=== PATIENT | female | born 1945 | race Caucasian/White ===

== ENCOUNTER 2016-08-13 13:04 | Emergency (ER) | payer MEDICARE ==
[2016-08-13] MEDS ORDERED: OXYMETAZOLINE HCL 0.05% NASAL SPRAY 15 ML BOTTLE ONE (14:28)
--- NOTE | 2016-08-13 15:32 | ER Document Report ---
ED General - General Chief Complaint: Nose Bleed Stated Complaint: NOSE BLEED Notes: She is a 70-year-old female who presents with a nosebleed. She does take Plavix. States that the bleeding started spontaneously and was initially controlled by direct pressure and oxymetazoline as assisted by EMS. She denies any lightheadedness, weakness or numbness after the bleeding and notes that the bleeding has been stopped approximately 20 minutes prior to my assessment. No history of similar symptoms in the past. She is not seeing her primary care physician regarding today's concerns. Nothing was noted to worsen the bleeding. She denies any trauma to the nose. TRAVEL OUTSIDE OF THE [place] IN LAST 30 DAYS: No - Related Data Allergies/Adverse Reactions: codeine [Codeine] Allergy (Verified 07/24/14 10:46) Generalized Itching Shellfish * [Shellfish] Allergy (Verified 07/24/14 10:46) Past Medical History - General Information source: Patient - Social History Smoking Status: Never Smoker Frequency of alcohol use: None Drug Abuse: None Lives with: Family Family History: Reviewed & Not Pertinent - Past Medical History Cardiac Medical History: Reports: Hx Hypertension Denies: Hx Heart Attack Pulmonary Medical History: Denies: Hx Asthma Neurological Medical History: Reports: Hx Cerebrovascular Accident - Left hemiparesis/wheelchair. Denies: Hx Seizures Endocrine Medical History: Reports: Hx Diabetes Mellitus Type 2 GI Medical History: Denies: Hx Hepatitis, Hx Hiatal Hernia, Hx Ulcer Psychiatric Medical History: Reports: Hx Depression Infectious Medical History: Denies: Hx Hepatitis Past Surgical History: Reports: Hx Cardiac Surgery - Stent placed. Denies: Hx Mastectomy, Hx Open Heart Surgery, Hx Pacemaker - Immunizations Hx Pneumococcal Vaccination: 08/03/12 Review of Systems - Review of Systems Notes: Constitutional: Negative for fever. HENT: Negative for sore throat. Positive for left-sided nosebleed Eyes: Negative for visual changes. Cardiovascular: Negative for chest pain. Respiratory: Negative for shortness of breath. Gastrointestinal: Negative for abdominal pain, vomiting or diarrhea. Genitourinary: Negative for dysuria. Musculoskeletal: Negative for back pain. Skin: Negative for rash. Neurological: Negative for headaches, weakness or numbness. 10 point ROS negative except as marked above and in HPI. Physical Exam - Vital signs Vitals: Temp Pulse Resp BP Pulse Ox 98.1 F 72 18 101/49 L 100 01/11/17 13:09 08/13/16 13:09 08/13/16 13:09 08/13/16 13:09 08/13/16 13:09 Interpretation: Normal Notes: PHYSICAL EXAMINATION: GENERAL: Well-appearing, well-nourished and in no acute distress. HEAD: Atraumatic, normocephalic. EYES: Pupils equal round and reactive to light, extraocular movements intact, sclera anicteric, conjunctiva are normal. ENT: No active bleeding from either nostril. There is a small clot in the left nare. NECK: Normal range of motion, supple without lymphadenopathy LUNGS: Breath sounds clear to auscultation bilaterally and equal. No wheezes rales or rhonchi. HEART: Regular rate and rhythm without murmurs ABDOMEN: Soft, nontender, normoactive bowel sounds. No guarding, no rebound. No masses appreciated. EXTREMITIES: Normal range of motion, no pitting or edema. No cyanosis. NEUROLOGICAL: No focal neurological deficits. Moves all extremities spontaneously and on command. PSYCH: Normal mood, normal affect. SKIN: Warm, Dry, normal turgor, no rashes or lesions noted. Course - Re-evaluation Re-evalutation: 08/13/16 23:14 Patient presents with a nosebleed, no active bleeding at time of initial assessment. No tachycardia or hypotension. Patient was observed in the emergency department after further administration of oxymetazoline and direct pressure for 1.5 hours without any further bleeding. She was able to ambulate without difficulty and has tolerated oral intake. No indication for labs at this time given patient's well appearance and reassuring vitals.At this time will discharge with return precautions and follow-up recommendations. Verbal discharge instructions given a the bedside and opportunity for questions given. Medication warnings reviewed. Patient is in agreement with this plan and has verbalized understanding of return precautions and the need for primary care follow-up in the next 24-72 hours. - Vital Signs Vital signs: Temp Pulse Resp BP Pulse Ox 97.3 F 67 18 113/67 98 08/13/16 15:45 08/13/16 15:45 08/13/16 15:45 08/13/16 15:45 08/13/16 15:45 Discharge - Discharge Clinical Impression: Bleeding from the nose Condition: Good Disposition: HOME, SELF-CARE Additional Instructions: You were seen today for a nosebleed. If this restarts please apply direct pressure to the area for 15 minutes without releasing pressure. You can use 4- 5 sprays the Afrin (oxymetazoline) spray that was given to you here in the emergency room into the affected side prior to applying the pressure. You need to apply vasaline or a similar product along the inside of the side of the nose that is bleeding twice daily to help heal the inside of your nose. Please return to emergency department if these measures do not control the bleeding. Please also return if you pass out, have significant pain of the nose or face, or any other symptoms that are concerning to you. Your primary care doctor regarding today's visit.it. Referrals: ETHEL BURDEN MD [Primary Care Provider] - Follow up as needed
[2016-08-13 16:13] VITALS: BP 113/67
[2016-08-13] MEDS ORDERED: OXYMETAZOLINE HCL 0.05% NASAL SPRAY 15 ML BOTTLE NASL ONE (16:25)
== END 2016-08-13 16:00 | disposition home or self-care (01) ==
LOC: ER 13:04
DX: R04.0 Epistaxis (principal); I10 Essential (primary) hypertension; E11.9 Type 2 diabetes mellitus without complications; Z79.02 Long term (current) use of antithrombotics/antiplatelets; Z88.5 Allergy status to narcotic agent; Z91.013 Allergy to seafood; Z86.73 Personal history of transient ischemic attack (TIA), and cerebral infarction without residual deficits; Z98.61 Coronary angioplasty status
CPT/HCPCS: 99283

== ENCOUNTER 2017-04-15 16:06 | Inpatient (IN) | payer MEDICARE ==
[2017-04-15] MEDS ORDERED: DEXTROSE 50%-WATER 25 GM/50 ML DISP.SYRIN IV ONE ×2 (16:23→16:42)
[2017-04-15 16:52] LABS: VENOUS BLOOD BASE EXCESS -4.7 mmol/L; VENOUS BLOOD HCO3 20.4 mmol/L (20-32); VENOUS BLOOD PCO2 37.6 mmHg (35-63); VENOUS BLOOD PH 7.35 (7.30-7.42)
[2017-04-15 16:55] LABS: PROTHROMBIN TIME 19.9 SEC (11.4-15.4)
[2017-04-15 16:59] LABS: HEMATOCRIT 31.6 % (36.0-47.0); HEMOGLOBIN 10.1 g/dL (12.0-15.5); HGB HCT DIFFERENCE -1.3; MEAN CORPUSCULAR HEMOGLOBIN 25.3 pg (27.0-33.4); MEAN CORPUSCULAR VOLUME 79 fl (80-97); RED BLOOD COUNT 3.99 10^6/uL (3.72-5.28); RED CELL DISTRIBUTION WIDTH 21.3 % (11.5-14.0)
--- NOTE | 2017-04-15 17:00 | RADIOLOGY REPORT (SQ) ---
EXAM DESCRIPTION: CHEST SINGLE VIEW COMPLETED DATE/TIME: 04/15/2017 4:24 pm REASON FOR STUDY: suspected sepsis COMPARISON: 04/04/2016 EXAM PARAMETERS: NUMBER OF VIEWS: One view. TECHNIQUE: Single frontal radiographic view of the chest acquired. RADIATION DOSE: NA LIMITATIONS: None. FINDINGS: LUNGS AND PLEURA: No opacities, masses or pneumothorax. No pleural effusion. MEDIASTINUM AND HILAR STRUCTURES: No masses. Contour normal. HEART AND VASCULAR STRUCTURES: Heart normal in size. Normal vasculature. BONES: No acute findings. HARDWARE: None in the chest. OTHER: No other significant finding. IMPRESSION: NO ACUTE RADIOGRAPHIC FINDING IN THE CHEST. TECHNICAL DOCUMENTATION: JOB ID: [id number]
[2017-04-15] MEDS ORDERED: NORMAL SALINE 500 ML IV ONE (17:03)
--- NOTE | 2017-04-15 17:09 | ER Document Report ---
ED General - General Chief Complaint: Low Blood Sugar Stated Complaint: WEAKNESS Time Seen by Provider: 04/15/17 16:34 Notes: 71-year-old female with history of diabetes presents with multiple complaints. She lives alone basically is not getting up at all due to weakness of her lower extremities as well as pain in her legs. She has been dealing with dry skin and red legs for quite a while now. She has had decreased p.o. intake. No fever. She has generalized weakness otherwise. She has not really been getting up now for approximately 5 days. She did receive food and a 700 mL bolus of normal saline by EMS. Her blood pressure was 98/57 on arrival. Blood sugar was 54 initially upon EMS arrival as well and she was noted to be slightly confused. TRAVEL OUTSIDE OF THE [place] IN LAST 30 DAYS: No - Related Data Allergies/Adverse Reactions: codeine [Codeine] Allergy (Verified 07/24/14 10:46) Generalized Itching Shellfish * [Shellfish] Allergy (Verified 07/24/14 10:46) Past Medical History - Social History Smoking Status: Never Smoker Family History: Reviewed & Not Pertinent Patient has suicidal ideation: No Patient has homicidal ideation: No - Past Medical History Cardiac Medical History: Reports: Hx Hypertension Denies: Hx Heart Attack Pulmonary Medical History: Denies: Hx Asthma Neurological Medical History: Reports: Hx Cerebrovascular Accident - Left hemiparesis/wheelchair. Denies: Hx Seizures Endocrine Medical History: Reports: Hx Diabetes Mellitus Type 2 Renal/ Medical History: Denies: Hx Peritoneal Dialysis GI Medical History: Denies: Hx Hepatitis, Hx Hiatal Hernia, Hx Ulcer Psychiatric Medical History: Reports: Hx Depression Infectious Medical History: Denies: Hx Hepatitis Past Surgical History: Reports: Hx Cardiac Surgery - Stent placed. Denies: Hx Mastectomy, Hx Open Heart Surgery, Hx Pacemaker - Immunizations Hx Pneumococcal Vaccination: 08/03/12 Review of Systems - Review of Systems -: Yes All other systems reviewed and negative Physical Exam - Vital signs Vitals: Pulse Ox 96 04/15/17 16:13 - Notes Notes: GENERAL: VS as per nursing doc. Well-appearing, well-nourished and in no acute distress. HEAD: Atraumatic, normocephalic. EYES: Pupils equal round and reactive to light, extraocular movements intact, sclera anicteric, no conjunctival injection or discharge. ENT: Nares patent, oropharynx clear without exudates, somewhat dry mucous membranes. NECK: Normal range of motion, supple without lymphadenopathy. LUNGS: Breath sounds clear to auscultation bilaterally and equal. No wheezes rales or rhonchi. HEART: Regular rate and rhythm without murmurs. ABDOMEN: Soft, non-tender. EXTREMITIES: Normal range of motion, no calf tenderness, no edema. NEUROLOGICAL: Diffusely weak but nonfocal otherwise, PSYCH: Angry affect SKIN: There is dry flaking skin of the lower extremities with erythema and cellulitic changes more on the right. There is a necrotic ulcer on the heel of the right foot. Course - Re-evaluation Re-evalutation: 04/15/17 18:05 Dr. Rj spain. 04/15/17 19:[address] Raza who has signed out for the day and would like the hospitalist to admit and he will cigar packer and picker tomorrow. 04/15/17 20:[address] Austin. He requests further imaging of the patient's abdomen due to the isolated bilirubin level then call him back. We will obtain a CT without contrast due to her elevated creatinine. Her current blood pressure is 102/58 after 2.5 L of NS in the emergency department. 04/15/17 22:21 04/15/17 23:11 Patient still has low but maintaining blood pressure without pressors with current heart rate 82 and blood pressure 97/51 (61) - Vital Signs Vital signs: Temp Pulse Resp BP Pulse Ox 98.3 F 82 32 H 88/51 L 100 04/15/17 20:45 04/15/17 16:29 04/15/17 22:07 04/15/17 22:07 04/15/17 22:07 - Laboratory Result Diagrams: 04/15/17 16:24 04/15/17 16:24 Laboratory results interpreted by me: 04/15/17 04/15/17 04/15/17 16:15 16:24 16:24 WBC 18.0 H Hgb 10.1 L Hct 31.6 L MCV 79 L MCH 25.3 L RDW 21.3 H Seg Neuts % (Manual) 95 H Band Neutrophils % 1 L Lymphocytes % (Manual) 2 L Monocytes % (Manual) 2 L Abs Neuts (Manual) 17.3 H Abs Lymphs (Manual) 0.4 L PT 19.9 H Sodium Carbon Dioxide BUN Creatinine Est GFR ( Amer) Est GFR (Non-Af Amer) Glucose POC Glucose 51 L Calcium Total Bilirubin Direct Bilirubin AST Albumin Urine Blood Ur Leukocyte Esterase 04/15/17 04/15/17 04/15/17 16:24 16:59 17:54 WBC Hgb Hct MCV MCH RDW Seg Neuts % (Manual) Band Neutrophils % Lymphocytes % (Manual) Monocytes % (Manual) Abs Neuts (Manual) Abs Lymphs (Manual) PT Sodium 133.9 L Carbon Dioxide 17 L BUN 52 H Creatinine 1.72 H Est GFR ( Amer) 35 L Est GFR (Non-Af Amer) 29 L Glucose 140 H POC Glucose 125 H Calcium 8.3 L Total Bilirubin 2.6 H Direct Bilirubin 2.0 H AST 48 H Albumin 2.9 L Urine Blood SMALL H Ur Leukocyte Esterase SMALL H 04/15/17 19:14 WBC Hgb Hct MCV MCH RDW Seg Neuts % (Manual) Band Neutrophils % Lymphocytes % (Manual) Monocytes % (Manual) Abs Neuts (Manual) Abs Lymphs (Manual) PT Sodium Carbon Dioxide BUN Creatinine Est GFR ( Amer) Est GFR (Non-Af Amer) Glucose POC Glucose 125 H Calcium Total Bilirubin Direct Bilirubin AST Albumin Urine Blood Ur Leukocyte Esterase - Diagnostic Test Radiology reviewed: Image reviewed, Reports reviewed - Nonacute, no clear ostium myelitis. Radiology results interpreted by me: 04/15/17 23:10 CT results show old ascites, small effusions, subcutaneous edema. Critical Care Note - Critical Care Note Total time excluding time spent on procedures (mins): 38 Discharge - Discharge Clinical Impression: Diabetic infection of right foot, Hypotension, Hypoglycemia Condition: Critical Disposition: ADMITTED INPATIENT Admitting Provider: [facility] Admitted: ICU Referrals: ETHEL BURDEN MD [Primary Care Provider] - Follow up as needed
[2017-04-15 17:10] LABS: ALANINE AMINOTRANSFERASE 26 U/L (9-52); ALBUMIN 2.9 g/dL (3.5-5.0); ALKALINE PHOSPHATASE 110 U/L (38-126); ANION GAP 17 (5-19); ASPARTATE AMINO TRANSFERASE 48 U/L (14-36); BILIRUBIN,TOTAL 2.6 mg/dL (0.2-1.3); BLOOD UREA NITROGEN 52 mg/dL (7-20); CALCIUM 8.3 mg/dL (8.4-10.2); CARBON DIOXIDE 17 mmol/L (22-30); CHLORIDE 100 mmol/L (98-107); CREATININE RESULT 1.72 mg/dL (0.52-1.25); GLUCOSE 140 mg/dL (75-110); POTASSIUM 3.8 mmol/L (3.6-5.0); SODIUM 133.9 mmol/L (137-145); TOTAL PROTEIN 6.4 g/dL (6.3-8.2)
[2017-04-15 17:26] LABS: BAND NEUTROPHILS % (MANUAL) 1 % (3-5); BASOPHILS % (MANUAL) 0 % (0-2); EOSINOPHILS % (MANUAL) 0 % (0-6); LYMPHOCYTES % (MANUAL) 2 % (13-45); TOTAL CELLS COUNTED 100; TOXIC GRANULATION 1+; TOXIC VACUOLATION PRESENT
--- NOTE | 2017-04-15 17:26 | RADIOLOGY REPORT (SQ) ---
EXAM DESCRIPTION: FOOT RIGHT COMPLETE COMPLETED DATE/TIME: 04/15/2017 5:18 pm REASON FOR STUDY: Eval for osteo COMPARISON: None. NUMBER OF VIEWS: Three views. TECHNIQUE: AP, lateral and oblique radiographic images acquired of the right foot. LIMITATIONS: None. FINDINGS: MINERALIZATION: Osteopenia. BONES: No fracture dislocation. There are large plantar calcaneal spurs. JOINTS: Degenerative joint changes are present at the 1st metatarsal-phalangeal joint. SOFT TISSUES: No soft tissue swelling. No foreign body. OTHER: No other significant finding. IMPRESSION: Calcaneal spurs with no acute osseous abnormality. Degenerative joint changes as descri bed. TECHNICAL DOCUMENTATION: JOB ID: [id number] [employer]- All Rights Reserved
[2017-04-15 17:27] LABS: BURR CELLS 1+; HYPOCHROMASIA SLIGHT; OVALOCYTES 1+; POIKILOCYTOSIS 2+
[2017-04-15] MEDS ORDERED: PIPERACILLIN/TAZOBACTAM 3.375 GM VIAL IV ONE (17:57)
[2017-04-15] MEDS ORDERED: VANCOMYCIN HCL INJ 1000 MG VIAL IV ONE (17:59)
[2017-04-15 20:26] LABS: APPEARANCE,URINE SLIGHTLY-CLOUDY; BILIRUBIN,URINE NEGATIVE (NEGATIVE); GLUCOSE, URINE NEGATIVE (NEGATIVE); KETONES,URINE NEGATIVE (NEGATIVE); LEUKOCYTE ESTERASE,URINE SMALL (NEGATIVE); NITRITE,URINE NEGATIVE (NEGATIVE); PROTEIN,URINE NEGATIVE (NEGATIVE); URINE SPECIFIC GRAVITY 1.014; UROBILINOGEN,URINE NEGATIVE mg/dL (<2.0)
--- NOTE | 2017-04-15 20:47 | RADIOLOGY REPORT (SQ) ---
EXAM DESCRIPTION: CT ABD/PELVIS NO ORAL OR IV COMPLETED DATE/TIME: 04/15/2017 8:36 pm REASON FOR STUDY: Sepsis, elevated Bili COMPARISON: None. TECHNIQUE: CT scan of the abdomen and pelvis performed without intravenous or oral contrast. Images reviewed with lung, soft tissue, and bone windows. Reconstructed coronal and sagittal MPR images revi ewed. All images stored on PACS. All CT scanners at this facility use dose modulation, iterative reconstruction, and/or weight based d osing when appropriate to reduce radiation dose to as low as reasonably achievable (ALARA). [facility]: Dose Right [facility]: CareDose [facility]: Dose Right [facility]: Teradose 4D [facility]: Smart [employer]School RADIATION DOSE: Up-to-date CT equipment and radiation dose reduction techniques were employed. CTDIv ol: 18.1 mGy. DLP: 993 mGy-cm.mGy. LIMITATIONS: None. FINDINGS: LOWER CHEST: There are small pleural effusions right greater than left. NON-CONTRASTED LIVER, SPLEEN, ADRENALS: There is a small amount of perisplenic fluid. There is a hyp oattenuating lesion in the spleen medially Hounsfield units measure 1 consistent with cyst. PANCREAS: The pancreas is atrophic. GALLBLADDER: There are multiple gallstones. No surrounding edema. RIGHT KIDNEY AND URETER: There is nonspecific right perinephric stranding. No suspicious masses on t his non contrasted study. No significant calcifications. No hydronephrosis or hydroureter. LEFT KIDNEY AND URETER: There is nonspecific left perinephric stranding. No suspicious masses on thi s noncontrast study. No significant calcifications. No hydronephrosis or hydroureter. AORTA AND RETROPERITONEUM: No aneurysm. The aorta demonstrates atherosclerotic change. BOWEL AND PERITONEAL CAVITY: There is a small amount of ascites. GI tract unremarkable. No bowel wa ll thickening or obstruction. APPENDIX: Not visualized. PELVIS, BLADDER, AND ABDOMINAL WALL:There is free fluid in the pelvis. There is diffuse subcutaneous edema. BONES: There are postsurgical changes in the left hip. OTHER: No other significant finding. IMPRESSION: 1. Bilateral pleural effusions right greater than left. 2. Small volume ascites. 3. Subcutaneous edema. COMMENT: Quality ID # [id number]: Final reports with documentation of one or more dose reduction techniques (e.g., Automated exposure control, adjustment of the mA and/or kV according to patient size, use of iterative reconstruction technique) TECHNICAL DOCUMENTATION: JOB ID: [id number] [employer]- All Rights Reserved
[2017-04-15] MEDS ORDERED: NORMAL SALINE 1000 ML 1,000 ML IV ONE (22:20)
[2017-04-15] MEDS ORDERED: ACETAMINOPHEN 325 MG TABLET PO PRN (22:48)
[2017-04-15] MEDS ORDERED: ONDANSETRON HCL INJ/PF 4 MG/2 ML SDV IV PRN (22:48)
[2017-04-15] MEDS ORDERED: MAG HYDROX/AL HYDROX/SIMETH SUSP 30 ML UDCUP PO PRN (22:48)
--- NOTE | 2017-04-15 22:48 | EKG REPORT ---
SEVERITY:- ABNORMAL ECG - SINUS RHYTHM PROBABLE INFERIOR INFARCT, OLD LATERAL LEADS ARE ALSO INVOLVED : Confirmed by: Vanesa Irene 15-Apr-2017 22:47:58
[2017-04-15] MEDS ORDERED: ASPIRIN 325 MG TABLET, ENT COATED PO PRN (22:54)
[2017-04-15] MEDS ORDERED: GLUCAGON,HUMAN RECOMB 1 MG INJ IM PRN (22:56)
[2017-04-15] MEDS ORDERED: DEXTROSE 40% GEL 15 GM TUBE PO PRN ×2 (22:56)
[2017-04-15] MEDS ORDERED: DEXTROSE 50%-WATER 25 GM/50 ML DISP.SYRIN IV PRN ×2 (22:56)
[2017-04-15] MEDS ORDERED: PHYTONADIONE INJ 10 MG/1 ML AMPULE SUBCUT ONE (22:57)
[2017-04-15] MEDS ORDERED: VANCOMYCIN HCL 0 MG in DEXTROSE 5%-WATER 250 ML IV NR (23:00)
[2017-04-15] MEDS ORDERED: NORMAL SALINE 1000 ML 1,000 ML IV SCH (23:00)
[2017-04-16 00:39] LABS: MAGNESIUM 2.2 mg/dL (1.6-2.3); PHOSPHORUS 3.4 mg/dL (2.5-4.5)
[2017-04-16 00:40] LABS: PROTHROMBIN TIME 19.3 SEC (11.4-15.4)
[2017-04-16] MEDS ORDERED: NOREPINEPHRINE BITARTRATE INJ/PF 4 MG/4 ML SDV IV ONE (02:11)
--- NOTE | 2017-04-16 02:43 | PDOC H&P ---
History of Present Illness Admission Date/PCP: 04/15/17 22:48 ETHEL BURDEN, Patient complains of: Severe sepsis, stage IV heel ulcer, diabetes, peripheral artery disease, coronary artery disease. History of Present Illness: SHERITA CAPUTO is a 71 year old female with a past medical history of coronary artery disease with stents on Plavix, CVA with residual right-sided weakness, stage III chronic kidney disease, peripheral artery disease, diabetes , hypertension, dyslipidemia, recurrent bilateral lower extremity cellulitis and decubitus ulcer of left heel. The patient has felt unwell for approximately 5 days poor p.o. intake unable to mobilize from bed. Today she was found by her daughter altered mental status, EMS finds her with hypotension tachycardia receiving an IV fluid bolus brought to the emergency room where she is found to be in severe sepsis. She started on empiric antibiotics continued IV fluid challenge and referred to the hospitalist for admission. Patient denies foot or leg pain despite bilateral lower extremity cellulitis, large right stage IV heel ulcer and dry necrotic appearing digits of the feet bilaterally. The patient accompanied by her daughter admits history of chronic lower extremity ischemia and discussions of possible amputation with jig builder Dr. Conn. Past Medical History Cardiac Medical History: Reports: Coronary Artery Disease, Hypertension, Peripheral Vascular Disease Denies: Myocardial Infarction Pulmonary Medical History: Denies: Asthma Neurological Medical History: Denies: Seizures Endocrine Medical History: Reports: Diabetes Mellitus Type 2 Renal/ Medical History: Reports: Chronic Kidney Disease GI Medical History: Denies: Hepatitis, Hiatal Hernia Psychiatric Medical History: Reports: Depression Hematology: Denies: Anemia, Sickle Cell Disease Past Surgical History Past Surgical History: Denies: Amputation, Mastectomy, Pacemaker Social History Information Source: Patient, [facility] Smoking Status: Never Smoker Frequency of Alcohol Use: None Hx Recreational Drug Use: No Drugs: None Hx Prescription Drug Abuse: No - Advance Directive Resuscitation Status: Full Code Family History Family History: Hypertension Parental Family History Reviewed: Yes Children Family History Reviewed: Yes Sibling(s) Family History Reviewed.: Yes Medication/Allergy Home Medications: Furosemide [Lasix 40 mg Tablet] 40 mg PO DAILY 07/24/14 Glipizide [Glipizide Xl] 10 mg PO DAILY 07/24/14 Lisinopril 10 mg PO DAILY 07/24/14 Atorvastatin Calcium 40 mg PO DAILY 04/06/16 Metoprolol Succinate 100 mg PO DAILY 04/06/16 Acetaminophen [Tylenol 325 mg Tablet] 650 mg PO Q4HP PRN #0 tablet 04/08/16 Amox Tr/Potassium Clavulanate [Augmentin "500" Tablet] 1 tab PO Q8 #30 tablet 04/08/16 Aspirin [Ecotrin 325 mg EC Tablet] 325 mg PO DAILY PRN #0 tabec 04/08/16 Clopidogrel Bisulfate [Plavix 75 mg Tablet] 75 mg PO DAILY #0 tablet 04/08/16 Docusate Sodium [Colace 100 mg Capsule] 100 mg PO DAILY #0 capsule 04/08/16 Ferrous Sulfate [Feosol 325 mg Tablet] 325 mg PO BIDPCBS #120 tablet 04/08/16 Metoprolol Tartrate [Lopressor 100 mg Tablet] 100 mg PO Q12 #0 tablet 04/08/16 Simvastatin [Zocor 40 mg Tablet] 40 mg PO DAILY #0 tablet 04/08/16 Nitroglycerin [Nitrostat 0.4 mg (1/150 Gr) Tabs 25/Bottle] 1 tab SL Q5MP PRN Allergies/Adverse Reactions: codeine [Codeine] Allergy (Verified 07/24/14 10:46) Generalized Itching Shellfish * [Shellfish] Allergy (Verified 07/24/14 10:46) Review of Systems ROS unobtainable: Due to mental status Constitutional: ABSENT: chills, fever(s), headache(s), weight gain, weight loss Eyes: ABSENT: visual disturbances Ears: ABSENT: hearing changes Cardiovascular: ABSENT: chest pain, dyspnea on exertion, edema, orthropnea, palpitations Respiratory: ABSENT: cough, hemoptysis Gastrointestinal: ABSENT: abdominal pain, constipation, diarrhea, hematemesis, hematochezia, nausea, vomiting Genitourinary: ABSENT: dysuria, hematuria Musculoskeletal: ABSENT: joint swelling Integumentary: ABSENT: rash, wounds Neurological: ABSENT: abnormal gait, abnormal speech, confusion, dizziness, focal weakness, syncope Psychiatric: ABSENT: anxiety, depression, homidical ideation, suicidal ideation Endocrine: ABSENT: cold intolerance, heat intolerance, polydipsia, polyuria Hematologic/Lymphatic: ABSENT: easy bleeding, easy bruising Physical Exam Vital Signs: Temp Pulse Resp BP Pulse Ox 98.1 F 76 30 H 91/52 L 95 04/16/17 01:34 04/16/17 02:00 04/16/17 02:01 04/16/17 02:00 04/16/17 02:01 Intake & Output 04/14/17 04/15/17 04/16/17 11:59 11:59 11:59 Output Total 100 Balance -100 Weight 84.5 kg General appearance: PRESENT: cooperative, disheveled, severe distress, thin, other - Acutely toxic appearing with temporal wasting with cachexia. Head exam: PRESENT: atraumatic, normocephalic Eye exam: PRESENT: conjunctiva pink, EOMI, PERRLA. ABSENT: scleral icterus Ear exam: PRESENT: normal external ear exam Mouth exam: PRESENT: dry mucosa Neck exam: ABSENT: carotid bruit, JVD, lymphadenopathy, thyromegaly Respiratory exam: PRESENT: clear to auscultation lenore. ABSENT: rales, rhonchi, wheezes Cardiovascular exam: PRESENT: RRR. ABSENT: diastolic murmur, rubs, systolic murmur Pulses: PRESENT: other - Nonpalpable lower extremity pulses Doppler ordered Vascular exam: PRESENT: pallor GI/Abdominal exam: PRESENT: normal bowel sounds, soft. ABSENT: distended, guarding, mass, organolmegaly, rebound, tenderness Rectal exam: PRESENT: deferred Extremities exam: PRESENT: calf tenderness, +1 edema - Chronic changes of arterial and vascular ischemia. Hyperkeratosis and erythema to the knees bilaterally, right sided stage IV heel ulcer with eschar Neurological exam: PRESENT: altered, CN II-XII grossly intact Psychiatric exam: PRESENT: normal mood, unusual affect. ABSENT: homicidal ideation, suicidal ideation Skin exam: PRESENT: other - Chronic changes of arterial and vascular ischemia. Hyperkeratosis and erythema to the knees bilaterally, right sided stage IV heel ulcer with eschar Adult Front & Back Image: 1 - Chronic changes of arterial and vascular ischemia. Hyperkeratosis and erythema to the knees bilaterally, right sided stage IV heel ulcer with eschar 2 - Chronic changes of arterial and vascular ischemia. Hyperkeratosis and erythema to the knees bilaterally, right sided stage IV heel ulcer with eschar Results Impressions: Chest X-Ray 04/15/17 16:10 IMPRESSION: NO ACUTE RADIOGRAPHIC FINDING IN THE CHEST. Foot X-Ray 04/15/17 16:57 IMPRESSION: Calcaneal spurs with no acute osseous abnormality. Degenerative joint changes as described. Abdomen/Pelvis CT 04/15/17 20:09 IMPRESSION: 1. Bilateral pleural effusions right greater than left. 2. Small volume ascites. 3. Subcutaneous edema. Assessment & Plan - Diagnosis (1) Severe sepsis Is this a current diagnosis for this admission?: Yes Plan: Most likely secondary to necrotic right heel ulcer and lower extremity cellulitis. Empiric antibiotics of vancomycin and Zosyn initiated IV fluid challenge and levo fed ordered. Orthopedic surgery consulted. CT abdomen and pelvis and physical exam suggests subcutaneous emphysema of the abdominal wall. No clear source empiric antibiotics initiated. (2) Chronic renal failure Is this a current diagnosis for this admission?: Yes Plan: Aggressive resuscitation of blood pressure and septic state avoiding nephrotoxic meds and doses reevaluation of chemistry. (3) Severe peripheral arterial disease Is this a current diagnosis for this admission?: Yes Plan: Lower extremity Dopplers ordered, orthopedic surgery consulted (4) Diabetic infection of right foot Is this a current diagnosis for this admission?: Yes Plan: Doubtful improvement with limited debridement given surrounding changes and chronicity, empiric antibiotics initiated, orthopedic surgery consulted (5) Hypotension Is this a current diagnosis for this admission?: Yes Plan: Secondary to #1 - Time Time Spent: 50 to 70 Minutes - Inpatient Certification Medical Necessity: Need Close Monitoring Due to Risk of Patient Decompensation
[2017-04-16] MEDS ORDERED: PHYTONADIONE INJ 10 MG/1 ML AMPULE ONE (02:44)
[2017-04-16] MEDS: PIPERACILLIN/TAZOBACTAM 3.375 GM VIAL IV PRN ×2 (02:53→06:35)
[2017-04-16] MEDS: PIPERACILLIN SODIUM/TAZOBACTAM 3.375 GM in NORMAL SALINE 100 ML IV SCH ×2 (02:54→06:35)
[2017-04-16 04:04] LABS: HEMOGLOBIN 10.6 g/dL (12.0-15.5); HGB HCT DIFFERENCE -1.2; MEAN CORPUSCULAR HEMOGLOBIN 25.5 pg (27.0-33.4); MEAN CORPUSCULAR HGB CONC 32.2 g/dL (32.0-36.0); MEAN CORPUSCULAR VOLUME 79 fl (80-97); RED BLOOD COUNT 4.17 10^6/uL (3.72-5.28); RED CELL DISTRIBUTION WIDTH 21.3 % (11.5-14.0); WHITE BLOOD COUNT 25.4 10^3/uL (4.0-10.5)
[2017-04-16 04:24] LABS: ANION GAP 15 (5-19); BLOOD UREA NITROGEN 54 mg/dL (7-20); CALCIUM 8.2 mg/dL (8.4-10.2); CARBON DIOXIDE 14 mmol/L (22-30); CHLORIDE 106 mmol/L (98-107); CREATININE RESULT 1.76 mg/dL (0.52-1.25); GLUCOSE 118 mg/dL (75-110); POTASSIUM 3.9 mmol/L (3.6-5.0); SODIUM 135.3 mmol/L (137-145)
[2017-04-16 04:38] LABS: BAND NEUTROPHILS % (MANUAL) 3 % (3-5); BASOPHILS % (MANUAL) 0 % (0-2); EOSINOPHILS % (MANUAL) 0 % (0-6); LYMPHOCYTES % (MANUAL) 0 % (13-45); TOTAL CELLS COUNTED 100
[2017-04-16 04:40] LABS: HYPOCHROMASIA 1+; MICROCYTOSIS SLIGHT; TOXIC GRANULATION 2+
[2017-04-16 04:41] LABS: ACANTHOCYTES SLIGHT; ANISOCYTOSIS 3+; BURR CELLS 1+; OVALOCYTES 1+; POIKILOCYTOSIS 2+
[2017-04-16] MEDS: HEPARIN SOD (PORCINE) 5,000 UNIT/ML 1 ML SYRINGE SUBCUT SCH ×3 (05:24→21:38)
[2017-04-16] MEDS ORDERED: CIPROFLOXACIN 400 MG/D5W RTU 400 MG/200 ML RTUPB IV SCH (06:00)
--- NOTE | 2017-04-16 06:42 | PDOC CONSULTATION ---
Consultation Consult Date: 04/16/17 Consult reason:: Right lower extremity cellulitis/calcaneal ulcer History of Present Illness Admission Date/PCP: 04/15/17 22:48 ETHEL BURDEN, History of Present Illness: Patient is a 71-year-old white female who has been nonambulatory for the last 12 years since a cerebrovascular accident. She mobilizes by chair. She has developed a right calcaneal ulcer this been treated by Dr. Conn. Dr. Conn has recommended below-knee amputation the patient has resisted. She now presents because of progressive decline and was found to have a white count of 25,000. Patient is admitted to the intensive care unit and orthopedics was consulted for calcaneal ulcer management Past Medical History Cardiac Medical History: Reports: Coronary Artery Disease, Hypertension, Peripheral Vascular Disease Denies: Myocardial Infarction Pulmonary Medical History: Denies: Asthma Neurological Medical History: Denies: Seizures Endocrine Medical History: Reports: Diabetes Mellitus Type 2 Renal/ Medical History: Reports: Chronic Kidney Disease GI Medical History: Denies: Hepatitis, Hiatal Hernia Psychiatric Medical History: Reports: Depression Hematology: Denies: Anemia, Sickle Cell Disease Past Surgical History Past Surgical History: Denies: Amputation, Mastectomy, Pacemaker Social History Information Source: Patient, [facility] Records Smoking Status: Never Smoker Frequency of Alcohol Use: None Hx Recreational Drug Use: No Drugs: None Hx Prescription Drug Abuse: No - Advance Directive Resuscitation Status: Full Code Family History Family History: Hypertension Parental Family History Reviewed: No Children Family History Reviewed: No Sibling(s) Family History Reviewed.: No Medication/Allergy Home Medications: Furosemide [Lasix 40 mg Tablet] 40 mg PO DAILY 07/24/14 Glipizide [Glipizide Xl] 10 mg PO DAILY 07/24/14 Lisinopril 10 mg PO DAILY 07/24/14 Atorvastatin Calcium 40 mg PO DAILY 04/06/16 Metoprolol Succinate 100 mg PO DAILY 04/06/16 Acetaminophen [Tylenol 325 mg Tablet] 650 mg PO Q4HP PRN #0 tablet 04/08/16 Amox Tr/Potassium Clavulanate [Augmentin "500" Tablet] 1 tab PO Q8 #30 tablet 04/08/16 Aspirin [Ecotrin 325 mg EC Tablet] 325 mg PO DAILY PRN #0 tabec 04/08/16 Clopidogrel Bisulfate [Plavix 75 mg Tablet] 75 mg PO DAILY #0 tablet 04/08/16 Docusate Sodium [Colace 100 mg Capsule] 100 mg PO DAILY #0 capsule 04/08/16 Ferrous Sulfate [Feosol 325 mg Tablet] 325 mg PO BIDPCBS #120 tablet 04/08/16 Metoprolol Tartrate [Lopressor 100 mg Tablet] 100 mg PO Q12 #0 tablet 04/08/16 Simvastatin [Zocor 40 mg Tablet] 40 mg PO DAILY #0 tablet 04/08/16 Nitroglycerin [Nitrostat 0.4 mg (1/150 Gr) Tabs 25/Bottle] 1 tab SL Q5MP PRN Allergies/Adverse Reactions: codeine [Codeine] Allergy (Verified 07/24/14 10:46) Generalized Itching Shellfish * [Shellfish] Allergy (Verified 07/24/14 10:46) Review of Systems All systems: as per PMH Physical Exam Vital Signs: Temp Pulse Resp BP Pulse Ox 36.9 C 78 29 H 90/53 L 93 04/16/17 04:00 04/16/17 05:39 04/16/17 06:01 04/16/17 06:01 04/16/17 06:01 Intake & Output 04/14/17 04/15/17 04/16/17 06:59 06:59 06:59 Intake Total 1044 Output Total 142 Balance 902 Weight 84.5 kg General appearance: PRESENT: no acute distress Head exam: PRESENT: normocephalic Respiratory exam: PRESENT: unlabored Cardiovascular exam: PRESENT: RRR Pulses: PRESENT: +1 pedal pulses bilateral Vascular exam: PRESENT: normal capillary refill GI/Abdominal exam: PRESENT: soft Rectal exam: PRESENT: deferred Extremities exam: PRESENT: other - Right lower extremity elevated on pillow. There is erythema that extends to just distal to the knee joint. There is induration and tenderness. There is chronic skin changes. There is a calcaneal ulcer on the posterior aspect. There is diffuse edema throughout the foot and toes. There is a palpable pulse. There is capillary refill. Motor function to the great toe is intact. Sensory function is subjectively decreased. Neurological exam: PRESENT: alert, awake, oriented to person, oriented to place , oriented to time, oriented to situation. ABSENT: motor sensory deficit Psychiatric exam: PRESENT: anxious, appropriate affect. ABSENT: homicidal ideation, suicidal ideation Results Laboratory Results: 04/16/17 03:57 04/16/17 03:57 04/16/17 04/16/17 03:57 03:57 WBC 25.4 H RBC 4.17 Hgb 10.6 L Hct 33.0 L MCV 79 L MCH 25.5 L MCHC 32.2 RDW 21.3 H Plt Count 222 Seg Neutrophils % Not Reportable Lymphocytes % Not Reportable Monocytes % Not Reportable Eosinophils % Not Reportable Basophils % Not Reportable Absolute Neutrophils Not Reportable Absolute Lymphocytes Not Reportable Absolute Monocytes Not Reportable Absolute Eosinophils Not Reportable Absolute Basophils Not Reportable Sodium 135.3 L Potassium 3.9 Chloride 106 Carbon Dioxide 14 L Anion Gap 15 BUN 54 H Creatinine 1.76 H Est GFR ( Amer) 35 L Est GFR (Non-Af Amer) 29 L Glucose 118 H Calcium 8.2 L Impressions: Chest X-Ray 04/15/17 16:10 IMPRESSION: NO ACUTE RADIOGRAPHIC FINDING IN THE CHEST. Foot X-Ray 04/15/17 16:57 IMPRESSION: Calcaneal spurs with no acute osseous abnormality. Degenerative joint changes as described. Abdomen/Pelvis CT 04/15/17 20:09 IMPRESSION: 1. Bilateral pleural effusions right greater than left. 2. Small volume ascites. 3. Subcutaneous edema. Status: Imported from PACS Assessment & Plan - Diagnosis (1) Diabetic infection of right foot Is this a current diagnosis for this admission?: Yes Plan: 71-year-old white female who is nonambulatory and relies on a wheelchair. She is now admitted with a septic picture although her hemodynamics at the current time are not compromised. She has an elevated white count of 25,000 presumably emanates from her right lower extremity cellulitis and ulcer. I recommended the patient consider below-knee amputation. I think this will do little if anything to interfere with her function and allow her to rapidly resolve the current septic episode and future episodes. The patient states "this is not something you just jump into". Of explained to her that I think her function will be much better without the leg and that it would alleviate ongoing issues with treatment of the ulcer. In the meantime she is to be placed into a bunny boot to help decrease the pressure on the back of the heel. In light of the patient's resistance to consider surgical options , I recommend that we continue with IV antibiotics and observation. - Time Time Spent: 50 to 70 Minutes Anticipated discharge: SNF Within: Other
[2017-04-16] MEDS ORDERED: ONDANSETRON HCL INJ/PF 4 MG/2 ML SDV IV PRN (07:30)
[2017-04-16] MEDS ORDERED: ACETAMINOPHEN 325 MG TABLET PO PRN (07:30)
[2017-04-16] MEDS ORDERED: MAG HYDROX/AL HYDROX/SIMETH SUSP 30 ML UDCUP PO PRN (08:00)
[2017-04-16] MEDS ORDERED: ASPIRIN 325 MG TABLET, ENT COATED PO PRN (08:18)
[2017-04-16] MEDS: DOCUSATE SODIUM 100 MG CAPSULE PO SCH ×2 (09:55→17:22)
[2017-04-16] MEDS ORDERED: ATORVASTATIN CALCIUM 40 MG TABLET PO SCH (10:00)
--- NOTE | 2017-04-16 11:59 | PDOC PROGRESS REPORT ---
Subjective Progress Note for:: 04/16/17 Subjective:: The patient appears to be doing slightly better. She is awake and oriented. She is not happy about possibly having to be in the hospital and she is not happy with a consideration of below-knee amputation. Long discussion with the patient again about her peripheral arterial disease and the difficulty with healing the ulcer Physical Exam Vital Signs: Temp Pulse Resp BP Pulse Ox 98.4 F 74 30 H 100/57 L 97 04/16/17 04:00 04/16/17 08:00 04/16/17 10:21 04/16/17 10:21 04/16/17 10:21 Intake & Output 04/15/17 04/16/17 04/17/17 06:59 06:59 06:59 Intake Total 1044 Output Total 142 75 Balance 902 -75 Weight 84.5 kg General appearance: PRESENT: severe distress Head exam: PRESENT: atraumatic Eye exam: PRESENT: conjunctival injection Mouth exam: PRESENT: dry mucosa Neck exam: PRESENT: carotid bruit Respiratory exam: PRESENT: clear to auscultation lenore Cardiovascular exam: PRESENT: RRR, +S1, +S2 Pulses: PRESENT: other Vascular exam: PRESENT: pallor GI/Abdominal exam: PRESENT: normal bowel sounds, soft Extremities exam: PRESENT: tenderness, other Musculoskeletal exam: PRESENT: other Neurological exam: PRESENT: alert, awake Psychiatric exam: PRESENT: anxious Skin exam: PRESENT: abrasion, erythema, pallor, skin tears Results Laboratory Results: 04/16/17 03:57 04/16/17 03:57 04/16/17 04/16/17 03:57 03:57 WBC 25.4 H RBC 4.17 Hgb 10.6 L Hct 33.0 L MCV 79 L MCH 25.5 L MCHC 32.2 RDW 21.3 H Plt Count 222 Seg Neutrophils % Not Reportable Lymphocytes % Not Reportable Monocytes % Not Reportable Eosinophils % Not Reportable Basophils % Not Reportable Absolute Neutrophils Not Reportable Absolute Lymphocytes Not Reportable Absolute Monocytes Not Reportable Absolute Eosinophils Not Reportable Absolute Basophils Not Reportable Sodium 135.3 L Potassium 3.9 Chloride 106 Carbon Dioxide 14 L Anion Gap 15 BUN 54 H Creatinine 1.76 H Est GFR ( Amer) 35 L Est GFR (Non-Af Amer) 29 L Glucose 118 H Calcium 8.2 L Impressions: Chest X-Ray 04/15/17 16:10 IMPRESSION: NO ACUTE RADIOGRAPHIC FINDING IN THE CHEST. Foot X-Ray 04/15/17 16:57 IMPRESSION: Calcaneal spurs with no acute osseous abnormality. Degenerative joint changes as described. Abdomen/Pelvis CT 04/15/17 20:09 IMPRESSION: 1. Bilateral pleural effusions right greater than left. 2. Small volume ascites. 3. Subcutaneous edema. Assessment & Plan - Diagnosis (1) Severe sepsis Is this a current diagnosis for this admission?: Yes Plan: Continue with IV fluids. Try to wean off Levophed. Continue with IV antibiotics (2) Bacteremia Is this a current diagnosis for this admission?: Yes Plan: Gram-negative rods. We will continue with IV antibiotics (4) Chronic renal failure Is this a current diagnosis for this admission?: Yes Plan: Continue IV fluids (5) Diabetic infection of right foot Is this a current diagnosis for this admission?: Yes Plan: Surgical and orthopedic evaluation with a consideration for possible amputation
[2017-04-16] MEDS: PIPERACILLIN SODIUM/TAZOBACTAM 3.375 GM in DEXTROSE 5%-WATER 100 ML IV SCH ×3 (13:33→23:57)
[2017-04-16] MEDS: VANCOMYCIN HCL 1,000 MG in DEXTROSE 5%-WATER 250 ML IV SCH (17:17)
[2017-04-16] MEDS: CIPROFLOXACIN 400 MG/D5W RTU 400 MG/200 ML RTUPB IV SCH (17:17)
[2017-04-16] MEDS: NORMAL SALINE 1000 ML 1,000 ML IV PRN (17:22)
[2017-04-16] MEDS: ATORVASTATIN CALCIUM 40 MG TABLET PO SCH (21:44)
[2017-04-17] MEDS: INSULIN LISPRO 100 UNIT/ML 3 ML VIAL SUBCUT PRN (00:04)
[2017-04-17] MEDS: NORMAL SALINE 1000 ML 1,000 ML IV PRN ×4 (00:08→16:34)
[2017-04-17 04:27] LABS: HEMATOCRIT 32.6 % (36.0-47.0); HEMOGLOBIN 10.3 g/dL (12.0-15.5); HGB HCT DIFFERENCE -1.7; MEAN CORPUSCULAR HEMOGLOBIN 25.1 pg (27.0-33.4); MEAN CORPUSCULAR HGB CONC 31.7 g/dL (32.0-36.0); MEAN CORPUSCULAR VOLUME 79 fl (80-97); RED BLOOD COUNT 4.12 10^6/uL (3.72-5.28); WHITE BLOOD COUNT 25.7 10^3/uL (4.0-10.5)
[2017-04-17 04:35] LABS: ANION GAP 13 (5-19); BLOOD UREA NITROGEN 53 mg/dL (7-20); CARBON DIOXIDE 13 mmol/L (22-30); CHLORIDE 109 mmol/L (98-107); GLUCOSE 136 mg/dL (75-110); POTASSIUM 3.1 mmol/L (3.6-5.0); SODIUM 134.8 mmol/L (137-145)
[2017-04-17 04:54] LABS: BAND NEUTROPHILS % (MANUAL) 6 % (3-5); BASOPHILS % (MANUAL) 0 % (0-2); EOSINOPHILS % (MANUAL) 0 % (0-6); LYMPHOCYTES % (MANUAL) 1 % (13-45); TOTAL CELLS COUNTED 100
[2017-04-17 04:55] LABS: TOXIC GRANULATION 1+
[2017-04-17 04:56] LABS: ANISOCYTOSIS 3+; BURR CELLS 1+; MICROCYTOSIS SLIGHT; OVALOCYTES SLIGHT; POIKILOCYTOSIS SLIGHT; TEAR DROP CELLS SLIGHT
[2017-04-17] MEDS: PIPERACILLIN SODIUM/TAZOBACTAM 3.375 GM in DEXTROSE 5%-WATER 100 ML IV SCH ×3 (05:46→17:29)
[2017-04-17] MEDS: CIPROFLOXACIN 400 MG/D5W RTU 400 MG/200 ML RTUPB IV SCH ×2 (05:47→17:30)
[2017-04-17] MEDS: HEPARIN SOD (PORCINE) 5,000 UNIT/ML 1 ML SYRINGE SUBCUT SCH (05:47)
[2017-04-17] MEDS: POTASSIUM CHLORIDE 20 MEQ/50 ML RTU IV SCH ×2 (06:25→08:58)
[2017-04-17] MEDS ORDERED: POTASSIUM CHLORIDE 10 MEQ TABLET.SA PO ONE (07:00)
--- NOTE | 2017-04-17 08:08 | PDOC PROGRESS REPORT ---
Subjective Progress Note for:: 04/17/17 Subjective:: 71-year-old white female with right lower extremity sepsis up to the inferior margin of the right knee. Patient is lying recumbent in the hospital bed and was awakened upon my entry into the room. Patient states that she is having pain in her back as well as the left leg and is most comfortable when it is abducted and externally rotated. Patient's right lower extremity is fully extended and still in bunny boot. She reports that she has not made any progress on her decision about amputating her leg below the knee. Patient's daughter is also in the room. Physical Exam Vital Signs: Temp Pulse Resp BP Pulse Ox 36.5 C 75 31 H 95/51 L 100 04/17/17 02:00 04/16/17 20:15 04/17/17 07:05 04/17/17 07:05 04/17/17 07:05 Intake & Output 04/16/17 04/17/17 04/18/17 06:59 06:59 06:59 Intake Total 1044 5521 Output Total 142 750 Balance 902 4771 Weight 84.5 kg 93.1 kg General appearance: PRESENT: no acute distress, well-developed, well-nourished Head exam: PRESENT: atraumatic, normocephalic Pulses: PRESENT: +2 pedal pulses bilateral Additional comments: Pedal pulses were obtained Via Doppler ultrasound. Extremities exam: PRESENT: tenderness Additional comments: Patient is exquisitely tender to palpation on right lower extremity in all areas. Both lower extremities exhibit significant peripheral vascular disease, skin changes, and edema. There was a line marked on patient's right lower extremity to which the cellulitis extended as of yesterday, however, the erythematous margins have decreased below this line as of this morning. The right lower extremity is still in the bony compression boot and she has limited range of motion. Additional comments: Patient is nonambulatory and reports significant pain whenever she is moved by nursing staff. Neurological exam: PRESENT: altered, oriented to person, oriented to place, motor sensory deficit Additional comments: Patient has suffered a stroke in the past and has both sensory and motor deficits as a result. Psychiatric exam: PRESENT: anxious Skin exam: PRESENT: erythema, mottled, rash, warm Additional comments: Significant cellulitis and peripheral vascular disease noted on bilateral lower extremity's. Results Laboratory Results: 04/17/17 04:07 04/17/17 04:07 04/17/17 04/17/17 04:07 04:07 WBC 25.7 H RBC 4.12 Hgb 10.3 L Hct 32.6 L MCV 79 L MCH 25.1 L MCHC 31.7 L RDW 21.0 H Plt Count 231 Seg Neutrophils % Not Reportable Lymphocytes % Not Reportable Monocytes % Not Reportable Eosinophils % Not Reportable Basophils % Not Reportable Absolute Neutrophils Not Reportable Absolute Lymphocytes Not Reportable Absolute Monocytes Not Reportable Absolute Eosinophils Not Reportable Absolute Basophils Not Reportable Sodium 134.8 L Potassium 3.1 L Chloride 109 H Carbon Dioxide 13 L Anion Gap 13 BUN 53 H Creatinine 1.50 H Est GFR ( Amer) 42 L Est GFR (Non-Af Amer) 34 L Glucose 136 H Calcium 8.0 L Impressions: Chest X-Ray 04/15/17 16:10 IMPRESSION: NO ACUTE RADIOGRAPHIC FINDING IN THE CHEST. Foot X-Ray 04/15/17 16:57 IMPRESSION: Calcaneal spurs with no acute osseous abnormality. Degenerative joint changes as described. Abdomen/Pelvis CT 04/15/17 20:09 IMPRESSION: 1. Bilateral pleural effusions right greater than left. 2. Small volume ascites. 3. Subcutaneous edema. Assessment & Plan - Diagnosis (1) Severe sepsis Is this a current diagnosis for this admission?: Yes Plan: 71-year-old white female with severe sepsis of the right lower extremity below the knee. Although patient's cellulitis is decreasing from the margins that had expanded to previously it is still our recommendation that the patient undergo a below the knee amputation of the right leg. Patient still seems conflicted over this suggestion and has not come to a decision at this point. Patient states that she feels "at this point I do not have a choice". It was reiterated to the patient that she does have a choice yet allowing the leg to remain intact would most likely result in reinfection and rehospitalization. She indicated that she would like to speak with her daughter and may come to a decision later today.
[2017-04-17] MEDS: ASPIRIN 81 MG TABLET, ENT COATED PO SCH (08:56)
[2017-04-17] MEDS: DEXTROSE 5%-WATER 250 ML with NOREPINEPHRINE BITARTRATE 4 MG IV PRN ×2 (08:57)
--- NOTE | 2017-04-17 09:00 | PDOC PROGRESS REPORT ---
Subjective Progress Note for:: 04/17/17 Subjective:: The patient is awake and alert. Her daughter is present at the bedside. Long discussion about amputation. Long discussion and multiple explanation of sepsis coming from that right heel ulcer. Discussed with the patient about the poor circulation. Her and her daughter have a conversation and she finally agrees to have the leg amputated below the knee to trying to preserve and improve the sepsis Physical Exam Vital Signs: Temp Pulse Resp BP Pulse Ox 97.7 F 75 31 H 95/51 L 100 04/17/17 02:00 04/16/17 20:15 04/17/17 07:05 04/17/17 07:05 04/17/17 07:05 Intake & Output 04/16/17 04/17/17 04/18/17 06:59 06:59 06:59 Intake Total 1044 5521 Output Total 142 750 Balance 902 4771 Weight 84.5 kg 93.1 kg General appearance: PRESENT: mild distress Head exam: PRESENT: normocephalic Eye exam: PRESENT: conjunctival injection Neck exam: PRESENT: carotid bruit Respiratory exam: PRESENT: clear to auscultation lenore Cardiovascular exam: PRESENT: RRR, +S1, +S2 Pulses: PRESENT: other Vascular exam: PRESENT: pallor GI/Abdominal exam: PRESENT: normal bowel sounds, soft Extremities exam: PRESENT: tenderness Musculoskeletal exam: PRESENT: tenderness Neurological exam: PRESENT: alert, awake Skin exam: PRESENT: skin tears Results Laboratory Results: 04/17/17 04:07 04/17/17 04:07 04/17/17 04/17/17 04:07 04:07 WBC 25.7 H RBC 4.12 Hgb 10.3 L Hct 32.6 L MCV 79 L MCH 25.1 L MCHC 31.7 L RDW 21.0 H Plt Count 231 Seg Neutrophils % Not Reportable Lymphocytes % Not Reportable Monocytes % Not Reportable Eosinophils % Not Reportable Basophils % Not Reportable Absolute Neutrophils Not Reportable Absolute Lymphocytes Not Reportable Absolute Monocytes Not Reportable Absolute Eosinophils Not Reportable Absolute Basophils Not Reportable Sodium 134.8 L Potassium 3.1 L Chloride 109 H Carbon Dioxide 13 L Anion Gap 13 BUN 53 H Creatinine 1.50 H Est GFR ( Amer) 42 L Est GFR (Non-Af Amer) 34 L Glucose 136 H Calcium 8.0 L Impressions: Chest X-Ray 04/15/17 16:10 IMPRESSION: NO ACUTE RADIOGRAPHIC FINDING IN THE CHEST. Foot X-Ray 04/15/17 16:57 IMPRESSION: Calcaneal spurs with no acute osseous abnormality. Degenerative joint changes as described. Abdomen/Pelvis CT 04/15/17 20:09 IMPRESSION: 1. Bilateral pleural effusions right greater than left. 2. Small volume ascites. 3. Subcutaneous edema. Assessment & Plan - Diagnosis (1) Severe sepsis Is this a current diagnosis for this admission?: Yes Plan: The patient's blood pressure continues to be low. Levophed needed to be increased. The fluids have been increased. Her urine output is still pretty low. (2) Bacteremia Is this a current diagnosis for this admission?: Yes Plan: Gram-negative rods. We will continue with IV antibiotics (3) Acute renal failure superimposed on chronic kidney disease Is this a current diagnosis for this admission?: Yes Plan: We will continue with IV fluids. Because of hypertension we are probably dealing with acute tubular necrosis superimposed on chronic kidney disease (4) Chronic renal failure Is this a current diagnosis for this admission?: Yes Plan: Continue IV fluids (5) Diabetic infection of right foot Is this a current diagnosis for this admission?: Yes Plan: Surgical and orthopedic evaluation with a consideration for possible amputation (7) Peripheral arterial disease Is this a current diagnosis for this admission?: Yes Plan: 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
[2017-04-17] MEDS: GLIPIZIDE XL 5 MG TAB.ER.24 PO SCH (09:04)
[2017-04-17] MEDS: METOPROLOL SUCCINATE 50 MG TAB.SR.24H PO SCH (09:05)
[2017-04-17] MEDS: DOCUSATE SODIUM 100 MG CAPSULE PO SCH ×2 (09:05→17:30)
[2017-04-17] MEDS ORDERED: CLOPIDOGREL BISULFATE 75 MG TABLET PO SCH (10:00)
--- NOTE | 2017-04-17 10:07 | RADIOLOGY REPORT (SQ) ---
EXAM DESCRIPTION: CHEST SINGLE VIEW COMPLETED DATE/TIME: 04/17/2017 9:30 am REASON FOR STUDY: Sepsis COMPARISON: 04/15/2017 EXAM PARAMETERS: NUMBER OF VIEWS: One view. TECHNIQUE: Single frontal radiographic view of the chest acquired. RADIATION DOSE: NA LIMITATIONS: None. FINDINGS: LUNGS AND PLEURA: Small left pleural effusion and associated airspace disease. MEDIASTINUM AND HILAR STRUCTURES: No masses. Contour normal. HEART AND VASCULAR STRUCTURES: Stable cardiomegaly. BONES: No acute findings. HARDWARE: None in the chest. OTHER: No other significant finding. IMPRESSION: Left lower lobe pneumonia or aspiration. TECHNICAL DOCUMENTATION: JOB ID: [id number]
[2017-04-17] MEDS: VANCOMYCIN HCL 1,000 MG in DEXTROSE 5%-WATER 250 ML IV SCH (17:00)
[2017-04-17] MEDS: ATORVASTATIN CALCIUM 40 MG TABLET PO SCH (22:24)
[2017-04-18] MEDS: DEXTROSE 5%-WATER 250 ML with NOREPINEPHRINE BITARTRATE 4 MG IV PRN ×4 (00:50→17:11)
[2017-04-18] MEDS: NORMAL SALINE 1000 ML 1,000 ML IV PRN (00:50)
[2017-04-18] MEDS: PIPERACILLIN SODIUM/TAZOBACTAM 3.375 GM in DEXTROSE 5%-WATER 100 ML IV SCH ×4 (00:51→17:10)
[2017-04-18 04:23] LABS: HEMATOCRIT 33.1 % (36.0-47.0); HEMOGLOBIN 10.6 g/dL (12.0-15.5); HGB HCT DIFFERENCE -1.3; MEAN CORPUSCULAR HEMOGLOBIN 25.5 pg (27.0-33.4); MEAN CORPUSCULAR VOLUME 80 fl (80-97); RED BLOOD COUNT 4.15 10^6/uL (3.72-5.28); RED CELL DISTRIBUTION WIDTH 21.4 % (11.5-14.0)
[2017-04-18 04:29] LABS: BAND NEUTROPHILS % (MANUAL) 3 % (3-5); BASOPHILS % (MANUAL) 0 % (0-2); EOSINOPHILS % (MANUAL) 0 % (0-6); LYMPHOCYTES % (MANUAL) 3 % (13-45); TOTAL CELLS COUNTED 100
[2017-04-18 04:31] LABS: ANISOCYTOSIS 3+; BURR CELLS 1+; HYPOCHROMASIA 1+; MICROCYTOSIS SLIGHT; OVALOCYTES 1+; POIKILOCYTOSIS 2+; TARGET CELLS SLIGHT; TOXIC GRANULATION SLIGHT; TOXIC VACUOLATION PRESENT
[2017-04-18 04:32] LABS: ALANINE AMINOTRANSFERASE 30 U/L (9-52); ALBUMIN 2.2 g/dL (3.5-5.0); ALKALINE PHOSPHATASE 102 U/L (38-126); ANION GAP 11 (5-19); ASPARTATE AMINO TRANSFERASE 55 U/L (14-36); BILIRUBIN,DIRECT 2.8 mg/dL (0.0-0.4); BILIRUBIN,TOTAL 3.4 mg/dL (0.2-1.3); BLOOD UREA NITROGEN 45 mg/dL (7-20); CALCIUM 7.8 mg/dL (8.4-10.2); CARBON DIOXIDE 14 mmol/L (22-30); CHLORIDE 111 mmol/L (98-107); CREATININE RESULT 1.36 mg/dL (0.52-1.25); GLUCOSE 153 mg/dL (75-110); POTASSIUM 3.5 mmol/L (3.6-5.0); SODIUM 135.5 mmol/L (137-145); TOTAL PROTEIN 5.5 g/dL (6.3-8.2)
[2017-04-18 04:35] LABS: WHITE BLOOD COUNT 31.2 10^3/uL (4.0-10.5)
[2017-04-18] MEDS: CIPROFLOXACIN 400 MG/D5W RTU 400 MG/200 ML RTUPB IV SCH ×2 (06:04→17:10)
[2017-04-18] MEDS ORDERED: NORMAL SALINE 250 ML IV ONE (10:00)
--- NOTE | 2017-04-18 10:01 | PDOC PROGRESS REPORT ---
Subjective Progress Note for:: 04/18/17 Subjective:: Complains of pain in the right leg. Physical Exam Vital Signs: Temp Pulse Resp BP Pulse Ox 98.8 F 80 16 96/53 L 100 04/18/17 06:00 04/18/17 08:55 04/18/17 08:55 04/18/17 07:22 04/18/17 08:55 Intake & Output 04/17/17 04/18/17 04/19/17 06:59 06:59 06:59 Intake Total 5521 5923 Output Total 750 420 50 Balance 4771 5503 -50 Weight 93.1 kg 100.2 kg General appearance: PRESENT: mild distress Eye exam: PRESENT: conjunctiva pink. ABSENT: scleral icterus Mouth exam: PRESENT: moist, tongue midline Neck exam: ABSENT: JVD Respiratory exam: PRESENT: clear to auscultation lenore. ABSENT: rales, rhonchi, wheezes Cardiovascular exam: PRESENT: tachycardia. ABSENT: diastolic murmur, rubs, systolic murmur GI/Abdominal exam: PRESENT: normal bowel sounds, soft. ABSENT: distended, guarding, mass, organolmegaly, rebound, tenderness Extremities exam: PRESENT: other - Right leg is tender to palpate. Patient has a right heel with erythema and black eschar present.. ABSENT: calf tenderness, clubbing, pedal edema Neurological exam: PRESENT: alert, awake, oriented to person, oriented to place , oriented to time, oriented to situation, CN II-XII grossly intact. ABSENT: motor sensory deficit Psychiatric exam: PRESENT: anxious Skin exam: PRESENT: other - Patient has erythema in the bilateral lower legs. Both of her legs are cool to touch. The right leg shows a black eschar on the heel with some surrounding purulent drainage and erythema. Patient has erythema to the level of mid calf. Results Laboratory Results: 04/18/17 04:06 04/18/17 04:06 04/18/17 04/18/17 04:06 04:06 WBC 31.2 H* RBC 4.15 Hgb 10.6 L Hct 33.1 L MCV 80 MCH 25.5 L MCHC 32.0 RDW 21.4 H Plt Count 162 Seg Neutrophils % Not Reportable Lymphocytes % Not Reportable Monocytes % Not Reportable Eosinophils % Not Reportable Basophils % Not Reportable Absolute Neutrophils Not Reportable Absolute Lymphocytes Not Reportable Absolute Monocytes Not Reportable Absolute Eosinophils Not Reportable Absolute Basophils Not Reportable Sodium 135.5 L Potassium 3.5 L Chloride 111 H Carbon Dioxide 14 L Anion Gap 11 BUN 45 H Creatinine 1.36 H Est GFR ( Amer) 47 L Est GFR (Non-Af Amer) 38 L Glucose 153 H Calcium 7.8 L Total Bilirubin 3.4 H AST 55 H ALT 30 Alkaline Phosphatase 102 Total Protein 5.5 L Albumin 2.2 L 04/18/17 09:27 Creatine Kinase < 20 L Impressions: Foot X-Ray 04/15/17 16:57 IMPRESSION: Calcaneal spurs with no acute osseous abnormality. Degenerative joint changes as described. Abdomen/Pelvis CT 04/15/17 20:09 IMPRESSION: 1. Bilateral pleural effusions right greater than left. 2. Small volume ascites. 3. Subcutaneous edema. Chest X-Ray 04/17/17 00:00 IMPRESSION: Left lower lobe pneumonia or aspiration. Assessment & Plan - Diagnosis (1) Severe sepsis Is this a current diagnosis for this admission?: Yes Plan: Patient has sepsis from infection in the right leg. The plan is for this to be amputated. She is still requiring IV Levophed for blood pressure support. The patient is on vancomycin, Zosyn, Cipro. Patient's blood cultures are growing out Pasteurella. Urine cultures growing E. coli. (2) Diabetic infection of right foot Is this a current diagnosis for this admission?: Yes (3) Acute renal failure superimposed on chronic kidney disease Is this a current diagnosis for this admission?: Yes Plan: Patient has stage III chronic renal failure. Her creatinine has improved with IV fluids. (4) Hypotension Is this a current diagnosis for this admission?: Yes Plan: Secondary to sepsis. The patient has been getting IV fluids. She does have third spacing. Will ask surgery to place a triple-lumen catheter for access as well as ability to check CVP. We will base our decision whether to give more fluids based on this CVP pressure. (5) Severe peripheral arterial disease Is this a current diagnosis for this admission?: Yes Plan: Patient is to get an amputation of the right leg. - Time Time Spent with patient: 25-34 minutes - Inpatient Certification Medical Necessity: Need for Pain Control, Need for IV Antibiotics
[2017-04-18 10:04] LABS: CREATINE KINASE MB 0.84 ng/mL (<4.55)
[2017-04-18 10:06] LABS: TROPONIN I 0.264 ng/mL
[2017-04-18] MEDS: METOPROLOL SUCCINATE 50 MG TAB.SR.24H PO SCH (10:21)
[2017-04-18] MEDS: DOCUSATE SODIUM 100 MG CAPSULE PO SCH ×2 (10:21→17:11)
[2017-04-18] MEDS: ASPIRIN 81 MG TABLET, ENT COATED PO SCH (10:22)
[2017-04-18] MEDS: GLIPIZIDE XL 5 MG TAB.ER.24 PO SCH (10:23)
--- NOTE | 2017-04-18 11:27 | PDOC PROGRESS REPORT ---
Subjective Progress Note for:: 04/18/17 Physical Exam Vital Signs: Temp Pulse Resp BP Pulse Ox 37.1 C 80 28 H 115/52 L 100 04/18/17 06:00 04/18/17 08:55 04/18/17 10:23 04/18/17 10:23 04/18/17 10:23 Intake & Output 04/17/17 04/18/17 04/19/17 06:59 06:59 06:59 Intake Total 5521 5923 Output Total 750 420 200 Balance 4771 5503 -200 Weight 93.1 kg 100.2 kg General appearance: PRESENT: mild distress Results Laboratory Results: 04/18/17 04:06 04/18/17 04:06 04/18/17 04/18/17 04/18/17 04:06 04:06 09:27 WBC 31.2 H* RBC 4.15 Hgb 10.6 L Hct 33.1 L MCV 80 MCH 25.5 L MCHC 32.0 RDW 21.4 H Plt Count 162 Seg Neutrophils % Not Reportable Lymphocytes % Not Reportable Monocytes % Not Reportable Eosinophils % Not Reportable Basophils % Not Reportable Absolute Neutrophils Not Reportable Absolute Lymphocytes Not Reportable Absolute Monocytes Not Reportable Absolute Eosinophils Not Reportable Absolute Basophils Not Reportable Sodium 135.5 L Potassium 3.5 L Chloride 111 H Carbon Dioxide 14 L Anion Gap 11 BUN 45 H Creatinine 1.36 H Est GFR ( Amer) 47 L Est GFR (Non-Af Amer) 38 L Glucose 153 H Calcium 7.8 L Magnesium 1.9 Total Bilirubin 3.4 H AST 55 H ALT 30 Alkaline Phosphatase 102 Total Protein 5.5 L Albumin 2.2 L 04/18/17 04/18/17 04/18/17 09:27 09:27 09:27 Creatine Kinase < 20 L CK-MB (CK-2) 0.84 Troponin I 0.264 NT-Pro-B Natriuret Pep 83342 H Impressions: Foot X-Ray 04/15/17 16:57 IMPRESSION: Calcaneal spurs with no acute osseous abnormality. Degenerative joint changes as described. Abdomen/Pelvis CT 04/15/17 20:09 IMPRESSION: 1. Bilateral pleural effusions right greater than left. 2. Small volume ascites. 3. Subcutaneous edema. Chest X-Ray 04/17/17 00:00 IMPRESSION: Left lower lobe pneumonia or aspiration. Status: Imported from PACS Assessment & Plan - Diagnosis (1) Diabetic infection of right foot Is this a current diagnosis for this admission?: Yes Plan: Patient with continued elevation of her white count to 31,000. She is now on Levophed for pressure support. Pasteurella growing from blood cultures. Troponin is elevated. Subsequent troponins anticipated later this afternoon. If she continues to have troponin elevation the patient will be transferred to a tertiary center. If this is of a renal etiology as opposed to a cardiac etiology the patient will undergo an urgent below-knee amputation tomorrow. Discussed with Dr. Blount - Time Time Spent with patient: 15-24 minutes Anticipated discharge: Other Within: Other
[2017-04-18] MEDS ORDERED: NORMAL SALINE INJ/PF 0.9% 10 ML SDV IV PRN (11:39)
--- NOTE | 2017-04-18 11:46 | EKG REPORT ---
SEVERITY:- ABNORMAL ECG - SINUS RHYTHM PROBABLE INFERIOR INFARCT, OLD LATERAL LEADS ARE ALSO INVOLVED : Confirmed by: Vanesa Irene 18-Apr-2017 11:45:23
--- NOTE | 2017-04-18 12:06 | RADIOLOGY REPORT (SQ) ---
EXAM DESCRIPTION: CHEST SINGLE VIEW COMPLETED DATE/TIME: 04/18/2017 11:57 am REASON FOR STUDY: Central line placement COMPARISON: 04/17/2017. EXAM PARAMETERS: NUMBER OF VIEWS: One view. TECHNIQUE: Single frontal radiographic view of the chest acquired. RADIATION DOSE: NA LIMITATIONS: None. FINDINGS: LUNGS AND PLEURA: Faint left basilar density unchanged. No pneumothorax. MEDIASTINUM AND HILAR STRUCTURES: No masses. Contour normal. HEART AND VASCULAR STRUCTURES: Heart normal in size. Normal vasculature. BONES: No acute findings. HARDWARE: Catheter on the right side with the tip at the level of the superior vena cava. OTHER: No other significant finding. IMPRESSION: CENTRAL LINE DESCRIBED. NO PNEUMOTHORAX. NO CHANGE IN THE LEFT BASILAR DENSITY. TECHNICAL DOCUMENTATION: JOB ID: [id number]
--- NOTE | 2017-04-18 12:53 | OPERATIVE REPORT E ---
Operative Report NAME: SHERITA CAPUTO : 1945 AGE: 71Y DATE OF SURGERY: 04/18/2017 ROOM: 611 PREOPERATIVE DIAGNOSIS: Poor veins for IV access. POSTOPERATIVE DIAGNOSIS: Poor veins for IV access. PROCEDURE: Placement of central line, subclavian catheter. SURGEON: HUSSEIN HANDY M.D. ANESTHESIA: Local. INDICATIONS: This is a 71-year-old female who needs a central line since she has poor peripheral veins. She is still in the intensive care unit for multiple problems including nonhealing wound of the right heel with ulcer and cellulitis. DESCRIPTION OF PROCEDURE: The patient was placed in Trendelenburg position and the right clavicular and necks areas were then prepped and draped in the usual sterile fashion. Local anesthesia infiltrated along the right infraclavicular area and the right subclavian vein subsequently punctured. A guidewire was then placed through the needle and the needle removed. Insertion site was then dilated and a triple-lumen catheter was then inserted through the guidewire towards the presumed superior vena cava to a distance of 15 cm. Next, the guidewire was removed and the catheter anchored to the skin with 3-0 silk. All 3 ports were then flushed with saline. Blood was able to be aspirated easily and can be also injected with saline easily. Next, the insertion site was placed with Biopatch and a transparent dressing placed over the operative site. Chest x-ray was performed immediately after and showed catheter right in the junction of the superior vena cava and right atrium. No evidence of pneumothorax. Patient tolerated procedure well. DICTATING PHYSICIAN: HUSSEIN HANDY M.D. [id number] PHY#: [id number] ID: [id number] JOB#: [id number] ACCT: [id number] cc:HUSSEIN HANDY M.D. >
[2017-04-18 15:34] LABS: CREATININE RESULT 1.29 mg/dL (0.52-1.25)
[2017-04-18 15:38] LABS: CREATINE KINASE < 20 U/L (30-135)
[2017-04-18 15:47] LABS: CREATINE KINASE MB 0.93 ng/mL (<4.55); TROPONIN I 0.248 ng/mL
--- NOTE | 2017-04-18 16:10 | Progress Note ---
Provider Note Provider Note: The patient had troponins drawn this morning because of her tachycardia. The first troponin came back at 0.264. The patient has not had any chest pain. A repeat troponin was drawn and it has actually decreased slightly. It is felt that the troponin elevation is secondary to her acute sepsis along with her chronic renal failure. The patient has no evidence for acute cardiac event. The patient is to have amputation of her right leg because of the sepsis. Patient is at an increased risk because of her overall poor clinical function however the troponins should not exclude her from having the surgery as she does have a life-threatening infection.
[2017-04-18] MEDS: VANCOMYCIN HCL 1,000 MG in DEXTROSE 5%-WATER 250 ML IV SCH (17:09)
[2017-04-19] MEDS: ATORVASTATIN CALCIUM 40 MG TABLET PO SCH (00:29)
[2017-04-19] MEDS: PIPERACILLIN SODIUM/TAZOBACTAM 3.375 GM in DEXTROSE 5%-WATER 100 ML IV SCH ×5 (00:30→23:26)
[2017-04-19] MEDS: DEXTROSE 5%-WATER 250 ML with NOREPINEPHRINE BITARTRATE 4 MG IV PRN ×6 (05:28→19:22)
[2017-04-19 05:44] LABS: HEMATOCRIT 32.4 % (36.0-47.0); HEMOGLOBIN 10.3 g/dL (12.0-15.5); HGB HCT DIFFERENCE -1.5; MEAN CORPUSCULAR HGB CONC 31.7 g/dL (32.0-36.0); MEAN CORPUSCULAR VOLUME 79 fl (80-97); RED CELL DISTRIBUTION WIDTH 21.4 % (11.5-14.0); WHITE BLOOD COUNT 29.2 10^3/uL (4.0-10.5)
[2017-04-19 05:56] LABS: ANION GAP 8 (5-19); BLOOD UREA NITROGEN 40 mg/dL (7-20); CALCIUM 7.7 mg/dL (8.4-10.2); CARBON DIOXIDE 15 mmol/L (22-30); CHLORIDE 111 mmol/L (98-107); CREATININE RESULT 1.28 mg/dL (0.52-1.25); GLUCOSE 140 mg/dL (75-110); MAGNESIUM 1.8 mg/dL (1.6-2.3); POTASSIUM 3.4 mmol/L (3.6-5.0); SODIUM 134.3 mmol/L (137-145)
[2017-04-19] MEDS: CIPROFLOXACIN 400 MG/D5W RTU 400 MG/200 ML RTUPB IV SCH ×2 (06:17→17:51)
[2017-04-19 06:22] LABS: BAND NEUTROPHILS % (MANUAL) 2 % (3-5); BASOPHILS % (MANUAL) 0 % (0-2); EOSINOPHILS % (MANUAL) 0 % (0-6); LYMPHOCYTES % (MANUAL) 2 % (13-45); TOTAL CELLS COUNTED 100
[2017-04-19 06:24] LABS: ANISOCYTOSIS 3+; BURR CELLS 1+; HYPOCHROMASIA SLIGHT; MICROCYTOSIS SLIGHT; OVALOCYTES SLIGHT; PLATELET CLUMPS PRESENT; POIKILOCYTOSIS SLIGHT; TARGET CELLS SLIGHT; TOXIC GRANULATION SLIGHT
[2017-04-19] MEDS ORDERED: KETAMINE HCL INJ 500 MG/10 ML VIAL ONE (07:58)
[2017-04-19] MEDS ORDERED: MIDAZOLAM 2 MG/2 ML INJ ONE ×2 (07:59→08:02)
[2017-04-19] MEDS ORDERED: FENTANYL CITRATE INJ/PF 100 MCG/2 ML AMPUL ONE ×2 (08:01→08:02)
[2017-04-19] MEDS ORDERED: PROPOFOL INJ 200 MG/20 ML VIAL IV ONE (08:02)
[2017-04-19] MEDS ORDERED: HYDROMORPHONE HCL INJ/PF 2 MG/ML AMPULE ONE (08:03)
--- NOTE | 2017-04-19 08:42 | PDOC PROGRESS REPORT ---
Subjective Progress Note for:: 04/19/17 Subjective:: Complains of pain in the right leg. Physical Exam Vital Signs: Temp Pulse Resp BP Pulse Ox 98.8 F 84 28 H 104/48 L 99 04/18/17 06:00 04/19/17 07:49 04/19/17 06:00 04/19/17 05:54 04/19/17 06:00 Intake & Output 04/18/17 04/19/17 04/20/17 06:59 06:59 06:59 Intake Total 5923 2742 Output Total 420 935 60 Balance 5503 1807 -60 Weight 100.2 kg 101.2 kg General appearance: PRESENT: no acute distress Eye exam: PRESENT: conjunctiva pink. ABSENT: scleral icterus Mouth exam: PRESENT: moist, tongue midline Neck exam: ABSENT: JVD Respiratory exam: PRESENT: clear to auscultation lenore. ABSENT: rales, rhonchi, wheezes Cardiovascular exam: PRESENT: RRR. ABSENT: diastolic murmur, rubs, systolic murmur GI/Abdominal exam: PRESENT: normal bowel sounds, soft. ABSENT: distended, guarding, mass, organolmegaly, rebound, tenderness Extremities exam: PRESENT: tenderness - Right calf and foot. ABSENT: calf tenderness, clubbing Neurological exam: PRESENT: alert, awake, oriented to person, oriented to place , oriented to time, oriented to situation, CN II-XII grossly intact. ABSENT: motor sensory deficit Psychiatric exam: PRESENT: anxious Skin exam: PRESENT: other - Erythematous right leg. Results Laboratory Results: 04/19/17 05:30 04/19/17 05:30 04/18/17 04/18/17 04/18/17 09:27 11:55 15:00 WBC RBC Hgb Hct MCV MCH MCHC RDW Plt Count Seg Neutrophils % Lymphocytes % Monocytes % Eosinophils % Basophils % Absolute Neutrophils Absolute Lymphocytes Absolute Monocytes Absolute Eosinophils Absolute Basophils Sodium Potassium Chloride Carbon Dioxide Anion Gap BUN Creatinine 1.29 H Est GFR ( Amer) 49 L Est GFR (Non-Af Amer) 41 L Glucose Lactic Acid 1.2 Calcium Magnesium 1.9 Blood Type Antibody Screen 04/18/17 04/19/17 04/19/17 16:35 05:30 05:30 WBC 29.2 H RBC 4.10 Hgb 10.3 L Hct 32.4 L MCV 79 L MCH 25.0 L MCHC 31.7 L RDW 21.4 H Plt Count 144 L Seg Neutrophils % Not Reportable Lymphocytes % Not Reportable Monocytes % Not Reportable Eosinophils % Not Reportable Basophils % Not Reportable Absolute Neutrophils Not Reportable Absolute Lymphocytes Not Reportable Absolute Monocytes Not Reportable Absolute Eosinophils Not Reportable Absolute Basophils Not Reportable Sodium 134.3 L Potassium 3.4 L Chloride 111 H Carbon Dioxide 15 L Anion Gap 8 BUN 40 H Creatinine 1.28 H Est GFR ( Amer) 50 L Est GFR (Non-Af Amer) 41 L Glucose 140 H Lactic Acid Calcium 7.7 L Magnesium 1.8 Blood Type O POSITIVE Antibody Screen NEGATIVE 04/18/17 04/18/17 04/18/17 09:27 09:27 09:27 Creatine Kinase < 20 L CK-MB (CK-2) 0.84 Troponin I 0.264 NT-Pro-B Natriuret Pep [id number] H 04/18/17 04/18/17 15:00 15:00 Creatine Kinase < 20 L CK-MB (CK-2) 0.93 Troponin I 0.248 NT-Pro-B Natriuret Pep Impressions: Foot X-Ray 04/15/17 16:57 IMPRESSION: Calcaneal spurs with no acute osseous abnormality. Degenerative joint changes as described. Abdomen/Pelvis CT 04/15/17 20:09 IMPRESSION: 1. Bilateral pleural effusions right greater than left. 2. Small volume ascites. 3. Subcutaneous edema. Chest X-Ray 04/18/17 00:00 IMPRESSION: CENTRAL LINE DESCRIBED. NO PNEUMOTHORAX. NO CHANGE IN THE LEFT BASILAR DENSITY. Assessment & Plan - Diagnosis (1) Severe sepsis Is this a current diagnosis for this admission?: Yes Plan: Patient has sepsis from infection in the right leg. The plan is for this to be amputated. She is still requiring IV Levophed for blood pressure support. The patient is on vancomycin, Zosyn, Cipro. Patient's blood cultures are growing out Pasteurella. Urine cultures growing E. coli. (2) Diabetic infection of right foot Is this a current diagnosis for this admission?: Yes Plan: Patient is to have amputation of the right foot. The patient is at high risk given her sepsis however she most likely will not improve without amputation. She had positive troponins yesterday however they were elevated but flat. This most likely secondary to her underlying sepsis as well as her renal failure. No evidence for acute coronary event. (3) Acute renal failure superimposed on chronic kidney disease Is this a current diagnosis for this admission?: Yes Plan: Patient has stage III chronic renal failure. Her creatinine is stable (4) Hypotension Is this a current diagnosis for this admission?: Yes Plan: Secondary to sepsis. The patient's CVP has been running around 16. (5) Severe peripheral arterial disease Is this a current diagnosis for this admission?: Yes Plan: Patient is to get an amputation of the right leg. (6) Tachycardia Is this a current diagnosis for this admission?: Yes - Time Time Spent with patient: 25-34 minutes - Inpatient Certification Medical Necessity: Need Close Monitoring Due to Risk of Patient Decompensation, Need for IV Antibiotics
--- NOTE | 2017-04-19 09:22 | Operative Report ---
Operative Report DATE OF SURGERY: 04/19/17 PREOPERATIVE DIAGNOSIS: Right lower extremity cellulitis and sepsis OPERATION: Right below-knee amputation SURGEON: LEONCIO FREEMAN ANESTHESIA: GA TISSUE REMOVED OR ALTERED: Right lower extremity to pathology ESTIMATED BLOOD LOSS: 150 PROCEDURE: Patient supine on the operative table the right lower extremities prepped and draped in a sterile fashion. Limb was elevated for exsanguination tourniquet inflated to 300 torr. Subsequent a fishmouth type incision is made over the right lower extremity with the anterior inferior margin 4 cm below the tibial tubercle to allow for eventual potential prosthetic fitting. Upon transecting the subcutaneous tissue is clear that we have a venous tourniquet and the tourniquet was subsequently deflated. Sharp dissection was carried incision through the anterior muscle fascia and through the anterior compartment musculature. Anterior tibial neurovascular bundle was clamped. The tibia is transected using an oscillating saw as is the fibula. Subsequent soft tissue transection continues using a Bovie clamping both the posterior tibial structures as well as the peroneal structures. At this point the lower extremities delivered from the field as a specimen. The wound is irrigated. The major neurovascular structures are suture ligated. The wound was copious irrigated. Subsequent the posterior flap was brought up and held loosely with 2 sutures. The intent is not to close the wound because of the sepsis and the cellulitis. Plan will be for closure at a future date. Subsequently Betadine soaked Kerlix is placed through the wound. The wound is sealed using Ioban. A sterile absorbent dressing was put over this and the patient's return to the PACU in the ICU in satisfactory condition.
[2017-04-19] MEDS ORDERED: PROPOFOL 100 ML IV ONE (09:41)
[2017-04-19] MEDS ORDERED: ACETAMINOPHEN 325 MG TABLET NG PRN (09:59)
[2017-04-19] MEDS ORDERED: PHARMACY COMMUNICATION ORDER MC NR (10:00)
[2017-04-19] MEDS ORDERED: MAG HYDROX/AL HYDROX/SIMETH SUSP 30 ML UDCUP NG PRN (10:03)
[2017-04-19] MEDS: METOPROLOL SUCCINATE 50 MG TAB.SR.24H PO SCH (10:24)
[2017-04-19] MEDS: ASPIRIN 81 MG TABLET, CHEWABLE NG SCH (10:39)
[2017-04-19] MEDS: DOCUSATE SODIUM 100 MG CAPSULE PO SCH ×2 (10:42→17:52)
--- NOTE | 2017-04-19 10:49 | RADIOLOGY REPORT (SQ) ---
EXAM DESCRIPTION: CHEST SINGLE VIEW COMPLETED DATE/TIME: 04/19/2017 10:38 am REASON FOR STUDY: ETT, OG placement COMPARISON: 04/18/2017. EXAM PARAMETERS: NUMBER OF VIEWS: One view. TECHNIQUE: Single frontal radiographic view of the chest acquired. RADIATION DOSE: NA LIMITATIONS: Rotated. FINDINGS: LUNGS AND PLEURA: Left basilar density with indistinct appearance of the diaphragm. Proba ble pleural effusions. MEDIASTINUM AND HILAR STRUCTURES: No masses. Contour normal. HEART AND VASCULAR STRUCTURES: Heart normal in size. Normal vasculature. BONES: No acute findings. HARDWARE: Endotracheal tube with the tip located 1 cm proximal to the sadia. Gastric tube with the tip in the stomach. Stable central line. OTHER: No other significant finding. IMPRESSION: LIFE LINES DESCRIBED. OTHERWISE NO CHANGE IN APPEARANCE OF THE CHEST. TECHNICAL DOCUMENTATION: JOB ID: [id number]
--- NOTE | 2017-04-19 10:50 | RADIOLOGY REPORT (SQ) ---
EXAM DESCRIPTION: KUB/ABDOMEN (SINGLE VIEW) COMPLETED DATE/TIME: 04/19/2017 10:38 am REASON FOR STUDY: Check Placement of NG Tube COMPARISON: None. NUMBER OF VIEWS: One view. TECHNIQUE: Supine radiographic image of the abdomen acquired. LIMITATIONS: None. FINDINGS: BOWEL GAS PATTERN: Normal bowel gas pattern. No dilated loops. CALCIFICATIONS: No suspicious calcifications. SOFT TISSUES: No gross mass or suggestion of organomegaly. HARDWARE: Nasogastric tube with the tip in the stomach. BONES: No acute fracture. No worrisome bone lesions. OTHER: No other significant finding. IMPRESSION: NASOGASTRIC TUBE WITH THE TIP IN THE STOMACH. NO RADIOGRAPHIC EVIDENCE FOR ACUTE ABDOMI NAL DISEASE. TECHNICAL DOCUMENTATION: JOB ID: [id number] [employer]- All Rights Reserved
[2017-04-19] MEDS ORDERED: OXYCODONE HCL IR 5 MG TABLET PO PRN (10:56)
[2017-04-19] MEDS ORDERED: ONDANSETRON 4 MG TAB.RAPDIS SL PRN (10:56)
[2017-04-19] MEDS: GLIPIZIDE XL 5 MG TAB.ER.24 PO SCH (10:58)
[2017-04-19] MEDS: RINGERS SOLUTION,LACTATED 1,000 ML IV PRN ×2 (13:04→23:26)
[2017-04-19] MEDS: PROPOFOL 100 ML IV PRN ×2 (14:30→20:11)
[2017-04-19] MEDS: VANCOMYCIN HCL 1,000 MG in DEXTROSE 5%-WATER 250 ML IV SCH (16:17)
[2017-04-19] MEDS: MORPHINE SULFATE 10 MG/ML INJ IV PRN (19:23)
[2017-04-19] MEDS: ENOXAPARIN SODIUM INJ 30 MG/0.3 ML DISP.SYRIN SUBCUT SCH (22:57)
[2017-04-19] MEDS: ATORVASTATIN CALCIUM 40 MG TABLET NG SCH (22:58)
[2017-04-20] MEDS: DEXTROSE 5%-WATER 250 ML with NOREPINEPHRINE BITARTRATE 4 MG IV PRN ×10 (00:29→23:58)
[2017-04-20] MEDS: MORPHINE SULFATE 10 MG/ML INJ IV PRN ×2 (03:09→09:24)
[2017-04-20] MEDS: PROPOFOL 100 ML IV PRN ×3 (03:10→16:58)
[2017-04-20] MEDS: CIPROFLOXACIN 400 MG/D5W RTU 400 MG/200 ML RTUPB IV SCH ×2 (05:30→16:54)
[2017-04-20 05:58] LABS: HEMATOCRIT 29.8 % (36.0-47.0); HEMOGLOBIN 9.9 g/dL (12.0-15.5); HGB HCT DIFFERENCE -0.1; MEAN CORPUSCULAR HEMOGLOBIN 26.1 pg (27.0-33.4); MEAN CORPUSCULAR HGB CONC 33.3 g/dL (32.0-36.0); MEAN CORPUSCULAR VOLUME 79 fl (80-97); RED BLOOD COUNT 3.79 10^6/uL (3.72-5.28); RED CELL DISTRIBUTION WIDTH 21.2 % (11.5-14.0); WHITE BLOOD COUNT 23.7 10^3/uL (4.0-10.5)
[2017-04-20 06:05] LABS: ANION GAP 9 (5-19); BLOOD UREA NITROGEN 36 mg/dL (7-20); CALCIUM 7.5 mg/dL (8.4-10.2); CARBON DIOXIDE 15 mmol/L (22-30); CHLORIDE 108 mmol/L (98-107); GLUCOSE 183 mg/dL (75-110); POTASSIUM 3.7 mmol/L (3.6-5.0); SODIUM 131.5 mmol/L (137-145)
[2017-04-20 06:27] LABS: BAND NEUTROPHILS % (MANUAL) 1 % (3-5); BASOPHILS % (MANUAL) 0 % (0-2); EOSINOPHILS % (MANUAL) 5 % (0-6); LYMPHOCYTES % (MANUAL) 6 % (13-45); NUCLEATED RED BLOOD CELLS 1 /100 WBC (0); TOTAL CELLS COUNTED 100
[2017-04-20 06:30] LABS: ANISOCYTOSIS 2+; BURR CELLS 2+; HYPOCHROMASIA SLIGHT; MICROCYTOSIS SLIGHT; OVALOCYTES 1+; PLATELET CLUMPS PRESENT; POIKILOCYTOSIS 2+; POLYCHROMASIA SLIGHT; TARGET CELLS SLIGHT
[2017-04-20 06:31] LABS: TOXIC GRANULATION 1+
[2017-04-20] MEDS: PIPERACILLIN SODIUM/TAZOBACTAM 3.375 GM in DEXTROSE 5%-WATER 100 ML IV SCH ×4 (06:36→23:57)
--- NOTE | 2017-04-20 06:37 | PDOC PROGRESS REPORT ---
Subjective Progress Note for:: 04/20/17 Subjective:: Patient intubated and sedated Physical Exam Vital Signs: Temp Pulse Resp BP Pulse Ox 37.3 C 69 15 98/47 L 100 04/19/17 09:37 04/19/17 20:00 04/20/17 06:00 04/20/17 05:53 04/20/17 04:10 Intake & Output 04/18/17 04/19/17 04/20/17 06:59 06:59 06:59 Intake Total 5958 2742 5952 Output Total 991 344 1541 Balance 5503 1807 3387 Weight 100.2 kg 101.2 kg 98.2 kg General appearance: PRESENT: no acute distress Head exam: PRESENT: normocephalic Cardiovascular exam: PRESENT: RRR Extremities exam: PRESENT: other - Right lower extremity with scant drainage Results Laboratory Results: 04/20/17 05:40 04/20/17 05:40 04/20/17 04/20/17 05:40 05:40 WBC 23.7 H RBC 3.79 Hgb 9.9 L Hct 29.8 L MCV 79 L MCH 26.1 L MCHC 33.3 RDW 21.2 H Plt Count 156 Seg Neutrophils % Not Reportable Lymphocytes % Not Reportable Monocytes % Not Reportable Eosinophils % Not Reportable Basophils % Not Reportable Absolute Neutrophils Not Reportable Absolute Lymphocytes Not Reportable Absolute Monocytes Not Reportable Absolute Eosinophils Not Reportable Absolute Basophils Not Reportable Sodium 131.5 L Potassium 3.7 Chloride 108 H Carbon Dioxide 15 L Anion Gap 9 BUN 36 H Creatinine 1.30 H Est GFR ( Amer) 49 L Est GFR (Non-Af Amer) 40 L Glucose 183 H Calcium 7.5 L 04/18/17 04/18/17 04/18/17 09:27 09:27 09:27 Creatine Kinase < 20 L CK-MB (CK-2) 0.84 Troponin I 0.264 NT-Pro-B Natriuret Pep [id number] H 04/18/17 04/18/17 15:00 15:00 Creatine Kinase < 20 L CK-MB (CK-2) 0.93 Troponin I 0.248 NT-Pro-B Natriuret Pep Impressions: Foot X-Ray 04/15/17 16:57 IMPRESSION: Calcaneal spurs with no acute osseous abnormality. Degenerative joint changes as described. Abdomen/Pelvis CT 04/15/17 20:09 IMPRESSION: 1. Bilateral pleural effusions right greater than left. 2. Small volume ascites. 3. Subcutaneous edema. Chest X-Ray 04/19/17 00:00 IMPRESSION: LIFE LINES DESCRIBED. OTHERWISE NO CHANGE IN APPEARANCE OF THE CHEST. KUB X-Ray 04/19/17 09:54 IMPRESSION: NASOGASTRIC TUBE WITH THE TIP IN THE STOMACH. NO RADIOGRAPHIC EVIDENCE FOR ACUTE ABDOMINAL DISEASE. Status: Imported from PACS Assessment & Plan - Diagnosis (1) Diabetic infection of right foot Is this a current diagnosis for this admission?: Yes Plan: 71-year-old white female postop day 1 from a open guillotine right below-knee amputation for cellulitis and sepsis. Patient currently intubated and sedated on levo fed for pressure support. - Plan Summary Plan Summary: Plan will be to return to the operating room later this week once the patient's medical condition is stabilized for below-knee amputation closure.
--- NOTE | 2017-04-20 08:04 | PDOC PROGRESS REPORT ---
Subjective Progress Note for:: 04/20/17 Subjective:: The patient is intubated and sedated. She is day 2 postop for right BKA. She is presently on Levophed and propofol drip for sedation Physical Exam Vital Signs: Temp Pulse Resp BP Pulse Ox 99.1 F 61 15 98/47 L 100 04/19/17 09:37 04/20/17 07:57 04/20/17 06:00 04/20/17 05:53 04/20/17 07:53 Intake & Output 04/19/17 04/20/17 04/21/17 06:59 06:59 06:59 Intake Total 2742 5952 Output Total 935 2565 Balance 1807 3387 Weight 101.2 kg 98.2 kg General appearance: PRESENT: severe distress Neck exam: PRESENT: carotid bruit Respiratory exam: PRESENT: rhonchi Cardiovascular exam: PRESENT: RRR, +S1, +S2 Pulses: PRESENT: other Additional comments: Practically absent peripheral pulses in the lower extremity Vascular exam: PRESENT: other Additional comments: Practically absent peripheral pulses in the lower extremities GI/Abdominal exam: PRESENT: soft Extremities exam: PRESENT: right BKA Additional comments: Postop day 2 Neurological exam: PRESENT: other - Intubated and sedated Skin exam: PRESENT: other Results Laboratory Results: 04/20/17 05:40 04/20/17 05:40 04/20/17 04/20/17 05:40 05:40 WBC 23.7 H RBC 3.79 Hgb 9.9 L Hct 29.8 L MCV 79 L MCH 26.1 L MCHC 33.3 RDW 21.2 H Plt Count 156 Seg Neutrophils % Not Reportable Lymphocytes % Not Reportable Monocytes % Not Reportable Eosinophils % Not Reportable Basophils % Not Reportable Absolute Neutrophils Not Reportable Absolute Lymphocytes Not Reportable Absolute Monocytes Not Reportable Absolute Eosinophils Not Reportable Absolute Basophils Not Reportable Sodium 131.5 L Potassium 3.7 Chloride 108 H Carbon Dioxide 15 L Anion Gap 9 BUN 36 H Creatinine 1.30 H Est GFR ( Amer) 49 L Est GFR (Non-Af Amer) 40 L Glucose 183 H Calcium 7.5 L 04/18/17 04/18/17 04/18/17 09:27 09:27 09:27 Creatine Kinase < 20 L CK-MB (CK-2) 0.84 Troponin I 0.264 NT-Pro-B Natriuret Pep [id number] H 04/18/17 04/18/17 15:00 15:00 Creatine Kinase < 20 L CK-MB (CK-2) 0.93 Troponin I 0.248 NT-Pro-B Natriuret Pep Impressions: Foot X-Ray 04/15/17 16:57 IMPRESSION: Calcaneal spurs with no acute osseous abnormality. Degenerative joint changes as described. Abdomen/Pelvis CT 04/15/17 20:09 IMPRESSION: 1. Bilateral pleural effusions right greater than left. 2. Small volume ascites. 3. Subcutaneous edema. Chest X-Ray 04/19/17 00:00 IMPRESSION: LIFE LINES DESCRIBED. OTHERWISE NO CHANGE IN APPEARANCE OF THE CHEST. KUB X-Ray 04/19/17 09:54 IMPRESSION: NASOGASTRIC TUBE WITH THE TIP IN THE STOMACH. NO RADIOGRAPHIC EVIDENCE FOR ACUTE ABDOMINAL DISEASE. Assessment & Plan - Diagnosis (1) Severe sepsis Is this a current diagnosis for this admission?: Yes Plan: Still septic hypotensive status post right BKA. Slight improvement in the white count (2) Bacteremia Is this a current diagnosis for this admission?: Yes Plan: Gram-negative rods. We will continue with IV antibiotics (3) Acute renal failure superimposed on chronic kidney disease Is this a current diagnosis for this admission?: Yes Plan: Very poor renal urinary output most probably secondary to acute tubular necrosis due to hypotension. A lot of sediment in the urine (4) Chronic renal failure Is this a current diagnosis for this admission?: Yes Plan: Continue IV fluids (5) Diabetic infection of right foot Is this a current diagnosis for this admission?: Yes Plan: Status post BKA with some minimal drainage (6) Peripheral arterial occlusive disease Plan: Very poor peripheral circulation (7) Peripheral arterial disease Is this a current diagnosis for this admission?: Yes
[2017-04-20] MEDS: DOCUSATE SODIUM 100 MG CAPSULE PO SCH ×2 (09:07→19:45)
[2017-04-20] MEDS: METOPROLOL SUCCINATE 50 MG TAB.SR.24H PO SCH (09:07)
[2017-04-20] MEDS: FAMOTIDINE INJ/PF 20 MG/2 ML SDV IV SCH ×2 (09:24→21:35)
[2017-04-20] MEDS: GLIPIZIDE XL 5 MG TAB.ER.24 PO SCH (09:25)
[2017-04-20] MEDS: ASPIRIN 81 MG TABLET, CHEWABLE NG SCH (09:26)
[2017-04-20] MEDS: ENOXAPARIN SODIUM INJ 30 MG/0.3 ML DISP.SYRIN SUBCUT SCH ×2 (09:26→21:36)
[2017-04-20 10:45] LABS: ARTERIAL BLOOD BASE EXCESS -7.7 mmol/L; ARTERIAL BLOOD O2 SATURATION 98.2 % (94-98)
[2017-04-20] MEDS ORDERED: PHENYLEPHRINE HCL INJ/PF 10 MG/1 ML SDV ONE (11:12)
--- NOTE | 2017-04-20 11:52 | PDOC CONSULTATION ---
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 Her white count is declining but she continues to be septic shock requiring vasopressors her past medical history is extensive including coronary artery disease cerebrovascular disease peripheral artery disease hypertension diabetes chronic renal failure and hyperlipidemia. Patient is currently intubated and sedated Past Medical History Cardiac Medical History: Reports: Coronary Artery Disease, Hypertension, Peripheral Vascular Disease Denies: Myocardial Infarction Pulmonary Medical History: Denies: Asthma Neurological Medical History: Denies: Seizures Endocrine Medical History: Reports: Diabetes Mellitus Type 2 Renal/ Medical History: Reports: Chronic Kidney Disease GI Medical History: Denies: Hepatitis, Hiatal Hernia Psychiatric Medical History: Reports: Depression Hematology: Denies: Anemia, Sickle Cell Disease Past Surgical History Past Surgical History: Denies: Amputation, Mastectomy, Pacemaker Social History Smoking Status: Unknown if Ever Smoked Frequency of Alcohol Use: None Hx Recreational Drug Use: No Drugs: None Hx Prescription Drug Abuse: No - Advance Directive Resuscitation Status: Full Code Family History Family History: Hypertension Parental Family History Reviewed: No Children Family History Reviewed: No Sibling(s) Family History Reviewed.: No Medication/Allergy Home Medications: Furosemide [Lasix 40 mg Tablet] 40 mg PO DAILY 07/24/14 Glipizide [Glipizide Xl] 10 mg PO DAILY 07/24/14 Lisinopril 10 mg PO DAILY 07/24/14 Atorvastatin Calcium 40 mg PO QHS 04/06/16 Metoprolol Succinate 100 mg PO DAILY 04/06/16 Clopidogrel Bisulfate [Plavix 75 mg Tablet] 75 mg PO DAILY #0 tablet 04/08/16 Nitroglycerin [Nitrostat 0.4 mg (1/150 Gr) Tabs 25/Bottle] 1 tab SL Q5MP PRN Aspirin [Aspirin EC] 81 mg PO DAILY 04/16/17 Allergies/Adverse Reactions: codeine [Codeine] Allergy (Verified 07/24/14 10:46) Generalized Itching Shellfish * [Shellfish] Allergy (Verified 07/24/14 10:46) Review of Systems ROS unobtainable: Due to endotracheal tube Physical Exam Vital Signs: Temp Pulse Resp BP Pulse Ox 99.1 F 61 15 98/47 L 100 04/19/17 09:37 04/20/17 07:57 04/20/17 06:00 04/20/17 05:53 04/20/17 07:53 Intake & Output 04/19/17 04/20/17 04/21/17 06:59 06:59 06:59 Intake Total 2742 5952 Output Total 935 6545 Balance 1807 3387 Weight 101.2 kg 98.2 kg General appearance: PRESENT: no acute distress, disheveled, well-developed Head exam: PRESENT: atraumatic, normocephalic Eye exam: PRESENT: conjunctiva pale Mouth exam: PRESENT: dry mucosa, neck supple, tongue midline, other - ET tube in place Neck exam: ABSENT: carotid bruit, JVD, lymphadenopathy, thyromegaly Respiratory exam: PRESENT: decreased breath sounds, prolonged expiratory phas, rales, rhonchi, symmetrical, unlabored. ABSENT: retraction, stridor, tachypnea Cardiovascular exam: PRESENT: RRR, +S1, +S2 Pulses: PRESENT: normal radial pulses GI/Abdominal exam: PRESENT: normal bowel sounds, soft. ABSENT: distended, guarding, mass, organolmegaly, rebound, tenderness Rectal exam: PRESENT: deferred Gentrourinary exam: PRESENT: indwelling catheter Extremities exam: PRESENT: +2 edema - Left lower extremity cold edematous Musculoskeletal exam: PRESENT: other - Right BKA wound dressed with iodinated gauze Results Laboratory Results: 04/20/17 05:40 04/20/17 05:40 04/20/17 04/20/17 05:40 05:40 WBC 23.7 H RBC 3.79 Hgb 9.9 L Hct 29.8 L MCV 79 L MCH 26.1 L MCHC 33.3 RDW 21.2 H Plt Count 156 Seg Neutrophils % Not Reportable Lymphocytes % Not Reportable Monocytes % Not Reportable Eosinophils % Not Reportable Basophils % Not Reportable Absolute Neutrophils Not Reportable Absolute Lymphocytes Not Reportable Absolute Monocytes Not Reportable Absolute Eosinophils Not Reportable Absolute Basophils Not Reportable Sodium 131.5 L Potassium 3.7 Chloride 108 H Carbon Dioxide 15 L Anion Gap 9 BUN 36 H Creatinine 1.30 H Est GFR ( Amer) 49 L Est GFR (Non-Af Amer) 40 L Glucose 183 H Calcium 7.5 L 04/18/17 04/18/17 04/18/17 09:27 09:27 09:27 Creatine Kinase < 20 L CK-MB (CK-2) 0.84 Troponin I 0.264 NT-Pro-B Natriuret Pep 88328 H 04/18/17 04/18/17 15:00 15:00 Creatine Kinase < 20 L CK-MB (CK-2) 0.93 Troponin I 0.248 NT-Pro-B Natriuret Pep Impressions: Foot X-Ray 04/15/17 16:57 IMPRESSION: Calcaneal spurs with no acute osseous abnormality. Degenerative joint changes as described. Abdomen/Pelvis CT 04/15/17 20:09 IMPRESSION: 1. Bilateral pleural effusions right greater than left. 2. Small volume ascites. 3. Subcutaneous edema. Chest X-Ray 04/19/17 00:00 IMPRESSION: LIFE LINES DESCRIBED. OTHERWISE NO CHANGE IN APPEARANCE OF THE CHEST. KUB X-Ray 04/19/17 09:54 IMPRESSION: NASOGASTRIC TUBE WITH THE TIP IN THE STOMACH. NO RADIOGRAPHIC EVIDENCE FOR ACUTE ABDOMINAL DISEASE. Assessment & Plan - Diagnosis (1) Septic shock Is this a current diagnosis for this admission?: Yes Plan: Requiring 2 vasopressors elevated white count (2) Right BKA infection Is this a current diagnosis for this admission?: Yes Plan: Infection present long before BKA was initiated 04/15/17 17:54 Urine Culture - Final Catheterized Urine Escherichia Coli 04/15/17 16:24 Blood Culture - Final Blood Pasteurella Multocida Staphylococcus Simulans 04/15/17 16:24 Blood Culture - Final Blood Pasteurella Multocida (3) Chronic renal failure Qualifiers: Chronic kidney disease stage: stage 3 (moderate) Qualified Code(s): N18.3 - Chronic kidney disease, stage 3 (moderate) Is this a current diagnosis for this admission?: Yes Plan: Follow creatinine and BUN and fluids balance closely (4) Severe peripheral arterial disease Is this a current diagnosis for this admission?: Yes Plan: Left lower extremity also appears to be in danger secondary to vascular compromise - Time Critical Time spent with patient: 35 or more minutes - 55 minutes
[2017-04-20] MEDS: ALBUMIN HUMAN 25% RTU INJ 12.5 GM/50 ML RTUINJ IV SCH ×2 (12:50→21:35)
[2017-04-20 14:50] LABS: PATH REVIEW PATHOLOGIST REVIEWED
[2017-04-20] MEDS: VANCOMYCIN HCL 1,000 MG in DEXTROSE 5%-WATER 250 ML IV SCH (16:52)
[2017-04-20] MEDS: RINGERS SOLUTION,LACTATED 1,000 ML IV PRN (16:59)
[2017-04-20] MEDS: ATORVASTATIN CALCIUM 40 MG TABLET NG SCH (21:35)
[2017-04-20] MEDS: DEXTROSE 5%-WATER 250 ML with PHENYLEPHRINE HCL 40 MG IV PRN ×2 (23:57)
[2017-04-21] MEDS: PROPOFOL 100 ML IV PRN ×3 (02:38→20:20)
[2017-04-21] MEDS: RINGERS SOLUTION,LACTATED 1,000 ML IV PRN (02:38)
[2017-04-21] MEDS: ALBUMIN HUMAN 25% RTU INJ 12.5 GM/50 ML RTUINJ IV SCH (06:23)
[2017-04-21] MEDS: PIPERACILLIN SODIUM/TAZOBACTAM 3.375 GM in DEXTROSE 5%-WATER 100 ML IV SCH ×4 (06:24→23:04)
[2017-04-21] MEDS: CIPROFLOXACIN 400 MG/D5W RTU 400 MG/200 ML RTUPB IV SCH (06:24)
[2017-04-21 06:34] LABS: MEAN CORPUSCULAR HEMOGLOBIN 25.2 pg (27.0-33.4); MEAN CORPUSCULAR VOLUME 79 fl (80-97); RED BLOOD COUNT 3.56 10^6/uL (3.72-5.28); RED CELL DISTRIBUTION WIDTH 21.1 % (11.5-14.0); WHITE BLOOD COUNT 16.8 10^3/uL (4.0-10.5)
--- NOTE | 2017-04-21 06:38 | PDOC PROGRESS REPORT ---
Subjective Progress Note for:: 04/21/17 Subjective:: Patient intubated and sedated Physical Exam Vital Signs: Temp Pulse Resp BP Pulse Ox 36.9 C 71 13 102/44 L 100 04/20/17 16:00 04/20/17 21:05 04/21/17 03:53 04/21/17 03:53 04/21/17 04:00 Intake & Output 04/19/17 04/20/17 04/21/17 06:59 06:59 06:59 Intake Total 2742 5952 2426 Output Total 935 2565 1555 Balance 1807 3387 871 Weight 101.2 kg 98.2 kg General appearance: PRESENT: no acute distress Results Laboratory Results: 04/20/17 04/20/17 08:53 10:18 Carbonic Acid 0.97 L HCO3/H2CO3 Ratio 17:1 ABG pH 7.34 L ABG pCO2 32.2 L ABG pO2 118.2 H ABG HCO3 17.1 L ABG O2 Saturation 98.2 H ABG Base Excess -7.7 FiO2 30% Lactic Acid 1.3 04/18/17 04/18/17 04/18/17 09:27 09:27 09:27 Creatine Kinase < 20 L CK-MB (CK-2) 0.84 Troponin I 0.264 NT-Pro-B Natriuret Pep 32087 H 04/18/17 04/18/17 15:00 15:00 Creatine Kinase < 20 L CK-MB (CK-2) 0.93 Troponin I 0.248 NT-Pro-B Natriuret Pep Impressions: Foot X-Ray 04/15/17 16:57 IMPRESSION: Calcaneal spurs with no acute osseous abnormality. Degenerative joint changes as described. Abdomen/Pelvis CT 04/15/17 20:09 IMPRESSION: 1. Bilateral pleural effusions right greater than left. 2. Small volume ascites. 3. Subcutaneous edema. KUB X-Ray 04/19/17 09:54 IMPRESSION: NASOGASTRIC TUBE WITH THE TIP IN THE STOMACH. NO RADIOGRAPHIC EVIDENCE FOR ACUTE ABDOMINAL DISEASE. Status: Imported from PACS Assessment & Plan - Diagnosis (1) Diabetic infection of right foot Is this a current diagnosis for this admission?: Yes Plan: Patient intubated and sedated. White blood cell decreased to 23,000. Levo fed decreased to 9. Would suggest that we return to the operating room for right below-knee amputation closure prior to extubation - Time Time Spent with patient: 15-24 minutes Anticipated discharge: Other Within: Other
[2017-04-21 06:47] LABS: ALANINE AMINOTRANSFERASE 19 U/L (9-52); ALBUMIN 2.2 g/dL (3.5-5.0); ALKALINE PHOSPHATASE 68 U/L (38-126); ANION GAP 12 (5-19); ASPARTATE AMINO TRANSFERASE 14 U/L (14-36); BILIRUBIN,TOTAL 3.4 mg/dL (0.2-1.3); BLOOD UREA NITROGEN 33 mg/dL (7-20); CALCIUM 7.7 mg/dL (8.4-10.2); CARBON DIOXIDE 14 mmol/L (22-30); CHLORIDE 104 mmol/L (98-107); CREATININE RESULT 1.28 mg/dL (0.52-1.25); GLUCOSE 159 mg/dL (75-110); MAGNESIUM 1.8 mg/dL (1.6-2.3); POTASSIUM 3.9 mmol/L (3.6-5.0); SODIUM 130.1 mmol/L (137-145); TOTAL PROTEIN 5.1 g/dL (6.3-8.2); TRIGLYCERIDES 161 mg/dL (<150)
[2017-04-21 07:28] LABS: ANISOCYTOSIS 2+; BAND NEUTROPHILS % (MANUAL) 1 % (3-5); BASOPHILS % (MANUAL) 0 % (0-2); EOSINOPHILS % (MANUAL) 3 % (0-6); HYPOCHROMASIA SLIGHT; LYMPHOCYTES % (MANUAL) 9 % (13-45); MICROCYTOSIS SLIGHT; OVALOCYTES 1+; POIKILOCYTOSIS 1+; TOTAL CELLS COUNTED 100; TOXIC GRANULATION 1+
--- NOTE | 2017-04-21 07:44 | RADIOLOGY REPORT (SQ) ---
EXAM DESCRIPTION: CHEST SINGLE VIEW COMPLETED DATE/TIME: 04/21/2017 6:21 am REASON FOR STUDY: septic shock COMPARISON: 04/19/2017. EXAM PARAMETERS: NUMBER OF VIEWS: One view. TECHNIQUE: Single frontal radiographic view of the chest acquired. RADIATION DOSE: NA LIMITATIONS: None. FINDINGS: LUNGS AND PLEURA: Moderate opacity of the left lower lobe. Moderate lung volumes. MEDIASTINUM AND HILAR STRUCTURES: No masses. Contour normal. HEART AND VASCULAR STRUCTURES: Mild enlargement of the cardiac silhouette. Atherosclerosis. BONES: No acute findings. HARDWARE: Adequate appearing endotracheal tube, right subclavian PICC tip at the cavoatrial junction, and NG tube with tip obscured. OTHER: No other significant finding. IMPRESSION: No significant interval change. TECHNICAL DOCUMENTATION: JOB ID: [id number]
[2017-04-21 08:20] LABS: ARTERIAL BLOOD BASE EXCESS -10.3 mmol/L; ARTERIAL BLOOD O2 SATURATION 98.7 % (94-98)
--- NOTE | 2017-04-21 08:39 | PDOC PROGRESS REPORT ---
Subjective Progress Note for:: 04/21/17 Subjective:: The patient is still intubated and sedated. Her blood pressure seems to be maintaining on Levophed and Jarred-Synephrine. She is scheduled to go back to the operating room to have the wound closed. She is still very swollen and puffy. She could not tolerate tube feeding with 300 residual. Physical Exam Vital Signs: Temp Pulse Resp BP Pulse Ox 97.3 F 62 14 110/47 L 100 04/21/17 07:53 04/21/17 08:00 04/21/17 07:53 04/21/17 07:53 04/21/17 08:00 Intake & Output 04/20/17 04/21/17 04/22/17 06:59 06:59 06:59 Intake Total 5952 5499 Output Total 2565 1755 100 Balance 3387 3744 -100 Weight 98.2 kg 101.2 kg General appearance: PRESENT: mild distress Eye exam: PRESENT: conjunctival injection Mouth exam: PRESENT: dry mucosa Neck exam: PRESENT: carotid bruit Respiratory exam: PRESENT: crackles Cardiovascular exam: PRESENT: RRR, +S1, +S2 Pulses: PRESENT: other Vascular exam: PRESENT: pallor GI/Abdominal exam: PRESENT: soft Extremities exam: PRESENT: right BKA, tenderness, other Musculoskeletal exam: PRESENT: other Neurological exam: PRESENT: other Results Laboratory Results: 04/21/17 06:15 04/21/17 06:15 04/20/17 04/20/17 04/21/17 08:53 10:18 06:00 WBC RBC Hgb Hct MCV MCH MCHC RDW Plt Count Seg Neutrophils % Lymphocytes % Monocytes % Eosinophils % Basophils % Absolute Neutrophils Absolute Lymphocytes Absolute Monocytes Absolute Eosinophils Absolute Basophils Carbonic Acid 0.97 L HCO3/H2CO3 Ratio 17:1 ABG pH 7.34 L ABG pCO2 32.2 L ABG pO2 118.2 H ABG HCO3 17.1 L ABG O2 Saturation 98.2 H ABG Base Excess -7.7 FiO2 30% Sodium Potassium Chloride Carbon Dioxide Anion Gap BUN Creatinine Est GFR ( Amer) Est GFR (Non-Af Amer) Glucose Lactic Acid 1.3 1.2 Calcium Magnesium Total Bilirubin AST ALT Alkaline Phosphatase Total Protein Albumin Triglycerides 04/21/17 04/21/17 04/21/17 06:15 06:15 08:10 WBC 16.8 H RBC 3.56 L Hgb 9.0 L Hct 28.0 L MCV 79 L MCH 25.2 L MCHC 32.0 RDW 21.1 H Plt Count 154 Seg Neutrophils % Not Reportable Lymphocytes % Not Reportable Monocytes % Not Reportable Eosinophils % Not Reportable Basophils % Not Reportable Absolute Neutrophils Not Reportable Absolute Lymphocytes Not Reportable Absolute Monocytes Not Reportable Absolute Eosinophils Not Reportable Absolute Basophils Not Reportable Carbonic Acid 0.80 L HCO3/H2CO3 Ratio 17:1 ABG pH 7.35 ABG pCO2 26.6 L ABG pO2 141.4 H ABG HCO3 14.2 L ABG O2 Saturation 98.7 H ABG Base Excess -10.3 FiO2 30% Sodium 130.1 L Potassium 3.9 Chloride 104 Carbon Dioxide 14 L Anion Gap 12 BUN 33 H Creatinine 1.28 H Est GFR ( Amer) 50 L Est GFR (Non-Af Amer) 41 L Glucose 159 H Lactic Acid Calcium 7.7 L Magnesium 1.8 Total Bilirubin 3.4 H AST 14 ALT 19 Alkaline Phosphatase 68 Total Protein 5.1 L Albumin 2.2 L Triglycerides 161 H 04/18/17 04/18/17 04/18/17 09:27 09:27 09:27 Creatine Kinase < 20 L CK-MB (CK-2) 0.84 Troponin I 0.264 NT-Pro-B Natriuret Pep 64093 H 04/18/17 04/18/17 15:00 15:00 Creatine Kinase < 20 L CK-MB (CK-2) 0.93 Troponin I 0.248 NT-Pro-B Natriuret Pep Impressions: Foot X-Ray 04/15/17 16:57 IMPRESSION: Calcaneal spurs with no acute osseous abnormality. Degenerative joint changes as described. Abdomen/Pelvis CT 04/15/17 20:09 IMPRESSION: 1. Bilateral pleural effusions right greater than left. 2. Small volume ascites. 3. Subcutaneous edema. KUB X-Ray 04/19/17 09:54 IMPRESSION: NASOGASTRIC TUBE WITH THE TIP IN THE STOMACH. NO RADIOGRAPHIC EVIDENCE FOR ACUTE ABDOMINAL DISEASE. Chest X-Ray 04/21/17 06:00 IMPRESSION: No significant interval change. Assessment & Plan - Diagnosis (1) Severe sepsis Is this a current diagnosis for this admission?: Yes Plan: Slight improvement with a white count down to 13,000 (2) Bacteremia Is this a current diagnosis for this admission?: Yes (3) Acute renal failure superimposed on chronic kidney disease Is this a current diagnosis for this admission?: Yes (4) Chronic renal failure Qualifiers: Chronic kidney disease stage: stage 3 (moderate) Qualified Code(s): N18.3 - Chronic kidney disease, stage 3 (moderate) Is this a current diagnosis for this admission?: Yes (5) Diabetic infection of right foot Is this a current diagnosis for this admission?: Yes Plan: Status post right BKA. The wound is draining some. Scheduled for secondary closure (6) Peripheral arterial occlusive disease Plan: Very poor peripheral circulation (7) Peripheral arterial disease Is this a current diagnosis for this admission?: Yes (8) Diabetes mellitus Qualifiers: Diabetes mellitus type: type 2 Diabetes mellitus complication status: with kidney complications Diabetes mellitus complication detail: with nephropathy
[2017-04-21] MEDS ORDERED: DOPAMINE HCL/DEXTROSE 5%-WATER 800 MG/250 ML RTUINJ IV ONE (08:49)
[2017-04-21] MEDS: ALBUMIN HUMAN 50 ML IV SCH ×2 (09:00→18:00)
[2017-04-21] MEDS: FAMOTIDINE INJ/PF 20 MG/2 ML SDV IV SCH ×2 (09:11→21:11)
[2017-04-21] MEDS: ASPIRIN 81 MG TABLET, CHEWABLE NG SCH (09:11)
[2017-04-21] MEDS ORDERED: DOPAMINE HCL 800 MG/D5W 250 ML IV PRN (09:12)
[2017-04-21] MEDS: ENOXAPARIN SODIUM INJ 30 MG/0.3 ML DISP.SYRIN SUBCUT SCH ×2 (09:12→21:11)
[2017-04-21] MEDS: DOCUSATE SODIUM 100 MG CAPSULE PO SCH ×2 (09:15→17:19)
[2017-04-21] MEDS: METOPROLOL SUCCINATE 50 MG TAB.SR.24H PO SCH (09:15)
[2017-04-21] MEDS: DEXTROSE 5%-WATER 250 ML with NOREPINEPHRINE BITARTRATE 4 MG IV PRN ×2 (09:24)
[2017-04-21] MEDS ORDERED: VASOPRESSIN INJ 20 UNIT/1 ML VIAL ONE (09:39)
[2017-04-21] MEDS: DEXTROSE 5%-WATER 250 ML with VASOPRESSIN 100 UNIT IV PRN ×2 (10:27)
--- NOTE | 2017-04-21 11:28 | PDOC PROGRESS REPORT ---
Subjective Progress Note for:: 04/21/17 Subjective:: Intubated and sedated Physical Exam Vital Signs: Temp Pulse Resp BP Pulse Ox 97.3 F 67 14 110/47 L 100 04/21/17 07:53 04/21/17 07:53 04/21/17 07:53 04/21/17 07:53 04/21/17 08:00 Intake & Output 04/20/17 04/21/17 04/22/17 06:59 06:59 06:59 Intake Total 5952 5499 Output Total 2565 1755 100 Balance 3387 3744 -100 Weight 98.2 kg 101.2 kg General appearance: PRESENT: no acute distress, disheveled, thin, well-developed Head exam: PRESENT: atraumatic, normocephalic Eye exam: PRESENT: conjunctiva pale Mouth exam: PRESENT: dry mucosa, neck supple, tongue midline, other - ET tube in place Neck exam: ABSENT: carotid bruit, JVD, lymphadenopathy, thyromegaly Respiratory exam: PRESENT: decreased breath sounds, prolonged expiratory phas, rhonchi, symmetrical, unlabored. ABSENT: rales, retraction, stridor, tachypnea Cardiovascular exam: PRESENT: RRR, +S1, systolic murmur Pulses: PRESENT: normal radial pulses GI/Abdominal exam: PRESENT: normal bowel sounds, soft. ABSENT: distended, guarding, mass, organolmegaly, rebound, tenderness Rectal exam: PRESENT: deferred Extremities exam: PRESENT: other - Status post right BKA Neurological exam: ABSENT: alert, awake Skin exam: PRESENT: dry Results Laboratory Results: 04/21/17 06:15 04/21/17 06:15 04/20/17 04/20/17 04/21/17 08:53 10:18 06:00 WBC RBC Hgb Hct MCV MCH MCHC RDW Plt Count Seg Neutrophils % Lymphocytes % Monocytes % Eosinophils % Basophils % Absolute Neutrophils Absolute Lymphocytes Absolute Monocytes Absolute Eosinophils Absolute Basophils Carbonic Acid 0.97 L HCO3/H2CO3 Ratio 17:1 ABG pH 7.34 L ABG pCO2 32.2 L ABG pO2 118.2 H ABG HCO3 17.1 L ABG O2 Saturation 98.2 H ABG Base Excess -7.7 FiO2 30% Sodium Potassium Chloride Carbon Dioxide Anion Gap BUN Creatinine Est GFR ( Amer) Est GFR (Non-Af Amer) Glucose Lactic Acid 1.3 1.2 Calcium Magnesium Total Bilirubin AST ALT Alkaline Phosphatase Total Protein Albumin Triglycerides 04/21/17 04/21/17 06:15 06:15 WBC 16.8 H RBC 3.56 L Hgb 9.0 L Hct 28.0 L MCV 79 L MCH 25.2 L MCHC 32.0 RDW 21.1 H Plt Count 154 Seg Neutrophils % Not Reportable Lymphocytes % Not Reportable Monocytes % Not Reportable Eosinophils % Not Reportable Basophils % Not Reportable Absolute Neutrophils Not Reportable Absolute Lymphocytes Not Reportable Absolute Monocytes Not Reportable Absolute Eosinophils Not Reportable Absolute Basophils Not Reportable Carbonic Acid HCO3/H2CO3 Ratio ABG pH ABG pCO2 ABG pO2 ABG HCO3 ABG O2 Saturation ABG Base Excess FiO2 Sodium 130.1 L Potassium 3.9 Chloride 104 Carbon Dioxide 14 L Anion Gap 12 BUN 33 H Creatinine 1.28 H Est GFR ( Amer) 50 L Est GFR (Non-Af Amer) 41 L Glucose 159 H Lactic Acid Calcium 7.7 L Magnesium 1.8 Total Bilirubin 3.4 H AST 14 ALT 19 Alkaline Phosphatase 68 Total Protein 5.1 L Albumin 2.2 L Triglycerides 161 H 04/18/17 04/18/17 04/18/17 09:27 09:27 09:27 Creatine Kinase < 20 L CK-MB (CK-2) 0.84 Troponin I 0.264 NT-Pro-B Natriuret Pep 16020 H 04/18/17 04/18/17 15:00 15:00 Creatine Kinase < 20 L CK-MB (CK-2) 0.93 Troponin I 0.248 NT-Pro-B Natriuret Pep Impressions: Foot X-Ray 04/15/17 16:57 IMPRESSION: Calcaneal spurs with no acute osseous abnormality. Degenerative joint changes as described. Abdomen/Pelvis CT 04/15/17 20:09 IMPRESSION: 1. Bilateral pleural effusions right greater than left. 2. Small volume ascites. 3. Subcutaneous edema. KUB X-Ray 04/19/17 09:54 IMPRESSION: NASOGASTRIC TUBE WITH THE TIP IN THE STOMACH. NO RADIOGRAPHIC EVIDENCE FOR ACUTE ABDOMINAL DISEASE. Chest X-Ray 04/21/17 06:00 IMPRESSION: No significant interval change. Assessment & Plan - Diagnosis (1) Septic shock Is this a current diagnosis for this admission?: Yes Plan: Continues to require vasopressor agents (2) Right BKA infection Is this a current diagnosis for this admission?: Yes Plan: As per orthopedic surgery (3) Chronic renal failure Qualifiers: Chronic kidney disease stage: stage 3 (moderate) Qualified Code(s): N18.3 - Chronic kidney disease, stage 3 (moderate) Is this a current diagnosis for this admission?: Yes (4) Severe peripheral arterial disease Is this a current diagnosis for this admission?: Yes - Time Critical Time spent with patient: 25-34 minutes
[2017-04-21] MEDS: VANCOMYCIN HCL 1,000 MG in DEXTROSE 5%-WATER 250 ML IV SCH (17:10)
[2017-04-21] MEDS: NORMAL SALINE 1000 ML 1,000 ML IV PRN (20:20)
[2017-04-21] MEDS: ATORVASTATIN CALCIUM 40 MG TABLET NG SCH (21:11)
[2017-04-21] MEDS: INSULIN LISPRO 100 UNIT/ML 3 ML VIAL SUBCUT PRN (23:05)
[2017-04-22] MEDS: DEXTROSE 5%-WATER 250 ML with PHENYLEPHRINE HCL 40 MG IV PRN ×4 (00:06→19:05)
[2017-04-22] MEDS: ALBUMIN HUMAN 50 ML IV SCH ×3 (00:06→16:38)
[2017-04-22] MEDS: PROPOFOL 100 ML IV PRN ×2 (02:44→19:06)
[2017-04-22 05:42] LABS: ABSOLUTE BASOPHILS # (AUTO) 0.1 10^3/uL (0.0-0.2); ABSOLUTE EOSINOPHILS # (AUTO) 0.2 10^3/uL (0.0-0.6); ABSOLUTE LYMPHOCYTES (AUTO) 0.7 10^3/uL (0.5-4.7); ABSOLUTE MONOCYTES (AUTO) 0.6 10^3/uL (0.1-1.4); ABSOLUTE NEUT (AUTO) 9.2 10^3/uL (1.7-8.2); BASOPHILS % (AUTO) 0.8 % (0-2); EOSINOPHILS % (AUTO) 1.9 % (0-6); HEMOGLOBIN 8.2 g/dL (12.0-15.5); HGB HCT DIFFERENCE -0.4; LYMPHOCYTES % (AUTO) 6.2 % (13-45); MEAN CORPUSCULAR HEMOGLOBIN 25.9 pg (27.0-33.4); MEAN CORPUSCULAR HGB CONC 32.9 g/dL (32.0-36.0); MEAN CORPUSCULAR VOLUME 79 fl (80-97); RED BLOOD COUNT 3.17 10^6/uL (3.72-5.28); RED CELL DISTRIBUTION WIDTH 21.1 % (11.5-14.0); SEGMENTED NEUTROPHILS % (AUTO) 85.1 % (42-78); WHITE BLOOD COUNT 10.8 10^3/uL (4.0-10.5)
[2017-04-22 05:52] LABS: ALANINE AMINOTRANSFERASE 18 U/L (9-52); ALBUMIN 2.5 g/dL (3.5-5.0); ALKALINE PHOSPHATASE 63 U/L (38-126); ANION GAP 11 (5-19); ASPARTATE AMINO TRANSFERASE 18 U/L (14-36); BILIRUBIN,DIRECT 2.9 mg/dL (0.0-0.4); BILIRUBIN,TOTAL 3.4 mg/dL (0.2-1.3); BLOOD UREA NITROGEN 30 mg/dL (7-20); CALCIUM 7.7 mg/dL (8.4-10.2); CARBON DIOXIDE 14 mmol/L (22-30); CHLORIDE 103 mmol/L (98-107); CREATININE RESULT 1.37 mg/dL (0.52-1.25); GLUCOSE 167 mg/dL (75-110); MAGNESIUM 1.8 mg/dL (1.6-2.3); POTASSIUM 4.2 mmol/L (3.6-5.0); SODIUM 128.4 mmol/L (137-145); TOTAL PROTEIN 5.3 g/dL (6.3-8.2)
[2017-04-22] MEDS: PIPERACILLIN SODIUM/TAZOBACTAM 3.375 GM in DEXTROSE 5%-WATER 100 ML IV SCH ×4 (06:15→23:57)
[2017-04-22 06:45] LABS: ARTERIAL BLOOD BASE EXCESS -11.1 mmol/L; ARTERIAL BLOOD O2 SATURATION 98.9 % (94-98)
--- NOTE | 2017-04-22 07:11 | PDOC PROGRESS REPORT ---
Subjective Progress Note for:: 04/22/17 Subjective:: Patient continues to be sedated and intubated Physical Exam Vital Signs: Temp Pulse Resp BP Pulse Ox 37.5 C 79 14 105/59 L 100 04/21/17 18:00 04/21/17 20:00 04/22/17 06:25 04/22/17 06:25 04/22/17 06:25 Intake & Output 04/21/17 04/22/17 04/23/17 06:59 06:59 06:59 Intake Total 5499 4118 Output Total 1755 1180 Balance 3744 2938 Weight 101.2 kg 102.6 kg General appearance: PRESENT: no acute distress Extremities exam: PRESENT: other - Right lower extremity dressing with minor drainage serosanguineous in nature Results Laboratory Results: 04/22/17 05:15 04/22/17 05:15 04/21/17 04/21/17 04/22/17 06:15 08:10 05:15 WBC 16.8 H RBC 3.56 L Hgb 9.0 L Hct 28.0 L MCV 79 L MCH 25.2 L MCHC 32.0 RDW 21.1 H Plt Count 154 Seg Neutrophils % Not Reportable Lymphocytes % Not Reportable Monocytes % Not Reportable Eosinophils % Not Reportable Basophils % Not Reportable Absolute Neutrophils Not Reportable Absolute Lymphocytes Not Reportable Absolute Monocytes Not Reportable Absolute Eosinophils Not Reportable Absolute Basophils Not Reportable Carbonic Acid 0.80 L Cancelled HCO3/H2CO3 Ratio 17:1 Cancelled ABG pH 7.35 Cancelled ABG pCO2 26.6 L Cancelled ABG pO2 141.4 H Cancelled ABG HCO3 14.2 L Cancelled ABG O2 Saturation 98.7 H Cancelled ABG Base Excess -10.3 Cancelled FiO2 30% Cancelled Sodium Potassium Chloride Carbon Dioxide Anion Gap BUN Creatinine Est GFR ( Amer) Est GFR (Non-Af Amer) Glucose Lactic Acid Calcium Magnesium Total Bilirubin AST ALT Alkaline Phosphatase Total Protein Albumin 04/22/17 04/22/17 04/22/17 05:15 05:15 05:15 WBC 10.8 H RBC 3.17 L Hgb 8.2 L Hct 25.0 L MCV 79 L MCH 25.9 L MCHC 32.9 RDW 21.1 H Plt Count 118 L Seg Neutrophils % 85.1 H Lymphocytes % 6.2 L Monocytes % 6.0 Eosinophils % 1.9 Basophils % 0.8 Absolute Neutrophils 9.2 H Absolute Lymphocytes 0.7 Absolute Monocytes 0.6 Absolute Eosinophils 0.2 Absolute Basophils 0.1 Carbonic Acid HCO3/H2CO3 Ratio ABG pH ABG pCO2 ABG pO2 ABG HCO3 ABG O2 Saturation ABG Base Excess FiO2 Sodium 128.4 L Potassium 4.2 Chloride 103 Carbon Dioxide 14 L Anion Gap 11 BUN 30 H Creatinine 1.37 H Est GFR ( Amer) 46 L Est GFR (Non-Af Amer) 38 L Glucose 167 H Lactic Acid 1.3 Calcium 7.7 L Magnesium 1.8 Total Bilirubin 3.4 H AST 18 ALT 18 Alkaline Phosphatase 63 Total Protein 5.3 L Albumin 2.5 L 04/22/17 06:20 WBC RBC Hgb Hct MCV MCH MCHC RDW Plt Count Seg Neutrophils % Lymphocytes % Monocytes % Eosinophils % Basophils % Absolute Neutrophils Absolute Lymphocytes Absolute Monocytes Absolute Eosinophils Absolute Basophils Carbonic Acid 0.83 L HCO3/H2CO3 Ratio 16:1 ABG pH 7.32 L ABG pCO2 27.5 L ABG pO2 152.7 H ABG HCO3 13.8 L ABG O2 Saturation 98.9 H ABG Base Excess -11.1 FiO2 30% Sodium Potassium Chloride Carbon Dioxide Anion Gap BUN Creatinine Est GFR ( Amer) Est GFR (Non-Af Amer) Glucose Lactic Acid Calcium Magnesium Total Bilirubin AST ALT Alkaline Phosphatase Total Protein Albumin 04/18/17 04/18/17 04/18/17 09:27 09:27 09:27 Creatine Kinase < 20 L CK-MB (CK-2) 0.84 Troponin I 0.264 NT-Pro-B Natriuret Pep 02074 H 04/18/17 04/18/17 15:00 15:00 Creatine Kinase < 20 L CK-MB (CK-2) 0.93 Troponin I 0.248 NT-Pro-B Natriuret Pep Impressions: Foot X-Ray 04/15/17 16:57 IMPRESSION: Calcaneal spurs with no acute osseous abnormality. Degenerative joint changes as described. Abdomen/Pelvis CT 04/15/17 20:09 IMPRESSION: 1. Bilateral pleural effusions right greater than left. 2. Small volume ascites. 3. Subcutaneous edema. KUB X-Ray 04/19/17 09:54 IMPRESSION: NASOGASTRIC TUBE WITH THE TIP IN THE STOMACH. NO RADIOGRAPHIC EVIDENCE FOR ACUTE ABDOMINAL DISEASE. Status: Imported from PACS Assessment & Plan - Diagnosis (1) Diabetic infection of right foot Is this a current diagnosis for this admission?: Yes Plan: Patient continues to be sedated and intubated. White count continues to decrease now down to 10.8. Patient continues on Jarred-Synephrine. Plan will be to return to the operating room later this week for right lower extremity and closure pending continued medical improvement but prior to extubation. - Time Time Spent with patient: 15-24 minutes Anticipated discharge: SNF Within: Other
--- NOTE | 2017-04-22 07:12 | RADIOLOGY REPORT (SQ) ---
EXAM DESCRIPTION: CHEST SINGLE VIEW COMPLETED DATE/TIME: 04/22/2017 5:54 am REASON FOR STUDY: resp failure COMPARISON: 04/21/2017. EXAM PARAMETERS: NUMBER OF VIEWS: One view. TECHNIQUE: Single frontal radiographic view of the chest acquired. RADIATION DOSE: NA LIMITATIONS: None. FINDINGS: LUNGS AND PLEURA: Moderate airspace opacity -effusion of the left lower hemithorax. Moder ate haziness -layered effusion of the right lower hemithorax. Moderate lung volumes. Moderate inter stitial markings. Mild central pulmonary edema pattern. MEDIASTINUM AND HILAR STRUCTURES: No masses. Contour normal. HEART AND VASCULAR STRUCTURES: Mild enlargement of the cardiac silhouette. Atherosclerosis. BONES: Right subclavian central line tip at the right atrium ; consider 3.5 cm retraction. Adequate appearing endotracheal tube and likely adequate NG tube obscured distally. HARDWARE: None in the chest. OTHER: None. IMPRESSION: No significant interval change. TECHNICAL DOCUMENTATION: JOB ID: [id number]
--- NOTE | 2017-04-22 08:40 | PDOC PROGRESS REPORT ---
Subjective Progress Note for:: 04/22/17 Subjective:: The patient is still intubated and sedated. She has not had this secondary closure. She is not tolerating her tube feedings with high residuals. Her white count is slightly down unfortunately her H&H is down and her sodium is down. Physical Exam Vital Signs: Temp Pulse Resp BP Pulse Ox 99.5 F 79 14 105/59 L 100 04/21/17 18:00 04/21/17 20:00 04/22/17 06:25 04/22/17 06:25 04/22/17 06:25 Intake & Output 04/21/17 04/22/17 04/23/17 06:59 06:59 06:59 Intake Total 5499 4118 Output Total 1755 1180 Balance 3744 2938 Weight 101.2 kg 102.6 kg General appearance: PRESENT: severe distress Eye exam: PRESENT: conjunctival injection Neck exam: PRESENT: carotid bruit Respiratory exam: PRESENT: crackles, rales Cardiovascular exam: PRESENT: +S1, +S2 Pulses: PRESENT: other Vascular exam: PRESENT: other GI/Abdominal exam: PRESENT: soft Extremities exam: PRESENT: right BKA Additional comments: Awaiting secondary closure status post right BKA Neurological exam: PRESENT: other Additional comments: Intubated and sedated Results Laboratory Results: 04/22/17 05:15 04/22/17 05:15 04/22/17 04/22/17 04/22/17 05:15 05:15 05:15 WBC 10.8 H RBC 3.17 L Hgb 8.2 L Hct 25.0 L MCV 79 L MCH 25.9 L MCHC 32.9 RDW 21.1 H Plt Count 118 L Seg Neutrophils % 85.1 H Lymphocytes % 6.2 L Monocytes % 6.0 Eosinophils % 1.9 Basophils % 0.8 Absolute Neutrophils 9.2 H Absolute Lymphocytes 0.7 Absolute Monocytes 0.6 Absolute Eosinophils 0.2 Absolute Basophils 0.1 Carbonic Acid Cancelled HCO3/H2CO3 Ratio Cancelled ABG pH Cancelled ABG pCO2 Cancelled ABG pO2 Cancelled ABG HCO3 Cancelled ABG O2 Saturation Cancelled ABG Base Excess Cancelled FiO2 Cancelled Sodium 128.4 L Potassium 4.2 Chloride 103 Carbon Dioxide 14 L Anion Gap 11 BUN 30 H Creatinine 1.37 H Est GFR ( Amer) 46 L Est GFR (Non-Af Amer) 38 L Glucose 167 H Lactic Acid Calcium 7.7 L Magnesium 1.8 Total Bilirubin 3.4 H AST 18 ALT 18 Alkaline Phosphatase 63 Total Protein 5.3 L Albumin 2.5 L 04/22/17 04/22/17 05:15 06:20 WBC RBC Hgb Hct MCV MCH MCHC RDW Plt Count Seg Neutrophils % Lymphocytes % Monocytes % Eosinophils % Basophils % Absolute Neutrophils Absolute Lymphocytes Absolute Monocytes Absolute Eosinophils Absolute Basophils Carbonic Acid 0.83 L HCO3/H2CO3 Ratio 16:1 ABG pH 7.32 L ABG pCO2 27.5 L ABG pO2 152.7 H ABG HCO3 13.8 L ABG O2 Saturation 98.9 H ABG Base Excess -11.1 FiO2 30% Sodium Potassium Chloride Carbon Dioxide Anion Gap BUN Creatinine Est GFR ( Amer) Est GFR (Non-Af Amer) Glucose Lactic Acid 1.3 Calcium Magnesium Total Bilirubin AST ALT Alkaline Phosphatase Total Protein Albumin 04/18/17 04/18/17 04/18/17 09:27 09:27 09:27 Creatine Kinase < 20 L CK-MB (CK-2) 0.84 Troponin I 0.264 NT-Pro-B Natriuret Pep 39168 H 04/18/17 04/18/17 15:00 15:00 Creatine Kinase < 20 L CK-MB (CK-2) 0.93 Troponin I 0.248 NT-Pro-B Natriuret Pep Impressions: Foot X-Ray 04/15/17 16:57 IMPRESSION: Calcaneal spurs with no acute osseous abnormality. Degenerative joint changes as described. Abdomen/Pelvis CT 04/15/17 20:09 IMPRESSION: 1. Bilateral pleural effusions right greater than left. 2. Small volume ascites. 3. Subcutaneous edema. KUB X-Ray 04/19/17 09:54 IMPRESSION: NASOGASTRIC TUBE WITH THE TIP IN THE STOMACH. NO RADIOGRAPHIC EVIDENCE FOR ACUTE ABDOMINAL DISEASE. Chest X-Ray 04/22/17 06:00 IMPRESSION: No significant interval change. 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 Continue with antibiotics (2) Bacteremia Is this a current diagnosis for this admission?: Yes Plan: Gram-negative rods. We will continue with IV antibiotics (3) Acute renal failure superimposed on chronic kidney disease Is this a current diagnosis for this admission?: Yes (4) Chronic renal failure Qualifiers: Qualified Code(s): N18.3 - Chronic kidney disease, stage 3 (moderate) Is this a current diagnosis for this admission?: Yes Plan: Continue IV fluids and adjust dosages of medications (5) Diabetic infection of right foot Is this a current diagnosis for this admission?: Yes Plan: Status post right BKA. The wound is draining some. Scheduled for secondary closure (6) Peripheral arterial occlusive disease Plan: Very poor peripheral circulation (7) Peripheral arterial disease Is this a current diagnosis for this admission?: Yes (8) Diabetes mellitus Is this a current diagnosis for this admission?: Yes Plan: Continue with insulin treatments
[2017-04-22] MEDS: FAMOTIDINE INJ/PF 20 MG/2 ML SDV IV SCH ×2 (10:02→21:08)
[2017-04-22] MEDS: ENOXAPARIN SODIUM INJ 30 MG/0.3 ML DISP.SYRIN SUBCUT SCH (10:02)
[2017-04-22] MEDS: ASPIRIN 81 MG TABLET, CHEWABLE NG SCH (10:02)
[2017-04-22] MEDS: METOPROLOL SUCCINATE 50 MG TAB.SR.24H PO SCH (10:06)
[2017-04-22] MEDS: DOCUSATE SODIUM 100 MG CAPSULE PO SCH ×2 (10:06→17:46)
[2017-04-22] MEDS ORDERED: METOCLOPRAMIDE HCL INJ/PF 10 MG/2 ML SDV IV ONE (10:30)
--- NOTE | 2017-04-22 11:42 | PDOC PROGRESS REPORT ---
Subjective Progress Note for:: 04/22/17 Subjective:: Intubated and sedated Physical Exam Vital Signs: Temp Pulse Resp BP Pulse Ox 99.5 F 79 14 105/59 L 100 04/21/17 18:00 04/21/17 20:00 04/22/17 06:25 04/22/17 06:25 04/22/17 06:25 Intake & Output 04/21/17 04/22/17 04/23/17 06:59 06:59 06:59 Intake Total 5499 4118 Output Total 1755 1180 Balance 3744 2938 Weight 101.2 kg 102.6 kg General appearance: PRESENT: no acute distress, disheveled, thin, well-developed Head exam: PRESENT: atraumatic, normocephalic Eye exam: PRESENT: conjunctiva pale Mouth exam: PRESENT: dry mucosa, neck supple, tongue midline, other - ET tube in place Neck exam: ABSENT: carotid bruit, JVD, lymphadenopathy, thyromegaly Respiratory exam: PRESENT: decreased breath sounds, prolonged expiratory phas, rales, rhonchi, symmetrical, unlabored, wheezes. ABSENT: retraction, stridor, tachypnea Cardiovascular exam: PRESENT: RRR, +S1, +S2 Pulses: PRESENT: normal radial pulses GI/Abdominal exam: PRESENT: normal bowel sounds, soft. ABSENT: distended, guarding, mass, organolmegaly, rebound, tenderness Rectal exam: PRESENT: deferred Gentrourinary exam: PRESENT: indwelling catheter Extremities exam: PRESENT: +2 edema - Left lower extremity pale cool Neurological exam: ABSENT: alert, awake Skin exam: PRESENT: dry Results Laboratory Results: 04/22/17 05:15 04/22/17 05:15 04/22/17 04/22/17 04/22/17 05:15 05:15 05:15 WBC 10.8 H RBC 3.17 L Hgb 8.2 L Hct 25.0 L MCV 79 L MCH 25.9 L MCHC 32.9 RDW 21.1 H Plt Count 118 L Seg Neutrophils % 85.1 H Lymphocytes % 6.2 L Monocytes % 6.0 Eosinophils % 1.9 Basophils % 0.8 Absolute Neutrophils 9.2 H Absolute Lymphocytes 0.7 Absolute Monocytes 0.6 Absolute Eosinophils 0.2 Absolute Basophils 0.1 Carbonic Acid Cancelled HCO3/H2CO3 Ratio Cancelled ABG pH Cancelled ABG pCO2 Cancelled ABG pO2 Cancelled ABG HCO3 Cancelled ABG O2 Saturation Cancelled ABG Base Excess Cancelled FiO2 Cancelled Sodium 128.4 L Potassium 4.2 Chloride 103 Carbon Dioxide 14 L Anion Gap 11 BUN 30 H Creatinine 1.37 H Est GFR ( Amer) 46 L Est GFR (Non-Af Amer) 38 L Glucose 167 H Lactic Acid Calcium 7.7 L Magnesium 1.8 Total Bilirubin 3.4 H AST 18 ALT 18 Alkaline Phosphatase 63 Total Protein 5.3 L Albumin 2.5 L 04/22/17 04/22/17 05:15 06:20 WBC RBC Hgb Hct MCV MCH MCHC RDW Plt Count Seg Neutrophils % Lymphocytes % Monocytes % Eosinophils % Basophils % Absolute Neutrophils Absolute Lymphocytes Absolute Monocytes Absolute Eosinophils Absolute Basophils Carbonic Acid 0.83 L HCO3/H2CO3 Ratio 16:1 ABG pH 7.32 L ABG pCO2 27.5 L ABG pO2 152.7 H ABG HCO3 13.8 L ABG O2 Saturation 98.9 H ABG Base Excess -11.1 FiO2 30% Sodium Potassium Chloride Carbon Dioxide Anion Gap BUN Creatinine Est GFR ( Amer) Est GFR (Non-Af Amer) Glucose Lactic Acid 1.3 Calcium Magnesium Total Bilirubin AST ALT Alkaline Phosphatase Total Protein Albumin 04/18/17 04/18/17 04/18/17 09:27 09:27 09:27 Creatine Kinase < 20 L CK-MB (CK-2) 0.84 Troponin I 0.264 NT-Pro-B Natriuret Pep 29412 H 04/18/17 04/18/17 15:00 15:00 Creatine Kinase < 20 L CK-MB (CK-2) 0.93 Troponin I 0.248 NT-Pro-B Natriuret Pep Impressions: Foot X-Ray 04/15/17 16:57 IMPRESSION: Calcaneal spurs with no acute osseous abnormality. Degenerative joint changes as described. Abdomen/Pelvis CT 04/15/17 20:09 IMPRESSION: 1. Bilateral pleural effusions right greater than left. 2. Small volume ascites. 3. Subcutaneous edema. KUB X-Ray 04/19/17 09:54 IMPRESSION: NASOGASTRIC TUBE WITH THE TIP IN THE STOMACH. NO RADIOGRAPHIC EVIDENCE FOR ACUTE ABDOMINAL DISEASE. Chest X-Ray 04/22/17 06:00 IMPRESSION: No significant interval change. Assessment & Plan - Diagnosis (1) Septic shock Is this a current diagnosis for this admission?: Yes Plan: Continues to require vasopressor agents (2) Right BKA infection Is this a current diagnosis for this admission?: Yes (3) Chronic renal failure Qualifiers: Chronic kidney disease stage: stage 3 (moderate) Qualified Code(s): N18.3 - Chronic kidney disease, stage 3 (moderate) Is this a current diagnosis for this admission?: Yes (4) Severe peripheral arterial disease Is this a current diagnosis for this admission?: Yes (5) Malnutrition Qualifiers: Malnutrition type: protein-calorie malnutrition Protein-calorie malnutrition severity: severe Qualified Code(s): E43 - Unspecified severe protein-calorie malnutrition Is this a current diagnosis for this admission?: Yes Plan: Reglan to improve residuals from enteral feeds - Time Critical Time spent with patient: 25-34 minutes
[2017-04-22] MEDS: METOCLOPRAMIDE HCL INJ/PF 10 MG/2 ML SDV IV SCH ×2 (16:37→21:08)
[2017-04-22] MEDS: VANCOMYCIN HCL 1,000 MG in DEXTROSE 5%-WATER 250 ML IV SCH (16:38)
[2017-04-22] MEDS: ATORVASTATIN CALCIUM 40 MG TABLET NG SCH (21:08)
[2017-04-22] MEDS: NORMAL SALINE 1000 ML 1,000 ML IV PRN (21:08)
--- NOTE | 2017-04-22 22:55 | RADIOLOGY REPORT (SQ) ---
EXAM DESCRIPTION: U/S ABDOMEN COMPLETE W/O DOP COMPLETED DATE/TIME: 04/22/2017 10:36 pm REASON FOR STUDY: INCREASING BILIRUBIN COMPARISON: None. TECHNIQUE: Dynamic and static grayscale images acquired of the abdomen and recorded on PACS. Additio nal selected color Doppler and spectral images recorded. LIMITATIONS: Ventilated patient unable to roll decubitus. FINDINGS: PANCREAS: No masses. Visualized pancreatic duct normal caliber. LIVER: No masses. Echotexture normal. LIVER VASCULATURE: Normal directional flow of the main portal vein and hepatic veins. GALLBLADDER: There are gallstones. Normal wall thickness. No pericholecystic fluid. ULTRASOUND-DETECTED SHETH'S SIGN: Negative. INTRAHEPATIC DUCTS AND COMMON DUCT: CBD and intrahepatic ducts normal caliber. No filling defects. INFERIOR VENA CAVA: Normal flow. AORTA: No aneurysm. RIGHT KIDNEY: Normal size. Normal echogenicity. No solid or suspicious masses. No hydronephros is. No calcifications. LEFT KIDNEY: Not visualized. SPLEEN: Not visualized. PERITONEAL AND PLEURAL SPACES: Mild ascites. No pleural effusions identified. OTHER: No other significant finding. IMPRESSION: Mild ascites. Gallstones without gallbladder wall thickening. No biliary dilatation. TECHNICAL DOCUMENTATION: JOB ID: [id number] [employer]- All Rights Reserved
[2017-04-22] MEDS: INSULIN LISPRO 100 UNIT/ML 3 ML VIAL SUBCUT PRN (23:57)
[2017-04-23] MEDS: ALBUMIN HUMAN 50 ML IV SCH (00:49)
[2017-04-23] MEDS: METOCLOPRAMIDE HCL INJ/PF 10 MG/2 ML SDV IV SCH ×4 (03:16→21:27)
[2017-04-23] MEDS: PROPOFOL 100 ML IV PRN ×2 (03:16→19:26)
[2017-04-23 05:12] LABS: ARTERIAL BLOOD BASE EXCESS -10.8 mmol/L; ARTERIAL BLOOD O2 SATURATION 98.6 % (94-98)
[2017-04-23 05:13] LABS: ABSOLUTE BASOPHILS # (AUTO) 0.1 10^3/uL (0.0-0.2); ABSOLUTE EOSINOPHILS # (AUTO) 0.2 10^3/uL (0.0-0.6); ABSOLUTE LYMPHOCYTES (AUTO) 0.8 10^3/uL (0.5-4.7); ABSOLUTE MONOCYTES (AUTO) 0.7 10^3/uL (0.1-1.4); ABSOLUTE NEUT (AUTO) 8.7 10^3/uL (1.7-8.2); BASOPHILS % (AUTO) 1.1 % (0-2); EOSINOPHILS % (AUTO) 1.7 % (0-6); HEMATOCRIT 24.7 % (36.0-47.0); HEMOGLOBIN 8.1 g/dL (12.0-15.5); HGB HCT DIFFERENCE -0.4; LYMPHOCYTES % (AUTO) 7.4 % (13-45); MEAN CORPUSCULAR HEMOGLOBIN 25.9 pg (27.0-33.4); MEAN CORPUSCULAR HGB CONC 32.7 g/dL (32.0-36.0); MEAN CORPUSCULAR VOLUME 79 fl (80-97); MONOCYTES % (AUTO) 6.6 % (3-13); RED BLOOD COUNT 3.11 10^6/uL (3.72-5.28); RED CELL DISTRIBUTION WIDTH 21.2 % (11.5-14.0); SEGMENTED NEUTROPHILS % (AUTO) 83.2 % (42-78); WHITE BLOOD COUNT 10.5 10^3/uL (4.0-10.5)
[2017-04-23] MEDS: PIPERACILLIN SODIUM/TAZOBACTAM 3.375 GM in DEXTROSE 5%-WATER 100 ML IV SCH ×2 (05:21→18:38)
[2017-04-23 05:26] LABS: ALANINE AMINOTRANSFERASE 16 U/L (9-52); ALBUMIN 2.7 g/dL (3.5-5.0); ALKALINE PHOSPHATASE 73 U/L (38-126); ANION GAP 12 (5-19); ASPARTATE AMINO TRANSFERASE 18 U/L (14-36); BILIRUBIN,DIRECT 2.9 mg/dL (0.0-0.4); BILIRUBIN,TOTAL 3.4 mg/dL (0.2-1.3); BLOOD UREA NITROGEN 29 mg/dL (7-20); CALCIUM 7.6 mg/dL (8.4-10.2); CARBON DIOXIDE 14 mmol/L (22-30); CHLORIDE 103 mmol/L (98-107); GLUCOSE 187 mg/dL (75-110); MAGNESIUM 1.7 mg/dL (1.6-2.3); POTASSIUM 3.9 mmol/L (3.6-5.0); SODIUM 128.5 mmol/L (137-145); TOTAL PROTEIN 5.4 g/dL (6.3-8.2)
--- NOTE | 2017-04-23 06:47 | PDOC PROGRESS REPORT ---
Subjective Progress Note for:: 04/23/17 Subjective:: Patient intubated and sedated Physical Exam Vital Signs: Temp Pulse Resp BP Pulse Ox 36.8 C 64 13 95/59 L 100 04/22/17 17:55 04/22/17 20:00 04/23/17 06:12 04/23/17 06:12 04/23/17 06:12 Intake & Output 04/21/17 04/22/17 04/23/17 06:59 06:59 06:59 Intake Total 5499 4118 3585 Output Total 1755 1180 840 Balance 3744 2938 2745 Weight 101.2 kg 102.6 kg 104.8 kg Physical Exam: Unchanged Results Laboratory Results: 04/23/17 04:55 04/23/17 04:55 04/22/17 04/23/17 04/23/17 06:20 04:55 04:55 WBC 10.5 RBC 3.11 L Hgb 8.1 L Hct 24.7 L MCV 79 L MCH 25.9 L MCHC 32.7 RDW 21.2 H Plt Count 164 Seg Neutrophils % 83.2 H Lymphocytes % 7.4 L Monocytes % 6.6 Eosinophils % 1.7 Basophils % 1.1 Absolute Neutrophils 8.7 H Absolute Lymphocytes 0.8 Absolute Monocytes 0.7 Absolute Eosinophils 0.2 Absolute Basophils 0.1 Carbonic Acid 0.83 L 0.78 L HCO3/H2CO3 Ratio 16:1 17:1 ABG pH 7.32 L 7.34 L ABG pCO2 27.5 L 25.9 L ABG pO2 152.7 H 136.5 H ABG HCO3 13.8 L 13.7 L ABG O2 Saturation 98.9 H 98.6 H ABG Base Excess -11.1 -10.8 FiO2 30% 30% Sodium Potassium Chloride Carbon Dioxide Anion Gap BUN Creatinine Est GFR ( Amer) Est GFR (Non-Af Amer) Glucose Calcium Magnesium Total Bilirubin AST ALT Alkaline Phosphatase Total Protein Albumin 04/23/17 04:55 WBC RBC Hgb Hct MCV MCH MCHC RDW Plt Count Seg Neutrophils % Lymphocytes % Monocytes % Eosinophils % Basophils % Absolute Neutrophils Absolute Lymphocytes Absolute Monocytes Absolute Eosinophils Absolute Basophils Carbonic Acid HCO3/H2CO3 Ratio ABG pH ABG pCO2 ABG pO2 ABG HCO3 ABG O2 Saturation ABG Base Excess FiO2 Sodium 128.5 L Potassium 3.9 Chloride 103 Carbon Dioxide 14 L Anion Gap 12 BUN 29 H Creatinine 1.40 H Est GFR ( Amer) 45 L Est GFR (Non-Af Amer) 37 L Glucose 187 H Calcium 7.6 L Magnesium 1.7 Total Bilirubin 3.4 H AST 18 ALT 16 Alkaline Phosphatase 73 Total Protein 5.4 L Albumin 2.7 L 04/18/17 04/18/17 04/18/17 09:27 09:27 09:27 Creatine Kinase < 20 L CK-MB (CK-2) 0.84 Troponin I 0.264 NT-Pro-B Natriuret Pep 17349 H 04/18/17 04/18/17 15:00 15:00 Creatine Kinase < 20 L CK-MB (CK-2) 0.93 Troponin I 0.248 NT-Pro-B Natriuret Pep Impressions: Foot X-Ray 04/15/17 16:57 IMPRESSION: Calcaneal spurs with no acute osseous abnormality. Degenerative joint changes as described. Abdomen/Pelvis CT 04/15/17 20:09 IMPRESSION: 1. Bilateral pleural effusions right greater than left. 2. Small volume ascites. 3. Subcutaneous edema. KUB X-Ray 04/19/17 09:54 IMPRESSION: NASOGASTRIC TUBE WITH THE TIP IN THE STOMACH. NO RADIOGRAPHIC EVIDENCE FOR ACUTE ABDOMINAL DISEASE. Abdomen Ultrasound 04/22/17 08:31 IMPRESSION: Mild ascites. Gallstones without gallbladder wall thickening. No biliary dilatation. Assessment & Plan - Diagnosis (1) Diabetic infection of right foot Is this a current diagnosis for this admission?: Yes Plan: Plan to the return to the operating room today for closure of right below-knee amputation - Time Time Spent with patient: 15-24 minutes Anticipated discharge: Other Within: Other
--- NOTE | 2017-04-23 07:08 | RADIOLOGY REPORT (SQ) ---
EXAM DESCRIPTION: CHEST SINGLE VIEW COMPLETED DATE/TIME: 04/23/2017 6:21 am REASON FOR STUDY: SEPSIS COMPARISON: 04/22/2017. EXAM PARAMETERS: NUMBER OF VIEWS: One view. TECHNIQUE: Single frontal radiographic view of the chest acquired. RADIATION DOSE: NA LIMITATIONS: None. FINDINGS: LUNGS AND PLEURA: Moderate to large hazy opacity -layered effusion of bilateral mid and lo wer lung morales, left more than right. Moderate lung volumes. Moderate central pulmonary edema pati latasha. MEDIASTINUM AND HILAR STRUCTURES: No masses. Contour normal. HEART AND VASCULAR STRUCTURES: Moderate enlargement of the cardiac silhouette. Atherosclerosis. BONES: No acute findings. HARDWARE: Adequate appearing endotracheal tip, 2 cm from the sadia ; consider 2 cm retraction -adjus tment. Likely adequate NG tube obscured distally. Adequate appearing right subclavian central line tip at the cavoatrial junction. OTHER: No other significant finding. IMPRESSION: No significant interval change. TECHNICAL DOCUMENTATION: JOB ID: [id number]
[2017-04-23] MEDS ORDERED: KETAMINE HCL INJ 500 MG/10 ML VIAL ONE (07:16)
[2017-04-23] MEDS ORDERED: MIDAZOLAM 2 MG/2 ML INJ ONE (07:17)
[2017-04-23] MEDS ORDERED: FENTANYL CITRATE INJ/PF 100 MCG/2 ML AMPUL ONE (07:17)
[2017-04-23] MEDS ORDERED: PROPOFOL INJ 200 MG/20 ML VIAL IV ONE (07:17)
[2017-04-23] MEDS ORDERED: HYDROMORPHONE HCL INJ/PF 2 MG/ML AMPULE ONE (07:18)
[2017-04-23] MEDS: DOCUSATE SODIUM 100 MG CAPSULE PO SCH ×2 (07:35→17:08)
[2017-04-23] MEDS: METOPROLOL SUCCINATE 50 MG TAB.SR.24H PO SCH (07:35)
[2017-04-23] MEDS ORDERED: FUROSEMIDE INJ/PF 40 MG/4 ML SDV ONE (07:52)
[2017-04-23] MEDS: DEXTROSE 5%-WATER 250 ML with VASOPRESSIN 100 UNIT IV PRN ×2 (08:17)
--- NOTE | 2017-04-23 08:17 | PDOC PROGRESS REPORT ---
Subjective Progress Note for:: 04/23/17 Subjective:: The patient is intubated and sedated. She is presently scheduled to be back to the operating room for the wound closure of the right BKA. Daughter at the bedside. Discussed the poor prognosis and DNR status. She states that she wants to think about it and possibly talk with her mother if she ever comes off the ventilator and sedation. Physical Exam Vital Signs: Temp Pulse Resp BP Pulse Ox 98.2 F 64 13 95/59 L 100 04/22/17 17:55 04/22/17 20:00 04/23/17 06:12 04/23/17 06:12 04/23/17 06:12 Intake & Output 04/22/17 04/23/17 04/24/17 06:59 06:59 06:59 Intake Total 4118 3585 Output Total 1180 840 Balance 2938 2745 Weight 102.6 kg 104.8 kg General appearance: PRESENT: severe distress Eye exam: PRESENT: conjunctival injection Neck exam: PRESENT: carotid bruit Respiratory exam: PRESENT: crackles Cardiovascular exam: PRESENT: +S1, +S2 Pulses: PRESENT: other Additional comments: Unable to detect pulses in the left lower extremity GI/Abdominal exam: PRESENT: normal bowel sounds, soft Extremities exam: PRESENT: tenderness, other Musculoskeletal exam: PRESENT: tenderness, other Neurological exam: PRESENT: other Results Laboratory Results: 04/23/17 04:55 04/23/17 04:55 04/23/17 04/23/17 04/23/17 04:55 04:55 04:55 WBC 10.5 RBC 3.11 L Hgb 8.1 L Hct 24.7 L MCV 79 L MCH 25.9 L MCHC 32.7 RDW 21.2 H Plt Count 164 Seg Neutrophils % 83.2 H Lymphocytes % 7.4 L Monocytes % 6.6 Eosinophils % 1.7 Basophils % 1.1 Absolute Neutrophils 8.7 H Absolute Lymphocytes 0.8 Absolute Monocytes 0.7 Absolute Eosinophils 0.2 Absolute Basophils 0.1 Carbonic Acid 0.78 L HCO3/H2CO3 Ratio 17:1 ABG pH 7.34 L ABG pCO2 25.9 L ABG pO2 136.5 H ABG HCO3 13.7 L ABG O2 Saturation 98.6 H ABG Base Excess -10.8 FiO2 30% Sodium 128.5 L Potassium 3.9 Chloride 103 Carbon Dioxide 14 L Anion Gap 12 BUN 29 H Creatinine 1.40 H Est GFR ( Amer) 45 L Est GFR (Non-Af Amer) 37 L Glucose 187 H Calcium 7.6 L Magnesium 1.7 Total Bilirubin 3.4 H AST 18 ALT 16 Alkaline Phosphatase 73 Total Protein 5.4 L Albumin 2.7 L 04/18/17 04/18/17 04/18/17 09:27 09:27 09:27 Creatine Kinase < 20 L CK-MB (CK-2) 0.84 Troponin I 0.264 NT-Pro-B Natriuret Pep 87826 H 04/18/17 04/18/17 15:00 15:00 Creatine Kinase < 20 L CK-MB (CK-2) 0.93 Troponin I 0.248 NT-Pro-B Natriuret Pep Impressions: Foot X-Ray 04/15/17 16:57 IMPRESSION: Calcaneal spurs with no acute osseous abnormality. Degenerative joint changes as described. Abdomen/Pelvis CT 04/15/17 20:09 IMPRESSION: 1. Bilateral pleural effusions right greater than left. 2. Small volume ascites. 3. Subcutaneous edema. KUB X-Ray 04/19/17 09:54 IMPRESSION: NASOGASTRIC TUBE WITH THE TIP IN THE STOMACH. NO RADIOGRAPHIC EVIDENCE FOR ACUTE ABDOMINAL DISEASE. Abdomen Ultrasound 04/22/17 08:31 IMPRESSION: Mild ascites. Gallstones without gallbladder wall thickening. No biliary dilatation. Chest X-Ray 04/23/17 06:00 IMPRESSION: No significant interval change. Assessment & Plan - Diagnosis (1) Severe sepsis Is this a current diagnosis for this admission?: Yes Plan: We will continue with IV antibiotics. Will infuse albumin due to hypoalbuminemia (2) Bacteremia Is this a current diagnosis for this admission?: Yes (3) Acute renal failure superimposed on chronic kidney disease Is this a current diagnosis for this admission?: Yes (4) Chronic renal failure Qualifiers: Chronic kidney disease stage: stage 3 (moderate) Qualified Code(s): N18.3 - Chronic kidney disease, stage 3 (moderate) Is this a current diagnosis for this admission?: Yes Plan: Continue IV fluids and adjust dosages of medications (5) Diabetic infection of right foot Is this a current diagnosis for this admission?: Yes Plan: Patient is being taken to the OR for secondary closure of the right BKA (6) Peripheral arterial occlusive disease Plan: Very poor peripheral circulation (7) Peripheral arterial disease Is this a current diagnosis for this admission?: Yes (8) Diabetes mellitus Qualifiers: Diabetes mellitus type: type 2 Diabetes mellitus complication status: with kidney complications Diabetes mellitus complication detail: with nephropathy Is this a current diagnosis for this admission?: Yes Plan: Continue with insulin treatments (9) Hyponatremia Is this a current diagnosis for this admission?: Yes Plan: We will continue with normal saline. Will add diuretics (10) Malnutrition Qualifiers: Malnutrition type: protein-calorie malnutrition Protein-calorie malnutrition severity: severe Qualified Code(s): E43 - Unspecified severe protein-calorie malnutrition Is this a current diagnosis for this admission?: Yes Plan: The patient finally started tolerating NG tube feeding. There was very likely residual and then in the past 24 hours. We will continue advancing feeding
[2017-04-23] MEDS ORDERED: FUROSEMIDE INJ/PF 40 MG/4 ML SDV IV ONE (09:10)
--- NOTE | 2017-04-23 09:12 | Operative Report ---
Operative Report DATE OF SURGERY: 04/23/17 PREOPERATIVE DIAGNOSIS: Right lower extremity cellulitis and sepsis. Status post below-knee amputation OPERATION: Revision right below-knee amputation SURGEON: LEONCIO FREEMAN ANESTHESIA: GA TISSUE REMOVED OR ALTERED: Cultures to microbiology ESTIMATED BLOOD LOSS: Minimal PROCEDURE: With the patient supine on the operative table the right lower extremities prepped and draped in sterile fashion. The preliminary closure of the right below-knee amputation is taken down. Cultures are obtained. The soft tissues and bone are meticulous debrided of any nonviable tissue. Subsequently 0 PDS is used to fashion a mild pexy of the posterior muscular fascia to the intermuscular fascia. The skin is then closed using interrupted #1 Prolene. A sterile compressive dressing is applied and the patient is to return to the ICU in satisfactory condition.
--- NOTE | 2017-04-23 10:48 | RADIOLOGY REPORT (SQ) ---
EXAM DESCRIPTION: CHEST SINGLE VIEW COMPLETED DATE/TIME: 04/23/2017 10:35 am REASON FOR STUDY: intubation COMPARISON: Chest films 04/23/2017, 04/22/2017, 04/21/2017, 04/19/2017 EXAM PARAMETERS: NUMBER OF VIEWS: One view. TECHNIQUE: Single frontal radiographic view of the chest acquired. RADIATION DOSE: NA LIMITATIONS: Large patient, portable technique FINDINGS: Endotracheal tube tip midtrachea. Right-sided triple-lumen central line tip in the superi or vena cava. Nasogastric tube tip and side port in the stomach. LUNGS AND PLEURA: Right lung grossly clear. There is blurring of the left hemidiaphragm from left retrocardiac consolidation atelectasis versus p neumonia. Small left pleural effusion may be present. No right or left pneumothorax MEDIASTINUM AND HILAR STRUCTURES: No masses. Contour normal. HEART AND VASCULAR STRUCTURES: Stable cardiomegaly BONES: No acute findings. HARDWARE: As above OTHER: No other significant finding. IMPRESSION: Loss of the discrete left hemidiaphragm likely due to a combination of left lower lobe c onsolidation in small left pleural effusion. This is similar compared to previous study. Support tubes and lines in good positioning TECHNICAL DOCUMENTATION: JOB ID: [id number]
[2017-04-23] MEDS: FAMOTIDINE INJ/PF 20 MG/2 ML SDV IV SCH ×2 (11:29→21:27)
[2017-04-23] MEDS: ASPIRIN 81 MG TABLET, CHEWABLE NG SCH (11:29)
[2017-04-23] MEDS: ENOXAPARIN SODIUM INJ 30 MG/0.3 ML DISP.SYRIN SUBCUT SCH (11:29)
--- NOTE | 2017-04-23 13:12 | PDOC PROGRESS REPORT ---
Subjective Progress Note for:: 04/23/17 Subjective:: Intubated and sedated Physical Exam Vital Signs: Temp Pulse Resp BP Pulse Ox 97.3 F 62 14 111/66 100 04/23/17 08:03 04/23/17 08:03 04/23/17 10:40 04/23/17 10:40 04/23/17 12:35 Intake & Output 04/22/17 04/23/17 04/24/17 06:59 06:59 06:59 Intake Total 4118 3585 1000 Output Total 8187 945 9589 Balance 2938 2745 0 Weight 102.6 kg 104.8 kg General appearance: PRESENT: no acute distress, disheveled, well-developed, well -nourished Head exam: PRESENT: atraumatic, normocephalic Eye exam: PRESENT: conjunctiva pale Mouth exam: PRESENT: dry mucosa, neck supple, tongue midline, other - ET tube in place Neck exam: ABSENT: carotid bruit, JVD, lymphadenopathy, thyromegaly Respiratory exam: PRESENT: decreased breath sounds, prolonged expiratory phas, rales, rhonchi - Coarse bilateral, symmetrical, unlabored. ABSENT: retraction, stridor, tachypnea, wheezes Cardiovascular exam: PRESENT: RRR, +S1, +S2 Pulses: PRESENT: normal radial pulses GI/Abdominal exam: PRESENT: soft. ABSENT: ascites, distended, firm, guarding, tenderness Rectal exam: PRESENT: deferred Gentrourinary exam: PRESENT: indwelling catheter Extremities exam: PRESENT: other - Status post right BKA return to OR for surgical interventions Musculoskeletal exam: PRESENT: other - Left lower extremities: Pale,cold Neurological exam: ABSENT: alert, awake Skin exam: PRESENT: dry Results Laboratory Results: 04/23/17 04:55 04/23/17 04:55 04/23/17 04/23/17 04/23/17 04:55 04:55 04:55 WBC 10.5 RBC 3.11 L Hgb 8.1 L Hct 24.7 L MCV 79 L MCH 25.9 L MCHC 32.7 RDW 21.2 H Plt Count 164 Seg Neutrophils % 83.2 H Lymphocytes % 7.4 L Monocytes % 6.6 Eosinophils % 1.7 Basophils % 1.1 Absolute Neutrophils 8.7 H Absolute Lymphocytes 0.8 Absolute Monocytes 0.7 Absolute Eosinophils 0.2 Absolute Basophils 0.1 Carbonic Acid 0.78 L HCO3/H2CO3 Ratio 17:1 ABG pH 7.34 L ABG pCO2 25.9 L ABG pO2 136.5 H ABG HCO3 13.7 L ABG O2 Saturation 98.6 H ABG Base Excess -10.8 FiO2 30% Sodium 128.5 L Potassium 3.9 Chloride 103 Carbon Dioxide 14 L Anion Gap 12 BUN 29 H Creatinine 1.40 H Est GFR ( Amer) 45 L Est GFR (Non-Af Amer) 37 L Glucose 187 H Calcium 7.6 L Magnesium 1.7 Total Bilirubin 3.4 H AST 18 ALT 16 Alkaline Phosphatase 73 Total Protein 5.4 L Albumin 2.7 L 04/18/17 04/18/17 04/18/17 09:27 09:27 09:27 Creatine Kinase < 20 L CK-MB (CK-2) 0.84 Troponin I 0.264 NT-Pro-B Natriuret Pep 54377 H 04/18/17 04/18/17 15:00 15:00 Creatine Kinase < 20 L CK-MB (CK-2) 0.93 Troponin I 0.248 NT-Pro-B Natriuret Pep Impressions: Foot X-Ray 04/15/17 16:57 IMPRESSION: Calcaneal spurs with no acute osseous abnormality. Degenerative joint changes as described. Abdomen/Pelvis CT 04/15/17 20:09 IMPRESSION: 1. Bilateral pleural effusions right greater than left. 2. Small volume ascites. 3. Subcutaneous edema. KUB X-Ray 04/19/17 09:54 IMPRESSION: NASOGASTRIC TUBE WITH THE TIP IN THE STOMACH. NO RADIOGRAPHIC EVIDENCE FOR ACUTE ABDOMINAL DISEASE. Abdomen Ultrasound 04/22/17 08:31 IMPRESSION: Mild ascites. Gallstones without gallbladder wall thickening. No biliary dilatation. Chest X-Ray 04/23/17 10:09 IMPRESSION: Loss of the discrete left hemidiaphragm likely due to a combination of left lower lobe consolidation in small left pleural effusion. This is similar compared to previous study. Support tubes and lines in good positioning Assessment & Plan - Diagnosis (1) Septic shock Is this a current diagnosis for this admission?: Yes (2) Right BKA infection Is this a current diagnosis for this admission?: Yes (3) Chronic renal failure Qualifiers: Chronic kidney disease stage: stage 3 (moderate) Qualified Code(s): N18.3 - Chronic kidney disease, stage 3 (moderate) Is this a current diagnosis for this admission?: Yes (4) Severe peripheral arterial disease Is this a current diagnosis for this admission?: Yes (5) Malnutrition Qualifiers: Malnutrition type: protein-calorie malnutrition Protein-calorie malnutrition severity: severe Qualified Code(s): E43 - Unspecified severe protein-calorie malnutrition Is this a current diagnosis for this admission?: Yes - Time Critical Time spent with patient: 35 or more minutes
--- NOTE | 2017-04-23 13:30 | PDOC PROGRESS REPORT ---
Subjective Progress Note for:: 04/23/17 Subjective:: Long discussion with the patient's daughter who is her next of kin. According to the daughter the patient never wanted life support. Discussed her present condition and poor prognosis. Discussed the DNR. Because of patient's multiple medical problem and most probably poor outcome we will place patient on DNR status Physical Exam Vital Signs: Temp Pulse Resp BP Pulse Ox 97.3 F 62 14 111/66 100 04/23/17 08:03 04/23/17 08:03 04/23/17 10:40 04/23/17 10:40 04/23/17 12:35 Intake & Output 04/22/17 04/23/17 04/24/17 06:59 06:59 06:59 Intake Total 4118 3585 1000 Output Total 8545 764 1960 Balance 2938 2745 0 Weight 102.6 kg 104.8 kg Results Laboratory Results: 04/23/17 04:55 04/23/17 04:55 04/23/17 04/23/17 04/23/17 04:55 04:55 04:55 WBC 10.5 RBC 3.11 L Hgb 8.1 L Hct 24.7 L MCV 79 L MCH 25.9 L MCHC 32.7 RDW 21.2 H Plt Count 164 Seg Neutrophils % 83.2 H Lymphocytes % 7.4 L Monocytes % 6.6 Eosinophils % 1.7 Basophils % 1.1 Absolute Neutrophils 8.7 H Absolute Lymphocytes 0.8 Absolute Monocytes 0.7 Absolute Eosinophils 0.2 Absolute Basophils 0.1 Carbonic Acid 0.78 L HCO3/H2CO3 Ratio 17:1 ABG pH 7.34 L ABG pCO2 25.9 L ABG pO2 136.5 H ABG HCO3 13.7 L ABG O2 Saturation 98.6 H ABG Base Excess -10.8 FiO2 30% Sodium 128.5 L Potassium 3.9 Chloride 103 Carbon Dioxide 14 L Anion Gap 12 BUN 29 H Creatinine 1.40 H Est GFR ( Amer) 45 L Est GFR (Non-Af Amer) 37 L Glucose 187 H Calcium 7.6 L Magnesium 1.7 Total Bilirubin 3.4 H AST 18 ALT 16 Alkaline Phosphatase 73 Total Protein 5.4 L Albumin 2.7 L 04/18/17 04/18/17 04/18/17 09:27 09:27 09:27 Creatine Kinase < 20 L CK-MB (CK-2) 0.84 Troponin I 0.264 NT-Pro-B Natriuret Pep 06909 H 04/18/17 04/18/17 15:00 15:00 Creatine Kinase < 20 L CK-MB (CK-2) 0.93 Troponin I 0.248 NT-Pro-B Natriuret Pep Impressions: Foot X-Ray 04/15/17 16:57 IMPRESSION: Calcaneal spurs with no acute osseous abnormality. Degenerative joint changes as described. Abdomen/Pelvis CT 04/15/17 20:09 IMPRESSION: 1. Bilateral pleural effusions right greater than left. 2. Small volume ascites. 3. Subcutaneous edema. KUB X-Ray 04/19/17 09:54 IMPRESSION: NASOGASTRIC TUBE WITH THE TIP IN THE STOMACH. NO RADIOGRAPHIC EVIDENCE FOR ACUTE ABDOMINAL DISEASE. Abdomen Ultrasound 04/22/17 08:31 IMPRESSION: Mild ascites. Gallstones without gallbladder wall thickening. No biliary dilatation. Chest X-Ray 04/23/17 10:09 IMPRESSION: Loss of the discrete left hemidiaphragm likely due to a combination of left lower lobe consolidation in small left pleural effusion. This is similar compared to previous study. Support tubes and lines in good positioning Assessment & Plan - Diagnosis (1) Severe sepsis Is this a current diagnosis for this admission?: Yes (2) Bacteremia Is this a current diagnosis for this admission?: Yes (3) Acute renal failure superimposed on chronic kidney disease Is this a current diagnosis for this admission?: Yes (4) Chronic renal failure Qualifiers: Chronic kidney disease stage: stage 3 (moderate) Qualified Code(s): N18.3 - Chronic kidney disease, stage 3 (moderate) Is this a current diagnosis for this admission?: Yes (5) Diabetic infection of right foot Is this a current diagnosis for this admission?: Yes (7) Peripheral arterial disease Is this a current diagnosis for this admission?: Yes (8) Diabetes mellitus Qualifiers: Diabetes mellitus type: type 2 Diabetes mellitus complication status: with kidney complications Diabetes mellitus complication detail: with nephropathy Is this a current diagnosis for this admission?: Yes (9) Hyponatremia Is this a current diagnosis for this admission?: Yes (10) Malnutrition Qualifiers: Malnutrition type: protein-calorie malnutrition Protein-calorie malnutrition severity: severe Qualified Code(s): E43 - Unspecified severe protein-calorie malnutrition Is this a current diagnosis for this admission?: Yes
[2017-04-23] MEDS: DEXTROSE 5%-WATER 250 ML with PHENYLEPHRINE HCL 40 MG IV PRN ×2 (15:49)
--- NOTE | 2017-04-23 18:32 | EKG REPORT ---
SEVERITY:- DEFECTIVE ECG - SINUS RHYTHM PROBABLE INFERIOR INFARCT, AGE INDETERMINATE LATERAL LEADS ARE ALSO INVOLVED : Confirmed by: Francisco Moralez MD 23-Apr-2017 18:30:58
[2017-04-23] MEDS: INSULIN LISPRO 100 UNIT/ML 3 ML VIAL SUBCUT PRN (18:39)
[2017-04-23] MEDS: ATORVASTATIN CALCIUM 40 MG TABLET NG SCH (21:28)
[2017-04-24] MEDS: PIPERACILLIN SODIUM/TAZOBACTAM 3.375 GM in DEXTROSE 5%-WATER 100 ML IV SCH ×4 (00:19→17:47)
[2017-04-24] MEDS: PROPOFOL 100 ML IV PRN (03:28)
[2017-04-24] MEDS: METOCLOPRAMIDE HCL INJ/PF 10 MG/2 ML SDV IV SCH ×4 (03:30→21:16)
[2017-04-24 05:12] LABS: ARTERIAL BLOOD BASE EXCESS -11.8 mmol/L; ARTERIAL BLOOD O2 SATURATION 98.7 % (94-98)
[2017-04-24 05:13] LABS: ABSOLUTE BASOPHILS # (AUTO) 0.2 10^3/uL (0.0-0.2); ABSOLUTE EOSINOPHILS # (AUTO) 0.2 10^3/uL (0.0-0.6); ABSOLUTE LYMPHOCYTES (AUTO) 0.8 10^3/uL (0.5-4.7); ABSOLUTE MONOCYTES (AUTO) 0.7 10^3/uL (0.1-1.4); ABSOLUTE NEUT (AUTO) 10.8 10^3/uL (1.7-8.2); BASOPHILS % (AUTO) 1.4 % (0-2); EOSINOPHILS % (AUTO) 1.3 % (0-6); HEMATOCRIT 26.7 % (36.0-47.0); HEMOGLOBIN 8.6 g/dL (12.0-15.5); HGB HCT DIFFERENCE -0.9; MEAN CORPUSCULAR HEMOGLOBIN 25.6 pg (27.0-33.4); MEAN CORPUSCULAR HGB CONC 32.4 g/dL (32.0-36.0); MEAN CORPUSCULAR VOLUME 79 fl (80-97); MONOCYTES % (AUTO) 5.5 % (3-13); RED BLOOD COUNT 3.37 10^6/uL (3.72-5.28); RED CELL DISTRIBUTION WIDTH 21.3 % (11.5-14.0); SEGMENTED NEUTROPHILS % (AUTO) 85.8 % (42-78); WHITE BLOOD COUNT 12.6 10^3/uL (4.0-10.5)
[2017-04-24 05:22] LABS: ALANINE AMINOTRANSFERASE 20 U/L (9-52); ALBUMIN 2.5 g/dL (3.5-5.0); ALKALINE PHOSPHATASE 86 U/L (38-126); ANION GAP 13 (5-19); ASPARTATE AMINO TRANSFERASE 39 U/L (14-36); BILIRUBIN,DIRECT 2.6 mg/dL (0.0-0.4); BLOOD UREA NITROGEN 29 mg/dL (7-20); CALCIUM 7.6 mg/dL (8.4-10.2); CARBON DIOXIDE 12 mmol/L (22-30); CHLORIDE 103 mmol/L (98-107); GLUCOSE 158 mg/dL (75-110); MAGNESIUM 1.7 mg/dL (1.6-2.3); PHOSPHORUS 4.4 mg/dL (2.5-4.5); POTASSIUM 3.7 mmol/L (3.6-5.0); SODIUM 127.8 mmol/L (137-145); TOTAL PROTEIN 5.3 g/dL (6.3-8.2); TRIGLYCERIDES 122 mg/dL (<150)
[2017-04-24] MEDS: VANCOMYCIN HCL 1,000 MG in DEXTROSE 5%-WATER 250 ML IV SCH (05:27)
--- NOTE | 2017-04-24 07:25 | PDOC PROGRESS REPORT ---
Subjective Progress Note for:: 04/24/17 Subjective:: 71-year-old white female one day status post closure of right below-knee amputation. Patient is sedated and intubated. Physical Exam Vital Signs: Temp Pulse Resp BP Pulse Ox 36.3 C 62 12 101/57 L 100 04/23/17 18:00 04/23/17 20:00 04/24/17 06:00 04/24/17 05:55 04/24/17 06:00 Intake & Output 04/23/17 04/24/17 04/25/17 06:59 06:59 06:59 Intake Total 3585 2804 Output Total 840 2120 Balance 2745 684 Weight 104.8 kg 106 kg General appearance: PRESENT: no acute distress, well-developed, well-nourished Head exam: PRESENT: atraumatic, normocephalic Additional comments: Patient is intubated and holding a steady respiration rate of 18 respirations per minute. Pulses: PRESENT: normal radial pulses Vascular exam: PRESENT: normal capillary refill Additional comments: Right lower extremity is in postop compression dressing which is clean dry and intact. She has brisk capillary refill on bilateral upper and left lower extremity. She is slightly edematous with 2+ pitting edema of bilateral upper extremities. Additional comments: Patient sedated. Psychiatric exam: PRESENT: other - Patient intubated and sedated. Skin exam: PRESENT: dry, intact, warm. ABSENT: cyanosis, rash Results Laboratory Results: 04/24/17 04:50 04/24/17 04:50 04/24/17 04/24/17 04/24/17 04:50 04:50 04:50 WBC 12.6 H RBC 3.37 L Hgb 8.6 L Hct 26.7 L MCV 79 L MCH 25.6 L MCHC 32.4 RDW 21.3 H Plt Count 218 Seg Neutrophils % 85.8 H Lymphocytes % 6.0 L Monocytes % 5.5 Eosinophils % 1.3 Basophils % 1.4 Absolute Neutrophils 10.8 H Absolute Lymphocytes 0.8 Absolute Monocytes 0.7 Absolute Eosinophils 0.2 Absolute Basophils 0.2 Carbonic Acid 0.82 L HCO3/H2CO3 Ratio 16:1 ABG pH 7.31 L ABG pCO2 27.2 L ABG pO2 144.0 H ABG HCO3 13.2 L ABG O2 Saturation 98.7 H ABG Base Excess -11.8 FiO2 30% Sodium 127.8 L Potassium 3.7 Chloride 103 Carbon Dioxide 12 L Anion Gap 13 BUN 29 H Creatinine 1.50 H Est GFR ( Amer) 42 L Est GFR (Non-Af Amer) 34 L Glucose 158 H Calcium 7.6 L Phosphorus 4.4 Magnesium 1.7 Total Bilirubin 3.0 H AST 39 H ALT 20 Alkaline Phosphatase 86 Total Protein 5.3 L Albumin 2.5 L Triglycerides 122 04/18/17 04/18/17 04/18/17 09:27 09:27 09:27 Creatine Kinase < 20 L CK-MB (CK-2) 0.84 Troponin I 0.264 NT-Pro-B Natriuret Pep 01852 H 04/18/17 04/18/17 15:00 15:00 Creatine Kinase < 20 L CK-MB (CK-2) 0.93 Troponin I 0.248 NT-Pro-B Natriuret Pep Impressions: Foot X-Ray 04/15/17 16:57 IMPRESSION: Calcaneal spurs with no acute osseous abnormality. Degenerative joint changes as described. Abdomen/Pelvis CT 04/15/17 20:09 IMPRESSION: 1. Bilateral pleural effusions right greater than left. 2. Small volume ascites. 3. Subcutaneous edema. KUB X-Ray 04/19/17 09:54 IMPRESSION: NASOGASTRIC TUBE WITH THE TIP IN THE STOMACH. NO RADIOGRAPHIC EVIDENCE FOR ACUTE ABDOMINAL DISEASE. Abdomen Ultrasound 04/22/17 08:31 IMPRESSION: Mild ascites. Gallstones without gallbladder wall thickening. No biliary dilatation. Chest X-Ray 04/23/17 10:09 IMPRESSION: Loss of the discrete left hemidiaphragm likely due to a combination of left lower lobe consolidation in small left pleural effusion. This is similar compared to previous study. Support tubes and lines in good positioning Assessment & Plan - Diagnosis (1) Severe sepsis Is this a current diagnosis for this admission?: Yes - Plan Summary Plan Summary: 71-year-old white female one day status post closure of right below-knee amputation. Patient remains intubated and sedated and appears comfortable. Patient will continue to be monitored and we will plan for subsequent extubation. We will then plan for discharge to a [facility] facility for patient to work with physical therapy and occupational therapy for adjustment to right knee amputation. She will then follow-up with [facility] for surgery [address] Fairbanks for staple removal.
[2017-04-24] MEDS ORDERED: NORMAL SALINE 1000 ML 1,000 ML IV PRN (08:11)
--- NOTE | 2017-04-24 08:15 | PDOC PROGRESS REPORT ---
Subjective Progress Note for:: 04/24/17 Subjective:: The patient is still intubated and sedated. He underwent the closure of the right BKA yesterday and the wound looks good. Her blood pressure is being maintained. She is presently on Levophed and Jarred-Synephrine. She does have good urine output. She is still fluid overloaded. Physical Exam Vital Signs: Temp Pulse Resp BP Pulse Ox 97.3 F 62 12 101/57 L 100 04/23/17 18:00 04/23/17 20:00 04/24/17 06:00 04/24/17 05:55 04/24/17 06:00 Intake & Output 04/23/17 04/24/17 04/25/17 06:59 06:59 06:59 Intake Total 3585 2804 Output Total 840 2120 Balance 2745 684 Weight 104.8 kg 106 kg General appearance: PRESENT: severe distress Eye exam: PRESENT: conjunctival injection Neck exam: ABSENT: carotid bruit Respiratory exam: PRESENT: crackles Cardiovascular exam: PRESENT: +S1, +S2 Pulses: PRESENT: other Vascular exam: PRESENT: other Extremities exam: PRESENT: right BKA Musculoskeletal exam: ABSENT: ambulatory Neurological exam: PRESENT: other Results Laboratory Results: 04/24/17 04:50 04/24/17 04:50 04/24/17 04/24/17 04/24/17 04:50 04:50 04:50 WBC 12.6 H RBC 3.37 L Hgb 8.6 L Hct 26.7 L MCV 79 L MCH 25.6 L MCHC 32.4 RDW 21.3 H Plt Count 218 Seg Neutrophils % 85.8 H Lymphocytes % 6.0 L Monocytes % 5.5 Eosinophils % 1.3 Basophils % 1.4 Absolute Neutrophils 10.8 H Absolute Lymphocytes 0.8 Absolute Monocytes 0.7 Absolute Eosinophils 0.2 Absolute Basophils 0.2 Carbonic Acid 0.82 L HCO3/H2CO3 Ratio 16:1 ABG pH 7.31 L ABG pCO2 27.2 L ABG pO2 144.0 H ABG HCO3 13.2 L ABG O2 Saturation 98.7 H ABG Base Excess -11.8 FiO2 30% Sodium 127.8 L Potassium 3.7 Chloride 103 Carbon Dioxide 12 L Anion Gap 13 BUN 29 H Creatinine 1.50 H Est GFR ( Amer) 42 L Est GFR (Non-Af Amer) 34 L Glucose 158 H Calcium 7.6 L Phosphorus 4.4 Magnesium 1.7 Total Bilirubin 3.0 H AST 39 H ALT 20 Alkaline Phosphatase 86 Total Protein 5.3 L Albumin 2.5 L Triglycerides 122 04/18/17 04/18/17 04/18/17 09:27 09:27 09:27 Creatine Kinase < 20 L CK-MB (CK-2) 0.84 Troponin I 0.264 NT-Pro-B Natriuret Pep 76458 H 04/18/17 04/18/17 15:00 15:00 Creatine Kinase < 20 L CK-MB (CK-2) 0.93 Troponin I 0.248 NT-Pro-B Natriuret Pep Impressions: Foot X-Ray 04/15/17 16:57 IMPRESSION: Calcaneal spurs with no acute osseous abnormality. Degenerative joint changes as described. Abdomen/Pelvis CT 04/15/17 20:09 IMPRESSION: 1. Bilateral pleural effusions right greater than left. 2. Small volume ascites. 3. Subcutaneous edema. KUB X-Ray 04/19/17 09:54 IMPRESSION: NASOGASTRIC TUBE WITH THE TIP IN THE STOMACH. NO RADIOGRAPHIC EVIDENCE FOR ACUTE ABDOMINAL DISEASE. Abdomen Ultrasound 04/22/17 08:31 IMPRESSION: Mild ascites. Gallstones without gallbladder wall thickening. No biliary dilatation. Assessment & Plan - Diagnosis (1) Severe sepsis Is this a current diagnosis for this admission?: Yes Plan: Continue with antibiotics until patient is stable and weaned off the ventilator and pressors (2) Bacteremia Is this a current diagnosis for this admission?: Yes Plan: Gram-negative rods. We will continue with IV antibiotics (3) Acute renal failure superimposed on chronic kidney disease Is this a current diagnosis for this admission?: Yes (4) Chronic renal failure Qualifiers: Chronic kidney disease stage: stage 3 (moderate) Qualified Code(s): N18.3 - Chronic kidney disease, stage 3 (moderate) Is this a current diagnosis for this admission?: Yes Plan: Continue IV fluids and adjust dosages of medications (5) Diabetic infection of right foot Is this a current diagnosis for this admission?: Yes Plan: Patient is being taken to the OR for secondary closure of the right BKA (7) Peripheral arterial disease Is this a current diagnosis for this admission?: Yes Plan: 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 (8) Diabetes mellitus Qualifiers: Diabetes mellitus type: type 2 Diabetes mellitus complication status: with kidney complications Diabetes mellitus complication detail: with nephropathy Is this a current diagnosis for this admission?: Yes Plan: Continue with insulin treatments (9) Hyponatremia Is this a current diagnosis for this admission?: Yes Plan: We will continue with normal saline and diuretics. We will add albumin. The patient is third spacing (10) Malnutrition Qualifiers: Malnutrition type: protein-calorie malnutrition Protein-calorie malnutrition severity: severe Qualified Code(s): E43 - Unspecified severe protein-calorie malnutrition Is this a current diagnosis for this admission?: Yes Plan: Advance tube feedings
--- NOTE | 2017-04-24 08:48 | RADIOLOGY REPORT (SQ) ---
EXAM DESCRIPTION: CHEST SINGLE VIEW COMPLETED DATE/TIME: 04/24/2017 7:23 am REASON FOR STUDY: septic shock COMPARISON: Chest films 05/02/2007, 04/17/2017, 04/22/2017, 04/23/2017 EXAM PARAMETERS: NUMBER OF VIEWS: One view. TECHNIQUE: Single frontal radiographic view of the chest acquired. RADIATION DOSE: NA LIMITATIONS: Rotated towards the BRANDT position FINDINGS: Endotracheal tube tip 1.5 cm above the sadia. Right subclavian central line tip in the s uperior vena cava/right atrium. Nasogastric tube tip and side port in stomach. LUNGS AND PLEURA: There is loss of the discrete right hemidiaphragm, suspect right basilar airspace d isease with trace pleural fluid. Stable consolidation in the left retrocardiac region, atelectasis versus pneumonia. No pneumothorax MEDIASTINUM AND HILAR STRUCTURES: No masses. Contour normal. HEART AND VASCULAR STRUCTURES: Heart normal in size. Normal vasculature. BONES: No acute findings. HARDWARE: As above OTHER: No other significant finding. IMPRESSION: Limited study, rotated towards the BRANDT orientation. Suspect trace right pleural fluid. Unchanged left lower lobe collapse and consolidation TECHNICAL DOCUMENTATION: JOB ID: [id number]
[2017-04-24] MEDS: METOPROLOL SUCCINATE 50 MG TAB.SR.24H PO SCH (09:49)
[2017-04-24] MEDS: DOCUSATE SODIUM 100 MG CAPSULE PO SCH ×2 (09:55→17:48)
[2017-04-24] MEDS: ALBUMIN HUMAN 50 ML IV SCH ×2 (10:04→17:46)
[2017-04-24] MEDS: ENOXAPARIN SODIUM INJ 30 MG/0.3 ML DISP.SYRIN SUBCUT SCH (10:04)
[2017-04-24] MEDS: FAMOTIDINE INJ/PF 20 MG/2 ML SDV IV SCH ×2 (10:05→21:16)
[2017-04-24] MEDS: FUROSEMIDE INJ/PF 40 MG/4 ML SDV IV SCH ×2 (10:05→21:16)
[2017-04-24] MEDS: DEXTROSE 5%-WATER 250 ML with PHENYLEPHRINE HCL 40 MG IV PRN ×2 (10:06)
--- NOTE | 2017-04-24 12:50 | PDOC PROGRESS REPORT ---
Subjective Progress Note for:: 04/24/17 Subjective:: Intubated she is able to maintain MV on PS and CPAP w/o difficulty Physical Exam Vital Signs: Temp Pulse Resp BP Pulse Ox 97.3 F 62 12 101/57 L 100 04/23/17 18:00 04/23/17 20:00 04/24/17 06:00 04/24/17 05:55 04/24/17 06:00 Intake & Output 04/23/17 04/24/17 04/25/17 06:59 06:59 06:59 Intake Total 3585 2804 Output Total 840 2120 Balance 2745 684 Weight 104.8 kg 106 kg General appearance: PRESENT: no acute distress, disheveled, thin, well-developed Head exam: PRESENT: atraumatic, normocephalic Eye exam: PRESENT: conjunctiva pale, EOMI Mouth exam: PRESENT: dry mucosa, neck supple, tongue midline, other - ET tube Neck exam: ABSENT: carotid bruit, JVD, lymphadenopathy, thyromegaly Respiratory exam: PRESENT: decreased breath sounds, prolonged expiratory phas, rhonchi, symmetrical, unlabored. ABSENT: crackles, rales, retraction, stridor, tachypnea, wheezes Cardiovascular exam: PRESENT: RRR, +S1, +S2 Pulses: PRESENT: normal radial pulses GI/Abdominal exam: PRESENT: normal bowel sounds, soft. ABSENT: distended, guarding, mass, organolmegaly, rebound, tenderness Rectal exam: PRESENT: deferred Gentrourinary exam: PRESENT: indwelling catheter Musculoskeletal exam: PRESENT: normal inspection Neurological exam: PRESENT: awake Skin exam: PRESENT: dry, warm Results Laboratory Results: 04/24/17 04:50 04/24/17 04:50 04/24/17 04/24/17 04/24/17 04:50 04:50 04:50 WBC 12.6 H RBC 3.37 L Hgb 8.6 L Hct 26.7 L MCV 79 L MCH 25.6 L MCHC 32.4 RDW 21.3 H Plt Count 218 Seg Neutrophils % 85.8 H Lymphocytes % 6.0 L Monocytes % 5.5 Eosinophils % 1.3 Basophils % 1.4 Absolute Neutrophils 10.8 H Absolute Lymphocytes 0.8 Absolute Monocytes 0.7 Absolute Eosinophils 0.2 Absolute Basophils 0.2 Carbonic Acid 0.82 L HCO3/H2CO3 Ratio 16:1 ABG pH 7.31 L ABG pCO2 27.2 L ABG pO2 144.0 H ABG HCO3 13.2 L ABG O2 Saturation 98.7 H ABG Base Excess -11.8 FiO2 30% Sodium 127.8 L Potassium 3.7 Chloride 103 Carbon Dioxide 12 L Anion Gap 13 BUN 29 H Creatinine 1.50 H Est GFR ( Amer) 42 L Est GFR (Non-Af Amer) 34 L Glucose 158 H Calcium 7.6 L Phosphorus 4.4 Magnesium 1.7 Total Bilirubin 3.0 H AST 39 H ALT 20 Alkaline Phosphatase 86 Total Protein 5.3 L Albumin 2.5 L Triglycerides 122 04/18/17 04/18/17 04/18/17 09:27 09:27 09:27 Creatine Kinase < 20 L CK-MB (CK-2) 0.84 Troponin I 0.264 NT-Pro-B Natriuret Pep 01542 H 04/18/17 04/18/17 15:00 15:00 Creatine Kinase < 20 L CK-MB (CK-2) 0.93 Troponin I 0.248 NT-Pro-B Natriuret Pep Impressions: Foot X-Ray 04/15/17 16:57 IMPRESSION: Calcaneal spurs with no acute osseous abnormality. Degenerative joint changes as described. Abdomen/Pelvis CT 04/15/17 20:09 IMPRESSION: 1. Bilateral pleural effusions right greater than left. 2. Small volume ascites. 3. Subcutaneous edema. KUB X-Ray 04/19/17 09:54 IMPRESSION: NASOGASTRIC TUBE WITH THE TIP IN THE STOMACH. NO RADIOGRAPHIC EVIDENCE FOR ACUTE ABDOMINAL DISEASE. Abdomen Ultrasound 04/22/17 08:31 IMPRESSION: Mild ascites. Gallstones without gallbladder wall thickening. No biliary dilatation. Assessment & Plan - Diagnosis (1) Septic shock Is this a current diagnosis for this admission?: Yes Plan: still on 2 vasopressors (2) Right BKA infection Is this a current diagnosis for this admission?: Yes Plan: s/p ortho closing wound (3) Chronic renal failure Qualifiers: Chronic kidney disease stage: stage 3 (moderate) Qualified Code(s): N18.3 - Chronic kidney disease, stage 3 (moderate) Is this a current diagnosis for this admission?: Yes (4) Severe peripheral arterial disease Is this a current diagnosis for this admission?: Yes (5) Malnutrition Qualifiers: Malnutrition type: protein-calorie malnutrition Protein-calorie malnutrition severity: severe Qualified Code(s): E43 - Unspecified severe protein-calorie malnutrition Is this a current diagnosis for this admission?: Yes - Time Critical Time spent with patient: 35 or more minutes - 55 min extubation
[2017-04-24 13:30] LABS: ARTERIAL BLOOD BASE EXCESS -12.1 mmol/L; ARTERIAL BLOOD O2 SATURATION 99.2 % (94-98)
[2017-04-24] MEDS: ASPIRIN 81 MG TABLET, CHEWABLE NG SCH (13:30)
[2017-04-24] MEDS: DEXTROSE 5%-WATER 250 ML with VASOPRESSIN 100 UNIT IV PRN ×2 (20:32)
[2017-04-24] MEDS: ATORVASTATIN CALCIUM 40 MG TABLET NG SCH (21:16)
[2017-04-25] MEDS: PIPERACILLIN SODIUM/TAZOBACTAM 3.375 GM in DEXTROSE 5%-WATER 100 ML IV SCH ×5 (00:19→23:51)
[2017-04-25] MEDS: ALBUMIN HUMAN 50 ML IV SCH ×3 (00:22→16:59)
[2017-04-25] MEDS: METOCLOPRAMIDE HCL INJ/PF 10 MG/2 ML SDV IV SCH ×4 (04:43→21:49)
[2017-04-25 05:39] LABS: ABSOLUTE BASOPHILS # (AUTO) 0.1 10^3/uL (0.0-0.2); ABSOLUTE EOSINOPHILS # (AUTO) 0.1 10^3/uL (0.0-0.6); ABSOLUTE LYMPHOCYTES (AUTO) 0.6 10^3/uL (0.5-4.7); ABSOLUTE MONOCYTES (AUTO) 0.6 10^3/uL (0.1-1.4); ABSOLUTE NEUT (AUTO) 9.5 10^3/uL (1.7-8.2); BASOPHILS % (AUTO) 1.3 % (0-2); EOSINOPHILS % (AUTO) 1.1 % (0-6); HEMATOCRIT 25.4 % (36.0-47.0); HEMOGLOBIN 8.4 g/dL (12.0-15.5); HGB HCT DIFFERENCE -0.2; LYMPHOCYTES % (AUTO) 5.8 % (13-45); MEAN CORPUSCULAR HEMOGLOBIN 25.9 pg (27.0-33.4); MEAN CORPUSCULAR HGB CONC 32.9 g/dL (32.0-36.0); MEAN CORPUSCULAR VOLUME 79 fl (80-97); MONOCYTES % (AUTO) 5.1 % (3-13); RED BLOOD COUNT 3.23 10^6/uL (3.72-5.28); RED CELL DISTRIBUTION WIDTH 20.6 % (11.5-14.0); SEGMENTED NEUTROPHILS % (AUTO) 86.7 % (42-78)
[2017-04-25 05:43] LABS: ARTERIAL BLOOD BASE EXCESS -11.7 mmol/L; ARTERIAL BLOOD O2 SATURATION 98.7 % (94-98)
[2017-04-25 05:53] LABS: ALANINE AMINOTRANSFERASE 28 U/L (9-52); ALKALINE PHOSPHATASE 89 U/L (38-126); ANION GAP 15 (5-19); ASPARTATE AMINO TRANSFERASE 68 U/L (14-36); BILIRUBIN,DIRECT 2.6 mg/dL (0.0-0.4); BLOOD UREA NITROGEN 29 mg/dL (7-20); CALCIUM 8.3 mg/dL (8.4-10.2); CARBON DIOXIDE 11 mmol/L (22-30); CHLORIDE 102 mmol/L (98-107); CREATININE RESULT 1.58 mg/dL (0.52-1.25); GLUCOSE 141 mg/dL (75-110); MAGNESIUM 1.6 mg/dL (1.6-2.3); POTASSIUM 3.6 mmol/L (3.6-5.0); TOTAL PROTEIN 5.8 g/dL (6.3-8.2)
--- NOTE | 2017-04-25 06:44 | PDOC PROGRESS REPORT ---
Subjective Progress Note for:: 04/25/17 Subjective:: Patient extubated. She is verbal but I have a difficult time understanding her. Physical Exam Vital Signs: Temp Pulse Resp BP Pulse Ox 36.3 C 76 22 H 101/58 L 100 04/23/17 18:00 04/24/17 20:00 04/25/17 05:00 04/25/17 04:55 04/25/17 05:00 Intake & Output 04/23/17 04/24/17 04/25/17 06:59 06:59 06:59 Intake Total 3585 2804 1047 Output Total 840 2120 2475 Balance 2744 454 -7400 Weight 104.8 kg 106 kg General appearance: PRESENT: no acute distress Head exam: PRESENT: normocephalic Respiratory exam: PRESENT: unlabored Cardiovascular exam: PRESENT: RRR Extremities exam: PRESENT: other - Right lower extremity dressing is clean dry and intact. Results Laboratory Results: 04/25/17 05:20 04/25/17 05:20 04/24/17 04/25/17 04/25/17 13:17 05:20 05:20 WBC 11.0 H RBC 3.23 L Hgb 8.4 L Hct 25.4 L MCV 79 L MCH 25.9 L MCHC 32.9 RDW 20.6 H Plt Count 175 Seg Neutrophils % 86.7 H Lymphocytes % 5.8 L Monocytes % 5.1 Eosinophils % 1.1 Basophils % 1.3 Absolute Neutrophils 9.5 H Absolute Lymphocytes 0.6 Absolute Monocytes 0.6 Absolute Eosinophils 0.1 Absolute Basophils 0.1 Carbonic Acid 0.75 L HCO3/H2CO3 Ratio 16:1 ABG pH 7.32 L ABG pCO2 25.0 L ABG pO2 188.2 H ABG HCO3 12.6 L ABG O2 Saturation 99.2 H ABG Base Excess -12.1 FiO2 40% Sodium 128.0 L Potassium 3.6 Chloride 102 Carbon Dioxide 11 L Anion Gap 15 BUN 29 H Creatinine 1.58 H Est GFR ( Amer) 39 L Est GFR (Non-Af Amer) 32 L Glucose 141 H Lactic Acid Calcium 8.3 L Magnesium 1.6 Total Bilirubin 3.0 H AST 68 H ALT 28 Alkaline Phosphatase 89 Total Protein 5.8 L Albumin 3.0 L 04/25/17 04/25/17 05:20 05:20 WBC RBC Hgb Hct MCV MCH MCHC RDW Plt Count Seg Neutrophils % Lymphocytes % Monocytes % Eosinophils % Basophils % Absolute Neutrophils Absolute Lymphocytes Absolute Monocytes Absolute Eosinophils Absolute Basophils Carbonic Acid 0.73 L HCO3/H2CO3 Ratio 17:1 ABG pH 7.34 L ABG pCO2 24.1 L ABG pO2 138.8 H ABG HCO3 12.7 L ABG O2 Saturation 98.7 H ABG Base Excess -11.7 FiO2 3 LITERS Sodium Potassium Chloride Carbon Dioxide Anion Gap BUN Creatinine Est GFR ( Amer) Est GFR (Non-Af Amer) Glucose Lactic Acid 1.3 Calcium Magnesium Total Bilirubin AST ALT Alkaline Phosphatase Total Protein Albumin 04/18/17 04/18/17 04/18/17 09:27 09:27 09:27 Creatine Kinase < 20 L CK-MB (CK-2) 0.84 Troponin I 0.264 NT-Pro-B Natriuret Pep 73258 H 04/18/17 04/18/17 15:00 15:00 Creatine Kinase < 20 L CK-MB (CK-2) 0.93 Troponin I 0.248 NT-Pro-B Natriuret Pep Impressions: Foot X-Ray 04/15/17 16:57 IMPRESSION: Calcaneal spurs with no acute osseous abnormality. Degenerative joint changes as described. Abdomen/Pelvis CT 04/15/17 20:09 IMPRESSION: 1. Bilateral pleural effusions right greater than left. 2. Small volume ascites. 3. Subcutaneous edema. KUB X-Ray 04/19/17 09:54 IMPRESSION: NASOGASTRIC TUBE WITH THE TIP IN THE STOMACH. NO RADIOGRAPHIC EVIDENCE FOR ACUTE ABDOMINAL DISEASE. Abdomen Ultrasound 04/22/17 08:31 IMPRESSION: Mild ascites. Gallstones without gallbladder wall thickening. No biliary dilatation. Chest X-Ray 04/24/17 06:00 IMPRESSION: Limited study, rotated towards the BRANDT orientation. Suspect trace right pleural fluid. Unchanged left lower lobe collapse and consolidation Status: Imported from PACS Assessment & Plan - Diagnosis (1) Diabetic infection of right foot Is this a current diagnosis for this admission?: Yes Plan: 71-year-old white female with a right lower extremity cellulitis/ulcer and subsequent sepsis. Status post below-knee amputation her white blood cell count has decreased from 30,000-10,000. She has been extubated. She continues to be on vasopressor support with Vasotec and levo fed. When medical condition permits physical therapy can begin to mobilize the patient at least out of bed to a chair. - Time Time Spent with patient: 15-24 minutes Anticipated discharge: Other Within: Other
[2017-04-25] MEDS: DEXTROSE 5%-WATER 250 ML with PHENYLEPHRINE HCL 40 MG IV PRN ×2 (08:08)
--- NOTE | 2017-04-25 08:22 | RADIOLOGY REPORT (SQ) ---
EXAM DESCRIPTION: CHEST SINGLE VIEW COMPLETED DATE/TIME: 04/25/2017 7:11 am REASON FOR STUDY: septic shock COMPARISON: AP chest 12/30/2015, 04/15/2017, 04/18/2017, 04/23/2017, 04/24/2017 EXAM PARAMETERS: NUMBER OF VIEWS: One view. TECHNIQUE: Single frontal radiographic view of the chest acquired. RADIATION DOSE: NA LIMITATIONS: None. FINDINGS: Endotracheal and nasogastric tubes have been removed. Right subclavian triple lumen catheter tip in the right atrium. LUNGS AND PLEURA: Trace bilateral pleural effusions are present. There is left retrocardiac consolidation, atelectasis versus pneumonia unchanged from 04/24/2017 and . No pneumothorax MEDIASTINUM AND HILAR STRUCTURES: No masses. Contour normal. HEART AND VASCULAR STRUCTURES: Moderate cardiomegaly BONES: No acute findings. HARDWARE: As above OTHER: No other significant finding. IMPRESSION: Persistent left retrocardiac consolidation, trace pleural effusions, stable. TECHNICAL DOCUMENTATION: JOB ID: [id number]
--- NOTE | 2017-04-25 08:37 | PDOC PROGRESS REPORT ---
Subjective Progress Note for:: 04/25/17 Subjective:: Patient reportedly coughs but unable to bring phlegm. No reported temperature spikes, respiratory distress, nausea vomiting nor diarrhea. Oral intake is slow. Still on vasopressors. Physical Exam Vital Signs: Temp Pulse Resp BP Pulse Ox 98.8 F 89 22 H 109/60 100 04/25/17 08:00 04/25/17 08:00 04/25/17 08:00 04/25/17 08:00 04/25/17 08:00 Intake & Output 04/24/17 04/25/17 04/26/17 06:59 06:59 06:59 Intake Total 2804 1842 Output Total 2120 3655 125 Balance 684 -1033 -125 Weight 106 kg 107.6 kg General appearance: PRESENT: mild distress, obese Head exam: PRESENT: normocephalic Eye exam: PRESENT: EOMI Mouth exam: PRESENT: moist, neck supple Neck exam: ABSENT: JVD Respiratory exam: PRESENT: clear to auscultation lenore - Lower lung morales left more than the right. ABSENT: wheezes Cardiovascular exam: PRESENT: RRR. ABSENT: gallop GI/Abdominal exam: PRESENT: soft, tenderness - Mild on the lower abdominal area mainly on the hypogastric.. ABSENT: distended - Obese Extremities exam: PRESENT: +1 edema - Left, other - Below knee amputation on the right Neurological exam: PRESENT: alert, awake Skin exam: PRESENT: dry, warm - 50047. ABSENT: cyanosis Results Laboratory Results: 04/25/17 05:20 04/25/17 05:20 04/24/17 04/25/17 04/25/17 13:17 05:20 05:20 WBC 11.0 H RBC 3.23 L Hgb 8.4 L Hct 25.4 L MCV 79 L MCH 25.9 L MCHC 32.9 RDW 20.6 H Plt Count 175 Seg Neutrophils % 86.7 H Lymphocytes % 5.8 L Monocytes % 5.1 Eosinophils % 1.1 Basophils % 1.3 Absolute Neutrophils 9.5 H Absolute Lymphocytes 0.6 Absolute Monocytes 0.6 Absolute Eosinophils 0.1 Absolute Basophils 0.1 Carbonic Acid 0.75 L HCO3/H2CO3 Ratio 16:1 ABG pH 7.32 L ABG pCO2 25.0 L ABG pO2 188.2 H ABG HCO3 12.6 L ABG O2 Saturation 99.2 H ABG Base Excess -12.1 FiO2 40% Sodium 128.0 L Potassium 3.6 Chloride 102 Carbon Dioxide 11 L Anion Gap 15 BUN 29 H Creatinine 1.58 H Est GFR ( Amer) 39 L Est GFR (Non-Af Amer) 32 L Glucose 141 H Lactic Acid Calcium 8.3 L Magnesium 1.6 Total Bilirubin 3.0 H AST 68 H ALT 28 Alkaline Phosphatase 89 Total Protein 5.8 L Albumin 3.0 L 04/25/17 04/25/17 05:20 05:20 WBC RBC Hgb Hct MCV MCH MCHC RDW Plt Count Seg Neutrophils % Lymphocytes % Monocytes % Eosinophils % Basophils % Absolute Neutrophils Absolute Lymphocytes Absolute Monocytes Absolute Eosinophils Absolute Basophils Carbonic Acid 0.73 L HCO3/H2CO3 Ratio 17:1 ABG pH 7.34 L ABG pCO2 24.1 L ABG pO2 138.8 H ABG HCO3 12.7 L ABG O2 Saturation 98.7 H ABG Base Excess -11.7 FiO2 3 LITERS Sodium Potassium Chloride Carbon Dioxide Anion Gap BUN Creatinine Est GFR ( Amer) Est GFR (Non-Af Amer) Glucose Lactic Acid 1.3 Calcium Magnesium Total Bilirubin AST ALT Alkaline Phosphatase Total Protein Albumin 04/18/17 04/18/17 04/18/17 09:27 09:27 09:27 Creatine Kinase < 20 L CK-MB (CK-2) 0.84 Troponin I 0.264 NT-Pro-B Natriuret Pep 90162 H 04/18/17 04/18/17 15:00 15:00 Creatine Kinase < 20 L CK-MB (CK-2) 0.93 Troponin I 0.248 NT-Pro-B Natriuret Pep Impressions: Foot X-Ray 04/15/17 16:57 IMPRESSION: Calcaneal spurs with no acute osseous abnormality. Degenerative joint changes as described. Abdomen/Pelvis CT 04/15/17 20:09 IMPRESSION: 1. Bilateral pleural effusions right greater than left. 2. Small volume ascites. 3. Subcutaneous edema. KUB X-Ray 04/19/17 09:54 IMPRESSION: NASOGASTRIC TUBE WITH THE TIP IN THE STOMACH. NO RADIOGRAPHIC EVIDENCE FOR ACUTE ABDOMINAL DISEASE. Abdomen Ultrasound 04/22/17 08:31 IMPRESSION: Mild ascites. Gallstones without gallbladder wall thickening. No biliary dilatation. Chest X-Ray 04/25/17 06:00 IMPRESSION: Persistent left retrocardiac consolidation, trace pleural effusions , stable. Assessment & Plan - Diagnosis (1) Severe sepsis Is this a current diagnosis for this admission?: Yes (2) Acute renal failure superimposed on chronic kidney disease Qualifiers: Chronic kidney disease stage: stage 3 (moderate) Is this a current diagnosis for this admission?: Yes (3) Diabetic infection of right foot Is this a current diagnosis for this admission?: Yes (4) Hyponatremia Is this a current diagnosis for this admission?: Yes (5) Anemia of chronic disease Is this a current diagnosis for this admission?: Yes (6) Essential hypertension Is this a current diagnosis for this admission?: Yes (7) Diabetes mellitus Qualifiers: Diabetes mellitus type: type 2 Diabetes mellitus complication status: with kidney complications Diabetes mellitus complication detail: with nephropathy Is this a current diagnosis for this admission?: Yes (8) Peripheral arterial disease Is this a current diagnosis for this admission?: Yes - Time Time Spent with patient: 25-34 minutes - Plan Summary Plan Summary: Continue antibiotics. Try chest physiotherapy. We will check a KUB. In the meantime we will try to decrease the beta-basilia CVP can wean her off vasopressors. Continue supportive care. Monitor electrolytes.
[2017-04-25] MEDS: FUROSEMIDE INJ/PF 40 MG/4 ML SDV IV SCH ×2 (09:15→21:49)
[2017-04-25] MEDS: FAMOTIDINE INJ/PF 20 MG/2 ML SDV IV SCH ×2 (09:16→21:49)
[2017-04-25] MEDS: ENOXAPARIN SODIUM INJ 30 MG/0.3 ML DISP.SYRIN SUBCUT SCH (09:25)
--- NOTE | 2017-04-25 11:04 | PDOC PROGRESS REPORT ---
Subjective Progress Note for:: 04/25/17 Subjective:: 24 hrs s/p extubation stable Physical Exam Vital Signs: Temp Pulse Resp BP Pulse Ox 98.8 F 79 22 H 109/60 100 04/25/17 08:00 04/25/17 08:00 04/25/17 08:00 04/25/17 08:00 04/25/17 08:00 Intake & Output 04/24/17 04/25/17 04/26/17 06:59 06:59 06:59 Intake Total 2804 1842 Output Total 2120 6405 125 Balance 684 -1033 -125 Weight 106 kg 107.6 kg General appearance: PRESENT: no acute distress, cooperative, disheveled, well- developed Head exam: PRESENT: atraumatic, normocephalic Eye exam: PRESENT: conjunctiva pale Mouth exam: PRESENT: dry mucosa, neck supple, tongue midline Neck exam: ABSENT: carotid bruit, JVD, lymphadenopathy, thyromegaly Respiratory exam: PRESENT: crackles, decreased breath sounds, prolonged expiratory phas, rhonchi, symmetrical, unlabored. ABSENT: clear to auscultation lenore, rales, retraction, stridor, tachypnea, wheezes Cardiovascular exam: PRESENT: bradycardia, RRR, +S1, +S2, tachycardia Pulses: PRESENT: normal radial pulses GI/Abdominal exam: PRESENT: normal bowel sounds, soft. ABSENT: distended, guarding, mass, organolmegaly, rebound, tenderness Rectal exam: PRESENT: deferred Gentrourinary exam: PRESENT: indwelling catheter Extremities exam: PRESENT: +2 edema Musculoskeletal exam: PRESENT: other - s/p R bka Neurological exam: PRESENT: awake Skin exam: PRESENT: dry, pallor - L lower ext Results Laboratory Results: 04/25/17 05:20 04/25/17 05:20 04/24/17 04/25/17 04/25/17 13:17 05:20 05:20 WBC 11.0 H RBC 3.23 L Hgb 8.4 L Hct 25.4 L MCV 79 L MCH 25.9 L MCHC 32.9 RDW 20.6 H Plt Count 175 Seg Neutrophils % 86.7 H Lymphocytes % 5.8 L Monocytes % 5.1 Eosinophils % 1.1 Basophils % 1.3 Absolute Neutrophils 9.5 H Absolute Lymphocytes 0.6 Absolute Monocytes 0.6 Absolute Eosinophils 0.1 Absolute Basophils 0.1 Carbonic Acid 0.75 L HCO3/H2CO3 Ratio 16:1 ABG pH 7.32 L ABG pCO2 25.0 L ABG pO2 188.2 H ABG HCO3 12.6 L ABG O2 Saturation 99.2 H ABG Base Excess -12.1 FiO2 40% Sodium 128.0 L Potassium 3.6 Chloride 102 Carbon Dioxide 11 L Anion Gap 15 BUN 29 H Creatinine 1.58 H Est GFR ( Amer) 39 L Est GFR (Non-Af Amer) 32 L Glucose 141 H Lactic Acid Calcium 8.3 L Magnesium 1.6 Total Bilirubin 3.0 H AST 68 H ALT 28 Alkaline Phosphatase 89 Total Protein 5.8 L Albumin 3.0 L 04/25/17 04/25/17 05:20 05:20 WBC RBC Hgb Hct MCV MCH MCHC RDW Plt Count Seg Neutrophils % Lymphocytes % Monocytes % Eosinophils % Basophils % Absolute Neutrophils Absolute Lymphocytes Absolute Monocytes Absolute Eosinophils Absolute Basophils Carbonic Acid 0.73 L HCO3/H2CO3 Ratio 17:1 ABG pH 7.34 L ABG pCO2 24.1 L ABG pO2 138.8 H ABG HCO3 12.7 L ABG O2 Saturation 98.7 H ABG Base Excess -11.7 FiO2 3 LITERS Sodium Potassium Chloride Carbon Dioxide Anion Gap BUN Creatinine Est GFR ( Amer) Est GFR (Non-Af Amer) Glucose Lactic Acid 1.3 Calcium Magnesium Total Bilirubin AST ALT Alkaline Phosphatase Total Protein Albumin 04/18/17 04/18/17 04/18/17 09:27 09:27 09:27 Creatine Kinase < 20 L CK-MB (CK-2) 0.84 Troponin I 0.264 NT-Pro-B Natriuret Pep 73651 H 04/18/17 04/18/17 15:00 15:00 Creatine Kinase < 20 L CK-MB (CK-2) 0.93 Troponin I 0.248 NT-Pro-B Natriuret Pep Impressions: Foot X-Ray 04/15/17 16:57 IMPRESSION: Calcaneal spurs with no acute osseous abnormality. Degenerative joint changes as described. Abdomen/Pelvis CT 04/15/17 20:09 IMPRESSION: 1. Bilateral pleural effusions right greater than left. 2. Small volume ascites. 3. Subcutaneous edema. KUB X-Ray 04/19/17 09:54 IMPRESSION: NASOGASTRIC TUBE WITH THE TIP IN THE STOMACH. NO RADIOGRAPHIC EVIDENCE FOR ACUTE ABDOMINAL DISEASE. Abdomen Ultrasound 04/22/17 08:31 IMPRESSION: Mild ascites. Gallstones without gallbladder wall thickening. No biliary dilatation. Chest X-Ray 04/25/17 06:00 IMPRESSION: Persistent left retrocardiac consolidation, trace pleural effusions , stable. Assessment & Plan - Diagnosis (1) Septic shock Is this a current diagnosis for this admission?: Yes Plan: still requiring two vasopressors continues to have significant metabolic acidosis;bicarb drip???;please continue cvp as patient hemodynamically unstable (2) Right BKA infection Is this a current diagnosis for this admission?: Yes Plan: s/p ortho closing wound (3) Chronic renal failure Qualifiers: Chronic kidney disease stage: stage 3 (moderate) Qualified Code(s): N18.3 - Chronic kidney disease, stage 3 (moderate) Is this a current diagnosis for this admission?: Yes (4) Severe peripheral arterial disease Is this a current diagnosis for this admission?: Yes (5) Malnutrition Qualifiers: Malnutrition type: protein-calorie malnutrition Protein-calorie malnutrition severity: severe Qualified Code(s): E43 - Unspecified severe protein-calorie malnutrition Is this a current diagnosis for this admission?: Yes - Time Critical Time spent with patient: 35 or more minutes - 45 min
--- NOTE | 2017-04-25 11:35 | RADIOLOGY REPORT (SQ) ---
EXAM DESCRIPTION: CHEST SINGLE VIEW COMPLETED DATE/TIME: 04/25/2017 11:11 am REASON FOR STUDY: NGT PLACEMENT COMPARISON: AP chest 04/25/2017, 04/24/2017, 04/23/2017, 04/22/2017 EXAM PARAMETERS: NUMBER OF VIEWS: One view. TECHNIQUE: Single frontal radiographic view of the chest acquired. RADIATION DOSE: NA LIMITATIONS: Morbidly obese patient, AP portable technique FINDINGS: LUNGS AND PLEURA: Persistent consolidation in the left retrocardiac region atelectasis panda schuyler pneumonia. There is some left pleural thickening, question small left pleural effusion. Right lung well inflated and clear. No right effusion. No right or left pneumothorax. MEDIASTINUM AND HILAR STRUCTURES: No masses. Contour normal. HEART AND VASCULAR STRUCTURES: Stable massive cardiomegaly BONES: No acute findings. HARDWARE: Right subclavian triple lumen catheter tip in the right atrium. Nasogastric tube tip and s adrian port in the stomach. Endotracheal tube has been removed. OTHER: No other significant finding. IMPRESSION: Persistent collapse and consolidation in the left retrocardiac region, atelectasis versu s pneumonia. Small left pleural effusion Nasogastric tube tip and side port in the stomach TECHNICAL DOCUMENTATION: JOB ID: [id number]
[2017-04-25] MEDS: METOPROLOL SUCCINATE 50 MG TAB.SR.24H PO SCH (11:50)
[2017-04-25] MEDS: ASPIRIN 81 MG TABLET, CHEWABLE NG SCH (11:51)
[2017-04-25] MEDS: DOCUSATE SODIUM 100 MG CAPSULE PO SCH ×2 (11:52→18:02)
[2017-04-25] MEDS: DEXTROSE 5%-WATER 250 ML with VASOPRESSIN 100 UNIT IV PRN ×2 (18:22)
[2017-04-25] MEDS: PHARMACY COMMUNICATION ORDER MC SCH (18:23)
[2017-04-25] MEDS: VANCOMYCIN HCL 1,000 MG in DEXTROSE 5%-WATER 250 ML IV SCH (18:52)
[2017-04-25] MEDS: ATORVASTATIN CALCIUM 40 MG TABLET NG SCH (21:49)
[2017-04-26] MEDS: ALBUMIN HUMAN 50 ML IV SCH (01:16)
[2017-04-26] MEDS: METOCLOPRAMIDE HCL INJ/PF 10 MG/2 ML SDV IV SCH ×4 (03:31→21:47)
[2017-04-26] MEDS: PIPERACILLIN SODIUM/TAZOBACTAM 3.375 GM in DEXTROSE 5%-WATER 100 ML IV SCH ×2 (05:16→13:37)
[2017-04-26 06:04] LABS: ANION GAP 17 (5-19); BLOOD UREA NITROGEN 28 mg/dL (7-20); CALCIUM 8.4 mg/dL (8.4-10.2); CARBON DIOXIDE 11 mmol/L (22-30); CHLORIDE 102 mmol/L (98-107); CREATININE RESULT 1.66 mg/dL (0.52-1.25); GLUCOSE 149 mg/dL (75-110); POTASSIUM 3.6 mmol/L (3.6-5.0); SODIUM 129.7 mmol/L (137-145)
--- NOTE | 2017-04-26 09:13 | PDOC PROGRESS REPORT ---
Subjective Progress Note for:: 04/26/17 Subjective:: Patient failed swallowing evaluation. Patient denies any shortness of breath, nausea or vomiting, diarrhea, or fever. Beta-basilia has been decreased in dose , still unable to wean off pressors. No reported distress by the staff. Physical Exam Vital Signs: Temp Pulse Resp BP Pulse Ox 97.3 F 72 20 112/67 100 04/25/17 19:52 04/25/17 22:00 04/26/17 06:45 04/26/17 06:41 04/26/17 06:45 Intake & Output 04/25/17 04/26/17 04/27/17 06:59 06:59 06:59 Intake Total 1842 1246 Output Total 0213 1825 Balance -1033 -579 Weight 107.6 kg General appearance: PRESENT: no acute distress, obese Head exam: PRESENT: normocephalic Eye exam: PRESENT: conjunctiva pale, EOMI Mouth exam: PRESENT: moist, neck supple Neck exam: ABSENT: JVD Respiratory exam: PRESENT: rhonchi - Few anteriorly bilateral. ABSENT: wheezes Cardiovascular exam: PRESENT: RRR. ABSENT: gallop GI/Abdominal exam: PRESENT: hypoactive bowel sounds. ABSENT: distended - Obese soft Extremities exam: PRESENT: +1 edema Neurological exam: PRESENT: alert, awake Skin exam: PRESENT: dry, warm. ABSENT: cyanosis Results Laboratory Results: 04/25/17 05:20 04/26/17 05:30 04/26/17 05:30 Sodium 129.7 L Potassium 3.6 Chloride 102 Carbon Dioxide 11 L Anion Gap 17 BUN 28 H Creatinine 1.66 H Est GFR ( Amer) 37 L Est GFR (Non-Af Amer) 31 L Glucose 149 H Calcium 8.4 04/18/17 04/18/17 04/18/17 09:27 09:27 09:27 Creatine Kinase < 20 L CK-MB (CK-2) 0.84 Troponin I 0.264 NT-Pro-B Natriuret Pep 59800 H 04/18/17 04/18/17 15:00 15:00 Creatine Kinase < 20 L CK-MB (CK-2) 0.93 Troponin I 0.248 NT-Pro-B Natriuret Pep Impressions: Foot X-Ray 04/15/17 16:57 IMPRESSION: Calcaneal spurs with no acute osseous abnormality. Degenerative joint changes as described. Abdomen/Pelvis CT 04/15/17 20:09 IMPRESSION: 1. Bilateral pleural effusions right greater than left. 2. Small volume ascites. 3. Subcutaneous edema. KUB X-Ray 04/19/17 09:54 IMPRESSION: NASOGASTRIC TUBE WITH THE TIP IN THE STOMACH. NO RADIOGRAPHIC EVIDENCE FOR ACUTE ABDOMINAL DISEASE. Abdomen Ultrasound 04/22/17 08:31 IMPRESSION: Mild ascites. Gallstones without gallbladder wall thickening. No biliary dilatation. Chest X-Ray 04/25/17 06:00 IMPRESSION: Persistent left retrocardiac consolidation, trace pleural effusions , stable. Assessment & Plan - Diagnosis (1) Severe sepsis Is this a current diagnosis for this admission?: Yes (2) Acute renal failure superimposed on chronic kidney disease Qualifiers: Chronic kidney disease stage: stage 3 (moderate) Is this a current diagnosis for this admission?: Yes (3) Diabetic infection of right foot Is this a current diagnosis for this admission?: Yes (4) Hyponatremia Is this a current diagnosis for this admission?: Yes (5) Anemia of chronic disease Is this a current diagnosis for this admission?: Yes (6) Essential hypertension Is this a current diagnosis for this admission?: Yes (7) Diabetes mellitus Qualifiers: Diabetes mellitus type: type 2 Diabetes mellitus complication status: with kidney complications Diabetes mellitus complication detail: with nephropathy Is this a current diagnosis for this admission?: Yes (8) Peripheral arterial disease Is this a current diagnosis for this admission?: Yes - Time Time Spent with patient: 25-34 minutes - Plan Summary Plan Summary: We are going to resume the patient's NG tube feedings today. I will switch intravenous medication orally via NGT. Keep IV Lasix for now. Recheck electrolytes in the morning. Continue current antibiotics. Wean vasopressor. We will discontinue main IV when tube feedings start.
[2017-04-26] MEDS: FAMOTIDINE 20 MG TABLET NG SCH ×2 (10:23→21:47)
[2017-04-26] MEDS: ASPIRIN 81 MG TABLET, CHEWABLE NG SCH (10:24)
[2017-04-26] MEDS: METOPROLOL SUCCINATE 50 MG TAB.SR.24H PO SCH (10:24)
[2017-04-26] MEDS: FUROSEMIDE INJ/PF 40 MG/4 ML SDV IV SCH ×2 (10:25→21:47)
[2017-04-26] MEDS: ENOXAPARIN SODIUM INJ 30 MG/0.3 ML DISP.SYRIN SUBCUT SCH (10:25)
[2017-04-26] MEDS: DOCUSATE SODIUM 100 MG CAPSULE PO SCH ×2 (10:34→18:05)
[2017-04-26 13:03] LABS: ARTERIAL BLOOD BASE EXCESS -14.9 mmol/L
[2017-04-26] MEDS ORDERED: SODIUM BICARBONATE 8.4% INJ 50 MEQ/50 ML DISP.SYRIN IV ONE (16:30)
[2017-04-26] MEDS: PIPERACILLIN SODIUM/TAZOBACTAM 3.375 GM in NORMAL SALINE 100 ML IV SCH ×2 (18:31→23:09)
[2017-04-26] MEDS: DEXTROSE 5%-WATER 250 ML with VASOPRESSIN 100 UNIT IV PRN ×2 (18:32)
[2017-04-26] MEDS: PHARMACY COMMUNICATION ORDER MC SCH ×2 (18:34)
[2017-04-26] MEDS: ATORVASTATIN CALCIUM 40 MG TABLET NG SCH (21:47)
[2017-04-26] MEDS: INSULIN LISPRO 100 UNIT/ML 3 ML VIAL SUBCUT PRN (23:16)
[2017-04-27] MEDS: METOCLOPRAMIDE HCL INJ/PF 10 MG/2 ML SDV IV SCH ×4 (02:27→20:09)
[2017-04-27] MEDS: PIPERACILLIN SODIUM/TAZOBACTAM 3.375 GM in NORMAL SALINE 100 ML IV SCH ×4 (05:32→23:41)
[2017-04-27] MEDS: VANCOMYCIN HCL 1,000 MG in DEXTROSE 5%-WATER 250 ML IV SCH (05:32)
[2017-04-27 06:07] LABS: ABSOLUTE BASOPHILS # (AUTO) 0.2 10^3/uL (0.0-0.2); ABSOLUTE EOSINOPHILS # (AUTO) 0.1 10^3/uL (0.0-0.6); ABSOLUTE LYMPHOCYTES (AUTO) 0.6 10^3/uL (0.5-4.7); ABSOLUTE MONOCYTES (AUTO) 0.4 10^3/uL (0.1-1.4); ABSOLUTE NEUT (AUTO) 7.7 10^3/uL (1.7-8.2); BASOPHILS % (AUTO) 2.5 % (0-2); EOSINOPHILS % (AUTO) 0.6 % (0-6); HEMATOCRIT 24.4 % (36.0-47.0); HEMOGLOBIN 8.1 g/dL (12.0-15.5); HGB HCT DIFFERENCE -0.1; LYMPHOCYTES % (AUTO) 6.7 % (13-45); MEAN CORPUSCULAR HEMOGLOBIN 26.6 pg (27.0-33.4); MEAN CORPUSCULAR VOLUME 80 fl (80-97); MONOCYTES % (AUTO) 4.6 % (3-13); RED BLOOD COUNT 3.04 10^6/uL (3.72-5.28); RED CELL DISTRIBUTION WIDTH 21.5 % (11.5-14.0); SEGMENTED NEUTROPHILS % (AUTO) 85.6 % (42-78)
[2017-04-27 06:10] LABS: ANION GAP 14 (5-19); BLOOD UREA NITROGEN 31 mg/dL (7-20); CARBON DIOXIDE 14 mmol/L (22-30); CHLORIDE 102 mmol/L (98-107); CREATININE RESULT 1.78 mg/dL (0.52-1.25); GLUCOSE 182 mg/dL (75-110); POTASSIUM 3.1 mmol/L (3.6-5.0)
[2017-04-27 06:34] LABS: ARTERIAL BLOOD BASE EXCESS -12.8 mmol/L; ARTERIAL BLOOD O2 SATURATION 97.4 % (94-98)
--- NOTE | 2017-04-27 08:30 | RADIOLOGY REPORT (SQ) ---
EXAM DESCRIPTION: CHEST SINGLE VIEW COMPLETED DATE/TIME: 04/27/2017 6:25 am REASON FOR STUDY: septic shock COMPARISON: Chest films 04/04/2016, 04/18/2017, 04/24/2017, 04/25/2017 EXAM PARAMETERS: NUMBER OF VIEWS: One view. TECHNIQUE: Single frontal radiographic view of the chest acquired. RADIATION DOSE: NA LIMITATIONS: None. FINDINGS: LUNGS AND PLEURA: Left lower lobe airspace disease, atelectasis versus pneumonia. This is unchanged compared to 04/25/2017 and 04/24/2017. Minimal right basilar atelectasis. Suspect trace bilateral pleural effusions, no pneumothorax MEDIASTINUM AND HILAR STRUCTURES: No masses. Contour normal. HEART AND VASCULAR STRUCTURES: Stable cardiomegaly BONES: No acute findings. HARDWARE: Right subclavian central line tip superior vena cava. Nasogastric tube tip and side port i n the stomach OTHER: No other significant finding. IMPRESSION: No change from yesterday TECHNICAL DOCUMENTATION: JOB ID: [id number]
[2017-04-27] MEDS ORDERED: NORMAL SALINE 250 ML IV PRN ×2 (08:40)
--- NOTE | 2017-04-27 08:51 | PDOC PROGRESS REPORT ---
Subjective Progress Note for:: 04/27/17 Subjective:: The patient is awake, extubated. She responds appropriately. She is having some pain. She is tolerating feeding well. Physical Exam Vital Signs: Temp Pulse Resp BP Pulse Ox 97.3 F 69 18 89/50 L 100 04/27/17 05:27 04/27/17 08:00 04/27/17 08:15 04/27/17 08:02 04/27/17 08:15 Intake & Output 04/26/17 04/27/17 04/28/17 06:59 06:59 06:59 Intake Total 1246 1308 Output Total 1825 1245 Balance -579 63 Weight 106.3 kg General appearance: PRESENT: mild distress Eye exam: PRESENT: conjunctival injection Neck exam: PRESENT: carotid bruit Respiratory exam: PRESENT: crackles Cardiovascular exam: PRESENT: RRR, +S2 Pulses: PRESENT: other Vascular exam: PRESENT: pallor GI/Abdominal exam: PRESENT: soft Extremities exam: PRESENT: right BKA Musculoskeletal exam: PRESENT: tenderness Neurological exam: PRESENT: awake Results Laboratory Results: 04/27/17 05:45 04/27/17 05:45 04/26/17 04/27/17 04/27/17 11:30 05:45 05:45 WBC 9.0 RBC 3.04 L Hgb 8.1 L Hct 24.4 L MCV 80 MCH 26.6 L MCHC 33.0 RDW 21.5 H Plt Count 124 L Seg Neutrophils % 85.6 H Lymphocytes % 6.7 L Monocytes % 4.6 Eosinophils % 0.6 Basophils % 2.5 H Absolute Neutrophils 7.7 Absolute Lymphocytes 0.6 Absolute Monocytes 0.4 Absolute Eosinophils 0.1 Absolute Basophils 0.2 Carbonic Acid 0.69 L HCO3/H2CO3 Ratio 15:1 ABG pH 7.27 L ABG pCO2 23.0 L ABG pO2 169.5 H ABG HCO3 10.4 L ABG O2 Saturation 99.0 H ABG Base Excess -14.9 FiO2 2L Sodium 130.0 L Potassium 3.1 L Chloride 102 Carbon Dioxide 14 L Anion Gap 14 BUN 31 H Creatinine 1.78 H Est GFR ( Amer) 34 L Est GFR (Non-Af Amer) 28 L Glucose 182 H Lactic Acid Calcium 8.0 L 04/27/17 04/27/17 05:45 06:00 WBC RBC Hgb Hct MCV MCH MCHC RDW Plt Count Seg Neutrophils % Lymphocytes % Monocytes % Eosinophils % Basophils % Absolute Neutrophils Absolute Lymphocytes Absolute Monocytes Absolute Eosinophils Absolute Basophils Carbonic Acid 0.70 L HCO3/H2CO3 Ratio 16:1 ABG pH 7.32 L ABG pCO2 23.3 L ABG pO2 102.6 H ABG HCO3 11.8 L ABG O2 Saturation 97.4 ABG Base Excess -12.8 FiO2 ROOM AIR Sodium Potassium Chloride Carbon Dioxide Anion Gap BUN Creatinine Est GFR ( Amer) Est GFR (Non-Af Amer) Glucose Lactic Acid 1.3 Calcium 04/18/17 04/18/17 04/18/17 09:27 09:27 09:27 Creatine Kinase < 20 L CK-MB (CK-2) 0.84 Troponin I 0.264 NT-Pro-B Natriuret Pep 60905 H 04/18/17 04/18/17 15:00 15:00 Creatine Kinase < 20 L CK-MB (CK-2) 0.93 Troponin I 0.248 NT-Pro-B Natriuret Pep Impressions: Foot X-Ray 04/15/17 16:57 IMPRESSION: Calcaneal spurs with no acute osseous abnormality. Degenerative joint changes as described. Abdomen/Pelvis CT 04/15/17 20:09 IMPRESSION: 1. Bilateral pleural effusions right greater than left. 2. Small volume ascites. 3. Subcutaneous edema. KUB X-Ray 04/19/17 09:54 IMPRESSION: NASOGASTRIC TUBE WITH THE TIP IN THE STOMACH. NO RADIOGRAPHIC EVIDENCE FOR ACUTE ABDOMINAL DISEASE. Abdomen Ultrasound 04/22/17 08:31 IMPRESSION: Mild ascites. Gallstones without gallbladder wall thickening. No biliary dilatation. Chest X-Ray 04/27/17 06:00 IMPRESSION: No change from yesterday Assessment & Plan - Diagnosis (1) Severe sepsis Is this a current diagnosis for this admission?: Yes Plan: The patient seemed to be improving. WBC are down. Unfortunately her RBCs are down. (2) Bacteremia Is this a current diagnosis for this admission?: Yes Plan: Continue current antibiotics (3) Acute renal failure superimposed on chronic kidney disease Qualifiers: Chronic kidney disease stage: stage 3 (moderate) Is this a current diagnosis for this admission?: Yes (4) Chronic renal failure Qualifiers: Chronic kidney disease stage: stage 3 (moderate) Qualified Code(s): N18.3 - Chronic kidney disease, stage 3 (moderate) Is this a current diagnosis for this admission?: Yes Plan: Continue IV fluids and adjust dosages of medications (5) Diabetic infection of right foot Is this a current diagnosis for this admission?: Yes Plan: Patient is being taken to the OR for secondary closure of the right BKA (7) Peripheral arterial disease Is this a current diagnosis for this admission?: Yes Plan: 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 (8) Diabetes mellitus Qualifiers: Diabetes mellitus type: type 2 Diabetes mellitus complication status: with kidney complications Diabetes mellitus complication detail: with nephropathy Is this a current diagnosis for this admission?: Yes (9) Hyponatremia Is this a current diagnosis for this admission?: Yes Plan: We will add sodium bicarb because of hyponatremia and metabolic acidosis (10) Malnutrition Qualifiers: Malnutrition type: protein-calorie malnutrition Protein-calorie malnutrition severity: severe Qualified Code(s): E43 - Unspecified severe protein-calorie malnutrition Is this a current diagnosis for this admission?: Yes Plan: Continue and increase tube feeding by 10 mL's every 8 hours (11) Metabolic acidosis Is this a current diagnosis for this admission?: Yes Plan: We will add sodium bicarb
[2017-04-27] MEDS ORDERED: SODIUM BICARBONATE 650 MG TABLET PO ONE (09:00)
[2017-04-27] MEDS ORDERED: OXYCODONE HCL IR 5 MG TABLET PO PRN (09:14)
--- NOTE | 2017-04-27 10:46 | OPERATIVE REPORT E ---
Operative Report NAME: SHERITA CAPUTO : 1945 AGE: 71Y DATE OF SURGERY: 04/27/2017 ROOM: 611 PREOPERATIVE DIAGNOSIS: Multiorgan system failure. POSTOPERATIVE DIAGNOSIS: Multiorgan system failure. PROCEDURES: 1. Focused ultrasound of the right neck. 2. Ultrasound-direct insertion of triple lumen right internal jugular vein central line. SURGEON: TARIQ QUINTANA M.D. ANESTHESIA: 1% plain lidocaine. COMPLICATIONS: None. ESTIMATED BLOOD LOSS: Scant. DRAINS: None. TISSUE REMOVED OR ALTERED: None. FINDINGS: See below. SUMMARY OF PROCEDURE: Patient placed on Trendelenburg position. Right breast taped in a caudad direction. The right neck was scanned with a variable frequency linear transducer. Findings were significant for a compressible, suitable diameter patent internal jugular vein. The right neck was then prepped and draped in sterile fashion. Surgical timeout was conducted. Using the ultrasound as a guide, and using Seldinger technique, triple lumen x3 left axis catheter was threaded into there right internal jugular vein without difficulty. There was excellent blood flow through all 3 lumens. Catheter was flushed with heparinized saline and secured to the skin with 2-0 silk suture. Biopatch and sterile dressing applied. Portable upright chest x-ray showed no evidence of pneumothorax, bilateral airspace disease, and tip of the catheter in the right atrium. DICTATING PHYSICIAN: TARIQ QUINTANA M.D. [id number] PHY#: [id number] ID: [id number] JOB#: [id number] ACCT: [id number] cc:TARIQ QUINTANA M.D. >
--- NOTE | 2017-04-27 11:04 | PDOC PROGRESS REPORT ---
Subjective Progress Note for:: 04/27/17 Subjective:: Arousable but lethargic Physical Exam Vital Signs: Temp Pulse Resp BP Pulse Ox 97.3 F 69 18 89/50 L 100 04/27/17 05:27 04/27/17 08:00 04/27/17 08:15 04/27/17 08:02 04/27/17 08:15 Intake & Output 04/26/17 04/27/17 04/28/17 06:59 06:59 06:59 Intake Total 1246 1308 Output Total 1825 1245 Balance -579 63 Weight 106.3 kg General appearance: PRESENT: no acute distress, cooperative, disheveled, thin, well-developed Head exam: PRESENT: atraumatic, normocephalic Eye exam: PRESENT: conjunctiva pale, EOMI Mouth exam: PRESENT: dry mucosa, neck supple, tongue midline Neck exam: PRESENT: carotid bruit Respiratory exam: PRESENT: decreased breath sounds, prolonged expiratory phas, rhonchi, symmetrical, unlabored. ABSENT: rales, retraction, stridor, tachypnea Cardiovascular exam: PRESENT: RRR, +S1, +S2 Pulses: PRESENT: normal radial pulses GI/Abdominal exam: PRESENT: normal bowel sounds, soft. ABSENT: distended, guarding, mass, organolmegaly, rebound, tenderness Rectal exam: PRESENT: deferred Gentrourinary exam: PRESENT: indwelling catheter Extremities exam: PRESENT: +2 edema - Left lower extremity, other - Right BKA Neurological exam: PRESENT: awake Skin exam: PRESENT: dry Results Laboratory Results: 04/27/17 05:45 04/27/17 05:45 04/26/17 04/27/17 04/27/17 11:30 05:45 05:45 WBC 9.0 RBC 3.04 L Hgb 8.1 L Hct 24.4 L MCV 80 MCH 26.6 L MCHC 33.0 RDW 21.5 H Plt Count 124 L Seg Neutrophils % 85.6 H Lymphocytes % 6.7 L Monocytes % 4.6 Eosinophils % 0.6 Basophils % 2.5 H Absolute Neutrophils 7.7 Absolute Lymphocytes 0.6 Absolute Monocytes 0.4 Absolute Eosinophils 0.1 Absolute Basophils 0.2 Carbonic Acid 0.69 L HCO3/H2CO3 Ratio 15:1 ABG pH 7.27 L ABG pCO2 23.0 L ABG pO2 169.5 H ABG HCO3 10.4 L ABG O2 Saturation 99.0 H ABG Base Excess -14.9 FiO2 2L Sodium 130.0 L Potassium 3.1 L Chloride 102 Carbon Dioxide 14 L Anion Gap 14 BUN 31 H Creatinine 1.78 H Est GFR ( Amer) 34 L Est GFR (Non-Af Amer) 28 L Glucose 182 H Lactic Acid Calcium 8.0 L 04/27/17 04/27/17 05:45 06:00 WBC RBC Hgb Hct MCV MCH MCHC RDW Plt Count Seg Neutrophils % Lymphocytes % Monocytes % Eosinophils % Basophils % Absolute Neutrophils Absolute Lymphocytes Absolute Monocytes Absolute Eosinophils Absolute Basophils Carbonic Acid 0.70 L HCO3/H2CO3 Ratio 16:1 ABG pH 7.32 L ABG pCO2 23.3 L ABG pO2 102.6 H ABG HCO3 11.8 L ABG O2 Saturation 97.4 ABG Base Excess -12.8 FiO2 ROOM AIR Sodium Potassium Chloride Carbon Dioxide Anion Gap BUN Creatinine Est GFR ( Amer) Est GFR (Non-Af Amer) Glucose Lactic Acid 1.3 Calcium 04/18/17 04/18/17 04/18/17 09:27 09:27 09:27 Creatine Kinase < 20 L CK-MB (CK-2) 0.84 Troponin I 0.264 NT-Pro-B Natriuret Pep 83702 H 04/18/17 04/18/17 15:00 15:00 Creatine Kinase < 20 L CK-MB (CK-2) 0.93 Troponin I 0.248 NT-Pro-B Natriuret Pep Impressions: Foot X-Ray 04/15/17 16:57 IMPRESSION: Calcaneal spurs with no acute osseous abnormality. Degenerative joint changes as described. Abdomen/Pelvis CT 04/15/17 20:09 IMPRESSION: 1. Bilateral pleural effusions right greater than left. 2. Small volume ascites. 3. Subcutaneous edema. KUB X-Ray 04/19/17 09:54 IMPRESSION: NASOGASTRIC TUBE WITH THE TIP IN THE STOMACH. NO RADIOGRAPHIC EVIDENCE FOR ACUTE ABDOMINAL DISEASE. Abdomen Ultrasound 04/22/17 08:31 IMPRESSION: Mild ascites. Gallstones without gallbladder wall thickening. No biliary dilatation. Chest X-Ray 04/27/17 06:00 IMPRESSION: No change from yesterday Assessment & Plan - Diagnosis (1) Septic shock Is this a current diagnosis for this admission?: Yes Plan: Remains on vasopressor agent (2) Right BKA infection Is this a current diagnosis for this admission?: Yes (3) Chronic renal failure Qualifiers: Chronic kidney disease stage: stage 3 (moderate) Qualified Code(s): N18.3 - Chronic kidney disease, stage 3 (moderate) Is this a current diagnosis for this admission?: Yes Plan: Profound persistent metabolic acidosis with sodium bicarbonate tube feedings 4 times daily (4) Severe peripheral arterial disease Is this a current diagnosis for this admission?: Yes (5) Malnutrition Qualifiers: Malnutrition type: protein-calorie malnutrition Protein-calorie malnutrition severity: severe Qualified Code(s): E43 - Unspecified severe protein-calorie malnutrition Is this a current diagnosis for this admission?: Yes - Time Critical Time spent with patient: 35 or more minutes - 50 minutes
--- NOTE | 2017-04-27 11:52 | RADIOLOGY REPORT (SQ) ---
EXAM DESCRIPTION: CHEST SINGLE VIEW COMPLETED DATE/TIME: 04/27/2017 11:12 am REASON FOR STUDY: Central Line Placement COMPARISON: Chest films 05/02/2007, 04/18/2017, 04/22/2017, 04/25/2017, Chest film 04/27/2017, 0609 hours EXAM PARAMETERS: NUMBER OF VIEWS: One view. TECHNIQUE: Single frontal radiographic view of the chest acquired. RADIATION DOSE: NA LIMITATIONS: Obese patient, portable technique FINDINGS: Interval placement of a right jugular central line with the tip in the inferior aspect of the right atrium. This report was called to Dr. Grossman at the time of dictation. Nasogastric tube tip and side port in the stomach. LUNGS AND PLEURA: Hazy opacity over the right and left lower chest, likely due to small pleural effus ions left greater than right. This is stable. Stable consolidation in the left lower lobe, atelectasis versus pneumonia. No pneumothorax. MEDIASTINUM AND HILAR STRUCTURES: No masses. Contour normal. HEART AND VASCULAR STRUCTURES: Stable cardiomegaly BONES: No acute findings. HARDWARE: None in the chest. OTHER: No other significant finding. IMPRESSION: Interval placement of a right jugular central line with the tip in the inferior aspect r ight atrium. No pneumothorax. Results discussed with the surgeon. No change in left lower lobe consolidation and small bilateral pleural effusions left greater than ri ght TECHNICAL DOCUMENTATION: JOB ID: [id number]
[2017-04-27] MEDS: FAMOTIDINE 20 MG TABLET NG SCH ×2 (12:07→21:12)
[2017-04-27] MEDS: ASPIRIN 81 MG TABLET, CHEWABLE NG SCH (12:09)
[2017-04-27] MEDS: FUROSEMIDE INJ/PF 40 MG/4 ML SDV IV SCH ×2 (12:10→21:12)
[2017-04-27] MEDS: METOPROLOL SUCCINATE 50 MG TAB.SR.24H PO SCH (12:26)
[2017-04-27] MEDS: SODIUM BICARBONATE 650 MG TABLET PO SCH ×3 (12:26→23:43)
[2017-04-27] MEDS: DOCUSATE SODIUM 100 MG CAPSULE PO SCH ×2 (12:26→17:10)
[2017-04-27] MEDS: ENOXAPARIN SODIUM INJ 30 MG/0.3 ML DISP.SYRIN SUBCUT SCH (12:26)
[2017-04-27] MEDS: PHARMACY COMMUNICATION ORDER MC SCH ×2 (17:11)
[2017-04-27] MEDS: INSULIN LISPRO 100 UNIT/ML 3 ML VIAL SUBCUT PRN (17:20)
[2017-04-27] MEDS: ATORVASTATIN CALCIUM 40 MG TABLET NG SCH (21:12)
[2017-04-27 21:39] LABS: HEMATOCRIT 31.4 % (36.0-47.0); HGB HCT DIFFERENCE -0.5; MEAN CORPUSCULAR HEMOGLOBIN 26.7 pg (27.0-33.4); MEAN CORPUSCULAR VOLUME 81 fl (80-97); RED BLOOD COUNT 3.87 10^6/uL (3.72-5.28); RED CELL DISTRIBUTION WIDTH 19.4 % (11.5-14.0); WHITE BLOOD COUNT 11.3 10^3/uL (4.0-10.5)
[2017-04-27 21:44] LABS: HEMOGLOBIN 10.3 g/dL (12.0-15.5)
[2017-04-27 21:58] LABS: BASOPHILS % (MANUAL) 0 % (0-2); EOSINOPHILS % (MANUAL) 1 % (0-6); LYMPHOCYTES % (MANUAL) 5 % (13-45); TOTAL CELLS COUNTED 100
[2017-04-27 22:00] LABS: TOXIC GRANULATION SLIGHT
[2017-04-27 22:01] LABS: ANISOCYTOSIS 2+; HYPOCHROMASIA SLIGHT; OVALOCYTES SLIGHT; POIKILOCYTOSIS 1+
[2017-04-28] MEDS: METOCLOPRAMIDE HCL INJ/PF 10 MG/2 ML SDV IV SCH ×4 (03:33→21:38)
[2017-04-28] MEDS: PIPERACILLIN SODIUM/TAZOBACTAM 3.375 GM in NORMAL SALINE 100 ML IV SCH (05:00)
[2017-04-28] MEDS: SODIUM BICARBONATE 650 MG TABLET PO SCH ×4 (05:07→23:37)
[2017-04-28 05:43] LABS: ARTERIAL BLOOD BASE EXCESS -10.4 mmol/L
[2017-04-28 06:07] LABS: ALANINE AMINOTRANSFERASE 34 U/L (9-52); ALBUMIN 2.8 g/dL (3.5-5.0); ALKALINE PHOSPHATASE 111 U/L (38-126); ANION GAP 16 (5-19); ASPARTATE AMINO TRANSFERASE 102 U/L (14-36); BILIRUBIN,DIRECT 2.8 mg/dL (0.0-0.4); BILIRUBIN,TOTAL 3.2 mg/dL (0.2-1.3); BLOOD UREA NITROGEN 35 mg/dL (7-20); CALCIUM 8.2 mg/dL (8.4-10.2); CARBON DIOXIDE 14 mmol/L (22-30); CHLORIDE 100 mmol/L (98-107); GLUCOSE 223 mg/dL (75-110); MAGNESIUM 1.5 mg/dL (1.6-2.3); PHOSPHORUS 4.1 mg/dL (2.5-4.5); SODIUM 129.6 mmol/L (137-145); TOTAL PROTEIN 5.6 g/dL (6.3-8.2)
[2017-04-28 06:13] LABS: POTASSIUM 2.8 mmol/L (3.6-5.0)
[2017-04-28 06:26] LABS: HEMATOCRIT 31.5 % (36.0-47.0); HEMOGLOBIN 10.5 g/dL (12.0-15.5); MEAN CORPUSCULAR HGB CONC 33.3 g/dL (32.0-36.0); MEAN CORPUSCULAR VOLUME 81 fl (80-97); RED BLOOD COUNT 3.88 10^6/uL (3.72-5.28); RED CELL DISTRIBUTION WIDTH 19.4 % (11.5-14.0); WHITE BLOOD COUNT 11.8 10^3/uL (4.0-10.5)
[2017-04-28 06:43] LABS: BASOPHILS % (MANUAL) 1 % (0-2); EOSINOPHILS % (MANUAL) 0 % (0-6); LYMPHOCYTES % (MANUAL) 5 % (13-45); TOTAL CELLS COUNTED 100
--- NOTE | 2017-04-28 06:50 | PDOC PROGRESS REPORT ---
Subjective Progress Note for:: 04/28/17 Subjective:: Patient somewhat somnolent Physical Exam Vital Signs: Temp Pulse Resp BP Pulse Ox 36.5 C 76 15 117/58 L 100 04/27/17 18:48 04/27/17 21:53 04/28/17 06:12 04/28/17 06:12 04/28/17 06:12 Intake & Output 04/26/17 04/27/17 04/28/17 06:59 06:59 06:59 Intake Total 1246 1308 2997 Output Total 1825 1245 710 Balance -867 62 7276 Weight 106.3 kg 109.2 kg General appearance: PRESENT: no acute distress Head exam: PRESENT: normocephalic Extremities exam: PRESENT: other - Right lower extremity dressing removed. Wound is dry. Sutures intact. Skin edges viable. Results Laboratory Results: 04/28/17 05:28 04/27/17 04/27/17 04/28/17 09:11 21:25 05:28 WBC 11.3 H RBC 3.87 Hgb 10.3 L D Hct 31.4 L MCV 81 MCH 26.7 L MCHC 33.0 RDW 19.4 H Plt Count 117 L Seg Neutrophils % Not Reportable Lymphocytes % Not Reportable Monocytes % Not Reportable Eosinophils % Not Reportable Basophils % Not Reportable Absolute Neutrophils Not Reportable Absolute Lymphocytes Not Reportable Absolute Monocytes Not Reportable Absolute Eosinophils Not Reportable Absolute Basophils Not Reportable Carbonic Acid 0.93 L HCO3/H2CO3 Ratio 16:1 ABG pH 7.30 L ABG pCO2 30.9 L ABG pO2 98.4 ABG HCO3 14.9 L ABG O2 Saturation 97.0 ABG Base Excess -10.4 FiO2 ROOM AIR Sodium Potassium Chloride Carbon Dioxide Anion Gap BUN Creatinine Est GFR ( Amer) Est GFR (Non-Af Amer) Glucose Calcium Phosphorus Magnesium Total Bilirubin AST ALT Alkaline Phosphatase Total Protein Albumin Blood Type O POSITIVE Antibody Screen NEGATIVE 04/28/17 04/28/17 05:28 05:28 WBC RBC Hgb Hct MCV MCH MCHC RDW Plt Count Seg Neutrophils % Not Reportable Lymphocytes % Not Reportable Monocytes % Not Reportable Eosinophils % Not Reportable Basophils % Not Reportable Absolute Neutrophils Not Reportable Absolute Lymphocytes Not Reportable Absolute Monocytes Not Reportable Absolute Eosinophils Not Reportable Absolute Basophils Not Reportable Carbonic Acid HCO3/H2CO3 Ratio ABG pH ABG pCO2 ABG pO2 ABG HCO3 ABG O2 Saturation ABG Base Excess FiO2 Sodium 129.6 L Potassium 2.8 L* Chloride 100 Carbon Dioxide 14 L Anion Gap 16 BUN 35 H Creatinine 1.90 H Est GFR ( Amer) 32 L Est GFR (Non-Af Amer) 26 L Glucose 223 H Calcium 8.2 L Phosphorus 4.1 Magnesium 1.5 L Total Bilirubin 3.2 H AST 102 H ALT 34 Alkaline Phosphatase 111 Total Protein 5.6 L Albumin 2.8 L Blood Type Antibody Screen 04/23/17 08:45 Leg - Below Knee Amputation Site Gram Stain - Final 04/23/17 08:45 Leg - Below Knee Amputation Site Wound Culture - Final NO AEROBIC OR ANAEROBIC ORGANISMS RECOVERED 04/23/17 08:45 Leg - Below Knee Amputation Site Gram Stain - Final 04/23/17 08:45 Leg - Below Knee Amputation Site Wound Culture - Final NO AEROBIC OR ANAEROBIC ORGANISMS RECOVERED 04/18/17 04/18/17 04/18/17 09:27 09:27 09:27 Creatine Kinase < 20 L CK-MB (CK-2) 0.84 Troponin I 0.264 NT-Pro-B Natriuret Pep 69334 H 04/18/17 04/18/17 15:00 15:00 Creatine Kinase < 20 L CK-MB (CK-2) 0.93 Troponin I 0.248 NT-Pro-B Natriuret Pep Impressions: Foot X-Ray 04/15/17 16:57 IMPRESSION: Calcaneal spurs with no acute osseous abnormality. Degenerative joint changes as described. Abdomen/Pelvis CT 04/15/17 20:09 IMPRESSION: 1. Bilateral pleural effusions right greater than left. 2. Small volume ascites. 3. Subcutaneous edema. KUB X-Ray 04/19/17 09:54 IMPRESSION: NASOGASTRIC TUBE WITH THE TIP IN THE STOMACH. NO RADIOGRAPHIC EVIDENCE FOR ACUTE ABDOMINAL DISEASE. Abdomen Ultrasound 04/22/17 08:31 IMPRESSION: Mild ascites. Gallstones without gallbladder wall thickening. No biliary dilatation. Chest X-Ray 04/27/17 10:04 IMPRESSION: Interval placement of a right jugular central line with the tip in the inferior aspect right atrium. No pneumothorax. Results discussed with the surgeon. No change in left lower lobe consolidation and small bilateral pleural effusions left greater than right Assessment & Plan - Diagnosis (1) Diabetic infection of right foot Is this a current diagnosis for this admission?: Yes Plan: Patient can be out of bed to chair as a medical condition permits - Plan Summary Plan Summary: snf facility when medical issues resolved
[2017-04-28 06:51] LABS: ANISOCYTOSIS 2+; BURR CELLS SLIGHT; HYPOCHROMASIA SLIGHT; OVALOCYTES SLIGHT; POIKILOCYTOSIS 1+; POLYCHROMASIA SLIGHT; TOXIC GRANULATION SLIGHT
--- NOTE | 2017-04-28 07:53 | RADIOLOGY REPORT (SQ) ---
EXAM DESCRIPTION: CHEST SINGLE VIEW COMPLETED DATE/TIME: 04/28/2017 6:58 am REASON FOR STUDY: sepsis COMPARISON: 04/27/2017. EXAM PARAMETERS: NUMBER OF VIEWS: One view. TECHNIQUE: Single frontal radiographic view of the chest acquired. RADIATION DOSE: NA LIMITATIONS: None. FINDINGS: LUNGS AND PLEURA: Moderate opacity -effusion of the left lower hemithorax. Moderate lung volumes. MEDIASTINUM AND HILAR STRUCTURES: No masses. Contour normal. HEART AND VASCULAR STRUCTURES: Mild enlargement of the cardiac silhouette. Atherosclerosis. BONES: No acute findings. HARDWARE: Right internal jugular central line tip at the inferior right atrium ; consider 12 cm retra ction. Likely adequate NG tube obscured distally. OTHER: No other significant finding. IMPRESSION: No significant interval change. TECHNICAL DOCUMENTATION: JOB ID: [id number]
--- NOTE | 2017-04-28 08:41 | PDOC PROGRESS REPORT ---
Subjective Progress Note for:: 04/28/17 Subjective:: The patient is awake and follows commands. She is only complaining of pain in her left leg when she is being moved around. She is tolerating NGT feeding well. Complaining of dry mouth. Physical Exam Vital Signs: Temp Pulse Resp BP Pulse Ox 97.7 F 77 15 117/58 L 100 04/27/17 18:48 04/28/17 08:00 04/28/17 06:12 04/28/17 06:12 04/28/17 06:12 Intake & Output 04/27/17 04/28/17 04/29/17 06:59 06:59 06:59 Intake Total 1308 2997 Output Total 1245 710 150 Balance 63 2287 -150 Weight 106.3 kg 109.2 kg General appearance: PRESENT: mild distress Head exam: PRESENT: atraumatic Eye exam: PRESENT: conjunctival injection Neck exam: ABSENT: JVD Respiratory exam: PRESENT: crackles, rhonchi Cardiovascular exam: PRESENT: RRR, +S1, +S2 Pulses: PRESENT: other GI/Abdominal exam: PRESENT: normal bowel sounds, soft Extremities exam: PRESENT: right BKA Musculoskeletal exam: PRESENT: tenderness Neurological exam: PRESENT: awake Results Laboratory Results: 04/28/17 05:28 04/28/17 05:28 04/27/17 04/27/17 04/28/17 09:11 21:25 05:28 WBC 11.3 H RBC 3.87 Hgb 10.3 L D Hct 31.4 L MCV 81 MCH 26.7 L MCHC 33.0 RDW 19.4 H Plt Count 117 L Seg Neutrophils % Not Reportable Lymphocytes % Not Reportable Monocytes % Not Reportable Eosinophils % Not Reportable Basophils % Not Reportable Absolute Neutrophils Not Reportable Absolute Lymphocytes Not Reportable Absolute Monocytes Not Reportable Absolute Eosinophils Not Reportable Absolute Basophils Not Reportable Carbonic Acid 0.93 L HCO3/H2CO3 Ratio 16:1 ABG pH 7.30 L ABG pCO2 30.9 L ABG pO2 98.4 ABG HCO3 14.9 L ABG O2 Saturation 97.0 ABG Base Excess -10.4 FiO2 ROOM AIR Sodium Potassium Chloride Carbon Dioxide Anion Gap BUN Creatinine Est GFR ( Amer) Est GFR (Non-Af Amer) Glucose Calcium Phosphorus Magnesium Total Bilirubin AST ALT Alkaline Phosphatase Total Protein Albumin Blood Type O POSITIVE Antibody Screen NEGATIVE 04/28/17 04/28/17 05:28 05:28 WBC 11.8 H RBC 3.88 Hgb 10.5 L Hct 31.5 L MCV 81 MCH 27.0 MCHC 33.3 RDW 19.4 H Plt Count 104 L Seg Neutrophils % Not Reportable Lymphocytes % Not Reportable Monocytes % Not Reportable Eosinophils % Not Reportable Basophils % Not Reportable Absolute Neutrophils Not Reportable Absolute Lymphocytes Not Reportable Absolute Monocytes Not Reportable Absolute Eosinophils Not Reportable Absolute Basophils Not Reportable Carbonic Acid HCO3/H2CO3 Ratio ABG pH ABG pCO2 ABG pO2 ABG HCO3 ABG O2 Saturation ABG Base Excess FiO2 Sodium 129.6 L Potassium 2.8 L* Chloride 100 Carbon Dioxide 14 L Anion Gap 16 BUN 35 H Creatinine 1.90 H Est GFR ( Amer) 32 L Est GFR (Non-Af Amer) 26 L Glucose 223 H Calcium 8.2 L Phosphorus 4.1 Magnesium 1.5 L Total Bilirubin 3.2 H AST 102 H ALT 34 Alkaline Phosphatase 111 Total Protein 5.6 L Albumin 2.8 L Blood Type Antibody Screen 04/23/17 08:45 Leg - Below Knee Amputation Site Gram Stain - Final 04/23/17 08:45 Leg - Below Knee Amputation Site Wound Culture - Final NO AEROBIC OR ANAEROBIC ORGANISMS RECOVERED 04/23/17 08:45 Leg - Below Knee Amputation Site Gram Stain - Final 04/23/17 08:45 Leg - Below Knee Amputation Site Wound Culture - Final NO AEROBIC OR ANAEROBIC ORGANISMS RECOVERED 04/18/17 04/18/17 04/18/17 09:27 09:27 09:27 Creatine Kinase < 20 L CK-MB (CK-2) 0.84 Troponin I 0.264 NT-Pro-B Natriuret Pep 29212 H 04/18/17 04/18/17 15:00 15:00 Creatine Kinase < 20 L CK-MB (CK-2) 0.93 Troponin I 0.248 NT-Pro-B Natriuret Pep Impressions: Foot X-Ray 04/15/17 16:57 IMPRESSION: Calcaneal spurs with no acute osseous abnormality. Degenerative joint changes as described. Abdomen/Pelvis CT 04/15/17 20:09 IMPRESSION: 1. Bilateral pleural effusions right greater than left. 2. Small volume ascites. 3. Subcutaneous edema. KUB X-Ray 04/19/17 09:54 IMPRESSION: NASOGASTRIC TUBE WITH THE TIP IN THE STOMACH. NO RADIOGRAPHIC EVIDENCE FOR ACUTE ABDOMINAL DISEASE. Abdomen Ultrasound 04/22/17 08:31 IMPRESSION: Mild ascites. Gallstones without gallbladder wall thickening. No biliary dilatation. Chest X-Ray 04/28/17 06:00 IMPRESSION: No significant interval change. Assessment & Plan - Diagnosis (1) Severe sepsis Is this a current diagnosis for this admission?: Yes Plan: The patient seemed to be improving. WBC are down. Unfortunately her RBCs are down. (2) Bacteremia Is this a current diagnosis for this admission?: Yes (3) Acute renal failure superimposed on chronic kidney disease Qualifiers: Chronic kidney disease stage: stage 3 (moderate) Is this a current diagnosis for this admission?: Yes Plan: We will decrease IV Lasix (4) Chronic renal failure Qualifiers: Chronic kidney disease stage: stage 3 (moderate) Qualified Code(s): N18.3 - Chronic kidney disease, stage 3 (moderate) Is this a current diagnosis for this admission?: Yes Plan: Because of worsening BUN and creatinine will decrease the Lasix (5) Diabetic infection of right foot Is this a current diagnosis for this admission?: Yes Plan: Patient is being taken to the OR for secondary closure of the right BKA (6) Peripheral arterial occlusive disease Plan: Very poor peripheral circulation (7) Peripheral arterial disease Is this a current diagnosis for this admission?: Yes Plan: 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 (8) Diabetes mellitus Qualifiers: Diabetes mellitus type: type 2 Diabetes mellitus complication status: with kidney complications Diabetes mellitus complication detail: with nephropathy Is this a current diagnosis for this admission?: Yes Plan: Continue with insulin treatments (9) Hyponatremia Is this a current diagnosis for this admission?: Yes Plan: We will add sodium bicarb because of hyponatremia and metabolic acidosis (10) Malnutrition Qualifiers: Malnutrition type: protein-calorie malnutrition Protein-calorie malnutrition severity: severe Qualified Code(s): E43 - Unspecified severe protein-calorie malnutrition Is this a current diagnosis for this admission?: Yes Plan: We will advance diet by 10 mL's every 8 hours. Will add clear liquids (11) Metabolic acidosis Is this a current diagnosis for this admission?: Yes Plan: Slight improvement will continue with current treatment (12) Hypokalemia Is this a current diagnosis for this admission?: Yes Plan: We will supplement with potassium
[2017-04-28] MEDS ORDERED: POTASSI CL 20 MEQ/50 ML RIDER 20 MEQ/50 ML RTUPB IV SCH (09:00)
[2017-04-28] MEDS ORDERED: MAGNESIUM SULFATE/D5W 1 GM/100 ML RTUPB IV SCH (09:30)
[2017-04-28] MEDS: METOPROLOL SUCCINATE 50 MG TAB.SR.24H PO SCH (09:36)
[2017-04-28] MEDS: DOCUSATE SODIUM 100 MG CAPSULE PO SCH ×2 (09:36→17:48)
[2017-04-28] MEDS: ASPIRIN 81 MG TABLET, CHEWABLE NG SCH (09:41)
[2017-04-28] MEDS: ENOXAPARIN SODIUM INJ 30 MG/0.3 ML DISP.SYRIN SUBCUT SCH (09:41)
[2017-04-28] MEDS: MAGNESIUM SULFATE/D5W 1 GM/100 ML RTUPB IV SCH ×3 (09:44→11:25)
[2017-04-28] MEDS: MAGNESIUM OXIDE 400 MG TABLET PO SCH ×2 (09:45→18:01)
[2017-04-28] MEDS ORDERED: LANSOPRAZOLE 30 MG TAB.RAP.DR PO ONE (10:00)
[2017-04-28] MEDS ORDERED: FAMOTIDINE 20 MG TABLET NG SCH (10:00)
[2017-04-28] MEDS ORDERED: FUROSEMIDE INJ/PF 40 MG/4 ML SDV IV SCH (10:00)
[2017-04-28] MEDS: POTASSI CL 20 MEQ/50 ML RIDER 20 MEQ/50 ML RTUPB IV SCH ×3 (13:15→17:56)
--- NOTE | 2017-04-28 14:38 | PDOC PROGRESS REPORT ---
Subjective Progress Note for:: 04/28/17 Subjective:: Arousable but lethargic Physical Exam Vital Signs: Temp Pulse Resp BP Pulse Ox 97.7 F 77 15 117/58 L 100 04/27/17 18:48 04/28/17 08:00 04/28/17 06:12 04/28/17 06:12 04/28/17 06:12 Intake & Output 04/27/17 04/28/17 04/29/17 06:59 06:59 06:59 Intake Total 1308 2997 Output Total 1245 710 150 Balance 63 2287 -150 Weight 106.3 kg 109.2 kg General appearance: PRESENT: no acute distress, disheveled, thin, well-developed Head exam: PRESENT: atraumatic, normocephalic Eye exam: PRESENT: conjunctiva pale, EOMI Mouth exam: PRESENT: dry mucosa, neck supple, tongue midline Neck exam: ABSENT: carotid bruit, JVD, lymphadenopathy, thyromegaly Respiratory exam: PRESENT: decreased breath sounds, prolonged expiratory phas, rales, rhonchi, symmetrical, unlabored. ABSENT: retraction, stridor, tachypnea , wheezes Cardiovascular exam: PRESENT: RRR, +S1, +S2 Pulses: PRESENT: normal radial pulses GI/Abdominal exam: PRESENT: normal bowel sounds, soft. ABSENT: distended, guarding, mass, organolmegaly, rebound, tenderness Rectal exam: PRESENT: deferred Gentrourinary exam: PRESENT: indwelling catheter Extremities exam: PRESENT: other - r bka L swelling cool Musculoskeletal exam: ABSENT: ambulatory, dislocation, full ROM, normal inspection, tenderness Neurological exam: PRESENT: awake. ABSENT: alert, altered Skin exam: PRESENT: dry Results Laboratory Results: 04/28/17 05:28 04/28/17 05:28 04/27/17 04/27/17 04/28/17 09:11 21:25 05:28 WBC 11.3 H RBC 3.87 Hgb 10.3 L D Hct 31.4 L MCV 81 MCH 26.7 L MCHC 33.0 RDW 19.4 H Plt Count 117 L Seg Neutrophils % Not Reportable Lymphocytes % Not Reportable Monocytes % Not Reportable Eosinophils % Not Reportable Basophils % Not Reportable Absolute Neutrophils Not Reportable Absolute Lymphocytes Not Reportable Absolute Monocytes Not Reportable Absolute Eosinophils Not Reportable Absolute Basophils Not Reportable Carbonic Acid 0.93 L HCO3/H2CO3 Ratio 16:1 ABG pH 7.30 L ABG pCO2 30.9 L ABG pO2 98.4 ABG HCO3 14.9 L ABG O2 Saturation 97.0 ABG Base Excess -10.4 FiO2 ROOM AIR Sodium Potassium Chloride Carbon Dioxide Anion Gap BUN Creatinine Est GFR ( Amer) Est GFR (Non-Af Amer) Glucose Calcium Phosphorus Magnesium Total Bilirubin AST ALT Alkaline Phosphatase Total Protein Albumin Blood Type O POSITIVE Antibody Screen NEGATIVE 04/28/17 04/28/17 05:28 05:28 WBC 11.8 H RBC 3.88 Hgb 10.5 L Hct 31.5 L MCV 81 MCH 27.0 MCHC 33.3 RDW 19.4 H Plt Count 104 L Seg Neutrophils % Not Reportable Lymphocytes % Not Reportable Monocytes % Not Reportable Eosinophils % Not Reportable Basophils % Not Reportable Absolute Neutrophils Not Reportable Absolute Lymphocytes Not Reportable Absolute Monocytes Not Reportable Absolute Eosinophils Not Reportable Absolute Basophils Not Reportable Carbonic Acid HCO3/H2CO3 Ratio ABG pH ABG pCO2 ABG pO2 ABG HCO3 ABG O2 Saturation ABG Base Excess FiO2 Sodium 129.6 L Potassium 2.8 L* Chloride 100 Carbon Dioxide 14 L Anion Gap 16 BUN 35 H Creatinine 1.90 H Est GFR ( Amer) 32 L Est GFR (Non-Af Amer) 26 L Glucose 223 H Calcium 8.2 L Phosphorus 4.1 Magnesium 1.5 L Total Bilirubin 3.2 H AST 102 H ALT 34 Alkaline Phosphatase 111 Total Protein 5.6 L Albumin 2.8 L Blood Type Antibody Screen 04/23/17 08:45 Leg - Below Knee Amputation Site Gram Stain - Final 04/23/17 08:45 Leg - Below Knee Amputation Site Wound Culture - Final NO AEROBIC OR ANAEROBIC ORGANISMS RECOVERED 04/23/17 08:45 Leg - Below Knee Amputation Site Gram Stain - Final 04/23/17 08:45 Leg - Below Knee Amputation Site Wound Culture - Final NO AEROBIC OR ANAEROBIC ORGANISMS RECOVERED 04/18/17 04/18/17 04/18/17 09:27 09:27 09:27 Creatine Kinase < 20 L CK-MB (CK-2) 0.84 Troponin I 0.264 NT-Pro-B Natriuret Pep 29128 H 04/18/17 04/18/17 15:00 15:00 Creatine Kinase < 20 L CK-MB (CK-2) 0.93 Troponin I 0.248 NT-Pro-B Natriuret Pep Impressions: Foot X-Ray 04/15/17 16:57 IMPRESSION: Calcaneal spurs with no acute osseous abnormality. Degenerative joint changes as described. Abdomen/Pelvis CT 04/15/17 20:09 IMPRESSION: 1. Bilateral pleural effusions right greater than left. 2. Small volume ascites. 3. Subcutaneous edema. KUB X-Ray 04/19/17 09:54 IMPRESSION: NASOGASTRIC TUBE WITH THE TIP IN THE STOMACH. NO RADIOGRAPHIC EVIDENCE FOR ACUTE ABDOMINAL DISEASE. Abdomen Ultrasound 04/22/17 08:31 IMPRESSION: Mild ascites. Gallstones without gallbladder wall thickening. No biliary dilatation. Chest X-Ray 04/28/17 06:00 IMPRESSION: No significant interval change. Assessment & Plan - Diagnosis (1) Septic shock Is this a current diagnosis for this admission?: Yes Plan: Still requiring a single vasopressor (2) Right BKA infection Is this a current diagnosis for this admission?: Yes (3) Chronic renal failure Qualifiers: Chronic kidney disease stage: stage 3 (moderate) Qualified Code(s): N18.3 - Chronic kidney disease, stage 3 (moderate) Is this a current diagnosis for this admission?: Yes Plan: Supple mental potassium and magnesium (4) Severe peripheral arterial disease Is this a current diagnosis for this admission?: Yes Plan: Left lower extremity also appears to be in danger secondary to vascular compromise (5) Malnutrition Qualifiers: Malnutrition type: protein-calorie malnutrition Protein-calorie malnutrition severity: severe Qualified Code(s): E43 - Unspecified severe protein-calorie malnutrition Is this a current diagnosis for this admission?: Yes Plan: add beneprotein
[2017-04-28] MEDS: PHARMACY COMMUNICATION ORDER MC SCH ×2 (17:48)
[2017-04-28] MEDS: PIPERACILLIN SODIUM/TAZOBACTAM 2.25 GM in NORMAL SALINE 50 ML IV SCH ×2 (17:57→23:36)
[2017-04-28] MEDS: ATORVASTATIN CALCIUM 40 MG TABLET NG SCH (21:37)
[2017-04-28] MEDS ORDERED: POTASSI CL 20 MEQ/50 ML RIDER 20 MEQ/50 ML RTUPB IV ONE (22:36)
[2017-04-28] MEDS: POTASSIUM CHLORIDE 20 MEQ/50 ML RTU IV SCH (23:37)
[2017-04-28] MEDS: INSULIN LISPRO 100 UNIT/ML 3 ML VIAL SUBCUT PRN (23:48)
[2017-04-29] MEDS: POTASSIUM CHLORIDE 20 MEQ/50 ML RTU IV SCH ×2 (01:17→22:56)
[2017-04-29] MEDS: METOCLOPRAMIDE HCL INJ/PF 10 MG/2 ML SDV IV SCH ×4 (03:41→21:22)
[2017-04-29] MEDS: SODIUM BICARBONATE 650 MG TABLET PO SCH ×3 (05:08→17:50)
[2017-04-29] MEDS: PIPERACILLIN SODIUM/TAZOBACTAM 2.25 GM in NORMAL SALINE 50 ML IV SCH (05:08)
[2017-04-29] MEDS: LANSOPRAZOLE 30 MG TAB.RAP.DR PO SCH (05:08)
[2017-04-29 05:33] LABS: ARTERIAL BLOOD BASE EXCESS -10.1 mmol/L; ARTERIAL BLOOD O2 SATURATION 97.6 % (94-98)
[2017-04-29 05:41] LABS: HEMATOCRIT 32.3 % (36.0-47.0); HGB HCT DIFFERENCE 0.7; MEAN CORPUSCULAR HEMOGLOBIN 27.6 pg (27.0-33.4); MEAN CORPUSCULAR HGB CONC 34.1 g/dL (32.0-36.0); MEAN CORPUSCULAR VOLUME 81 fl (80-97); RED BLOOD COUNT 3.99 10^6/uL (3.72-5.28); RED CELL DISTRIBUTION WIDTH 19.5 % (11.5-14.0); WHITE BLOOD COUNT 10.3 10^3/uL (4.0-10.5)
[2017-04-29 05:48] LABS: ALANINE AMINOTRANSFERASE 52 U/L (9-52); ALBUMIN 2.8 g/dL (3.5-5.0); ALKALINE PHOSPHATASE 104 U/L (38-126); ANION GAP 12 (5-19); ASPARTATE AMINO TRANSFERASE 129 U/L (14-36); BILIRUBIN,DIRECT 2.1 mg/dL (0.0-0.4); BILIRUBIN,TOTAL 2.5 mg/dL (0.2-1.3); BLOOD UREA NITROGEN 35 mg/dL (7-20); CALCIUM 8.5 mg/dL (8.4-10.2); CARBON DIOXIDE 16 mmol/L (22-30); CHLORIDE 103 mmol/L (98-107); CREATININE RESULT 1.94 mg/dL (0.52-1.25); GLUCOSE 189 mg/dL (75-110); POTASSIUM 3.8 mmol/L (3.6-5.0); SODIUM 131.3 mmol/L (137-145); TOTAL PROTEIN 5.7 g/dL (6.3-8.2)
[2017-04-29 06:17] LABS: BASOPHILS % (MANUAL) 2 % (0-2); EOSINOPHILS % (MANUAL) 3 % (0-6); LYMPHOCYTES % (MANUAL) 5 % (13-45); NUCLEATED RED BLOOD CELLS 2 /100 WBC (0); TOTAL CELLS COUNTED 100
[2017-04-29 06:21] LABS: ANISOCYTOSIS 2+; BURR CELLS SLIGHT; OVALOCYTES SLIGHT; POIKILOCYTOSIS 1+; POLYCHROMASIA SLIGHT; TARGET CELLS SLIGHT; TOXIC GRANULATION SLIGHT
[2017-04-29] MEDS: INSULIN LISPRO 100 UNIT/ML 3 ML VIAL SUBCUT PRN ×3 (06:36→17:50)
--- NOTE | 2017-04-29 07:11 | PDOC PROGRESS REPORT ---
Subjective Progress Note for:: 04/29/17 Subjective:: Patient verbal but difficult to understand Physical Exam Vital Signs: Temp Pulse Resp BP Pulse Ox 35.8 C L 74 18 111/74 100 04/28/17 18:00 04/29/17 02:00 04/29/17 06:00 04/29/17 05:58 04/29/17 06:00 Intake & Output 04/28/17 04/29/17 04/30/17 06:59 06:59 06:59 Intake Total 2997 2390 Output Total 710 1810 Balance 2287 580 Weight 109.2 kg 108.8 kg General appearance: PRESENT: no acute distress Extremities exam: PRESENT: other - Serosanguineous ooze from the right below- knee amputation site. Dry dressing applied. Results Laboratory Results: 04/29/17 05:25 04/29/17 05:25 04/28/17 04/28/17 04/29/17 21:45 21:45 05:25 WBC RBC Hgb Hct MCV MCH MCHC RDW Plt Count Seg Neutrophils % Lymphocytes % Monocytes % Eosinophils % Basophils % Absolute Neutrophils Absolute Lymphocytes Absolute Monocytes Absolute Eosinophils Absolute Basophils Carbonic Acid 0.82 L HCO3/H2CO3 Ratio 17:1 ABG pH 7.34 L ABG pCO2 27.4 L ABG pO2 105.6 H ABG HCO3 14.3 L ABG O2 Saturation 97.6 ABG Base Excess -10.1 FiO2 ROMM AIR Sodium Potassium 3.4 L Chloride Carbon Dioxide Anion Gap BUN Creatinine Est GFR ( Amer) Est GFR (Non-Af Amer) Glucose Lactic Acid Calcium Magnesium 2.0 Total Bilirubin AST ALT Alkaline Phosphatase Total Protein Albumin 04/29/17 04/29/17 04/29/17 05:25 05:25 05:25 WBC 10.3 RBC 3.99 Hgb 11.0 L Hct 32.3 L MCV 81 MCH 27.6 MCHC 34.1 RDW 19.5 H Plt Count 82 L Seg Neutrophils % Not Reportable Lymphocytes % Not Reportable Monocytes % Not Reportable Eosinophils % Not Reportable Basophils % Not Reportable Absolute Neutrophils Not Reportable Absolute Lymphocytes Not Reportable Absolute Monocytes Not Reportable Absolute Eosinophils Not Reportable Absolute Basophils Not Reportable Carbonic Acid HCO3/H2CO3 Ratio ABG pH ABG pCO2 ABG pO2 ABG HCO3 ABG O2 Saturation ABG Base Excess FiO2 Sodium 131.3 L Potassium 3.8 Chloride 103 Carbon Dioxide 16 L Anion Gap 12 BUN 35 H Creatinine 1.94 H Est GFR ( Amer) 31 L Est GFR (Non-Af Amer) 26 L Glucose 189 H Lactic Acid 0.9 Calcium 8.5 Magnesium 2.0 Total Bilirubin 2.5 H AST 129 H ALT 52 Alkaline Phosphatase 104 Total Protein 5.7 L Albumin 2.8 L 04/18/17 04/18/17 04/18/17 09:27 09:27 09:27 Creatine Kinase < 20 L CK-MB (CK-2) 0.84 Troponin I 0.264 NT-Pro-B Natriuret Pep 21341 H 04/18/17 04/18/17 15:00 15:00 Creatine Kinase < 20 L CK-MB (CK-2) 0.93 Troponin I 0.248 NT-Pro-B Natriuret Pep Impressions: Foot X-Ray 04/15/17 16:57 IMPRESSION: Calcaneal spurs with no acute osseous abnormality. Degenerative joint changes as described. Abdomen/Pelvis CT 04/15/17 20:09 IMPRESSION: 1. Bilateral pleural effusions right greater than left. 2. Small volume ascites. 3. Subcutaneous edema. KUB X-Ray 04/19/17 09:54 IMPRESSION: NASOGASTRIC TUBE WITH THE TIP IN THE STOMACH. NO RADIOGRAPHIC EVIDENCE FOR ACUTE ABDOMINAL DISEASE. Abdomen Ultrasound 04/22/17 08:31 IMPRESSION: Mild ascites. Gallstones without gallbladder wall thickening. No biliary dilatation. Status: Imported from PACS Assessment & Plan - Diagnosis (1) Diabetic infection of right foot Is this a current diagnosis for this admission?: Yes Plan: Patient seems to be improving. Vasopressors have been decreased. Patient can be out of bed to a chair when medical condition permits
--- NOTE | 2017-04-29 08:01 | RADIOLOGY REPORT (SQ) ---
EXAM DESCRIPTION: CHEST SINGLE VIEW COMPLETED DATE/TIME: 04/29/2017 6:17 am REASON FOR STUDY: sepsis COMPARISON: 04/28/2017. EXAM PARAMETERS: NUMBER OF VIEWS: One view. TECHNIQUE: Single frontal radiographic view of the chest acquired. RADIATION DOSE: NA LIMITATIONS: None. FINDINGS: LUNGS AND PLEURA: Moderate left lower lobar opacity -effusion. Small left lung volume. M oderate right lung volume. Mild interstitial markings. MEDIASTINUM AND HILAR STRUCTURES: No masses. Contour normal. HEART AND VASCULAR STRUCTURES: Mild enlargement of the cardiac silhouette. Atherosclerosis. BONES: No acute findings. HARDWARE: Likely adequate NG tube obscured distally. Right internal jugular central line tip at the inferior right atrium ; consider 11 cm retraction. OTHER: No other significant finding. IMPRESSION: No significant interval change. TECHNICAL DOCUMENTATION: JOB ID: [id number]
[2017-04-29 09:01] LABS: PROTHROMBIN TIME 17.2 SEC (11.4-15.4)
[2017-04-29 09:02] LABS: FIBRINOGEN 458 mg/dL (209-497); PARTIAL THROMBOPLASTIN TIME 42.2 SEC (23.5-35.8)
[2017-04-29] MEDS: METOPROLOL SUCCINATE 50 MG TAB.SR.24H PO SCH (09:42)
[2017-04-29] MEDS: DOCUSATE SODIUM 100 MG CAPSULE PO SCH ×2 (09:42→16:45)
--- NOTE | 2017-04-29 09:42 | PROGRESS NOTE E ---
Progress Note NAME: SHERITA CAPUTO : 1945 AGE: 71Y DATE: 04/29/2017 ROOM: 611 SUBJECTIVE: Nursing reports no acute events overnight. Patient continues to require a small amount of vasopressin at this time. Patient continues to be hypothermic with a lowest body temperature in the last 24 hours being 96.6. Patient is arousable and seen with nursing at bedside and patient denies any pain at this time. She denies any shortness of breath, chest pain, stump pain, nausea, vomiting. OBJECTIVE: VITAL SIGNS: Temperature 96.8, pulse of 75, blood pressure of 111/74, respiratory rate of 18, saturation of 100% on 28% FiO2. GENERAL: Patient is an acutely ill-appearing, toxic-appearing, morbidly obese, female who is mildly tachypneic HEENT: She is atraumatic, normocephalic. Her pupils are equal, round, and reactive to light. Her extraocular eye movements are intact. She has no icterus, no conjunctival injection. Her mucosa is dry. Her dentition is poor. NECK: Reveals no JVD. No lymphadenopathy. Trachea is midline. CHEST: Clear to auscultation bilaterally. CARDIOVASCULAR: Regular rate and rhythm without appreciable rub or gallop. ABDOMEN: Protuberant, but soft, nontender to palpation, nondistended with active bowel sounds. GENITOURINARY: Patient has a Murphy catheter in place that is draining clear yellow urine. Labial swelling bilaterally. EXTREMITIES: Patient has a right BKA that is well healing with minimal drainage. No clubbing. Patient is noncyanotic; however, her left upper extremity is cold. VASCULAR: Pulses are dopplerable. NEURO: Patient rouses and answers questions somewhat appropriately. She is oriented x1. Cranial nerves are grossly intact without focal deficits. PSYCHIATRIC: She has a flat mood and affect. SKIN: Patient has petechia around her central line and patient has palpable purpura on her breasts and chest. Diffuse anasarca and peu d' orange on abdomen. LABORATORY VALUES: White count of 10.3, hemoglobin of 11, hematocrit of 32.3, and platelets of 82,000. Sodium of 131, potassium 3.8, chloride of 103, CO2 of 16, BUN of 35, creatinine of 1.94, glucose of 189, lactate of 0.9, calcium of 8.5, magnesium of 2, total bili of 2.5, direct of 2.1. AST of 129, ALT of 52, Alk phos of 104, total protein of 5.7, and albumin of 2.8. Vancomycin trough done on 04/28/2017 is 28.6. Chest x-ray from 04/29/2017 reveals no significant interval change and reveals a moderate left lower lobe opacity-effusion, small left lung volume, moderate right lung volume, mild interstitial markings, mild enlargement of the cardiac silhouette. IMPRESSION: THIS IS A 71-YEAR-OLD FEMALE WITH: 1. SEPTIC SHOCK SECONDARY TO DIABETIC FOOT INFECTION STATUS POST RIGHT LEG AMPUTATION POSTOPERATIVE DAY NUMBER 8. 2. POSSIBLE DIC. 3. THROMBOCYTOPENIA. 4. ACUTE ON CHRONIC RENAL FAILURE. 5. PROFOUND PROTEIN CALORIE MALNOURISHMENT RESULTING IN BODILY HARM. 6. HYPONATREMIA SECONDARY TO VOLUME OVERLOAD. 7. ACUTE BLOOD LOSS ANEMIA. 8. URINARY TRACT INFECTION. 9. BACTEREMIA WITH PASTURELLA. 10. ANASARCA. 11. METABOLIC ACIDOSIS. 12. ACUTE RESPIRATORY FAILURE SECONDARY TO SEPSIS. 13. MULTISYSTEM ORGAN FAILURE. 14. MORBID OBESITY WITH A BMI OF 41.2. 15. SUPRATHERAPEUTIC VANCOMYCIN LEVEL. 16. ACUTE METABOLIC ENCEPHALOPATHY PLAN: 1. For patient's sepsis, at this time, she tolerated being off pressors briefly yesterday, but continues to require pressor support. We will give patient 50 grams of albumin today to maintain a MAP of 65. In attempt to wean patient off of pressors, we will attempt to use Levophed or Jarred-Synephrine as opposed to vasopressin at this time. Patient's blood cultures have grown out Pasturella and her tissue cultures have been negative from her [id number] amputation. We will STOP her vancomycin at this time due to her worsening renal function and in the absence of gram-positive organism. We will continue patient briefly on Zosyn; however, plan to change this to renally adjust imipenem as this may be causing thrombocytopenia. 2. For patient's malnutrition, we will increase her tube feeds and add Beneprotein as tolerated. 3. For patient's anasarca, we will attempt to use Bumex as well as albumin to improve her diuresis. 4. For her worsening renal function, we will renally adjust her medication and I feel this is likely multifactorial secondary to her sepsis with underlying chronic renal insufficiency. 5. Possible DIC. For patient's thrombocytopenia, recent anemia, which is felt to be secondary to her surgery, we will send an LDH, PT/INR, PTT, fibrinogen, FDP. 6. For patient's hypothermia, will send a cortisol and ACTH and TSH. Will perform cosyntropin Stim test if patient is felt to be adrenally insufficient. 7. For patient's code status, she is a DNR, and after her laboratory studies are performed, we will discuss her ongoing care with her daughter. 8. For patient's left upper extremity swelling, we will perform a venous Doppler. Total time spent with patient including physical examination, coordination of care, review of patient record, discussion with Dr. Springer, pulmonary medicine, and formulation of this plan was 65 minutes of critical care time. DICTATING PHYSICIAN: MERY GONZALEZ M.D. [id number] PHY#: [id number] ID: [id number] JOB#: [id number] ACCT: [id number] cc: > MTDD
[2017-04-29] MEDS ORDERED: BUMETANIDE INJ/PF 1 MG/4 ML SDV IV SCH (10:00)
[2017-04-29] MEDS: MAGNESIUM OXIDE 400 MG TABLET PO SCH ×2 (10:16→17:50)
[2017-04-29] MEDS: ASPIRIN 81 MG TABLET, CHEWABLE NG SCH (10:16)
[2017-04-29 10:26] LABS: APPEARANCE,URINE CLOUDY; BILIRUBIN,URINE NEGATIVE (NEGATIVE); GLUCOSE, URINE NEGATIVE (NEGATIVE); KETONES,URINE NEGATIVE (NEGATIVE); LEUKOCYTE ESTERASE,URINE NEGATIVE (NEGATIVE); NITRITE,URINE NEGATIVE (NEGATIVE); PROTEIN,URINE NEGATIVE (NEGATIVE); URIC ACID CRYSTALS,URINE MODERATE /HPF; URINE SPECIFIC GRAVITY 1.009; UROBILINOGEN,URINE NEGATIVE mg/dL (<2.0)
[2017-04-29] MEDS: DEXTROSE 5%-WATER 250 ML with NOREPINEPHRINE BITARTRATE 4 MG IV PRN ×2 (10:52)
[2017-04-29] MEDS: ALBUMIN HUMAN 50 ML IV SCH ×4 (10:53→15:50)
[2017-04-29] MEDS ORDERED: DEXTROSE 5%-WATER 1000 ML 1,000 ML with SODIUM BICARBONATE 150 ML IV PRN ×2 (11:31)
[2017-04-29] MEDS ORDERED: IMIPENEM/CILASTATIN SODIUM 1,000 MG in NORMAL SALINE 250 ML IV SCH (12:00)
[2017-04-29 12:31] LABS: FREE T3 2.2 pg/mL (2.77-5.27)
[2017-04-29] MEDS: IMIPENEM/CILASTATIN SODIUM 500 MG in NORMAL SALINE 100 ML IV SCH ×3 (12:31→23:09)
--- NOTE | 2017-04-29 12:54 | XCELERA REPORT ---
[address] [address] Upper Extremity Venous Evaluation Name: SHERITA CAPUTO Age: 71 yrs Gender: Female : 1945 Patient Status: Inpatient Patient Location: ICU^1A Study Date: 04/29/2017 09:06 AM Procedure: Unilateral duplex scan of the left upper extremity veins was performed, including responses to compression and other maneuvers. Reason For Study: swelling and cold, lue Ordering Physician: MERY GONZALEZ Performed By: Javi Leung Left Sided Venous Evaluation No DVT. Abnormal vessel filling , lack of compression in the Basilic and Cephalic veins. Otherwise normal down to the forearm. veins. Interpretation Summary No duplex evidence of DVT or obstruction in the left upper extremity. Superficial phlebitis noted in the Cephalic and Basilic distributions. : MERY GONZALEZ > Joe Resendiz
[2017-04-29] MEDS: DEXTROSE 5%-WATER 1000 ML 1,000 ML with SODIUM BICARBONATE 150 MEQ IV PRN ×2 (13:28)
[2017-04-29] MEDS: PHARMACY COMMUNICATION ORDER MC SCH ×2 (16:45)
[2017-04-29] MEDS: BUMETANIDE INJ/PF 1 MG/4 ML SDV IV SCH (21:22)
[2017-04-29] MEDS: ATORVASTATIN CALCIUM 40 MG TABLET NG SCH (21:23)
[2017-04-29 22:07] LABS: ANION GAP 15 (5-19); BLOOD UREA NITROGEN 35 mg/dL (7-20); CALCIUM 8.7 mg/dL (8.4-10.2); CARBON DIOXIDE 17 mmol/L (22-30); CHLORIDE 102 mmol/L (98-107); CREATININE RESULT 1.87 mg/dL (0.52-1.25); GLUCOSE 175 mg/dL (75-110); POTASSIUM 3.1 mmol/L (3.6-5.0); SODIUM 134.1 mmol/L (137-145)
[2017-04-29] MEDS ORDERED: POTASSIUM CHLORIDE 20 MEQ/15 ML UDCUP NG ONE (22:45)
--- NOTE | 2017-04-29 23:16 | Palliative Consultation Report ---
Consultation From:: MAGDALENO LANG Consult Reason: Palliaitve Care - HPI HPI: Palliaitve Care visit 04/29/17 11:30- 12:10 PM Appreciate palliative consult for this 71 year old woman who is in ICU with septic shock following amputation of right leg and multiple comorbid problems. She was asleep during my visit and looked comfortable. I talked with her daughter, Ana Cristina, about patients history, current problems and possible options for care. Daughter is an only child and her father has passed so all of the responsibility falls on her for patient. Patient was admitted 04/16 through ER with sepsis due to wound on right foot. She is diabetic, has had previous CVA with left sided weakness, refused to eat diet as directed by bridge attacher and was eating only few bites each day at home. She was not drinking much as she didnt want to have to try to get to [facility]. Eventually she could not even stand and was exremely weak when daughter insisted they come to ER. Daughter Tiana is an only child and has been trying to help her mother with her care for a long while. Mrs. Alfonso is very independent and would not allow her daughter to look at the wound on her foot. Her daughter feels terrible that it got so bad before she would agree to come to hospital. Mrs. Alfonso has done well with the actual amoutation but has had multiple issues since surgry including hypotension requiring pressors to maintain even a low B/ P. She has had weakness, dysphagia, difficulty with speech, and pain from pressure wounds on back. She does talk to her daughter and is alert off anf on However, Tiana says it is difficult to understand her due to weakness of her voice and words. Mrs. Alfonso has been depressed according to her daughter and had mentioned wanting " all of this to be over". She did not like having to depend on anyone for care and said she didnt want to live like this. She had regained a lot of use of her left side following a stroke several years ago, but was still weak. Her eating became less and less and she was showing less interest in anything for the past many months. Her daughter has tried to balance helping with care and respect for patients independence. At this time, daughter is aware that Mrs. Alfonso is very ill and may not be able to recover much. SHe is worried that she will never be able to rehab to any quality of life after the amputation and will not be able to live independently again. She is aware that the shock and hypotension may conitnue. She knows she has possiblity of continued or new infections and respiratory distress as well as multisystem failure. We discussed at length the options of comfort care if patient doesnt respond to treatment soon. We discussed Rehab , hospice at home, hospice care center, etc as potential options for care. There is no need for a decision at this time, as treatment options are still being utilized. However, daughter knows that within a few days patietn should start improving or comfort measures may be a better option. She agrees to allow me to talk with patient about what her wishes are if patient improves enought to have this conversation. Discussed daughters feelings and fears, support offered. Onset: Other - weeks ago Onset/Duration: Gradual Quality of Pain: Achy Exacerbated by: Movement Past Medical History(Consults) - General Information Source: Relative, [facility] Records Home Medications: Furosemide [Lasix 40 mg Tablet] 40 mg PO DAILY 07/24/14 Glipizide [Glipizide Xl] 10 mg PO DAILY 07/24/14 Lisinopril 10 mg PO DAILY 07/24/14 Atorvastatin Calcium 40 mg PO QHS 04/06/16 Metoprolol Succinate 100 mg PO DAILY 04/06/16 Clopidogrel Bisulfate [Plavix 75 mg Tablet] 75 mg PO DAILY #0 tablet 04/08/16 Nitroglycerin [Nitrostat 0.4 mg (1/150 Gr) Tabs 25/Bottle] 1 tab SL Q5MP PRN Aspirin [Aspirin EC] 81 mg PO DAILY 04/16/17 Allergies/Adverse Reactions: codeine [Codeine] Allergy (Verified 07/24/14 10:46) Generalized Itching Shellfish * [Shellfish] Allergy (Verified 07/24/14 10:46) - Social History Lives with: Alone Family History: Reviewed & Not Pertinent, Hypertension Parental Family History Reviewed: No Children Family History Reviewed: No Sibling(s) Family History Reviewed.: No Smoking Status: Unknown if Ever Smoked Frequency of Alcohol Use: None Hx Recreational Drug Use: No Drugs: None Hx Prescription Drug Abuse: No - Past Medical History Cardiac Medical History: Reports: Hx Coronary Artery Disease, Hx Hypertension, Hx Peripheral Vascular Disease Denies: Hx Heart Attack Pulmonary Medical History: Denies: Hx Asthma Neurological Medical History: Reports: Hx Cerebrovascular Accident - Left hemiparesis/wheelchair. Denies: Hx Seizures Endocrine Medical History: Reports: Hx Diabetes Mellitus Type 2 Renal/ Medical History: Denies: Hx Peritoneal Dialysis GI Medical History: Denies: Hx Hepatitis, Hx Hiatal Hernia, Hx Ulcer Musculoskeltal Medical History: Reports Hx Muscle Weakness Skin Medical History: Reports Hx Cellulitis Psychiatric Medical History: Reports: Hx Depression Infectious Medical History: Denies: Hx Hepatitis Hematology: Denies: Anemia, Sickle Cell Disease - Surgical History Past Surgical History: Reports: Hx Cardiac Surgery - Stent placed. Denies: Hx Mastectomy, Hx Open Heart Surgery, Hx Pacemaker Review of systems ROS unobtainable: due to mental statu Ojective:Exam Vital Signs: Temp Pulse Resp BP Pulse Ox 96.4 F L 92 18 126/63 H 100 04/28/17 18:00 04/29/17 22:00 04/29/17 22:15 04/29/17 22:13 04/29/17 22:15 Intake & Output 04/28/17 04/29/17 04/30/17 06:59 06:59 06:59 Intake Total 2997 2390 1286 Output Total 710 1810 2400 Balance 2287 580 -1114 Weight 109.2 kg 108.8 kg - General General Appearance: Lethargic In distress: None - Respiratory Breath sounds: Clear - Cardiovascular Rhythm: Regular - B/P 90/42 with pressors Objective-Diagnostic Laboratory: 04/29/17 05:25 04/29/17 21:30 04/28/17 04/29/17 04/29/17 21:45 05:25 05:25 WBC 10.3 RBC 3.99 Hgb 11.0 L Hct 32.3 L MCV 81 MCH 27.6 MCHC 34.1 RDW 19.5 H Plt Count 82 L Seg Neutrophils % Not Reportable Lymphocytes % Not Reportable Monocytes % Not Reportable Eosinophils % Not Reportable Basophils % Not Reportable Absolute Neutrophils Not Reportable Absolute Lymphocytes Not Reportable Absolute Monocytes Not Reportable Absolute Eosinophils Not Reportable Absolute Basophils Not Reportable Carbonic Acid 0.82 L HCO3/H2CO3 Ratio 17:1 ABG pH 7.34 L ABG pCO2 27.4 L ABG pO2 105.6 H ABG HCO3 14.3 L ABG O2 Saturation 97.6 ABG Base Excess -10.1 FiO2 ROMM AIR Sodium Potassium Chloride Carbon Dioxide Anion Gap BUN Creatinine Est GFR ( Amer) Est GFR (Non-Af Amer) Glucose Lactic Acid Calcium Magnesium 2.0 Total Bilirubin AST ALT Alkaline Phosphatase Total Protein Albumin TSH Free T4 Free T3 pg/mL Urine Color Urine Appearance Urine pH Ur Specific [place] Urine Protein Urine Glucose (UA) Urine Ketones Urine Blood Urine Nitrite Ur Leukocyte Esterase Urine WBC (Auto) Urine RBC (Auto) Stool Occult Blood 04/29/17 04/29/17 04/29/17 05:25 05:25 08:30 WBC RBC Hgb Hct MCV MCH MCHC RDW Plt Count Seg Neutrophils % Lymphocytes % Monocytes % Eosinophils % Basophils % Absolute Neutrophils Absolute Lymphocytes Absolute Monocytes Absolute Eosinophils Absolute Basophils Carbonic Acid HCO3/H2CO3 Ratio ABG pH ABG pCO2 ABG pO2 ABG HCO3 ABG O2 Saturation ABG Base Excess FiO2 Sodium 131.3 L Potassium 3.8 Chloride 103 Carbon Dioxide 16 L Anion Gap 12 BUN 35 H Creatinine 1.94 H Est GFR ( Amer) 31 L Est GFR (Non-Af Amer) 26 L Glucose 189 H Lactic Acid 0.9 Calcium 8.5 Magnesium 2.0 Total Bilirubin 2.5 H AST 129 H ALT 52 Alkaline Phosphatase 104 Total Protein 5.7 L Albumin 2.8 L TSH 7.75 H Free T4 Free T3 pg/mL Urine Color Urine Appearance Urine pH Ur Specific [place] Urine Protein Urine Glucose (UA) Urine Ketones Urine Blood Urine Nitrite Ur Leukocyte Esterase Urine WBC (Auto) Urine RBC (Auto) Stool Occult Blood 04/29/17 04/29/17 04/29/17 08:30 08:30 10:05 WBC RBC Hgb Hct MCV MCH MCHC RDW Plt Count Seg Neutrophils % Lymphocytes % Monocytes % Eosinophils % Basophils % Absolute Neutrophils Absolute Lymphocytes Absolute Monocytes Absolute Eosinophils Absolute Basophils Carbonic Acid HCO3/H2CO3 Ratio ABG pH ABG pCO2 ABG pO2 ABG HCO3 ABG O2 Saturation ABG Base Excess FiO2 Sodium Potassium Chloride Carbon Dioxide 15 L Anion Gap BUN Creatinine Est GFR ( Amer) Est GFR (Non-Af Amer) Glucose Lactic Acid Calcium Magnesium Total Bilirubin AST ALT Alkaline Phosphatase Total Protein Albumin TSH Free T4 0.70 L Free T3 pg/mL 2.20 L Urine Color YELLOW Urine Appearance CLOUDY Urine pH 5.0 Ur Specific [place] 1.009 Urine Protein NEGATIVE Urine Glucose (UA) NEGATIVE Urine Ketones NEGATIVE Urine Blood MODERATE H Urine Nitrite NEGATIVE Ur Leukocyte Esterase NEGATIVE Urine WBC (Auto) 1 Urine RBC (Auto) 21 Stool Occult Blood 04/29/17 04/29/17 12:45 21:30 WBC RBC Hgb Hct MCV MCH MCHC RDW Plt Count Seg Neutrophils % Lymphocytes % Monocytes % Eosinophils % Basophils % Absolute Neutrophils Absolute Lymphocytes Absolute Monocytes Absolute Eosinophils Absolute Basophils Carbonic Acid HCO3/H2CO3 Ratio ABG pH ABG pCO2 ABG pO2 ABG HCO3 ABG O2 Saturation ABG Base Excess FiO2 Sodium 134.1 L Potassium 3.1 L Chloride 102 Carbon Dioxide 17 L Anion Gap 15 BUN 35 H Creatinine 1.87 H Est GFR ( Amer) 32 L Est GFR (Non-Af Amer) 27 L Glucose 175 H Lactic Acid Calcium 8.7 Magnesium Total Bilirubin AST ALT Alkaline Phosphatase Total Protein Albumin TSH Free T4 Free T3 pg/mL Urine Color Urine Appearance Urine pH Ur Specific [place] Urine Protein Urine Glucose (UA) Urine Ketones Urine Blood Urine Nitrite Ur Leukocyte Esterase Urine WBC (Auto) Urine RBC (Auto) Stool Occult Blood NEGATIVE 04/18/17 04/18/17 04/18/17 09:27 09:27 09:27 Creatine Kinase < 20 L CK-MB (CK-2) 0.84 Troponin I 0.264 NT-Pro-B Natriuret Pep 24527 H 04/18/17 04/18/17 15:00 15:00 Creatine Kinase < 20 L CK-MB (CK-2) 0.93 Troponin I 0.248 NT-Pro-B Natriuret Pep Plan and Recommendation Plan and Recommendation: After long discussion with daughter, she agreed to wait a few days to see what changes occur with continues antibiotics and treatments. If no improvement will talk with her about comfort care instead of aggresive treatment. SHe already has DNR and does not want her intubated again. Encouraged her to let Dr. Ramirez explain current conditon after labs are reported and meds are changed. She will have abetter idea of rational approach at this time. Daughter is not ruling out continued treatment or comfort care at this time and is hoping for some sign of improvement or decline to help her understand best options for care. I gave Tiana my cell phone number and encouraged her to call if she needed to talk or had questions. Reviewed patient with Dr. Ramirez, will be happy to follow for support.
[2017-04-30] MEDS: POTASSIUM CHLORIDE 20 MEQ/50 ML RTU IV SCH (02:08)
[2017-04-30] MEDS: METOCLOPRAMIDE HCL INJ/PF 10 MG/2 ML SDV IV SCH ×4 (02:36→21:32)
[2017-04-30] MEDS: LANSOPRAZOLE 30 MG TAB.RAP.DR PO SCH (05:07)
[2017-04-30] MEDS: IMIPENEM/CILASTATIN SODIUM 500 MG in NORMAL SALINE 100 ML IV SCH ×3 (05:07→18:13)
[2017-04-30 05:59] LABS: ABSOLUTE BASOPHILS # (AUTO) 0.3 10^3/uL (0.0-0.2); ABSOLUTE EOSINOPHILS # (AUTO) 0.1 10^3/uL (0.0-0.6); ABSOLUTE LYMPHOCYTES (AUTO) 0.5 10^3/uL (0.5-4.7); ABSOLUTE MONOCYTES (AUTO) 0.6 10^3/uL (0.1-1.4); ABSOLUTE NEUT (AUTO) 8.9 10^3/uL (1.7-8.2); BASOPHILS % (AUTO) 2.5 % (0-2); EOSINOPHILS % (AUTO) 0.9 % (0-6); HEMATOCRIT 31.4 % (36.0-47.0); HEMOGLOBIN 10.5 g/dL (12.0-15.5); HGB HCT DIFFERENCE 0.1; LYMPHOCYTES % (AUTO) 5.2 % (13-45); MEAN CORPUSCULAR HEMOGLOBIN 27.1 pg (27.0-33.4); MEAN CORPUSCULAR HGB CONC 33.3 g/dL (32.0-36.0); MEAN CORPUSCULAR VOLUME 81 fl (80-97); MONOCYTES % (AUTO) 5.5 % (3-13); RED BLOOD COUNT 3.86 10^6/uL (3.72-5.28); RED CELL DISTRIBUTION WIDTH 19.3 % (11.5-14.0); SEGMENTED NEUTROPHILS % (AUTO) 85.9 % (42-78); WHITE BLOOD COUNT 10.3 10^3/uL (4.0-10.5)
[2017-04-30 06:10] LABS: PROTHROMBIN TIME 17.5 SEC (11.4-15.4)
[2017-04-30 06:11] LABS: FIBRINOGEN 454 mg/dL (209-497); PARTIAL THROMBOPLASTIN TIME 41.2 SEC (23.5-35.8)
[2017-04-30 06:16] LABS: ALANINE AMINOTRANSFERASE 37 U/L (9-52); ALBUMIN 3.1 g/dL (3.5-5.0); ALKALINE PHOSPHATASE 96 U/L (38-126); ANION GAP 14 (5-19); ASPARTATE AMINO TRANSFERASE 45 U/L (14-36); BILIRUBIN,DIRECT 1.9 mg/dL (0.0-0.4); BILIRUBIN,TOTAL 2.3 mg/dL (0.2-1.3); BLOOD UREA NITROGEN 35 mg/dL (7-20); CALCIUM 8.6 mg/dL (8.4-10.2); CARBON DIOXIDE 17 mmol/L (22-30); CHLORIDE 104 mmol/L (98-107); CREATININE RESULT 1.77 mg/dL (0.52-1.25); GLUCOSE 191 mg/dL (75-110); LDH 317 U/L (313-618); PHOSPHORUS 3.4 mg/dL (2.5-4.5); POTASSIUM 3.9 mmol/L (3.6-5.0); SODIUM 134.7 mmol/L (137-145); TOTAL PROTEIN 5.9 g/dL (6.3-8.2)
[2017-04-30 06:23] LABS: PREALBUMIN 6.6 mg/dL (17.6-36.0)
[2017-04-30 06:41] LABS: ARTERIAL BLOOD BASE EXCESS -6.9 mmol/L; ARTERIAL BLOOD O2 SATURATION 97.3 % (94-98)
--- NOTE | 2017-04-30 06:43 | PDOC PROGRESS REPORT ---
Subjective Progress Note for:: 04/30/17 Subjective:: Patient alert and nonverbal this morning Physical Exam Vital Signs: Temp Pulse Resp BP Pulse Ox 35.8 C L 92 20 102/60 100 04/28/17 18:00 04/29/17 22:00 04/30/17 06:15 04/30/17 06:14 04/30/17 05:58 Intake & Output 04/28/17 04/29/17 04/30/17 06:59 06:59 06:59 Intake Total 2997 2390 2645 Output Total 710 1810 4075 Balance 2287 580 -1430 Weight 109.2 kg 108.8 kg 108.1 kg General appearance: PRESENT: mild distress Respiratory exam: PRESENT: unlabored Cardiovascular exam: PRESENT: RRR Extremities exam: PRESENT: other - Right lower extremity incision is notable for viable wound edges in approximation with sutures. There is scant serous drainage. Extremities markedly tender to palpation. Results Laboratory Results: 04/30/17 05:36 04/30/17 05:36 04/29/17 04/29/17 04/29/17 08:30 08:30 08:30 WBC RBC Hgb Hct MCV MCH MCHC RDW Plt Count Seg Neutrophils % Lymphocytes % Monocytes % Eosinophils % Basophils % Absolute Neutrophils Absolute Lymphocytes Absolute Monocytes Absolute Eosinophils Absolute Basophils Carbonic Acid HCO3/H2CO3 Ratio ABG pH ABG pCO2 ABG pO2 ABG HCO3 ABG O2 Saturation ABG Base Excess FiO2 Sodium Potassium Chloride Carbon Dioxide 15 L Anion Gap BUN Creatinine Est GFR ( Amer) Est GFR (Non-Af Amer) Glucose Calcium Phosphorus Magnesium Total Bilirubin AST ALT Alkaline Phosphatase Total Protein Albumin Prealbumin TSH 7.75 H Free T4 0.70 L Free T3 pg/mL 2.20 L Urine Color Urine Appearance Urine pH Ur Specific [place] Urine Protein Urine Glucose (UA) Urine Ketones Urine Blood Urine Nitrite Ur Leukocyte Esterase Urine WBC (Auto) Urine RBC (Auto) Stool Occult Blood 04/29/17 04/29/17 04/29/17 10:05 12:45 21:30 WBC RBC Hgb Hct MCV MCH MCHC RDW Plt Count Seg Neutrophils % Lymphocytes % Monocytes % Eosinophils % Basophils % Absolute Neutrophils Absolute Lymphocytes Absolute Monocytes Absolute Eosinophils Absolute Basophils Carbonic Acid HCO3/H2CO3 Ratio ABG pH ABG pCO2 ABG pO2 ABG HCO3 ABG O2 Saturation ABG Base Excess FiO2 Sodium 134.1 L Potassium 3.1 L Chloride 102 Carbon Dioxide 17 L Anion Gap 15 BUN 35 H Creatinine 1.87 H Est GFR ( Amer) 32 L Est GFR (Non-Af Amer) 27 L Glucose 175 H Calcium 8.7 Phosphorus Magnesium Total Bilirubin AST ALT Alkaline Phosphatase Total Protein Albumin Prealbumin TSH Free T4 Free T3 pg/mL Urine Color YELLOW Urine Appearance CLOUDY Urine pH 5.0 Ur Specific [place] 1.009 Urine Protein NEGATIVE Urine Glucose (UA) NEGATIVE Urine Ketones NEGATIVE Urine Blood MODERATE H Urine Nitrite NEGATIVE Ur Leukocyte Esterase NEGATIVE Urine WBC (Auto) 1 Urine RBC (Auto) 21 Stool Occult Blood NEGATIVE 04/29/17 04/30/17 04/30/17 21:30 05:36 05:36 WBC 10.3 RBC 3.86 Hgb 10.5 L Hct 31.4 L MCV 81 MCH 27.1 MCHC 33.3 RDW 19.3 H Plt Count 83 L Seg Neutrophils % 85.9 H Lymphocytes % 5.2 L Monocytes % 5.5 Eosinophils % 0.9 Basophils % 2.5 H Absolute Neutrophils 8.9 H Absolute Lymphocytes 0.5 Absolute Monocytes 0.6 Absolute Eosinophils 0.1 Absolute Basophils 0.3 H Carbonic Acid HCO3/H2CO3 Ratio ABG pH ABG pCO2 ABG pO2 ABG HCO3 ABG O2 Saturation ABG Base Excess FiO2 Sodium 134.7 L Potassium 3.9 Chloride 104 Carbon Dioxide 17 L Anion Gap 14 BUN 35 H Creatinine 1.77 H Est GFR ( Amer) 34 L Est GFR (Non-Af Amer) 28 L Glucose 191 H Calcium 8.6 Phosphorus 3.4 Magnesium 2.0 2.0 Total Bilirubin 2.3 H AST 45 H ALT 37 Alkaline Phosphatase 96 Total Protein 5.9 L Albumin 3.1 L Prealbumin 6.6 L TSH Free T4 Free T3 pg/mL Urine Color Urine Appearance Urine pH Ur Specific [place] Urine Protein Urine Glucose (UA) Urine Ketones Urine Blood Urine Nitrite Ur Leukocyte Esterase Urine WBC (Auto) Urine RBC (Auto) Stool Occult Blood 04/30/17 05:36 WBC RBC Hgb Hct MCV MCH MCHC RDW Plt Count Seg Neutrophils % Lymphocytes % Monocytes % Eosinophils % Basophils % Absolute Neutrophils Absolute Lymphocytes Absolute Monocytes Absolute Eosinophils Absolute Basophils Carbonic Acid Cancelled HCO3/H2CO3 Ratio Cancelled ABG pH Cancelled ABG pCO2 Cancelled ABG pO2 Cancelled ABG HCO3 Cancelled ABG O2 Saturation Cancelled ABG Base Excess Cancelled FiO2 Cancelled Sodium Potassium Chloride Carbon Dioxide Anion Gap BUN Creatinine Est GFR ( Amer) Est GFR (Non-Af Amer) Glucose Calcium Phosphorus Magnesium Total Bilirubin AST ALT Alkaline Phosphatase Total Protein Albumin Prealbumin TSH Free T4 Free T3 pg/mL Urine Color Urine Appearance Urine pH Ur Specific [place] Urine Protein Urine Glucose (UA) Urine Ketones Urine Blood Urine Nitrite Ur Leukocyte Esterase Urine WBC (Auto) Urine RBC (Auto) Stool Occult Blood 04/18/17 04/18/17 04/18/17 09:27 09:27 09:27 Creatine Kinase < 20 L CK-MB (CK-2) 0.84 Troponin I 0.264 NT-Pro-B Natriuret Pep 40182 H 04/18/17 04/18/17 15:00 15:00 Creatine Kinase < 20 L CK-MB (CK-2) 0.93 Troponin I 0.248 NT-Pro-B Natriuret Pep Impressions: Foot X-Ray 04/15/17 16:57 IMPRESSION: Calcaneal spurs with no acute osseous abnormality. Degenerative joint changes as described. Abdomen/Pelvis CT 04/15/17 20:09 IMPRESSION: 1. Bilateral pleural effusions right greater than left. 2. Small volume ascites. 3. Subcutaneous edema. KUB X-Ray 04/19/17 09:54 IMPRESSION: NASOGASTRIC TUBE WITH THE TIP IN THE STOMACH. NO RADIOGRAPHIC EVIDENCE FOR ACUTE ABDOMINAL DISEASE. Abdomen Ultrasound 04/22/17 08:31 IMPRESSION: Mild ascites. Gallstones without gallbladder wall thickening. No biliary dilatation. Status: Imported from PACS Assessment & Plan - Diagnosis (1) Diabetic infection of right foot Is this a current diagnosis for this admission?: Yes Plan: 71-year-old white female status post right below-knee amputation for sepsis with a resolution of the septic picture but she continues to be on vasopressors , levo fed. Recommend out of bed to chair when medical condition permits - Time Time Spent with patient: 15-24 minutes Anticipated discharge: SNF Within: Other
--- NOTE | 2017-04-30 08:05 | RADIOLOGY REPORT (SQ) ---
EXAM DESCRIPTION: CHEST SINGLE VIEW COMPLETED DATE/TIME: 04/30/2017 6:00 am REASON FOR STUDY: resp failure COMPARISON: 04/29/2017. EXAM PARAMETERS: NUMBER OF VIEWS: One view. TECHNIQUE: Single frontal radiographic view of the chest acquired. RADIATION DOSE: NA LIMITATIONS: None. FINDINGS: LUNGS AND PLEURA: Mild mixed interstitial and airspace opacity includes moderate opacity o f the left lung base. MEDIASTINUM AND HILAR STRUCTURES: No masses. Contour normal. HEART AND VASCULAR STRUCTURES: Mild enlargement of the cardiac silhouette. Atherosclerosis. BONES: No acute findings. HARDWARE: Likely adequate NG tube obscured distally. Right internal jugular central line tip partial ly obscured distally at the level of the right atrium; consider 10 cm retraction. OTHER: No other significant finding. IMPRESSION: No significant interval change. TECHNICAL DOCUMENTATION: JOB ID: [id number]
[2017-04-30] MEDS: LEVOTHYROXINE SODIUM 0.05 MG TABLET NG SCH (09:03)
[2017-04-30] MEDS: MAGNESIUM OXIDE 400 MG TABLET PO SCH ×2 (09:13→18:13)
[2017-04-30] MEDS: BUMETANIDE INJ/PF 1 MG/4 ML SDV IV SCH ×2 (09:13→21:32)
[2017-04-30] MEDS: ASPIRIN 81 MG TABLET, CHEWABLE NG SCH (09:13)
[2017-04-30] MEDS: DOCUSATE SODIUM 100 MG CAPSULE PO SCH ×2 (09:18→17:48)
[2017-04-30] MEDS: METOPROLOL SUCCINATE 50 MG TAB.SR.24H PO SCH (09:18)
[2017-04-30] MEDS: MULTIVITS W-MIN/IRON SOLN 60 ML NG SCH (09:44)
[2017-04-30] MEDS ORDERED: MULTIVITAMIN ORAL LIQUID 60 ML NG SCH (10:00)
[2017-04-30] MEDS ORDERED: LEVOTHYROXINE SODIUM 0.05 MG TABLET NG SCH (10:00)
[2017-04-30] MEDS: ALBUMIN HUMAN 50 ML IV SCH ×3 (10:04→13:12)
--- NOTE | 2017-04-30 10:23 | PDOC PROGRESS REPORT ---
Subjective Progress Note for:: 04/29/17 Subjective:: Arousable but lethargic Physical Exam Vital Signs: Temp Pulse Resp BP Pulse Ox 96.4 F L 74 18 111/74 100 04/28/17 18:00 04/29/17 02:00 04/29/17 06:00 04/29/17 05:58 04/29/17 06:00 Intake & Output 04/28/17 04/29/17 04/30/17 06:59 06:59 06:59 Intake Total 2997 2390 Output Total 710 1810 Balance 2287 580 Weight 109.2 kg 108.8 kg General appearance: PRESENT: no acute distress, disheveled, thin, well-developed Head exam: PRESENT: atraumatic, normocephalic Eye exam: PRESENT: conjunctiva pale, EOMI Mouth exam: PRESENT: dry mucosa, neck supple, tongue midline Teeth exam: PRESENT: poor dentation Neck exam: ABSENT: carotid bruit, JVD, lymphadenopathy, thyromegaly Respiratory exam: PRESENT: decreased breath sounds, prolonged expiratory phas, rales, rhonchi, symmetrical, unlabored. ABSENT: retraction, stridor, tachypnea , wheezes Cardiovascular exam: PRESENT: RRR, +S1, +S2 Pulses: PRESENT: normal radial pulses GI/Abdominal exam: PRESENT: normal bowel sounds, soft. ABSENT: distended, guarding, mass, organolmegaly, rebound, tenderness Rectal exam: PRESENT: deferred Extremities exam: PRESENT: other - R BKA Neurological exam: PRESENT: awake Skin exam: PRESENT: dry, pallor, petechiae, other - cool Results Laboratory Results: 04/29/17 05:25 04/29/17 05:25 04/28/17 04/28/17 04/29/17 21:45 21:45 05:25 WBC RBC Hgb Hct MCV MCH MCHC RDW Plt Count Seg Neutrophils % Lymphocytes % Monocytes % Eosinophils % Basophils % Absolute Neutrophils Absolute Lymphocytes Absolute Monocytes Absolute Eosinophils Absolute Basophils Carbonic Acid 0.82 L HCO3/H2CO3 Ratio 17:1 ABG pH 7.34 L ABG pCO2 27.4 L ABG pO2 105.6 H ABG HCO3 14.3 L ABG O2 Saturation 97.6 ABG Base Excess -10.1 FiO2 ROMM AIR Sodium Potassium 3.4 L Chloride Carbon Dioxide Anion Gap BUN Creatinine Est GFR ( Amer) Est GFR (Non-Af Amer) Glucose Lactic Acid Calcium Magnesium 2.0 Total Bilirubin AST ALT Alkaline Phosphatase Total Protein Albumin 04/29/17 04/29/17 04/29/17 05:25 05:25 05:25 WBC 10.3 RBC 3.99 Hgb 11.0 L Hct 32.3 L MCV 81 MCH 27.6 MCHC 34.1 RDW 19.5 H Plt Count 82 L Seg Neutrophils % Not Reportable Lymphocytes % Not Reportable Monocytes % Not Reportable Eosinophils % Not Reportable Basophils % Not Reportable Absolute Neutrophils Not Reportable Absolute Lymphocytes Not Reportable Absolute Monocytes Not Reportable Absolute Eosinophils Not Reportable Absolute Basophils Not Reportable Carbonic Acid HCO3/H2CO3 Ratio ABG pH ABG pCO2 ABG pO2 ABG HCO3 ABG O2 Saturation ABG Base Excess FiO2 Sodium 131.3 L Potassium 3.8 Chloride 103 Carbon Dioxide 16 L Anion Gap 12 BUN 35 H Creatinine 1.94 H Est GFR ( Amer) 31 L Est GFR (Non-Af Amer) 26 L Glucose 189 H Lactic Acid 0.9 Calcium 8.5 Magnesium 2.0 Total Bilirubin 2.5 H AST 129 H ALT 52 Alkaline Phosphatase 104 Total Protein 5.7 L Albumin 2.8 L 04/18/17 04/18/17 04/18/17 09:27 09:27 09:27 Creatine Kinase < 20 L CK-MB (CK-2) 0.84 Troponin I 0.264 NT-Pro-B Natriuret Pep 50585 H 04/18/17 04/18/17 15:00 15:00 Creatine Kinase < 20 L CK-MB (CK-2) 0.93 Troponin I 0.248 NT-Pro-B Natriuret Pep Impressions: Foot X-Ray 04/15/17 16:57 IMPRESSION: Calcaneal spurs with no acute osseous abnormality. Degenerative joint changes as described. Abdomen/Pelvis CT 04/15/17 20:09 IMPRESSION: 1. Bilateral pleural effusions right greater than left. 2. Small volume ascites. 3. Subcutaneous edema. KUB X-Ray 04/19/17 09:54 IMPRESSION: NASOGASTRIC TUBE WITH THE TIP IN THE STOMACH. NO RADIOGRAPHIC EVIDENCE FOR ACUTE ABDOMINAL DISEASE. Abdomen Ultrasound 04/22/17 08:31 IMPRESSION: Mild ascites. Gallstones without gallbladder wall thickening. No biliary dilatation. Chest X-Ray 04/29/17 06:00 IMPRESSION: No significant interval change. Assessment & Plan - Diagnosis (1) Septic shock Is this a current diagnosis for this admission?: Yes (2) Right BKA infection Is this a current diagnosis for this admission?: Yes (3) Chronic renal failure Qualifiers: Chronic kidney disease stage: stage 3 (moderate) Qualified Code(s): N18.3 - Chronic kidney disease, stage 3 (moderate) Is this a current diagnosis for this admission?: Yes (4) Severe peripheral arterial disease Is this a current diagnosis for this admission?: Yes (5) Malnutrition Qualifiers: Malnutrition type: protein-calorie malnutrition Protein-calorie malnutrition severity: severe Qualified Code(s): E43 - Unspecified severe protein-calorie malnutrition Is this a current diagnosis for this admission?: Yes - Time Critical Time spent with patient: 25-34 minutes
--- NOTE | 2017-04-30 10:26 | PDOC PROGRESS REPORT ---
Subjective Progress Note for:: 04/26/17 Subjective:: 48 hours status post extubation stable at this time Physical Exam Vital Signs: Temp Pulse Resp BP Pulse Ox 97.3 F 78 20 112/67 100 04/25/17 19:52 04/26/17 08:00 04/26/17 06:45 04/26/17 06:41 04/26/17 06:45 Intake & Output 04/25/17 04/26/17 04/27/17 06:59 06:59 06:59 Intake Total 1842 1246 Output Total 2875 1825 150 Balance -1033 -579 -150 Weight 107.6 kg General appearance: PRESENT: no acute distress, disheveled, thin, well-developed Head exam: PRESENT: atraumatic, normocephalic Eye exam: PRESENT: conjunctiva pale, EOMI Mouth exam: PRESENT: dry mucosa, neck supple, tongue midline Teeth exam: PRESENT: poor dentation Neck exam: ABSENT: carotid bruit, JVD, lymphadenopathy, thyromegaly Respiratory exam: PRESENT: decreased breath sounds, prolonged expiratory phas, rales, rhonchi, symmetrical, unlabored. ABSENT: retraction, stridor, tachypnea , wheezes Cardiovascular exam: PRESENT: irregular rhythm Pulses: PRESENT: normal radial pulses GI/Abdominal exam: PRESENT: normal bowel sounds, soft. ABSENT: distended, guarding, mass, organolmegaly, rebound, tenderness Rectal exam: PRESENT: deferred Gentrourinary exam: PRESENT: indwelling catheter Extremities exam: PRESENT: other - Status post right BKA Neurological exam: PRESENT: awake Skin exam: PRESENT: dry, pallor, petechiae Results Laboratory Results: 04/25/17 05:20 04/26/17 05:30 04/26/17 05:30 Sodium 129.7 L Potassium 3.6 Chloride 102 Carbon Dioxide 11 L Anion Gap 17 BUN 28 H Creatinine 1.66 H Est GFR ( Amer) 37 L Est GFR (Non-Af Amer) 31 L Glucose 149 H Calcium 8.4 04/18/17 04/18/17 04/18/17 09:27 09:27 09:27 Creatine Kinase < 20 L CK-MB (CK-2) 0.84 Troponin I 0.264 NT-Pro-B Natriuret Pep [id number] H 04/18/17 04/18/17 15:00 15:00 Creatine Kinase < 20 L CK-MB (CK-2) 0.93 Troponin I 0.248 NT-Pro-B Natriuret Pep Impressions: Foot X-Ray 04/15/17 16:57 IMPRESSION: Calcaneal spurs with no acute osseous abnormality. Degenerative joint changes as described. Abdomen/Pelvis CT 04/15/17 20:09 IMPRESSION: 1. Bilateral pleural effusions right greater than left. 2. Small volume ascites. 3. Subcutaneous edema. KUB X-Ray 04/19/17 09:54 IMPRESSION: NASOGASTRIC TUBE WITH THE TIP IN THE STOMACH. NO RADIOGRAPHIC EVIDENCE FOR ACUTE ABDOMINAL DISEASE. Abdomen Ultrasound 04/22/17 08:31 IMPRESSION: Mild ascites. Gallstones without gallbladder wall thickening. No biliary dilatation. Chest X-Ray 04/25/17 06:00 IMPRESSION: Persistent left retrocardiac consolidation, trace pleural effusions , stable. Assessment & Plan - Diagnosis (1) Septic shock Is this a current diagnosis for this admission?: Yes Plan: Still requiring a single vasopressor (2) Right BKA infection Is this a current diagnosis for this admission?: Yes (3) Chronic renal failure Qualifiers: Chronic kidney disease stage: stage 3 (moderate) Qualified Code(s): N18.3 - Chronic kidney disease, stage 3 (moderate) Is this a current diagnosis for this admission?: Yes Plan: Supple mental potassium and magnesium (4) Severe peripheral arterial disease Is this a current diagnosis for this admission?: Yes Plan: Left lower extremity also appears to be in danger secondary to vascular compromise (5) Malnutrition Qualifiers: Malnutrition type: protein-calorie malnutrition Protein-calorie malnutrition severity: severe Qualified Code(s): E43 - Unspecified severe protein-calorie malnutrition Is this a current diagnosis for this admission?: Yes Plan: add beneprotein
--- NOTE | 2017-04-30 10:28 | PDOC PROGRESS REPORT ---
Subjective Progress Note for:: 04/30/17 Subjective:: Awake but far less responsive Physical Exam Vital Signs: Temp Pulse Resp BP Pulse Ox 96.4 F L 92 20 102/60 100 04/28/17 18:00 04/29/17 22:00 04/30/17 06:15 04/30/17 06:14 04/30/17 05:58 Intake & Output 04/29/17 04/30/17 05/01/17 06:59 06:59 06:59 Intake Total 2390 2645 Output Total 1810 4075 Balance 580 -1430 Weight 108.8 kg 108.1 kg General appearance: PRESENT: no acute distress, disheveled, thin, well-developed Head exam: PRESENT: atraumatic, normocephalic Eye exam: PRESENT: conjunctiva pale, EOMI Mouth exam: PRESENT: dry mucosa, neck supple, tongue midline Teeth exam: PRESENT: poor dentation Neck exam: ABSENT: carotid bruit, JVD, lymphadenopathy, thyromegaly Respiratory exam: PRESENT: decreased breath sounds, prolonged expiratory phas, rales, rhonchi, symmetrical, unlabored. ABSENT: retraction, stridor, tachypnea , wheezes Cardiovascular exam: PRESENT: irregular rhythm Pulses: PRESENT: normal radial pulses GI/Abdominal exam: PRESENT: normal bowel sounds, soft. ABSENT: distended, guarding, mass, organolmegaly, rebound, tenderness Rectal exam: PRESENT: deferred Gentrourinary exam: PRESENT: other Extremities exam: PRESENT: other - Status post right BKA distal left lower extremity pallor cool Neurological exam: PRESENT: awake Skin exam: PRESENT: dry, pallor Results Laboratory Results: 04/30/17 05:36 04/30/17 05:36 04/29/17 04/29/17 04/29/17 08:30 10:05 12:45 WBC RBC Hgb Hct MCV MCH MCHC RDW Plt Count Seg Neutrophils % Lymphocytes % Monocytes % Eosinophils % Basophils % Absolute Neutrophils Absolute Lymphocytes Absolute Monocytes Absolute Eosinophils Absolute Basophils Carbonic Acid HCO3/H2CO3 Ratio ABG pH ABG pCO2 ABG pO2 ABG HCO3 ABG O2 Saturation ABG Base Excess FiO2 Sodium Potassium Chloride Carbon Dioxide Anion Gap BUN Creatinine Est GFR ( Amer) Est GFR (Non-Af Amer) Glucose Calcium Phosphorus Magnesium Total Bilirubin AST ALT Alkaline Phosphatase Total Protein Albumin Prealbumin Free T4 0.70 L Free T3 pg/mL 2.20 L Urine Color YELLOW Urine Appearance CLOUDY Urine pH 5.0 Ur Specific [place] 1.009 Urine Protein NEGATIVE Urine Glucose (UA) NEGATIVE Urine Ketones NEGATIVE Urine Blood MODERATE H Urine Nitrite NEGATIVE Ur Leukocyte Esterase NEGATIVE Urine WBC (Auto) 1 Urine RBC (Auto) 21 Stool Occult Blood NEGATIVE 04/29/17 04/29/17 04/30/17 21:30 21:30 05:36 WBC 10.3 RBC 3.86 Hgb 10.5 L Hct 31.4 L MCV 81 MCH 27.1 MCHC 33.3 RDW 19.3 H Plt Count 83 L Seg Neutrophils % 85.9 H Lymphocytes % 5.2 L Monocytes % 5.5 Eosinophils % 0.9 Basophils % 2.5 H Absolute Neutrophils 8.9 H Absolute Lymphocytes 0.5 Absolute Monocytes 0.6 Absolute Eosinophils 0.1 Absolute Basophils 0.3 H Carbonic Acid HCO3/H2CO3 Ratio ABG pH ABG pCO2 ABG pO2 ABG HCO3 ABG O2 Saturation ABG Base Excess FiO2 Sodium 134.1 L Potassium 3.1 L Chloride 102 Carbon Dioxide 17 L Anion Gap 15 BUN 35 H Creatinine 1.87 H Est GFR ( Amer) 32 L Est GFR (Non-Af Amer) 27 L Glucose 175 H Calcium 8.7 Phosphorus Magnesium 2.0 Total Bilirubin AST ALT Alkaline Phosphatase Total Protein Albumin Prealbumin Free T4 Free T3 pg/mL Urine Color Urine Appearance Urine pH Ur Specific [place] Urine Protein Urine Glucose (UA) Urine Ketones Urine Blood Urine Nitrite Ur Leukocyte Esterase Urine WBC (Auto) Urine RBC (Auto) Stool Occult Blood 04/30/17 04/30/17 04/30/17 05:36 05:36 06:35 WBC RBC Hgb Hct MCV MCH MCHC RDW Plt Count Seg Neutrophils % Lymphocytes % Monocytes % Eosinophils % Basophils % Absolute Neutrophils Absolute Lymphocytes Absolute Monocytes Absolute Eosinophils Absolute Basophils Carbonic Acid Cancelled 0.86 L HCO3/H2CO3 Ratio Cancelled 19:1 ABG pH Cancelled 7.39 ABG pCO2 Cancelled 28.5 L ABG pO2 Cancelled 94.4 ABG HCO3 Cancelled 16.9 L ABG O2 Saturation Cancelled 97.3 ABG Base Excess Cancelled -6.9 FiO2 Cancelled ROOM AIR Sodium 134.7 L Potassium 3.9 Chloride 104 Carbon Dioxide 17 L Anion Gap 14 BUN 35 H Creatinine 1.77 H Est GFR ( Amer) 34 L Est GFR (Non-Af Amer) 28 L Glucose 191 H Calcium 8.6 Phosphorus 3.4 Magnesium 2.0 Total Bilirubin 2.3 H AST 45 H ALT 37 Alkaline Phosphatase 96 Total Protein 5.9 L Albumin 3.1 L Prealbumin 6.6 L Free T4 Free T3 pg/mL Urine Color Urine Appearance Urine pH Ur Specific [place] Urine Protein Urine Glucose (UA) Urine Ketones Urine Blood Urine Nitrite Ur Leukocyte Esterase Urine WBC (Auto) Urine RBC (Auto) Stool Occult Blood 04/18/17 04/18/17 04/18/17 09:27 09:27 09:27 Creatine Kinase < 20 L CK-MB (CK-2) 0.84 Troponin I 0.264 NT-Pro-B Natriuret Pep 07888 H 04/18/17 04/18/17 04/30/17 15:00 15:00 05:50 Creatine Kinase < 20 L CK-MB (CK-2) 0.93 Troponin I 0.248 NT-Pro-B Natriuret Pep 50153 H Impressions: Foot X-Ray 04/15/17 16:57 IMPRESSION: Calcaneal spurs with no acute osseous abnormality. Degenerative joint changes as described. Abdomen/Pelvis CT 04/15/17 20:09 IMPRESSION: 1. Bilateral pleural effusions right greater than left. 2. Small volume ascites. 3. Subcutaneous edema. KUB X-Ray 04/19/17 09:54 IMPRESSION: NASOGASTRIC TUBE WITH THE TIP IN THE STOMACH. NO RADIOGRAPHIC EVIDENCE FOR ACUTE ABDOMINAL DISEASE. Abdomen Ultrasound 04/22/17 08:31 IMPRESSION: Mild ascites. Gallstones without gallbladder wall thickening. No biliary dilatation. Chest X-Ray 04/30/17 06:00 IMPRESSION: No significant interval change. Assessment & Plan - Diagnosis (1) Septic shock Is this a current diagnosis for this admission?: Yes Plan: Still requiring a single vasopressor (2) Right BKA infection Is this a current diagnosis for this admission?: Yes Plan: s/p ortho closing wound (3) Chronic renal failure Qualifiers: Chronic kidney disease stage: stage 3 (moderate) Qualified Code(s): N18.3 - Chronic kidney disease, stage 3 (moderate) Is this a current diagnosis for this admission?: Yes (4) Severe peripheral arterial disease Is this a current diagnosis for this admission?: Yes Plan: Left lower extremity also appears to be in danger secondary to vascular compromise (5) Malnutrition Qualifiers: Malnutrition type: protein-calorie malnutrition Protein-calorie malnutrition severity: severe Qualified Code(s): E43 - Unspecified severe protein-calorie malnutrition Is this a current diagnosis for this admission?: Yes Plan: add beneprotein - Time Critical Time spent with patient: 25-34 minutes
[2017-04-30] MEDS: GABAPENTIN 100 MG CAPSULE PO SCH ×2 (13:13→21:33)
[2017-04-30] MEDS: INSULIN LISPRO 100 UNIT/ML 3 ML VIAL SUBCUT PRN ×2 (13:26→19:03)
--- NOTE | 2017-04-30 14:40 | PDOC PROGRESS REPORT ---
Subjective Progress Note for:: 04/30/17 Subjective:: Patient seen earlier today on morning rounds. Daughter and nurse present at bedside. Patient appears more awake and interactive. She does complain of stump pain. She is unable to complete ROS secondary to encephalopathy related to sepsis. Physical Exam Vital Signs: Temp Pulse Resp BP Pulse Ox 96.4 F L 94 20 96/58 L 99 04/28/17 18:00 04/30/17 08:00 04/30/17 12:00 04/30/17 11:59 04/30/17 12:00 Intake & Output 04/29/17 04/30/17 05/01/17 06:59 06:59 06:59 Intake Total 2390 2645 Output Total 1810 4075 650 Balance 580 -1430 -650 Weight 108.8 kg 108.1 kg Exam: General: Patient acutely ill appearing, Awake oriented x1, no acute respiratory distress HEENT: AT/NC, PERRL, EOMI, oropharynx is dry, pink, no scleral icterus, no conjunctival injection Neck: + JVD, trachea midline Chest: Bilateral rales CV: Regular rate and rhythm, normal S1 and S2, no rub or gallop Abdomen: Soft, nontender to palpation, nondistended, active bowel sounds; no rebound, rigidity, or guarding Extremities: No cyanosis, clubbing; generalized anasarca; LUE larger than right ; right BKA Neuro: Cranial nerves II through XII are grossly intact without focal deficits; awake alert and oriented x1 Psych: flat mood and affect Skin: LLE chronic venous stasis; 0.25cm stage 1 on posterior calf; right BKA well approximated with scant serosanguineous drainage; palpable purpura on breast and petechia around central line Results Laboratory Results: 04/30/17 05:36 04/30/17 05:36 04/29/17 04/29/17 04/29/17 08:30 12:45 21:30 WBC RBC Hgb Hct MCV MCH MCHC RDW Plt Count Seg Neutrophils % Lymphocytes % Monocytes % Eosinophils % Basophils % Absolute Neutrophils Absolute Lymphocytes Absolute Monocytes Absolute Eosinophils Absolute Basophils Carbonic Acid HCO3/H2CO3 Ratio ABG pH ABG pCO2 ABG pO2 ABG HCO3 ABG O2 Saturation ABG Base Excess FiO2 Sodium 134.1 L Potassium 3.1 L Chloride 102 Carbon Dioxide 17 L Anion Gap 15 BUN 35 H Creatinine 1.87 H Est GFR ( Amer) 32 L Est GFR (Non-Af Amer) 27 L Glucose 175 H Calcium 8.7 Phosphorus Magnesium Total Bilirubin AST ALT Alkaline Phosphatase Total Protein Albumin Prealbumin Free T4 0.70 L Free T3 pg/mL 2.20 L Stool Occult Blood NEGATIVE 04/29/17 04/30/17 04/30/17 21:30 05:36 05:36 WBC 10.3 RBC 3.86 Hgb 10.5 L Hct 31.4 L MCV 81 MCH 27.1 MCHC 33.3 RDW 19.3 H Plt Count 83 L Seg Neutrophils % 85.9 H Lymphocytes % 5.2 L Monocytes % 5.5 Eosinophils % 0.9 Basophils % 2.5 H Absolute Neutrophils 8.9 H Absolute Lymphocytes 0.5 Absolute Monocytes 0.6 Absolute Eosinophils 0.1 Absolute Basophils 0.3 H Carbonic Acid HCO3/H2CO3 Ratio ABG pH ABG pCO2 ABG pO2 ABG HCO3 ABG O2 Saturation ABG Base Excess FiO2 Sodium 134.7 L Potassium 3.9 Chloride 104 Carbon Dioxide 17 L Anion Gap 14 BUN 35 H Creatinine 1.77 H Est GFR ( Amer) 34 L Est GFR (Non-Af Amer) 28 L Glucose 191 H Calcium 8.6 Phosphorus 3.4 Magnesium 2.0 2.0 Total Bilirubin 2.3 H AST 45 H ALT 37 Alkaline Phosphatase 96 Total Protein 5.9 L Albumin 3.1 L Prealbumin 6.6 L Free T4 Free T3 pg/mL Stool Occult Blood 04/30/17 04/30/17 05:36 06:35 WBC RBC Hgb Hct MCV MCH MCHC RDW Plt Count Seg Neutrophils % Lymphocytes % Monocytes % Eosinophils % Basophils % Absolute Neutrophils Absolute Lymphocytes Absolute Monocytes Absolute Eosinophils Absolute Basophils Carbonic Acid Cancelled 0.86 L HCO3/H2CO3 Ratio Cancelled 19:1 ABG pH Cancelled 7.39 ABG pCO2 Cancelled 28.5 L ABG pO2 Cancelled 94.4 ABG HCO3 Cancelled 16.9 L ABG O2 Saturation Cancelled 97.3 ABG Base Excess Cancelled -6.9 FiO2 Cancelled ROOM AIR Sodium Potassium Chloride Carbon Dioxide Anion Gap BUN Creatinine Est GFR ( Amer) Est GFR (Non-Af Amer) Glucose Calcium Phosphorus Magnesium Total Bilirubin AST ALT Alkaline Phosphatase Total Protein Albumin Prealbumin Free T4 Free T3 pg/mL Stool Occult Blood 04/18/17 04/18/1704/18/17 09:27 09:27 09:27 Creatine Kinase < 20 L CK-MB (CK-2) 0.84 Troponin I 0.264 NT-Pro-B Natriuret Pep [id number] H 04/18/17 04/18/17 04/30/17 15:00 15:00 05:50 Creatine Kinase < 20 L CK-MB (CK-2) 0.93 Troponin I 0.248 NT-Pro-B Natriuret Pep 32767 H Impressions: Foot X-Ray 04/15/17 16:57 IMPRESSION: Calcaneal spurs with no acute osseous abnormality. Degenerative joint changes as described. Abdomen/Pelvis CT 04/15/17 20:09 IMPRESSION: 1. Bilateral pleural effusions right greater than left. 2. Small volume ascites. 3. Subcutaneous edema. KUB X-Ray 04/19/17 09:54 IMPRESSION: NASOGASTRIC TUBE WITH THE TIP IN THE STOMACH. NO RADIOGRAPHIC EVIDENCE FOR ACUTE ABDOMINAL DISEASE. Abdomen Ultrasound 04/22/17 08:31 IMPRESSION: Mild ascites. Gallstones without gallbladder wall thickening. No biliary dilatation. Chest X-Ray 04/30/17 06:00 IMPRESSION: No significant interval change. Assessment & Plan - Diagnosis (1) Septic shock Is this a current diagnosis for this admission?: Yes Plan: Continue to maintain map greater than 65. Patient has been off Levophed since this morning. Will reinitiate if this does drop. Give albumin again today. Continue patient on imipenem which will cover both E. coli and Pasteurella. Patient is postoperative day #9 from her BKA for septic shock. (2) Severe sepsis Is this a current diagnosis for this admission?: Yes Plan: Continue patient on imipenem which will cover both E. coli and Pasteurella. Patient is postoperative day #9 from her BKA for septic shock. (3) Acute renal failure superimposed on chronic kidney disease Qualifiers: Chronic kidney disease stage: stage 3 (moderate) Is this a current diagnosis for this admission?: Yes Plan: Patient's baseline creatinine appears to be between 1.3 and 1.5. Patient's current dysfunction likely secondary to her sepsis. 08/29/13 12/30/15 04/07/16 08:55 13:37 06:23 Creatinine 1.53 H 1.31 H 1.69 H 04/17/17 04/18/17 04/20/17 04:07 04:06 05:40 Creatinine 1.50 H 1.36 H 1.30 H 04/30/17 05:36 Creatinine 1.77 H (4) Metabolic acidosis Is this a current diagnosis for this admission?: Yes Plan: Continue patient on bicarbonate drip. (5) Acute blood loss anemia Is this a current diagnosis for this admission?: Yes Plan: Patient has been transfused 2 units packed red blood cells. 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 Initiate 5 units of Lantus subcu nightly 04/28/17 04/29/17 04/29/17 23:43 05:25 12:34 Glucose 189 H POC Glucose 216 H 179 H 04/29/17 04/29/17 04/30/17 17:46 21:30 05:36 Glucose 175 H 191 H POC Glucose 188 H 04/30/17 13:22 Glucose POC Glucose 200 H (7) Diabetic infection of right foot Is this a current diagnosis for this admission?: Yes (8) Hypokalemia Is this a current diagnosis for this admission?: Yes Plan: Improved. Replete and recheck (9) Hyponatremia Is this a current diagnosis for this admission?: Yes Plan: Secondary to volume overload (10) Malnutrition Qualifiers: Malnutrition type: protein-calorie malnutrition Protein-calorie malnutrition severity: severe Qualified Code(s): E43 - Unspecified severe protein-calorie malnutrition Is this a current diagnosis for this admission?: Yes Plan: Patient with severe protein calorie malnourishment compromising bodily function and wound healing. Appreciate dietary input. Continue tube feeds and benaprotein per the recommendations. No Dany at this time secondary to active sepsis. (11) Severe peripheral arterial disease Is this a current diagnosis for this admission?: Yes (12) Morbid obesity with BMI of 40.0-44.9, adult Is this a current diagnosis for this admission?: Yes - Time Critical Time spent with patient: 35 or more minutes Medications reviewed and adjusted accordingly: Yes Anticipated discharge: Acute Rehab
[2017-04-30] MEDS: DEXTROSE 5%-WATER 1000 ML 1,000 ML with SODIUM BICARBONATE 150 MEQ IV PRN ×2 (14:45)
[2017-04-30] MEDS: PHARMACY COMMUNICATION ORDER MC SCH ×2 (17:48)
[2017-04-30] MEDS: ATORVASTATIN CALCIUM 40 MG TABLET NG SCH (21:34)
[2017-04-30] MEDS ORDERED: INSULIN GLARGINE,HUM.REC.ANLOG 1,000 UNIT/10 ML UNIT SUBCUT SCH (22:00)
[2017-05-01] MEDS: IMIPENEM/CILASTATIN SODIUM 500 MG in NORMAL SALINE 100 ML IV SCH ×4 (00:17→18:00)
[2017-05-01] MEDS: INSULIN LISPRO 100 UNIT/ML 3 ML VIAL SUBCUT PRN (00:18)
[2017-05-01] MEDS: METOCLOPRAMIDE HCL INJ/PF 10 MG/2 ML SDV IV SCH (03:33)
[2017-05-01 05:10] LABS: ARTERIAL BLOOD BASE EXCESS -2.9 mmol/L; ARTERIAL BLOOD O2 SATURATION 97.1 % (94-98)
[2017-05-01 05:17] LABS: ABSOLUTE BASOPHILS # (AUTO) 0.2 10^3/uL (0.0-0.2); ABSOLUTE EOSINOPHILS # (AUTO) 0.1 10^3/uL (0.0-0.6); ABSOLUTE LYMPHOCYTES (AUTO) 0.5 10^3/uL (0.5-4.7); ABSOLUTE MONOCYTES (AUTO) 0.5 10^3/uL (0.1-1.4); ABSOLUTE NEUT (AUTO) 6.7 10^3/uL (1.7-8.2); BASOPHILS % (AUTO) 2.1 % (0-2); EOSINOPHILS % (AUTO) 1.3 % (0-6); HEMATOCRIT 29.2 % (36.0-47.0); HEMOGLOBIN 9.9 g/dL (12.0-15.5); HGB HCT DIFFERENCE 0.5; LYMPHOCYTES % (AUTO) 6.6 % (13-45); MEAN CORPUSCULAR HEMOGLOBIN 27.4 pg (27.0-33.4); MEAN CORPUSCULAR HGB CONC 33.8 g/dL (32.0-36.0); MEAN CORPUSCULAR VOLUME 81 fl (80-97); MONOCYTES % (AUTO) 6.5 % (3-13); RED CELL DISTRIBUTION WIDTH 19.9 % (11.5-14.0); SEGMENTED NEUTROPHILS % (AUTO) 83.5 % (42-78)
[2017-05-01 05:28] LABS: ALANINE AMINOTRANSFERASE 29 U/L (9-52); ALBUMIN 3.1 g/dL (3.5-5.0); ALKALINE PHOSPHATASE 87 U/L (38-126); ANION GAP 12 (5-19); ASPARTATE AMINO TRANSFERASE 34 U/L (14-36); BILIRUBIN,DIRECT 1.7 mg/dL (0.0-0.4); BILIRUBIN,TOTAL 2.1 mg/dL (0.2-1.3); BLOOD UREA NITROGEN 37 mg/dL (7-20); CALCIUM 8.8 mg/dL (8.4-10.2); CARBON DIOXIDE 22 mmol/L (22-30); CHLORIDE 105 mmol/L (98-107); CREATININE RESULT 1.69 mg/dL (0.52-1.25); GLUCOSE 180 mg/dL (75-110); PHOSPHORUS 3.3 mg/dL (2.5-4.5); POTASSIUM 3.6 mmol/L (3.6-5.0); SODIUM 138.7 mmol/L (137-145); TOTAL PROTEIN 5.7 g/dL (6.3-8.2)
[2017-05-01] MEDS: GABAPENTIN 100 MG CAPSULE PO SCH ×3 (06:32→21:45)
[2017-05-01] MEDS: LANSOPRAZOLE 30 MG TAB.RAP.DR PO SCH (06:32)
--- NOTE | 2017-05-01 06:55 | PDOC PROGRESS REPORT ---
Subjective Progress Note for:: 05/01/17 Subjective:: 71-year-old white female status post below-knee amputation leg. Patient is alert and nonverbal this morning but does respond to questions and commands. She is very comfortable lying recumbent in hospital bed however reports excruciating pain whenever she attempts to move or is assisted by nursing staff. Physical Exam Vital Signs: Temp Pulse Resp BP Pulse Ox 36.9 C 104 H 17 90/54 L 100 05/01/17 05:56 04/30/17 20:00 05/01/17 06:00 05/01/17 05:44 05/01/17 06:00 Intake & Output 04/29/17 04/30/17 05/01/17 06:59 06:59 06:59 Intake Total 2390 2645 1429 Output Total 1814 9827 4077 Balance 259 -0423 -7324 Weight 108.8 kg 108.1 kg 105.5 kg General appearance: PRESENT: no acute distress, well-developed, well-nourished Head exam: PRESENT: atraumatic, normocephalic Pulses: PRESENT: normal femoral pulses Vascular exam: PRESENT: normal capillary refill Additional comments: Patient has +1 pitting edema of bilateral upper extremities. However there is brisk capillary refill. Additional comments: Right lower extremity is in postoperative dressing. The dressing is clean dry and intact. Patient's left lower extremity has been placed in a jo ann Reinaldo compression cast. There is brisk capillary refill of bilateral upper extremities and left lower extremity. She remains limited with passive and active range of motion due to increased pain with motion. And her sensory and motor functions are intact. Additional comments: Patient remains recumbent in hospital bed. Neurological exam: PRESENT: alert, awake Psychiatric exam: PRESENT: appropriate affect, normal mood. ABSENT: homicidal ideation, suicidal ideation Skin exam: PRESENT: dry, intact, warm. ABSENT: cyanosis, rash Results Laboratory Results: 05/01/17 04:55 05/01/17 04:55 05/01/17 05/01/17 05/01/17 04:55 04:55 04:55 WBC 8.0 RBC 3.60 L Hgb 9.9 L Hct 29.2 L MCV 81 MCH 27.4 MCHC 33.8 RDW 19.9 H Plt Count 61 L Seg Neutrophils % 83.5 H Lymphocytes % 6.6 L Monocytes % 6.5 Eosinophils % 1.3 Basophils % 2.1 H Absolute Neutrophils 6.7 Absolute Lymphocytes 0.5 Absolute Monocytes 0.5 Absolute Eosinophils 0.1 Absolute Basophils 0.2 Carbonic Acid 1.04 L HCO3/H2CO3 Ratio 20:1 ABG pH 7.41 ABG pCO2 34.6 L ABG pO2 91.5 ABG HCO3 21.2 ABG O2 Saturation 97.1 ABG Base Excess -2.9 FiO2 ROOM AIR Sodium 138.7 Potassium 3.6 Chloride 105 Carbon Dioxide 22 Anion Gap 12 BUN 37 H Creatinine 1.69 H Est GFR ( Amer) 36 L Est GFR (Non-Af Amer) 30 L Glucose 180 H Calcium 8.8 Phosphorus 3.3 Magnesium 2.0 Total Bilirubin 2.1 H AST 34 ALT 29 Alkaline Phosphatase 87 Total Protein 5.7 L Albumin 3.1 L 04/18/17 04/18/17 04/18/17 09:27 09:27 09:27 Creatine Kinase < 20 L CK-MB (CK-2) 0.84 Troponin I 0.264 NT-Pro-B Natriuret Pep [id number] H 04/18/17 04/18/17 04/30/17 15:00 15:00 05:50 Creatine Kinase < 20 L CK-MB (CK-2) 0.93 Troponin I 0.248 NT-Pro-B Natriuret Pep [id number] H Impressions: Foot X-Ray 04/15/17 16:57 IMPRESSION: Calcaneal spurs with no acute osseous abnormality. Degenerative joint changes as described. Abdomen/Pelvis CT 04/15/17 20:09 IMPRESSION: 1. Bilateral pleural effusions right greater than left. 2. Small volume ascites. 3. Subcutaneous edema. KUB X-Ray 04/19/17 09:54 IMPRESSION: NASOGASTRIC TUBE WITH THE TIP IN THE STOMACH. NO RADIOGRAPHIC EVIDENCE FOR ACUTE ABDOMINAL DISEASE. Abdomen Ultrasound 04/22/17 08:31 IMPRESSION: Mild ascites. Gallstones without gallbladder wall thickening. No biliary dilatation. Assessment & Plan - Diagnosis (1) Severe sepsis Is this a current diagnosis for this admission?: Yes - Plan Summary Plan Summary: 71-year-old white female status post below-knee amputation of right leg for resolution of sepsis, white blood cell count was 8 as of this morning. Patient continues to remain comfortable lying recumbent in hospital bed. As of last night she was taken off levo fed and vasopressors and her blood pressure is holding at 107/60. Once patient becomes more mobile it would benefit her to move from bed to sitting in chair for meals and as tolerated otherwise. Plan for discharge will be at the discretion of the internal medicine physician.
[2017-05-01] MEDS ORDERED: POTASSIUM CHLORIDE 20 MEQ/15 ML UDCUP NG ONE (07:37)
[2017-05-01] MEDS: LEVOTHYROXINE SODIUM 0.05 MG TABLET NG SCH (08:01)
[2017-05-01 08:32] LABS: PROTHROMBIN TIME 16.7 SEC (11.4-15.4)
--- NOTE | 2017-05-01 08:32 | RADIOLOGY REPORT (SQ) ---
EXAM DESCRIPTION: CHEST SINGLE VIEW COMPLETED DATE/TIME: 05/01/2017 6:21 am REASON FOR STUDY: pneumonia COMPARISON: AP chest 04/30/2017, 04/29/2017, 04/27/2017 EXAM PARAMETERS: NUMBER OF VIEWS: One view. TECHNIQUE: Single frontal radiographic view of the chest acquired. RADIATION DOSE: NA LIMITATIONS: None. FINDINGS: LUNGS AND PLEURA: Persistent opacification of the left retrocardiac region, likely due to a combination of lower lobe consolidation and pleural fluid. This is similar compared to 04/30/2017 a nd 04/29/2017. Right lung clear. No gross right pleural effusion. No right or left pneumothorax MEDIASTINUM AND HILAR STRUCTURES: No masses. Contour normal. HEART AND VASCULAR STRUCTURES: Stable cardiomegaly BONES: No acute findings. HARDWARE: Right jugular central line tip in the right atrium. Nasogastric tube tip and side port in the stomach. OTHER: No other significant finding. IMPRESSION: Persistent left lower lobe consolidation and left pleural effusion TECHNICAL DOCUMENTATION: JOB ID: [id number]
[2017-05-01 08:59] LABS: PARTIAL THROMBOPLASTIN TIME 39.3 SEC (23.5-35.8)
--- NOTE | 2017-05-01 09:10 | PDOC PROGRESS REPORT ---
Subjective Progress Note for:: 05/01/17 Subjective:: Awake more responsive today Physical Exam Vital Signs: Temp Pulse Resp BP Pulse Ox 98.4 F 98 14 96/55 L 98 05/01/17 07:43 05/01/17 07:43 05/01/17 07:43 05/01/17 07:43 05/01/17 07:43 Intake & Output 04/30/17 05/01/17 05/02/17 06:59 06:59 06:59 Intake Total 2645 1393 Output Total 4078 8845 225 Balance -1430 -1642 -225 Weight 108.1 kg 105.5 kg General appearance: PRESENT: no acute distress, cooperative, disheveled, thin, well-developed Head exam: PRESENT: atraumatic, normocephalic Eye exam: PRESENT: conjunctiva pale, EOMI Mouth exam: PRESENT: dry mucosa, neck supple, tongue midline Teeth exam: PRESENT: poor dentation Neck exam: ABSENT: carotid bruit, JVD, lymphadenopathy, thyromegaly Respiratory exam: PRESENT: decreased breath sounds, prolonged expiratory phas, rhonchi, symmetrical, unlabored. ABSENT: retraction, stridor, tachypnea Cardiovascular exam: PRESENT: RRR, +S1, +S2 Pulses: PRESENT: normal radial pulses GI/Abdominal exam: PRESENT: normal bowel sounds, soft. ABSENT: distended, guarding, mass, organolmegaly, rebound, tenderness Rectal exam: PRESENT: deferred Gentrourinary exam: PRESENT: indwelling catheter Extremities exam: PRESENT: other - R bka Neurological exam: PRESENT: awake Skin exam: PRESENT: dry, warm Results Laboratory Results: 05/01/17 04:55 05/01/17 04:55 05/01/17 05/01/17 05/01/17 04:55 04:55 04:55 WBC 8.0 RBC 3.60 L Hgb 9.9 L Hct 29.2 L MCV 81 MCH 27.4 MCHC 33.8 RDW 19.9 H Plt Count 61 L Seg Neutrophils % 83.5 H Lymphocytes % 6.6 L Monocytes % 6.5 Eosinophils % 1.3 Basophils % 2.1 H Absolute Neutrophils 6.7 Absolute Lymphocytes 0.5 Absolute Monocytes 0.5 Absolute Eosinophils 0.1 Absolute Basophils 0.2 Carbonic Acid 1.04 L HCO3/H2CO3 Ratio 20:1 ABG pH 7.41 ABG pCO2 34.6 L ABG pO2 91.5 ABG HCO3 21.2 ABG O2 Saturation 97.1 ABG Base Excess -2.9 FiO2 ROOM AIR Sodium 138.7 Potassium 3.6 Chloride 105 Carbon Dioxide 22 Anion Gap 12 BUN 37 H Creatinine 1.69 H Est GFR ( Amer) 36 L Est GFR (Non-Af Amer) 30 L Glucose 180 H Calcium 8.8 Phosphorus 3.3 Magnesium 2.0 Total Bilirubin 2.1 H AST 34 ALT 29 Alkaline Phosphatase 87 Total Protein 5.7 L Albumin 3.1 L 04/18/17 04/18/17 04/18/17 09:27 09:27 09:27 Creatine Kinase < 20 L CK-MB (CK-2) 0.84 Troponin I 0.264 NT-Pro-B Natriuret Pep 22602 H 04/18/17 04/18/17 04/30/17 15:00 15:00 05:50 Creatine Kinase < 20 L CK-MB (CK-2) 0.93 Troponin I 0.248 NT-Pro-B Natriuret Pep 44657 H Impressions: Foot X-Ray 04/15/17 16:57 IMPRESSION: Calcaneal spurs with no acute osseous abnormality. Degenerative joint changes as described. Abdomen/Pelvis CT 04/15/17 20:09 IMPRESSION: 1. Bilateral pleural effusions right greater than left. 2. Small volume ascites. 3. Subcutaneous edema. KUB X-Ray 04/19/17 09:54 IMPRESSION: NASOGASTRIC TUBE WITH THE TIP IN THE STOMACH. NO RADIOGRAPHIC EVIDENCE FOR ACUTE ABDOMINAL DISEASE. Abdomen Ultrasound 04/22/17 08:31 IMPRESSION: Mild ascites. Gallstones without gallbladder wall thickening. No biliary dilatation. Chest X-Ray 05/01/17 06:00 IMPRESSION: Persistent left lower lobe consolidation and left pleural effusion Assessment & Plan - Diagnosis (1) Septic shock Is this a current diagnosis for this admission?: Yes Plan: notl requiring a vasopressor @ this time (2) Right BKA infection Is this a current diagnosis for this admission?: Yes Plan: s/p ortho closing wound (3) Chronic renal failure Qualifiers: Chronic kidney disease stage: stage 3 (moderate) Qualified Code(s): N18.3 - Chronic kidney disease, stage 3 (moderate) Is this a current diagnosis for this admission?: Yes Plan: Supple mental potassium and magnesium (4) Severe peripheral arterial disease Is this a current diagnosis for this admission?: Yes Plan: Left lower extremity also appears to be in danger secondary to vascular compromise (5) Malnutrition Qualifiers: Malnutrition type: protein-calorie malnutrition Protein-calorie malnutrition severity: severe Qualified Code(s): E43 - Unspecified severe protein-calorie malnutrition Is this a current diagnosis for this admission?: Yes Plan: add beneprotein - Time Critical Time spent with patient: 25-34 minutes
--- NOTE | 2017-05-01 09:15 | XCELERA REPORT ---
[address] [address] Transthoracic Echocardiogram Report Name: SHERITA CAPUTO Age: 71 yrs Gender: Female : 1945 Patient Status: Inpatient Patient Location: ICU^1A Study Date: 04/30/2017 01:38 PM Height: 64 in Weight: 123 lb BSA: 1.6 m2 Procedure: A complete two-dimensional transthoracic echocardiogram was performed (2D, M-mode, spectral and color flow Doppler). The study was technically difficult with many images being suboptimal in quality. Reason For Study: chf Ordering Physician: MERY GONZALEZ Performed By: Javi Leung Interpretation Summary The study was technically difficult with many images being suboptimal in quality. The Ejection Fraction estimate is 20-25% Left ventricular systolic function is severely reduced. LV diastolic function could not be adequately assessed. There is borderline concentric left ventricular hypertrophy. The left ventricle is grossly normal size. There is apical wall akinesis There is mid to distal anterior wall akinesis The right ventricular systolic function is borderline reduced. The right ventricle is mildly dilated. The left atrium is moderately dilated. The right atrium is mildly dilated. There is a mild amount of mitral regurgitation There is no mitral valve stenosis. There is a mild amount of aortic regurgitation There is no aortic valve stenosis There is a moderate amount of tricuspid regurgitation There is moderate pulmonary hypertension by echo Right ventricular systolic pressure is estimated to be elevated at 50- 60mmHg. Minimal pericardial effusion. Small left pleural effusion. MMode/2D Measurements & Calculations RVDd: 3.5 cm LVIDd: 5.0 cm FS: 7.9 % Ao root diam: IVSd: 0.88 cm LVIDs: 4.6 cm EDV(Teich): 2.6 cm LVPWd: 0.75 cm 116.2 ml Ao root area: ESV(Teich): 95.7 ml 5.2 cm2 EF(Teich): 17.6 % LA dimension: 4.8 cm LVLd ap4: 8.8 cm SV(MOD-sp4): EDV(MOD-sp4): 40.0 ml 150.0 ml LVLs ap4: 8.9 cm ESV(MOD-sp4): 110.0 ml EF(MOD-sp4): 26.7 % Doppler Measurements & Calculations MV E max elli: MV P1/2t max elli: Ao V2 max: AI max elli: 86.9 cm/sec 84.4 cm/sec 126.2 cm/sec 265.0 cm/sec MV A max elli: MV P1/2t: 49.3 msec Ao max PG: AI max P.8 cm/sec MVA(P1/2t): 4.5 cm2 6.4 mmHg 28.1 mmHg MV E/A: 1.7 MV dec slope: AI dec slope: 501.1 cm/sec2 144.9 cm/sec2 AI P1/2t: 535.6 msec LV V1 max PG: PA V2 max: PI end-d elli: TR max elli: 2.0 mmHg 72.1 cm/sec 112.7 cm/sec 272.1 cm/sec LV V1 max: PA max P.1 mmHg TR max P.3 cm/sec 29.8 mmHg RVSP(TR): 39.8 mmHg RAP systole: 10.0 mmHg Left Ventricle The left ventricle is grossly normal size. There is borderline concentric left ventricular hypertrophy. Left ventricular systolic function is severely reduced. The Ejection Fraction estimate is 20-25%. LV diastolic function could not be adequately assessed. There is apical wall akinesis. There is mid to distal anterior wall akinesis. Right Ventricle The right ventricle is mildly dilated. There is normal right ventricular wall thickness. The right ventricular systolic function is borderline reduced. Atria The right atrium is mildly dilated. The left atrium is moderately dilated. Interarterial septum not well visualized and not well dopplered. Cannot comment on ASD/PFO presence. Mitral Valve There is mild mitral annular calcification. There is no mitral valve stenosis. There is a mild amount of mitral regurgitation. Aortic Valve The aortic valve is not well visualized secondary to technical limitations. There is no aortic valve stenosis. There is a mild amount of aortic regurgitation. Tricuspid Valve The tricuspid valve is not well visualized, but is grossly normal. There is no tricuspid stenosis. There is a moderate amount of tricuspid regurgitation. There is moderate pulmonary hypertension by echo. Right ventricular systolic pressure is estimated to be elevated at 50-60mmHg. Pulmonic Valve The pulmonic valve is not well visualized. Great Vessels The aortic root is not well visualized but is probably normal size. The inferior vena cava appeared dilated and decreased < 50% with respiration (RAP 15-20 mmHg). Effusions Minimal pericardial effusion. Small left pleural effusion. : MERY GONZALEZ > Vanesa Irene
[2017-05-01] MEDS: DOCUSATE SODIUM 100 MG CAPSULE PO SCH ×2 (09:49→17:46)
[2017-05-01] MEDS: METOPROLOL SUCCINATE 25 MG TAB.SR.24H PO SCH ×2 (09:49→21:46)
[2017-05-01] MEDS: MULTIVITS W-MIN/IRON SOLN 60 ML NG SCH (09:53)
[2017-05-01] MEDS: BUMETANIDE INJ/PF 1 MG/4 ML SDV IV SCH ×2 (09:53→21:43)
[2017-05-01] MEDS: MAGNESIUM OXIDE 400 MG TABLET PO SCH ×2 (09:53→18:00)
[2017-05-01] MEDS ORDERED: METOPROLOL SUCCINATE 25 MG TAB.SR.24H PO SCH (10:00)
--- NOTE | 2017-05-01 14:43 | PDOC CONSULTATION ---
Consultation Consult Date: 05/01/17 Attending physician:: MERY GONZALEZ Consult reason:: Thrombocytopenia, anemia History of Present Illness Admission Date/PCP: 04/15/17 22:48 ETHEL BURDEN, Patient complains of: thrombocytopenia History of Present Illness: 71-year-old female with recent prolonged hospitalization, with multiple medical issues, specifically presented with a right-sided diabetic foot ulcer, ultimately she presented with severe sepsis, right-sided heart failure, ultimately had to have right BKA, has been on pressors as well as intubated, recently extubated, recently removed off pressors. She has been improving from that standpoint, she also had anasarca along the way along with pleural effusions and ascites, but her medical problems seem to be improving, they are trying to get her to rehab setting. But she has had worsening thrombocytopenia. Upon presentation she had a low platelet count in the 110- 115 range, hemoglobin is been anywhere from 9-11, white count recently has been normal. I reviewed all the labs, there is multiple coagulation studies, upon presentation she actually had a INR of 1.6, but it has improved to 1.2, fibrinogen is been normal, hit antibody was negative. Past Medical History Cardiac Medical History: Reports: Coronary Artery Disease, Hypertension, Peripheral Vascular Disease Denies: Myocardial Infarction Pulmonary Medical History: Denies: Asthma Neurological Medical History: Denies: Seizures Endocrine Medical History: Reports: Diabetes Mellitus Type 2 Renal/ Medical History: Reports: Chronic Kidney Disease GI Medical History: Denies: Hepatitis, Hiatal Hernia Psychiatric Medical History: Reports: Depression Hematology: Denies: Anemia, Sickle Cell Disease Past Surgical History Past Surgical History: Denies: Amputation, Mastectomy, Pacemaker Social History Lives with: Alone Smoking Status: Unknown if Ever Smoked Frequency of Alcohol Use: None Hx Recreational Drug Use: No Drugs: None Hx Prescription Drug Abuse: No - Advance Directive Resuscitation Status: Full Code Family History Family History: Reviewed & Not Pertinent, Hypertension Parental Family History Reviewed: Yes Children Family History Reviewed: Yes Sibling(s) Family History Reviewed.: Yes Medication/Allergy Home Medications: Furosemide [Lasix 40 mg Tablet] 40 mg PO DAILY 07/24/14 Glipizide [Glipizide Xl] 10 mg PO DAILY 07/24/14 Lisinopril 10 mg PO DAILY 07/24/14 Atorvastatin Calcium 40 mg PO QHS 04/06/16 Metoprolol Succinate 100 mg PO DAILY 04/06/16 Clopidogrel Bisulfate [Plavix 75 mg Tablet] 75 mg PO DAILY #0 tablet 04/08/16 Nitroglycerin [Nitrostat 0.4 mg (1/150 Gr) Tabs 25/Bottle] 1 tab SL Q5MP PRN Aspirin [Aspirin EC] 81 mg PO DAILY 04/16/17 Allergies/Adverse Reactions: codeine [Codeine] Allergy (Verified 07/24/14 10:46) Generalized Itching Shellfish * [Shellfish] Allergy (Verified 07/24/14 10:46) Review of Systems All systems: reviewed and no additional remarkable complaints except as stated - Patient still bedbound, feels weak would like to set up Physical Exam Vital Signs: Temp Pulse Resp BP Pulse Ox 98.2 F 108 H 16 102/57 L 99 05/01/17 12:00 05/01/17 12:00 05/01/17 12:00 05/01/17 12:00 05/01/17 12:00 Intake & Output 04/30/17 05/01/17 05/02/17 06:59 06:59 06:59 Intake Total 2645 2433 Output Total 4075 4075 880 Balance -1430 -1642 -880 Weight 108.1 kg 105.5 kg General appearance: PRESENT: no acute distress Head exam: PRESENT: atraumatic Eye exam: PRESENT: conjunctiva pink Mouth exam: PRESENT: dry mucosa Respiratory exam: PRESENT: clear to auscultation lenore. ABSENT: rales, rhonchi, wheezes Cardiovascular exam: PRESENT: RRR. ABSENT: diastolic murmur, rubs, systolic murmur GI/Abdominal exam: PRESENT: normal bowel sounds, soft. ABSENT: distended, guarding, mass, organolmegaly, rebound, tenderness Neurological exam: PRESENT: alert, awake, oriented to person, oriented to place , oriented to time Results Laboratory Results: 05/01/17 04:55 05/01/17 04:55 05/01/17 05/01/17 05/01/17 04:55 04:55 04:55 WBC 8.0 RBC 3.60 L Hgb 9.9 L Hct 29.2 L MCV 81 MCH 27.4 MCHC 33.8 RDW 19.9 H Plt Count 61 L Seg Neutrophils % 83.5 H Lymphocytes % 6.6 L Monocytes % 6.5 Eosinophils % 1.3 Basophils % 2.1 H Absolute Neutrophils 6.7 Absolute Lymphocytes 0.5 Absolute Monocytes 0.5 Absolute Eosinophils 0.1 Absolute Basophils 0.2 Carbonic Acid 1.04 L HCO3/H2CO3 Ratio 20:1 ABG pH 7.41 ABG pCO2 34.6 L ABG pO2 91.5 ABG HCO3 21.2 ABG O2 Saturation 97.1 ABG Base Excess -2.9 FiO2 ROOM AIR Sodium 138.7 Potassium 3.6 Chloride 105 Carbon Dioxide 22 Anion Gap 12 BUN 37 H Creatinine 1.69 H Est GFR ( Amer) 36 L Est GFR (Non-Af Amer) 30 L Glucose 180 H Calcium 8.8 Phosphorus 3.3 Magnesium 2.0 Total Bilirubin 2.1 H AST 34 ALT 29 Alkaline Phosphatase 87 Total Protein 5.7 L Albumin 3.1 L 04/29/17 10:05 Catheterized Urine Urine Culture - Final NO GROWTH 2 DAYS 04/18/17 04/18/17 04/18/17 09:27 09:27 09:27 Creatine Kinase < 20 L CK-MB (CK-2) 0.84 Troponin I 0.264 NT-Pro-B Natriuret Pep 96216 H 04/18/17 04/18/17 04/30/17 15:00 15:00 05:50 Creatine Kinase < 20 L CK-MB (CK-2) 0.93 Troponin I 0.248 NT-Pro-B Natriuret Pep 84057 H Impressions: Foot X-Ray 04/15/17 16:57 IMPRESSION: Calcaneal spurs with no acute osseous abnormality. Degenerative joint changes as described. Abdomen/Pelvis CT 04/15/17 20:09 IMPRESSION: 1. Bilateral pleural effusions right greater than left. 2. Small volume ascites. 3. Subcutaneous edema. KUB X-Ray 04/19/17 09:54 IMPRESSION: NASOGASTRIC TUBE WITH THE TIP IN THE STOMACH. NO RADIOGRAPHIC EVIDENCE FOR ACUTE ABDOMINAL DISEASE. Abdomen Ultrasound 04/22/17 08:31 IMPRESSION: Mild ascites. Gallstones without gallbladder wall thickening. No biliary dilatation. 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 Although the fibrinogen and split products are normal, she does have an elevated INR, so this certainly can be low-grade DIC. I suspect as long as she continues to improve her platelet count will improve, she may not have nadired yet. I reviewed her medications, it does not appear that there is any myelotoxic medications on board. Would continue off any anticoagulants for now, and continue to monitor. (2) Anemia of chronic disease Is this a current diagnosis for this admission?: Yes Plan: She probably does have an element of anemia of chronic disease, hemoglobin is in the 9-10 range and at goal for an ICU patient, continue to monitor. - Time Time Spent: Greater than 70 Minutes Critical Time spent with patient: 35 or more minutes - Inpatient Certification Based on my medical assessment, after consideration of the patient's comorbidities, presenting symptoms, or acuity I expect that the services needed warrant INPATIENT care.: Yes I certify that my determination is in accordance with my understanding of Medicare's requirements for reasonable and necessary INPATIENT services [42 CFR 412.3e].: Yes Medical Necessity: Need For IV Fluids, Need For Continuous Telemetry Monitoring , Need for IV Antibiotics
[2017-05-01] MEDS: PHARMACY COMMUNICATION ORDER MC SCH ×2 (17:46)
--- NOTE | 2017-05-01 18:02 | PDOC PROGRESS REPORT ---
Subjective Progress Note for:: 05/01/17 Subjective:: Patient seen earlier today on morning rounds. Nurse present at bedside. Patient more awake and interactive. She does complain of stump pain. Patient denies chest pain, shortness of breath, abdominal pain, nausea, vomiting , fevers, chills, diarrhea, headache. Physical Exam Vital Signs: Temp Pulse Resp BP Pulse Ox 98.4 F 104 H 17 90/54 L 100 05/01/17 05:56 04/30/17 20:00 05/01/17 06:00 05/01/17 05:44 05/01/17 06:00 Intake & Output 04/30/17 05/01/17 05/02/17 06:59 06:59 06:59 Intake Total 2647 9853 Output Total 0073 8695 Balance -1430 -1642 Weight 108.1 kg 105.5 kg Exam: General: chronically ill appearing, Awake oriented x2, no acute respiratory distress HEENT: AT/NC, PERRL, EOMI, oropharynx is dry, pink, no scleral icterus, no conjunctival injection Neck: no JVD, trachea midline Chest: Diminished bases otherwise clear CV: Regular rate and rhythm, normal S1 and S2, no rub or gallop Abdomen: Soft, nontender to palpation, nondistended, active bowel sounds; no rebound, rigidity, or guarding Extremities: No cyanosis, clubbing; 2+ edema LLE ; LUE larger than right; right BKA Neuro: Cranial nerves II through XII are grossly intact without focal deficits; awake alert and oriented x2 Psych: normal mood and affect Skin: LLE chronic venous stasis; 0.25cm stage 1 on posterior calf; right BKA well approximated with scant serosanguineous drainage; palpable purpura on breast and petechia around central line, improving Results Laboratory Results: 05/01/17 04:55 05/01/17 04:55 05/01/17 05/01/17 05/01/17 04:55 04:55 04:55 WBC 8.0 RBC 3.60 L Hgb 9.9 L Hct 29.2 L MCV 81 MCH 27.4 MCHC 33.8 RDW 19.9 H Plt Count 61 L Seg Neutrophils % 83.5 H Lymphocytes % 6.6 L Monocytes % 6.5 Eosinophils % 1.3 Basophils % 2.1 H Absolute Neutrophils 6.7 Absolute Lymphocytes 0.5 Absolute Monocytes 0.5 Absolute Eosinophils 0.1 Absolute Basophils 0.2 Carbonic Acid 1.04 L HCO3/H2CO3 Ratio 20:1 ABG pH 7.41 ABG pCO2 34.6 L ABG pO2 91.5 ABG HCO3 21.2 ABG O2 Saturation 97.1 ABG Base Excess -2.9 FiO2 ROOM AIR Sodium 138.7 Potassium 3.6 Chloride 105 Carbon Dioxide 22 Anion Gap 12 BUN 37 H Creatinine 1.69 H Est GFR ( Amer) 36 L Est GFR (Non-Af Amer) 30 L Glucose 180 H Calcium 8.8 Phosphorus 3.3 Magnesium 2.0 Total Bilirubin 2.1 H AST 34 ALT 29 Alkaline Phosphatase 87 Total Protein 5.7 L Albumin 3.1 L 04/18/17 04/18/17 04/18/17 09:27 09:27 09:27 Creatine Kinase < 20 L CK-MB (CK-2) 0.84 Troponin I 0.264 NT-Pro-B Natriuret Pep 11916 H 04/18/17 04/18/17 04/30/17 15:00 15:00 05:50 Creatine Kinase < 20 L CK-MB (CK-2) 0.93 Troponin I 0.248 NT-Pro-B Natriuret Pep [id number] H Impressions: Foot X-Ray 04/15/17 16:57 IMPRESSION: Calcaneal spurs with no acute osseous abnormality. Degenerative joint changes as described. Abdomen/Pelvis CT 04/15/17 20:09 IMPRESSION: 1. Bilateral pleural effusions right greater than left. 2. Small volume ascites. 3. Subcutaneous edema. KUB X-Ray 04/19/17 09:54 IMPRESSION: NASOGASTRIC TUBE WITH THE TIP IN THE STOMACH. NO RADIOGRAPHIC EVIDENCE FOR ACUTE ABDOMINAL DISEASE. Abdomen Ultrasound 04/22/17 08:31 IMPRESSION: Mild ascites. Gallstones without gallbladder wall thickening. No biliary dilatation. Assessment & Plan - Diagnosis (1) Septic shock Is this a current diagnosis for this admission?: Yes Plan: Continue to maintain map greater than 65. Patient has been off Levophed since yesterday. Continue patient on imipenem which will cover both E. coli and Pasteurella. Patient is postoperative day #10 from her BKA for septic shock. (2) Severe sepsis Is this a current diagnosis for this admission?: Yes Plan: Continue patient on imipenem which will cover both E. coli and Pasteurella. Patient is postoperative day #10 from her BKA for septic shock. (3) Acute renal failure superimposed on chronic kidney disease Qualifiers: Chronic kidney disease stage: stage 3 (moderate) Is this a current diagnosis for this admission?: Yes Plan: Patient's baseline creatinine appears to be between 1.3 and 1.5. Patient's current dysfunction likely secondary to her sepsis. 08/29/13 12/30/15 04/07/16 08:55 13:37 06:23 Creatinine 1.53 H 1.31 H 1.69 H 04/17/17 04/18/17 04/20/17 04:07 04:06 05:40 Creatinine 1.50 H 1.36 H 1.30 H 04/30/17 05:36 Creatinine 1.77 H 05/01/17 04:55 Creatinine 1.69 H (4) Metabolic acidosis Is this a current diagnosis for this admission?: Yes Plan: Patient CO2 on her BMP this morning now 22. Stop bicarbonate drip. ABG has now normalized. 05/01/17 04:55 ABG pH 7.41 ABG pCO2 34.6 L ABG pO2 91.5 ABG HCO3 21.2 (5) Acute blood loss anemia Is this a current diagnosis for this admission?: Yes Plan: Patient has been transfused 2 units packed red blood cells. Transfusions patient's blood droplets 8 (6) Diabetes mellitus Qualifiers: Diabetes mellitus type: type 2 Diabetes mellitus complication status: with kidney complications Diabetes mellitus complication detail: with nephropathy Diabetes mellitus assisted insulin use: unspecified assisted insulin use status Qualified Code(s): E11.21 - Type 2 diabetes mellitus with diabetic nephropathy Is this a current diagnosis for this admission?: Yes Plan: Attempt to improve glucose control to 100-180. 5 units of Lantus subcu nightly (7) Diabetic infection of right foot Is this a current diagnosis for this admission?: Yes (8) Hypokalemia Is this a current diagnosis for this admission?: Yes (9) Hyponatremia Is this a current diagnosis for this admission?: Yes (10) Malnutrition Qualifiers: Malnutrition type: protein-calorie malnutrition Protein-calorie malnutrition severity: severe Qualified Code(s): E43 - Unspecified severe protein-calorie malnutrition Is this a current diagnosis for this admission?: Yes Plan: Patient with severe protein calorie malnourishment compromising bodily function and wound healing. Appreciate dietary input. Continue tube feeds and benaprotein per the recommendations. Plan to initiate treatment upon transition to IMCU (11) Severe peripheral arterial disease Is this a current diagnosis for this admission?: Yes (12) Morbid obesity with BMI of 40.0-44.9, adult Is this a current diagnosis for this admission?: Yes (13) Thrombocytopenia Is this a current diagnosis for this admission?: Yes Plan: Feel the patient's thrombocytopenia and in part her anemia is secondary to her underlying sepsis. HIT antibodies are negative. We will consult hematology for their input on this. We will stop any medication with a side effect of pancytopenia. - Time Time Spent with patient: 35 or more minutes Medications reviewed and adjusted accordingly: Yes Anticipated discharge: Acute Rehab - Inpatient Certification Based on my medical assessment, after consideration of the patient's comorbidities, presenting symptoms, or acuity I expect that the services needed warrant INPATIENT care.: Yes I certify that my determination is in accordance with my understanding of Medicare's requirements for reasonable and necessary INPATIENT services [42 CFR 412.3e].: Yes Medical Necessity: Need For Continuous Telemetry Monitoring, Need for Pain Control, Need for IV Antibiotics Post Hospital Care: D/C Architect Documentation
[2017-05-01] MEDS: INSULIN GLARGINE,HUM.REC.ANLOG 1,000 UNIT/10 ML UNIT SUBCUT SCH (21:44)
[2017-05-02] MEDS: IMIPENEM/CILASTATIN SODIUM 500 MG in NORMAL SALINE 100 ML IV SCH ×4 (00:09→17:18)
--- NOTE | 2017-05-02 00:15 | Progress Note ---
Provider Note Provider Note: Palliative Care Follow Up visit 05/01/17 12:30- 12: 55 PM S; Brief follow up visit with patient and her daughter in ICU. Patient is awake today and doing much better. Speech is clear and she is oriented. She is denying any pain or distress except to say she is thirsty. She still has NG tbe in place for feedings. Daughter says she has wanted drink all day. SHe is no longer on pressors and blossp pressure is stable, although in 90's. Patient is weak with soft voice, but is DUFF and shows no sign respiratory distress. O: As above, comfortable and stable with no respiratory distress or complaints pain. Breathing easily with no cough or noted wheeze. ALert and able to converse but appears a little anxious. Much less edema in extremities although still has some third spaced fluid. A/P; Septic shock from infection lower leg, status post amputaion but also has some venous insufficiency and problems ith her left leg. Patient wants to go to regular hospital room to see out of the window. DId not discuss discharge plans as too soon at this point. Daughter is aware of care optionsand choice will depend on condition at time of discharge. Support offered to patient and to her daughter. No acute needs at this time. Patient has made remarkable progress toward recovery, but is still very fragile. Will follow. Daughter has my number if she has questions or worries. Encouraged to call if needed.
[2017-05-02] MEDS: INSULIN LISPRO 100 UNIT/ML 3 ML VIAL SUBCUT PRN ×3 (00:38→23:41)
[2017-05-02 05:50] LABS: HEMATOCRIT 30.3 % (36.0-47.0); HEMOGLOBIN 10.4 g/dL (12.0-15.5); HGB HCT DIFFERENCE 0.9; MEAN CORPUSCULAR HEMOGLOBIN 28.2 pg (27.0-33.4); MEAN CORPUSCULAR HGB CONC 34.3 g/dL (32.0-36.0); MEAN CORPUSCULAR VOLUME 82 fl (80-97); RED BLOOD COUNT 3.69 10^6/uL (3.72-5.28); RED CELL DISTRIBUTION WIDTH 20.9 % (11.5-14.0); WHITE BLOOD COUNT 7.9 10^3/uL (4.0-10.5)
[2017-05-02] MEDS: GABAPENTIN 100 MG CAPSULE PO SCH ×3 (05:55→23:32)
[2017-05-02 06:21] LABS: BAND NEUTROPHILS % (MANUAL) 1 % (3-5); BASOPHILS % (MANUAL) 0 % (0-2); EOSINOPHILS % (MANUAL) 1 % (0-6); LYMPHOCYTES % (MANUAL) 13 % (13-45); TOTAL CELLS COUNTED 100
[2017-05-02 06:26] LABS: ACANTHOCYTES SLIGHT; ANISOCYTOSIS 3+; OVALOCYTES 1+; POIKILOCYTOSIS 1+; TARGET CELLS SLIGHT; TOXIC GRANULATION 1+
[2017-05-02 06:46] LABS: ALANINE AMINOTRANSFERASE 22 U/L (9-52); ALBUMIN 2.9 g/dL (3.5-5.0); ALKALINE PHOSPHATASE 88 U/L (38-126); ANION GAP 12 (5-19); ASPARTATE AMINO TRANSFERASE 36 U/L (14-36); BILIRUBIN,DIRECT 1.4 mg/dL (0.0-0.4); BILIRUBIN,TOTAL 1.9 mg/dL (0.2-1.3); BLOOD UREA NITROGEN 37 mg/dL (7-20); CALCIUM 8.9 mg/dL (8.4-10.2); CARBON DIOXIDE 23 mmol/L (22-30); CHLORIDE 105 mmol/L (98-107); CREATININE RESULT 1.57 mg/dL (0.52-1.25); GLUCOSE 145 mg/dL (75-110); MAGNESIUM 1.9 mg/dL (1.6-2.3); POTASSIUM 3.5 mmol/L (3.6-5.0); SODIUM 139.5 mmol/L (137-145); TOTAL PROTEIN 5.6 g/dL (6.3-8.2)
[2017-05-02] MEDS ORDERED: POTASSIUM CHLORIDE 20 MEQ/15 ML UDCUP NG ONE (07:39)
[2017-05-02] MEDS: LEVOTHYROXINE SODIUM 0.05 MG TABLET NG SCH (07:55)
[2017-05-02] MEDS: MULTIVITS W-MIN/IRON SOLN 60 ML NG SCH (11:00)
--- NOTE | 2017-05-02 11:16 | PDOC PROGRESS REPORT ---
Subjective Progress Note for:: 05/02/17 Subjective:: No acute events overnight but pt doing rehab currently, seems better Physical Exam Vital Signs: Temp Pulse Resp BP Pulse Ox 98.2 F 91 18 96/62 L 100 05/01/17 18:00 05/02/17 08:00 05/02/17 10:46 05/02/17 10:45 05/02/17 10:46 Intake & Output 05/01/17 05/02/17 05/03/17 06:59 06:59 06:59 Intake Total 2433 1490 Output Total 4075 3290 525 Balance -1642 -1800 -525 Weight 105.5 kg 101.1 kg General appearance: PRESENT: no acute distress, well-developed, well-nourished Head exam: PRESENT: atraumatic, normocephalic Eye exam: PRESENT: conjunctiva pink, EOMI, PERRLA. ABSENT: scleral icterus Ear exam: PRESENT: normal external ear exam Mouth exam: PRESENT: moist, tongue midline Neck exam: ABSENT: carotid bruit, JVD, lymphadenopathy, thyromegaly Respiratory exam: PRESENT: clear to auscultation lenore. ABSENT: rales, rhonchi, wheezes Cardiovascular exam: PRESENT: RRR. ABSENT: diastolic murmur, rubs, systolic murmur Pulses: PRESENT: normal dorsalis pedis pul Vascular exam: PRESENT: normal capillary refill GI/Abdominal exam: PRESENT: normal bowel sounds, soft. ABSENT: distended, guarding, mass, organolmegaly, rebound, tenderness Rectal exam: PRESENT: deferred Extremities exam: PRESENT: full ROM. ABSENT: calf tenderness, clubbing, pedal edema Neurological exam: PRESENT: alert, awake, oriented to person, oriented to place , oriented to time, oriented to situation, CN II-XII grossly intact. ABSENT: motor sensory deficit Psychiatric exam: PRESENT: appropriate affect, normal mood. ABSENT: homicidal ideation, suicidal ideation Skin exam: PRESENT: dry, intact, warm. ABSENT: cyanosis, rash Results Laboratory Results: 05/02/17 05:30 05/02/17 06:15 05/02/17 05/02/17 05/02/17 05:30 05:30 06:15 WBC 7.9 RBC 3.69 L Hgb 10.4 L Hct 30.3 L MCV 82 MCH 28.2 MCHC 34.3 RDW 20.9 H Plt Count 64 L Seg Neutrophils % Not Reportable Lymphocytes % Not Reportable Monocytes % Not Reportable Eosinophils % Not Reportable Basophils % Not Reportable Absolute Neutrophils Not Reportable Absolute Lymphocytes Not Reportable Absolute Monocytes Not Reportable Absolute Eosinophils Not Reportable Absolute Basophils Not Reportable Sodium 139.5 Potassium 3.5 L Chloride 105 Carbon Dioxide 23 Anion Gap 12 BUN 37 H Creatinine 1.57 H Est GFR ( Amer) 39 L Est GFR (Non-Af Amer) 33 L Glucose 145 H Calcium 8.9 Magnesium 1.9 Total Bilirubin 1.9 H AST 36 ALT 22 Alkaline Phosphatase 88 Total Protein 5.6 L Albumin 2.9 L 04/29/17 10:05 Catheterized Urine Urine Culture - Final NO GROWTH 2 DAYS 04/18/17 04/18/17 04/18/17 09:27 09:27 09:27 Creatine Kinase < 20 L CK-MB (CK-2) 0.84 Troponin I 0.264 NT-Pro-B Natriuret Pep [id number] H 04/18/17 04/18/17 04/30/17 15:00 15:00 05:50 Creatine Kinase < 20 L CK-MB (CK-2) 0.93 Troponin I 0.248 NT-Pro-B Natriuret Pep [id number] H Impressions: Foot X-Ray 04/15/17 16:57 IMPRESSION: Calcaneal spurs with no acute osseous abnormality. Degenerative joint changes as described. Abdomen/Pelvis CT 04/15/17 20:09 IMPRESSION: 1. Bilateral pleural effusions right greater than left. 2. Small volume ascites. 3. Subcutaneous edema. KUB X-Ray 04/19/17 09:54 IMPRESSION: NASOGASTRIC TUBE WITH THE TIP IN THE STOMACH. NO RADIOGRAPHIC EVIDENCE FOR ACUTE ABDOMINAL DISEASE. Abdomen Ultrasound 04/22/17 08:31 IMPRESSION: Mild ascites. Gallstones without gallbladder wall thickening. No biliary dilatation. Chest X-Ray 05/01/17 06:00 IMPRESSION: Persistent left lower lobe consolidation and left pleural effusion Assessment & Plan - Diagnosis (1) Thrombocytopenia, secondary Is this a current diagnosis for this admission?: Yes Plan: Plt ct slightly better, atleast stable, should continue to improved and ultimately get closer to 100. (2) Anemia of chronic disease Is this a current diagnosis for this admission?: Yes Plan: Hb stable con't to monitor - Time Time Spent with patient: 15-24 minutes Critical Time spent with patient: 15-24 minutes Disposition: Pt is awaiting placement, will follow peripherally, thanks for the opportunity to assist in this pt cares
[2017-05-02] MEDS: MAGNESIUM OXIDE 400 MG TABLET PO SCH ×2 (11:25→17:19)
[2017-05-02] MEDS: METOPROLOL SUCCINATE 25 MG TAB.SR.24H PO SCH ×2 (11:25→23:32)
[2017-05-02] MEDS: DOCUSATE SODIUM 100 MG CAPSULE PO SCH ×2 (11:25→17:16)
[2017-05-02] MEDS: BUMETANIDE INJ/PF 1 MG/4 ML SDV IV SCH ×2 (12:11→23:33)
[2017-05-02] MEDS: PHARMACY COMMUNICATION ORDER MC SCH ×2 (17:16)
--- NOTE | 2017-05-02 17:31 | PDOC PROGRESS REPORT ---
Subjective Progress Note for:: 05/02/17 Subjective:: Awake more interactive Physical Exam Vital Signs: Temp Pulse Resp BP Pulse Ox 98.2 F 91 18 96/62 L 100 05/01/17 18:00 05/02/17 08:00 05/02/17 10:46 05/02/17 10:45 05/02/17 10:46 Intake & Output 05/01/17 05/02/17 05/03/17 06:59 06:59 06:59 Intake Total 2433 1490 Output Total 4075 3290 525 Balance -1642 -1800 -525 Weight 105.5 kg 101.1 kg General appearance: PRESENT: no acute distress, cooperative, disheveled, thin, well-developed Head exam: PRESENT: atraumatic, normocephalic Eye exam: PRESENT: conjunctiva pale, EOMI Mouth exam: PRESENT: dry mucosa, neck supple, tongue midline Teeth exam: PRESENT: poor dentation Neck exam: ABSENT: carotid bruit, JVD, lymphadenopathy, thyromegaly Respiratory exam: PRESENT: decreased breath sounds, prolonged expiratory phas, rhonchi, symmetrical, unlabored. ABSENT: rales, retraction, stridor, tachypnea , wheezes Cardiovascular exam: PRESENT: RRR, +S1, +S2 Pulses: PRESENT: normal radial pulses GI/Abdominal exam: PRESENT: normal bowel sounds, soft. ABSENT: distended, guarding, mass, organolmegaly, rebound, tenderness Rectal exam: PRESENT: deferred Gentrourinary exam: PRESENT: indwelling catheter Extremities exam: PRESENT: +2 edema, other - R bka Neurological exam: PRESENT: alert, awake Skin exam: PRESENT: dry Results Laboratory Results: 05/02/17 05:30 05/02/17 06:15 05/02/17 05/02/17 05/02/17 05:30 05:30 06:15 WBC 7.9 RBC 3.69 L Hgb 10.4 L Hct 30.3 L MCV 82 MCH 28.2 MCHC 34.3 RDW 20.9 H Plt Count 64 L Seg Neutrophils % Not Reportable Lymphocytes % Not Reportable Monocytes % Not Reportable Eosinophils % Not Reportable Basophils % Not Reportable Absolute Neutrophils Not Reportable Absolute Lymphocytes Not Reportable Absolute Monocytes Not Reportable Absolute Eosinophils Not Reportable Absolute Basophils Not Reportable Sodium 139.5 Potassium 3.5 L Chloride 105 Carbon Dioxide 23 Anion Gap 12 BUN 37 H Creatinine 1.57 H Est GFR ( Amer) 39 L Est GFR (Non-Af Amer) 33 L Glucose 145 H Calcium 8.9 Magnesium 1.9 Total Bilirubin 1.9 H AST 36 ALT 22 Alkaline Phosphatase 88 Total Protein 5.6 L Albumin 2.9 L 04/18/17 04/18/17 04/18/17 09:27 09:27 09:27 Creatine Kinase < 20 L CK-MB (CK-2) 0.84 Troponin I 0.264 NT-Pro-B Natriuret Pep [id number] H 04/18/17 04/18/17 04/30/17 15:00 15:00 05:50 Creatine Kinase < 20 L CK-MB (CK-2) 0.93 Troponin I 0.248 NT-Pro-B Natriuret Pep [id number] H Impressions: Foot X-Ray 04/15/17 16:57 IMPRESSION: Calcaneal spurs with no acute osseous abnormality. Degenerative joint changes as described. Abdomen/Pelvis CT 04/15/17 20:09 IMPRESSION: 1. Bilateral pleural effusions right greater than left. 2. Small volume ascites. 3. Subcutaneous edema. KUB X-Ray 04/19/17 09:54 IMPRESSION: NASOGASTRIC TUBE WITH THE TIP IN THE STOMACH. NO RADIOGRAPHIC EVIDENCE FOR ACUTE ABDOMINAL DISEASE. Abdomen Ultrasound 04/22/17 08:31 IMPRESSION: Mild ascites. Gallstones without gallbladder wall thickening. No biliary dilatation. Chest X-Ray 05/01/17 06:00 IMPRESSION: Persistent left lower lobe consolidation and left pleural effusion Assessment & Plan - Diagnosis (1) Septic shock Is this a current diagnosis for this admission?: No (2) Right BKA infection Is this a current diagnosis for this admission?: Yes (3) Chronic renal failure Qualifiers: Chronic kidney disease stage: stage 3 (moderate) Qualified Code(s): N18.3 - Chronic kidney disease, stage 3 (moderate) Is this a current diagnosis for this admission?: Yes (4) Severe peripheral arterial disease Is this a current diagnosis for this admission?: Yes (5) Malnutrition Qualifiers: Malnutrition type: protein-calorie malnutrition Protein-calorie malnutrition severity: severe Qualified Code(s): E43 - Unspecified severe protein-calorie malnutrition Is this a current diagnosis for this admission?: Yes Plan: add beneprotein (6) Thrombocytopenia Is this a current diagnosis for this admission?: Yes Plan: no futher decline in plate 64K - Time Critical Time spent with patient: 25-34 minutes
[2017-05-02] MEDS: INSULIN GLARGINE,HUM.REC.ANLOG 1,000 UNIT/10 ML UNIT SUBCUT SCH (23:33)
[2017-05-03] MEDS: IMIPENEM/CILASTATIN SODIUM 500 MG in NORMAL SALINE 100 ML IV SCH ×4 (00:50→17:53)
[2017-05-03] MEDS: GABAPENTIN 100 MG CAPSULE PO SCH ×3 (06:49→22:00)
[2017-05-03 06:52] LABS: ABSOLUTE BASOPHILS # (AUTO) 0.2 10^3/uL (0.0-0.2); ABSOLUTE EOSINOPHILS # (AUTO) 0.1 10^3/uL (0.0-0.6); ABSOLUTE LYMPHOCYTES (AUTO) 0.7 10^3/uL (0.5-4.7); ABSOLUTE MONOCYTES (AUTO) 0.5 10^3/uL (0.1-1.4); ABSOLUTE NEUT (AUTO) 6.8 10^3/uL (1.7-8.2); BASOPHILS % (AUTO) 2.4 % (0-2); EOSINOPHILS % (AUTO) 1.3 % (0-6); HEMATOCRIT 30.3 % (36.0-47.0); HEMOGLOBIN 10.4 g/dL (12.0-15.5); HGB HCT DIFFERENCE 0.9; LYMPHOCYTES % (AUTO) 8.9 % (13-45); MEAN CORPUSCULAR HEMOGLOBIN 28.5 pg (27.0-33.4); MEAN CORPUSCULAR HGB CONC 34.2 g/dL (32.0-36.0); MEAN CORPUSCULAR VOLUME 83 fl (80-97); MONOCYTES % (AUTO) 6.4 % (3-13); RED BLOOD COUNT 3.64 10^6/uL (3.72-5.28); RED CELL DISTRIBUTION WIDTH 21.9 % (11.5-14.0); WHITE BLOOD COUNT 8.4 10^3/uL (4.0-10.5)
[2017-05-03 07:06] LABS: ANION GAP 8 (5-19); BLOOD UREA NITROGEN 41 mg/dL (7-20); CARBON DIOXIDE 26 mmol/L (22-30); CHLORIDE 106 mmol/L (98-107); CREATININE RESULT 1.51 mg/dL (0.52-1.25); GLUCOSE 215 mg/dL (75-110); POTASSIUM 4.1 mmol/L (3.6-5.0); SODIUM 140.3 mmol/L (137-145)
[2017-05-03] MEDS: LEVOTHYROXINE SODIUM 0.05 MG TABLET NG SCH (08:33)
[2017-05-03] MEDS: METOPROLOL SUCCINATE 25 MG TAB.SR.24H PO SCH ×2 (10:45→22:00)
[2017-05-03] MEDS: MULTIVITS W-MIN/IRON SOLN 60 ML NG SCH (10:45)
[2017-05-03] MEDS: MAGNESIUM OXIDE 400 MG TABLET PO SCH ×2 (10:46→17:53)
[2017-05-03] MEDS: BUMETANIDE 1 MG TABLET NG SCH ×2 (10:47→17:54)
[2017-05-03] MEDS: DOCUSATE SODIUM 100 MG CAPSULE PO SCH ×2 (10:47→17:53)
[2017-05-03] MEDS ORDERED: INFLUENZA ADLT QUAD (36MOS+) 2017-18 VAC 0.5 ML SYR IM PRN (12:09)
--- NOTE | 2017-05-03 13:13 | PDOC PROGRESS REPORT ---
Subjective Progress Note for:: 05/03/17 Subjective:: doing well a little problem with short term memory Physical Exam Vital Signs: Temp Pulse Resp BP Pulse Ox 97.7 F 87 16 91/54 L 100 05/03/17 12:49 05/03/17 12:49 05/03/17 12:49 05/03/17 12:49 05/03/17 12:49 Intake & Output 05/02/17 05/03/17 05/04/17 06:59 06:59 06:59 Intake Total 1490 1280 Output Total 3290 2090 550 Balance -1800 -810 -550 Weight 101.1 kg 103.5 kg General appearance: PRESENT: no acute distress, cooperative, disheveled, thin, well-developed Head exam: PRESENT: atraumatic, normocephalic Eye exam: PRESENT: conjunctiva pale, EOMI Mouth exam: PRESENT: dry mucosa, neck supple, tongue midline Neck exam: ABSENT: carotid bruit, JVD, lymphadenopathy, thyromegaly Respiratory exam: PRESENT: decreased breath sounds, prolonged expiratory phas, rhonchi, unlabored. ABSENT: rales, retraction, stridor, tachypnea, wheezes Cardiovascular exam: PRESENT: RRR, +S1, +S2 Pulses: PRESENT: normal radial pulses GI/Abdominal exam: PRESENT: normal bowel sounds, soft. ABSENT: distended, guarding, mass, organolmegaly, rebound, tenderness Rectal exam: PRESENT: deferred Gentrourinary exam: PRESENT: indwelling catheter Extremities exam: PRESENT: other - R bka Neurological exam: PRESENT: alert, awake Psychiatric exam: PRESENT: normal mood Skin exam: PRESENT: dry Results Laboratory Results: 05/03/17 06:35 05/03/17 06:35 05/03/17 05/03/17 06:35 06:35 WBC 8.4 RBC 3.64 L Hgb 10.4 L Hct 30.3 L MCV 83 MCH 28.5 MCHC 34.2 RDW 21.9 H Plt Count 72 L Seg Neutrophils % 81.0 H Lymphocytes % 8.9 L Monocytes % 6.4 Eosinophils % 1.3 Basophils % 2.4 H Absolute Neutrophils 6.8 Absolute Lymphocytes 0.7 Absolute Monocytes 0.5 Absolute Eosinophils 0.1 Absolute Basophils 0.2 Sodium 140.3 Potassium 4.1 Chloride 106 Carbon Dioxide 26 Anion Gap 8 BUN 41 H Creatinine 1.51 H Est GFR ( Amer) 41 L Est GFR (Non-Af Amer) 34 L Glucose 215 H Calcium 9.0 Magnesium 2.0 04/18/17 04/18/17 04/18/17 09:27 09:27 09:27 Creatine Kinase < 20 L CK-MB (CK-2) 0.84 Troponin I 0.264 NT-Pro-B Natriuret Pep [id number] H 04/18/17 04/18/17 04/30/17 15:00 15:00 05:50 Creatine Kinase < 20 L CK-MB (CK-2) 0.93 Troponin I 0.248 NT-Pro-B Natriuret Pep [id number] H Impressions: Foot X-Ray 04/15/17 16:57 IMPRESSION: Calcaneal spurs with no acute osseous abnormality. Degenerative joint changes as described. Abdomen/Pelvis CT 04/15/17 20:09 IMPRESSION: 1. Bilateral pleural effusions right greater than left. 2. Small volume ascites. 3. Subcutaneous edema. KUB X-Ray 04/19/17 09:54 IMPRESSION: NASOGASTRIC TUBE WITH THE TIP IN THE STOMACH. NO RADIOGRAPHIC EVIDENCE FOR ACUTE ABDOMINAL DISEASE. Abdomen Ultrasound 04/22/17 08:31 IMPRESSION: Mild ascites. Gallstones without gallbladder wall thickening. No biliary dilatation. Chest X-Ray 05/01/17 06:00 IMPRESSION: Persistent left lower lobe consolidation and left pleural effusion Assessment & Plan - Diagnosis (1) Septic shock Is this a current diagnosis for this admission?: No (2) Right BKA infection Is this a current diagnosis for this admission?: Yes (3) Chronic renal failure Qualifiers: Chronic kidney disease stage: stage 3 (moderate) Qualified Code(s): N18.3 - Chronic kidney disease, stage 3 (moderate) Is this a current diagnosis for this admission?: Yes (4) Severe peripheral arterial disease Is this a current diagnosis for this admission?: Yes (5) Malnutrition Qualifiers: Malnutrition type: protein-calorie malnutrition Protein-calorie malnutrition severity: severe Qualified Code(s): E43 - Unspecified severe protein-calorie malnutrition Is this a current diagnosis for this admission?: Yes (6) Thrombocytopenia Is this a current diagnosis for this admission?: Yes - Time Critical Time spent with patient: 25-34 minutes
--- NOTE | 2017-05-03 16:46 | PDOC PROGRESS REPORT ---
Subjective Progress Note for:: 05/02/17 Subjective:: She reports she is starving. Patient denies chest pain, shortness of breath, abdominal pain, nausea, vomiting , fevers, chills, diarrhea, constipation, headache, new onset weakness. Physical Exam Vital Signs: Temp Pulse Resp BP Pulse Ox 98.2 F 103 H 13 92/51 L 97 05/01/17 18:00 05/01/17 19:48 05/02/17 06:30 05/02/17 06:15 05/02/17 06:30 Intake & Output 05/01/17 05/02/17 05/03/17 06:59 06:59 06:59 Intake Total 2433 1490 Output Total 4075 3290 Balance -1642 -1800 Weight 105.5 kg 101.1 kg Exam: General: chronically ill appearing, Awake oriented x3, no acute respiratory distress HEENT: AT/NC, PERRL, EOMI, oropharynx is dry, pink, no scleral icterus, no conjunctival injection Neck: no JVD, trachea midline Chest: Diminished bases otherwise clear CV: Regular rate and rhythm, normal S1 and S2, no rub or gallop Abdomen: Soft, nontender to palpation, nondistended, active bowel sounds; no rebound, rigidity, or guarding Extremities: No cyanosis, clubbing; 1+ edema LLE ; LUE larger than right; right BKA Neuro: Cranial nerves II through XII are grossly intact without focal deficits; awake alert and oriented x3 Psych: normal mood and affect Skin: LLE chronic venous stasis; 0.25cm stage 1 on posterior calf; right BKA well approximated Results Laboratory Results: 05/02/17 05:30 05/02/17 06:15 05/02/17 05/02/17 05/02/17 05:30 05:30 06:15 WBC 7.9 RBC 3.69 L Hgb 10.4 L Hct 30.3 L MCV 82 MCH 28.2 MCHC 34.3 RDW 20.9 H Plt Count 64 L Seg Neutrophils % Not Reportable Lymphocytes % Not Reportable Monocytes % Not Reportable Eosinophils % Not Reportable Basophils % Not Reportable Absolute Neutrophils Not Reportable Absolute Lymphocytes Not Reportable Absolute Monocytes Not Reportable Absolute Eosinophils Not Reportable Absolute Basophils Not Reportable Sodium 139.5 Potassium 3.5 L Chloride 105 Carbon Dioxide 23 Anion Gap 12 BUN 37 H Creatinine 1.57 H Est GFR ( Amer) 39 L Est GFR (Non-Af Amer) 33 L Glucose 145 H Calcium 8.9 Magnesium 1.9 Total Bilirubin 1.9 H AST 36 ALT 22 Alkaline Phosphatase 88 Total Protein 5.6 L Albumin 2.9 L 04/29/17 10:05 Catheterized Urine Urine Culture - Final NO GROWTH 2 DAYS 04/18/17 04/18/17 04/18/17 09:27 09:27 09:27 Creatine Kinase < 20 L CK-MB (CK-2) 0.84 Troponin I 0.264 NT-Pro-B Natriuret Pep [id number] H 04/18/17 04/18/17 04/30/17 15:00 15:00 05:50 Creatine Kinase < 20 L CK-MB (CK-2) 0.93 Troponin I 0.248 NT-Pro-B Natriuret Pep [id number] H Impressions: Foot X-Ray 04/15/17 16:57 IMPRESSION: Calcaneal spurs with no acute osseous abnormality. Degenerative joint changes as described. Abdomen/Pelvis CT 04/15/17 20:09 IMPRESSION: 1. Bilateral pleural effusions right greater than left. 2. Small volume ascites. 3. Subcutaneous edema. KUB X-Ray 04/19/17 09:54 IMPRESSION: NASOGASTRIC TUBE WITH THE TIP IN THE STOMACH. NO RADIOGRAPHIC EVIDENCE FOR ACUTE ABDOMINAL DISEASE. Abdomen Ultrasound 04/22/17 08:31 IMPRESSION: Mild ascites. Gallstones without gallbladder wall thickening. No biliary dilatation. Chest X-Ray 05/01/17 06:00 IMPRESSION: Persistent left lower lobe consolidation and left pleural effusion Assessment & Plan - Diagnosis (1) Septic shock Is this a current diagnosis for this admission?: Yes Plan: Resolved. Continue patient on imipenem which will cover both E. coli and Pasteurella. Patient is postoperative day #11 from her BKA for septic shock. (2) Severe sepsis Is this a current diagnosis for this admission?: Yes Plan: Continue patient on imipenem which will cover both E. coli and Pasteurella. Patient is postoperative day #11 from her BKA for septic shock. Patient also had pneumonia of the left lower lobe. (3) Acute renal failure superimposed on chronic kidney disease Qualifiers: Chronic kidney disease stage: stage 3 (moderate) Is this a current diagnosis for this admission?: Yes Plan: Patient's baseline creatinine appears to be between 1.3 and 1.5. Patient's current dysfunction likely secondary to her sepsis. 08/29/13 12/30/15 04/07/16 08:55 13:37 06:23 Creatinine 1.53 H 1.31 H 1.69 H 04/17/17 04/18/17 04/20/17 04:07 04:06 05:40 Creatinine 1.50 H 1.36 H 1.30 H 04/30/17 05:36 Creatinine 1.77 H 05/01/17 04:55 Creatinine 1.69 H 05/02/17 06:15 Creatinine 1.57 H (4) Metabolic acidosis Is this a current diagnosis for this admission?: Yes Plan: Improved secondary to sepsis and chronic renal failure (5) Acute blood loss anemia Is this a current diagnosis for this admission?: Yes Plan: Patient has been transfused 2 units packed red blood cells. Transfusions patient's blood drops below 8 (6) Diabetes mellitus Qualifiers: Diabetes mellitus type: type 2 Diabetes mellitus complication status: with kidney complications Diabetes mellitus complication detail: with nephropathy Diabetes mellitus halfway insulin use: with forensic nurse use Qualified Code(s ): E11.21 - Type 2 diabetes mellitus with diabetic nephropathy; Z79.4 - senior care (current) use of insulin Is this a current diagnosis for this admission?: Yes Plan: Will hold changes in Lantus today pending assessment of patient's oral intake now that she is taking p.o. (7) Diabetic infection of right foot Is this a current diagnosis for this admission?: Yes (8) Hypokalemia Is this a current diagnosis for this admission?: Yes Plan: Improved. Replete and recheck (9) Hyponatremia Is this a current diagnosis for this admission?: Yes Plan: Improved (10) Malnutrition Qualifiers: Malnutrition type: protein-calorie malnutrition Protein-calorie malnutrition severity: severe Qualified Code(s): E43 - Unspecified severe protein-calorie malnutrition Is this a current diagnosis for this admission?: Yes Plan: Patient with severe protein calorie malnourishment compromising bodily function and wound healing. Appreciate dietary input. Continue tube feeds and benaprotein per the recommendations. Resumed oral feedings with good success. (11) Severe peripheral arterial disease Is this a current diagnosis for this admission?: Yes (12) Thrombocytopenia Is this a current diagnosis for this admission?: Yes Plan: Feel the patient's thrombocytopenia and in part her anemia is secondary to her underlying sepsis. HIT antibodies are negative. Hematology also agrees with this assessment. (13) Superficial venous thrombosis of arm Qualifiers: Laterality: left Qualified Code(s): I82.612 - Acute embolism and thrombosis of superficial veins of left upper extremity Is this a current diagnosis for this admission?: Yes (14) Morbid obesity with BMI of 40.0-44.9, adult Is this a current diagnosis for this admission?: Yes (15) Left lower lobe pneumonia Qualifiers: Pneumonia type: due to unspecified organism Qualified Code(s): J18.1 - Lobar pneumonia, unspecified organism Is this a current diagnosis for this admission?: Yes Plan: Has been improving with imipenem.
--- NOTE | 2017-05-03 16:53 | PDOC PROGRESS REPORT ---
Subjective Progress Note for:: 05/03/17 Subjective:: Patient reports she is feeling better. She did sit up with physical therapy yesterday. Patient denies chest pain, shortness of breath, abdominal pain, nausea, vomiting , fevers, chills, diarrhea, constipation, headache. Patient reports her pain is significantly improved with Neurontin. Physical Exam Vital Signs: Temp Pulse Resp BP Pulse Ox 98.3 F 91 17 99/53 L 100 05/03/17 15:42 05/03/17 15:42 05/03/17 15:42 05/03/17 15:42 05/03/17 15:42 Intake & Output 05/02/17 05/03/17 05/04/17 06:59 06:59 06:59 Intake Total 1490 1280 Output Total 3290 2090 550 Balance -1800 -810 -550 Weight 101.1 kg 103.5 kg Exam: General: chronically ill appearing, Awake oriented x3, no acute respiratory distress HEENT: AT/NC, PERRL, EOMI, oropharynx is dry, pink, no scleral icterus, no conjunctival injection, poor dentition Neck: no JVD, trachea midline Chest: Diminished bases otherwise clear CV: Regular rate and rhythm, normal S1 and S2, no rub or gallop Abdomen: Soft, nontender to palpation, nondistended, active bowel sounds; no rebound, rigidity, or guarding Extremities: No cyanosis, clubbing; 2+ edema LLE ; LUE larger than right; right BKA Neuro: Cranial nerves II through XII are grossly intact without focal deficits; awake alert and oriented x3 Psych: normal mood and affect Skin: LLE chronic venous stasis; right BKA well approximated with scant serosanguineous drainage; Results Laboratory Results: 05/03/17 06:35 05/03/17 06:35 05/03/17 05/03/17 06:35 06:35 WBC 8.4 RBC 3.64 L Hgb 10.4 L Hct 30.3 L MCV 83 MCH 28.5 MCHC 34.2 RDW 21.9 H Plt Count 72 L Seg Neutrophils % 81.0 H Lymphocytes % 8.9 L Monocytes % 6.4 Eosinophils % 1.3 Basophils % 2.4 H Absolute Neutrophils 6.8 Absolute Lymphocytes 0.7 Absolute Monocytes 0.5 Absolute Eosinophils 0.1 Absolute Basophils 0.2 Sodium 140.3 Potassium 4.1 Chloride 106 Carbon Dioxide 26 Anion Gap 8 BUN 41 H Creatinine 1.51 H Est GFR ( Amer) 41 L Est GFR (Non-Af Amer) 34 L Glucose 215 H Calcium 9.0 Magnesium 2.0 04/18/17 04/18/17 04/18/17 09:27 09:27 09:27 Creatine Kinase < 20 L CK-MB (CK-2) 0.84 Troponin I 0.264 NT-Pro-B Natriuret Pep 93109 H 04/18/17 04/18/17 04/30/17 15:00 15:00 05:50 Creatine Kinase < 20 L CK-MB (CK-2) 0.93 Troponin I 0.248 NT-Pro-B Natriuret Pep 16309 H Impressions: Foot X-Ray 04/15/17 16:57 IMPRESSION: Calcaneal spurs with no acute osseous abnormality. Degenerative joint changes as described. Abdomen/Pelvis CT 04/15/17 20:09 IMPRESSION: 1. Bilateral pleural effusions right greater than left. 2. Small volume ascites. 3. Subcutaneous edema. KUB X-Ray 04/19/17 09:54 IMPRESSION: NASOGASTRIC TUBE WITH THE TIP IN THE STOMACH. NO RADIOGRAPHIC EVIDENCE FOR ACUTE ABDOMINAL DISEASE. Abdomen Ultrasound 04/22/17 08:31 IMPRESSION: Mild ascites. Gallstones without gallbladder wall thickening. No biliary dilatation. Chest X-Ray 05/01/17 06:00 IMPRESSION: Persistent left lower lobe consolidation and left pleural effusion Assessment & Plan - Diagnosis (1) Acute on chronic systolic (congestive) heart failure Is this a current diagnosis for this admission?: Yes Plan: Patient with acute on chronic systolic congestive heart failure. Echo performed on 04/30/2017 reveals an EF of 20-25%, apical wall akinesis, moderate tricuspid regurgitation, moderate pulmonary hypertension. Patient is currently euvolemic. Generic Name Dose Route Start Last Admin Trade Name Freq PRN Reason Stop Dose Admin Bumetanide 2 mg 05/03/17 10:00 05/03/17 10:47 Bumex 1 Mg Tablet NG 06/02/17 09:59 2 mg BID RENARD Metoprolol Succinate 25 mg 05/01/17 10:00 05/03/17 10:45 Toprol Xl 25 Mg Tab.Sr PO 05/31/17 09:59 Not Given Q12 RENARD No JUSTIN or ARB at this time secondary to renal failure. We will consult cardiology for their input on this case. (2) Left lower lobe pneumonia Qualifiers: Pneumonia type: due to unspecified organism Qualified Code(s): J18.1 - Lobar pneumonia, unspecified organism Is this a current diagnosis for this admission?: Yes Plan: Has been improving with imipenem. (3) Septic shock Is this a current diagnosis for this admission?: Yes Plan: Resolved. Continue patient on imipenem which will cover both E. coli and Pasteurella. Patient is postoperative day #12 from her BKA for septic shock. (4) Severe sepsis Is this a current diagnosis for this admission?: Yes Plan: Continue patient on imipenem which will cover both E. coli and Pasteurella. Patient is postoperative day #12 from her BKA for septic shock. Patient also had pneumonia of the left lower lobe. (5) Acute renal failure superimposed on chronic kidney disease Qualifiers: Chronic kidney disease stage: stage 3 (moderate) Is this a current diagnosis for this admission?: Yes Plan: Patient's baseline creatinine appears to be between 1.3 and 1.5. Patient's current dysfunction likely secondary to her sepsis. 08/29/13 12/30/15 04/07/16 08:55 13:37 06:23 Creatinine 1.53 H 1.31 H 1.69 H 04/17/17 04/18/17 04/20/17 04:07 04:06 05:40 Creatinine 1.50 H 1.36 H 1.30 H 04/30/17 05:36 Creatinine 1.77 H 05/01/17 04:55 Creatinine 1.69 H 05/02/17 06:15 Creatinine 1.57 H 05/03/17 06:35 Creatinine 1.51 H (6) Metabolic acidosis Is this a current diagnosis for this admission?: Yes Plan: Improved secondary to sepsis and chronic renal failure (7) Acute blood loss anemia Is this a current diagnosis for this admission?: Yes Plan: Patient has been transfused 2 units packed red blood cells. Transfusions patient's blood drops below 8 (8) Diabetes mellitus Qualifiers: Diabetes mellitus type: type 2 Diabetes mellitus complication status: with kidney complications Diabetes mellitus complication detail: with nephropathy Diabetes mellitus terminal block assembler insulin use: with terminal block assembler use Qualified Code(s ): E11.21 - Type 2 diabetes mellitus with diabetic nephropathy; Z79.4 - long term care phlebotomist (current) use of insulin Is this a current diagnosis for this admission?: Yes Plan: Increase this evening Lantus to 10 units subcu nightly with a goal of blood sugar less than 180. (9) Diabetic infection of right foot Is this a current diagnosis for this admission?: Yes (10) Hypokalemia Is this a current diagnosis for this admission?: Yes (11) Hyponatremia Is this a current diagnosis for this admission?: Yes Plan: Improved (12) Malnutrition Qualifiers: Malnutrition type: protein-calorie malnutrition Protein-calorie malnutrition severity: severe Qualified Code(s): E43 - Unspecified severe protein-calorie malnutrition Is this a current diagnosis for this admission?: Yes Plan: Patient with severe protein calorie malnourishment compromising bodily function and wound healing. Appreciate dietary input. Continue tube feeds and benaprotein per the recommendations. Resumed oral feedings with good success. (13) Severe peripheral arterial disease Is this a current diagnosis for this admission?: Yes (14) Thrombocytopenia Is this a current diagnosis for this admission?: Yes Plan: Feel the patient's thrombocytopenia and in part her anemia is secondary to her underlying sepsis. HIT antibodies are negative. Hematology also agrees with this assessment. (15) Superficial venous thrombosis of arm Qualifiers: Laterality: left Qualified Code(s): I82.612 - Acute embolism and thrombosis of superficial veins of left upper extremity Is this a current diagnosis for this admission?: Yes (16) Moderate to severe pulmonary hypertension Is this a current diagnosis for this admission?: Yes Plan: Suspect this is worsened by patient's undiagnosed untreated sleep apnea. (17) Morbid obesity with BMI of 40.0-44.9, adult Is this a current diagnosis for this admission?: Yes - Time Time Spent with patient: 35 or more minutes Medications reviewed and adjusted accordingly: Yes Anticipated discharge: Acute Rehab Within: when bed available
[2017-05-03] MEDS: PHARMACY COMMUNICATION ORDER MC SCH ×2 (17:55)
[2017-05-03] MEDS: INSULIN LISPRO 100 UNIT/ML 3 ML VIAL SUBCUT PRN (19:38)
--- NOTE | 2017-05-03 19:40 | PDOC PROGRESS REPORT ---
Subjective Progress Note for:: 05/03/17 Subjective:: Patient complaining of excruciating pain. Physical Exam Vital Signs: Temp Pulse Resp BP Pulse Ox 36.8 C 91 17 99/53 L 100 05/03/17 15:42 05/03/17 15:42 05/03/17 15:42 05/03/17 15:42 05/03/17 15:42 Intake & Output 05/02/17 05/03/17 05/04/17 06:59 06:59 06:59 Intake Total 1490 1280 937 Output Total 3290 2090 550 Balance -1800 -810 387 Weight 101.1 kg 103.5 kg Adult Front & Back Image: 1 - Right stump stitches are intact. There is no erythema. She does have some proteinaceous tissue at the incision site with mild drainage. Tender to palpation. Results Laboratory Results: 05/03/17 06:35 05/03/17 06:35 05/03/17 05/03/17 06:35 06:35 WBC 8.4 RBC 3.64 L Hgb 10.4 L Hct 30.3 L MCV 83 MCH 28.5 MCHC 34.2 RDW 21.9 H Plt Count 72 L Seg Neutrophils % 81.0 H Lymphocytes % 8.9 L Monocytes % 6.4 Eosinophils % 1.3 Basophils % 2.4 H Absolute Neutrophils 6.8 Absolute Lymphocytes 0.7 Absolute Monocytes 0.5 Absolute Eosinophils 0.1 Absolute Basophils 0.2 Sodium 140.3 Potassium 4.1 Chloride 106 Carbon Dioxide 26 Anion Gap 8 BUN 41 H Creatinine 1.51 H Est GFR ( Amer) 41 L Est GFR (Non-Af Amer) 34 L Glucose 215 H Calcium 9.0 Magnesium 2.0 04/18/17 04/18/17 04/18/17 09:27 09:27 09:27 Creatine Kinase < 20 L CK-MB (CK-2) 0.84 Troponin I 0.264 NT-Pro-B Natriuret Pep [id number] H 04/18/17 04/18/17 04/30/17 15:00 15:00 05:50 Creatine Kinase < 20 L CK-MB (CK-2) 0.93 Troponin I 0.248 NT-Pro-B Natriuret Pep 37739 H Impressions: Foot X-Ray 04/15/17 16:57 IMPRESSION: Calcaneal spurs with no acute osseous abnormality. Degenerative joint changes as described. Abdomen/Pelvis CT 04/15/17 20:09 IMPRESSION: 1. Bilateral pleural effusions right greater than left. 2. Small volume ascites. 3. Subcutaneous edema. KUB X-Ray 04/19/17 09:54 IMPRESSION: NASOGASTRIC TUBE WITH THE TIP IN THE STOMACH. NO RADIOGRAPHIC EVIDENCE FOR ACUTE ABDOMINAL DISEASE. Abdomen Ultrasound 04/22/17 08:31 IMPRESSION: Mild ascites. Gallstones without gallbladder wall thickening. No biliary dilatation. Chest X-Ray 05/01/17 06:00 IMPRESSION: Persistent left lower lobe consolidation and left pleural effusion Assessment & Plan - Plan Summary Plan Summary: Patient is a 71-year-old female status post right below the knee amputation and sepsis. Any current care from the primary team. Physical therapy. Continue to monitor the wound.
[2017-05-03] MEDS: INSULIN GLARGINE,HUM.REC.ANLOG 1,000 UNIT/10 ML UNIT SUBCUT SCH (21:59)
[2017-05-04] MEDS: IMIPENEM/CILASTATIN SODIUM 500 MG in NORMAL SALINE 100 ML IV SCH ×5 (00:12→23:15)
[2017-05-04] MEDS: INSULIN LISPRO 100 UNIT/ML 3 ML VIAL SUBCUT PRN ×3 (00:12→12:33)
[2017-05-04 05:08] LABS: HEMATOCRIT 29.2 % (36.0-47.0); HGB HCT DIFFERENCE 0.8; MEAN CORPUSCULAR HEMOGLOBIN 28.7 pg (27.0-33.4); MEAN CORPUSCULAR HGB CONC 34.3 g/dL (32.0-36.0); MEAN CORPUSCULAR VOLUME 84 fl (80-97); RED BLOOD COUNT 3.49 10^6/uL (3.72-5.28); RED CELL DISTRIBUTION WIDTH 22.7 % (11.5-14.0); WHITE BLOOD COUNT 6.7 10^3/uL (4.0-10.5)
[2017-05-04 05:42] LABS: ANION GAP 10 (5-19); BLOOD UREA NITROGEN 43 mg/dL (7-20); CALCIUM 8.9 mg/dL (8.4-10.2); CARBON DIOXIDE 23 mmol/L (22-30); CHLORIDE 105 mmol/L (98-107); CREATININE RESULT 1.43 mg/dL (0.52-1.25); GLUCOSE 170 mg/dL (75-110); POTASSIUM 3.7 mmol/L (3.6-5.0)
[2017-05-04] MEDS: GABAPENTIN 100 MG CAPSULE PO SCH ×3 (06:03→22:46)
[2017-05-04 06:09] LABS: BAND NEUTROPHILS % (MANUAL) 1 % (3-5); BASOPHILS % (MANUAL) 2 % (0-2); EOSINOPHILS % (MANUAL) 2 % (0-6); LYMPHOCYTES % (MANUAL) 9 % (13-45); TOTAL CELLS COUNTED 100
[2017-05-04 06:11] LABS: ANISOCYTOSIS 3+; OVALOCYTES SLIGHT; POIKILOCYTOSIS SLIGHT; POLYCHROMASIA SLIGHT; TARGET CELLS SLIGHT; TEAR DROP CELLS SLIGHT; TOXIC GRANULATION SLIGHT; TOXIC VACUOLATION PRESENT
[2017-05-04] MEDS: LEVOTHYROXINE SODIUM 0.05 MG TABLET NG SCH (08:35)
[2017-05-04] MEDS: METOPROLOL SUCCINATE 25 MG TAB.SR.24H PO SCH ×2 (10:53→23:00)
[2017-05-04] MEDS: MAGNESIUM OXIDE 400 MG TABLET PO SCH ×2 (10:53→18:08)
[2017-05-04] MEDS: DOCUSATE SODIUM 100 MG CAPSULE PO SCH ×2 (10:53→18:08)
[2017-05-04] MEDS: BUMETANIDE 1 MG TABLET NG SCH ×2 (10:53→18:08)
[2017-05-04] MEDS: MULTIVITS W-MIN/IRON SOLN 60 ML NG SCH (14:20)
--- NOTE | 2017-05-04 14:50 | PDOC PROGRESS REPORT ---
Subjective Progress Note for:: 05/04/17 Subjective:: Patient significantly improved. Patient able to tolerate oral intake now. She does remain on nasogastric tube. Still unable to ambulate. She has pressure dressings on her left lower extremity. Wound on the right lower extremity clean and dry. Denies any chills fever or shortness of breath. Physical Exam Vital Signs: Temp Pulse Resp BP Pulse Ox 97.8 F 95 16 98/50 L 100 05/04/17 10:46 05/04/17 10:46 05/04/17 10:46 05/04/17 10:46 05/04/17 10:46 Intake & Output 05/03/17 05/04/17 05/05/17 06:59 06:59 06:59 Intake Total 1280 2057 100 Output Total 2090 850 500 Balance -810 1207 -400 Weight 103.5 kg 103.5 kg General appearance: PRESENT: no acute distress, cooperative, morbidly obese Head exam: PRESENT: normocephalic Eye exam: PRESENT: EOMI Mouth exam: PRESENT: moist, neck supple Neck exam: ABSENT: JVD Respiratory exam: PRESENT: clear to auscultation lenore. ABSENT: rhonchi, wheezes Cardiovascular exam: PRESENT: RRR. ABSENT: gallop GI/Abdominal exam: PRESENT: soft. ABSENT: distended, tenderness Extremities exam: PRESENT: +1 edema, other - Below knee amputation on the right Neurological exam: PRESENT: alert, awake, oriented to situation Skin exam: PRESENT: dry, warm. ABSENT: cyanosis Results Laboratory Results: 05/04/17 04:02 05/04/17 04:02 05/04/17 05/04/17 04:02 04:02 WBC 6.7 RBC 3.49 L Hgb 10.0 L Hct 29.2 L MCV 84 MCH 28.7 MCHC 34.3 RDW 22.7 H Plt Count 70 L Seg Neutrophils % Not Reportable Lymphocytes % Not Reportable Monocytes % Not Reportable Eosinophils % Not Reportable Basophils % Not Reportable Absolute Neutrophils Not Reportable Absolute Lymphocytes Not Reportable Absolute Monocytes Not Reportable Absolute Eosinophils Not Reportable Absolute Basophils Not Reportable Sodium 138.0 Potassium 3.7 Chloride 105 Carbon Dioxide 23 Anion Gap 10 BUN 43 H Creatinine 1.43 H Est GFR ( Amer) 44 L Est GFR (Non-Af Amer) 36 L Glucose 170 H Calcium 8.9 04/29/17 08:30 Blood Blood Culture - Final NO GROWTH IN 5 DAYS 04/29/17 09:05 Blood Blood Culture - Final NO GROWTH IN 5 DAYS 04/18/17 04/18/17 04/18/17 09:27 09:27 09:27 Creatine Kinase < 20 L CK-MB (CK-2) 0.84 Troponin I 0.264 NT-Pro-B Natriuret Pep [id number] H 04/18/17 04/18/17 04/30/17 15:00 15:00 05:50 Creatine Kinase < 20 L CK-MB (CK-2) 0.93 Troponin I 0.248 NT-Pro-B Natriuret Pep 74543 H Impressions: Foot X-Ray 04/15/17 16:57 IMPRESSION: Calcaneal spurs with no acute osseous abnormality. Degenerative joint changes as described. Abdomen/Pelvis CT 04/15/17 20:09 IMPRESSION: 1. Bilateral pleural effusions right greater than left. 2. Small volume ascites. 3. Subcutaneous edema. KUB X-Ray 04/19/17 09:54 IMPRESSION: NASOGASTRIC TUBE WITH THE TIP IN THE STOMACH. NO RADIOGRAPHIC EVIDENCE FOR ACUTE ABDOMINAL DISEASE. Abdomen Ultrasound 04/22/17 08:31 IMPRESSION: Mild ascites. Gallstones without gallbladder wall thickening. No biliary dilatation. Chest X-Ray 05/01/17 06:00 IMPRESSION: Persistent left lower lobe consolidation and left pleural effusion Assessment & Plan - Diagnosis (1) Acute on chronic systolic (congestive) heart failure Is this a current diagnosis for this admission?: Yes (2) Severe sepsis Is this a current diagnosis for this admission?: Yes (3) Acute renal failure superimposed on chronic kidney disease Qualifiers: Chronic kidney disease stage: stage 3 (moderate) Is this a current diagnosis for this admission?: Yes (4) Diabetic infection of right foot Is this a current diagnosis for this admission?: Yes (5) Hyponatremia Is this a current diagnosis for this admission?: Yes (6) Anemia of chronic disease Is this a current diagnosis for this admission?: Yes (7) Essential hypertension Is this a current diagnosis for this admission?: Yes (8) Diabetes mellitus Qualifiers: Diabetes mellitus type: type 2 Diabetes mellitus complication status: with kidney complications Diabetes mellitus complication detail: with nephropathy Diabetes mellitus terminologist insulin use: with terminologist use Qualified Code(s ): E11.21 - Type 2 diabetes mellitus with diabetic nephropathy; 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 Continue antibiotics for now. We will discontinue nasogastric tube. Start oral intake. Change nasogastric tube medication to oral. Continue supportive care.
[2017-05-04] MEDS: PHARMACY COMMUNICATION ORDER MC SCH ×2 (18:28)
[2017-05-04] MEDS: INSULIN GLARGINE,HUM.REC.ANLOG 1,000 UNIT/10 ML UNIT SUBCUT SCH (22:46)
[2017-05-05] MEDS: GABAPENTIN 100 MG CAPSULE PO SCH ×3 (05:23→21:58)
[2017-05-05] MEDS: IMIPENEM/CILASTATIN SODIUM 500 MG in NORMAL SALINE 100 ML IV SCH ×3 (05:24→17:30)
[2017-05-05] MEDS: LEVOTHYROXINE SODIUM 0.05 MG TABLET NG SCH (08:20)
--- NOTE | 2017-05-05 09:00 | PDOC PROGRESS REPORT ---
Subjective Progress Note for:: 05/05/17 Subjective:: The patient is seen today out of ICU. She states to feel much better. She had an NG tube removed yesterday. She tolerated her breakfast well. She denies any pain. She appears to be very happy Physical Exam Vital Signs: Temp Pulse Resp BP Pulse Ox 97.9 F 85 16 90/56 L 100 05/05/17 07:44 05/05/17 07:44 05/05/17 07:44 05/05/17 07:44 05/05/17 07:44 Intake & Output 05/04/17 05/05/17 05/06/17 06:59 06:59 06:59 Intake Total 2057 800 Output Total 850 2900 Balance 1207 -2100 Weight 103.5 kg 90.8 kg General appearance: PRESENT: mild distress Head exam: PRESENT: atraumatic Eye exam: PRESENT: conjunctiva pink Neck exam: PRESENT: carotid bruit Respiratory exam: PRESENT: clear to auscultation lenore Cardiovascular exam: PRESENT: RRR, +S1, +S2 GI/Abdominal exam: PRESENT: normal bowel sounds, soft Extremities exam: PRESENT: right BKA Neurological exam: PRESENT: awake Results Laboratory Results: 05/04/17 04:02 05/04/17 04:02 04/29/17 08:30 Blood Blood Culture - Final NO GROWTH IN 5 DAYS 04/29/17 09:05 Blood Blood Culture - Final NO GROWTH IN 5 DAYS 04/18/17 04/18/17 04/18/17 09:27 09:27 09:27 Creatine Kinase < 20 L CK-MB (CK-2) 0.84 Troponin I 0.264 NT-Pro-B Natriuret Pep [id number] H 04/18/17 04/18/17 04/30/17 15:00 15:00 05:50 Creatine Kinase < 20 L CK-MB (CK-2) 0.93 Troponin I 0.248 NT-Pro-B Natriuret Pep 34060 H Impressions: Foot X-Ray 04/15/17 16:57 IMPRESSION: Calcaneal spurs with no acute osseous abnormality. Degenerative joint changes as described. Abdomen/Pelvis CT 04/15/17 20:09 IMPRESSION: 1. Bilateral pleural effusions right greater than left. 2. Small volume ascites. 3. Subcutaneous edema. KUB X-Ray 04/19/17 09:54 IMPRESSION: NASOGASTRIC TUBE WITH THE TIP IN THE STOMACH. NO RADIOGRAPHIC EVIDENCE FOR ACUTE ABDOMINAL DISEASE. Abdomen Ultrasound 04/22/17 08:31 IMPRESSION: Mild ascites. Gallstones without gallbladder wall thickening. No biliary dilatation. Chest X-Ray 05/01/17 06:00 IMPRESSION: Persistent left lower lobe consolidation and left pleural effusion Assessment & Plan - Diagnosis (1) Severe sepsis Is this a current diagnosis for this admission?: Yes Plan: Much improved. (2) Bacteremia Is this a current diagnosis for this admission?: Yes (3) Acute renal failure superimposed on chronic kidney disease Qualifiers: Chronic kidney disease stage: stage 3 (moderate) Is this a current diagnosis for this admission?: Yes Plan: Improved continue IV fluids (4) Chronic renal failure Qualifiers: Chronic kidney disease stage: stage 3 (moderate) Qualified Code(s): N18.3 - Chronic kidney disease, stage 3 (moderate) Is this a current diagnosis for this admission?: Yes Plan: Because of worsening BUN and creatinine will decrease the Lasix (5) Diabetic infection of right foot Is this a current diagnosis for this admission?: Yes (7) Peripheral arterial disease Is this a current diagnosis for this admission?: Yes Plan: 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 (8) Diabetes mellitus Qualifiers: Diabetes mellitus type: type 2 Diabetes mellitus complication status: with kidney complications Diabetes mellitus complication detail: with nephropathy Diabetes mellitus intermission coordinator insulin use: with intermission coordinator use Qualified Code(s ): E11.21 - Type 2 diabetes mellitus with diabetic nephropathy; 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 The patient tolerated breakfast well (11) Metabolic acidosis Is this a current diagnosis for this admission?: Yes (12) Hypokalemia Is this a current diagnosis for this admission?: Yes
[2017-05-05] MEDS: MULTIVITS W-MIN/IRON SOLN 60 ML NG SCH (10:10)
[2017-05-05] MEDS: METOPROLOL SUCCINATE 25 MG TAB.SR.24H PO SCH ×2 (10:10→21:48)
[2017-05-05] MEDS: BUMETANIDE 1 MG TABLET NG SCH ×2 (10:10→17:31)
[2017-05-05] MEDS: MAGNESIUM OXIDE 400 MG TABLET PO SCH ×2 (10:11→17:31)
[2017-05-05] MEDS: DOCUSATE SODIUM 100 MG CAPSULE PO SCH ×2 (10:11→17:31)
[2017-05-05] MEDS: PHARMACY COMMUNICATION ORDER MC SCH ×2 (17:33)
[2017-05-05] MEDS: INSULIN GLARGINE,HUM.REC.ANLOG 1,000 UNIT/10 ML UNIT SUBCUT SCH (21:58)
--- NOTE | 2017-05-05 23:15 | Progress Note ---
Provider Note Provider Note: Palliative Care Follow up visit ! 2:40- 3:00PM S: Brief visit with patient, daughter and friend. Mrs. Alfonso is so happy to have NG tube out and to be out of ICU. Her voice is strong and her words clear. She continues to deny pain and is in good spirits. Mrs. Alfonso did talk with me about rehab, her prognosis and her attitude towards recovery. SHe is very grateful to have been given "another chance", and she wants to mkae the most of her life. SHe is grateful for thelove and support of daughter and friends. She is in a very good mood and is very positive. No problems swallowing or talking. She is worried that she is so weak. She is enjoying eating and has no problem swallowing. No respiratory distress. Some anxiety discussed about "looking at stump" O: VSS, no fever, alert oriented with some anxiety. Respirations clear and easy, no noted cough Denies heart pain or chortness breath, plse regular. Denies pain at stump right leg, Denies pain in left leg. Emotionally is good spirits, laughing and making plans for her future. A/P; Resolving sepsis: still getting IV antibiotics. No new evidence infection Healing amputation: denies pain, does nto want to "look at it" but she did ask her daughter to take a picture of her stump so she can compare when it heals more. Depression, symptoms noted by daughter before patient came to hospital, but patient is very optimistic and energetic now. Need for rehab: patient discussed rehab and even possibility of prosthesis with me today. Will continue to follow for support and symptoms, in addition for support of daughter.
[2017-05-06] MEDS: IMIPENEM/CILASTATIN SODIUM 500 MG in NORMAL SALINE 100 ML IV SCH ×2 (00:28→06:21)
[2017-05-06] MEDS: GABAPENTIN 100 MG CAPSULE PO SCH ×3 (06:21→22:05)
[2017-05-06 06:25] LABS: ALANINE AMINOTRANSFERASE 23 U/L (9-52); ALBUMIN 2.7 g/dL (3.5-5.0); ALKALINE PHOSPHATASE 101 U/L (38-126); ANION GAP 11 (5-19); ASPARTATE AMINO TRANSFERASE 43 U/L (14-36); BILIRUBIN,DIRECT 1.1 mg/dL (0.0-0.4); BILIRUBIN,TOTAL 1.4 mg/dL (0.2-1.3); BLOOD UREA NITROGEN 41 mg/dL (7-20); CALCIUM 8.6 mg/dL (8.4-10.2); CARBON DIOXIDE 27 mmol/L (22-30); CHLORIDE 100 mmol/L (98-107); CREATININE RESULT 1.39 mg/dL (0.52-1.25); GLUCOSE 109 mg/dL (75-110); MAGNESIUM 1.9 mg/dL (1.6-2.3); POTASSIUM 3.1 mmol/L (3.6-5.0); TOTAL PROTEIN 5.6 g/dL (6.3-8.2)
[2017-05-06 06:37] LABS: ABSOLUTE BASOPHILS # (AUTO) 0.1 10^3/uL (0.0-0.2); ABSOLUTE EOSINOPHILS # (AUTO) 0.2 10^3/uL (0.0-0.6); ABSOLUTE LYMPHOCYTES (AUTO) 0.6 10^3/uL (0.5-4.7); ABSOLUTE MONOCYTES (AUTO) 0.3 10^3/uL (0.1-1.4); BASOPHILS % (AUTO) 2.5 % (0-2); EOSINOPHILS % (AUTO) 3.7 % (0-6); HEMATOCRIT 29.2 % (36.0-47.0); HEMOGLOBIN 9.7 g/dL (12.0-15.5); HGB HCT DIFFERENCE -0.1; LYMPHOCYTES % (AUTO) 11.6 % (13-45); MEAN CORPUSCULAR HEMOGLOBIN 28.1 pg (27.0-33.4); MEAN CORPUSCULAR HGB CONC 33.3 g/dL (32.0-36.0); MEAN CORPUSCULAR VOLUME 85 fl (80-97); MONOCYTES % (AUTO) 5.5 % (3-13); RED BLOOD COUNT 3.46 10^6/uL (3.72-5.28); RED CELL DISTRIBUTION WIDTH 23.7 % (11.5-14.0); SEGMENTED NEUTROPHILS % (AUTO) 76.7 % (42-78); WHITE BLOOD COUNT 5.1 10^3/uL (4.0-10.5)
--- NOTE | 2017-05-06 07:40 | PDOC PROGRESS REPORT ---
Subjective Progress Note for:: 05/06/17 Subjective:: The patient states to feel better. She denies any pain. She has tolerated oral intake well. She does have a good urine output. Discussed the need to start with physical therapy and possibly out of bed to chair Physical Exam Vital Signs: Temp Pulse Resp BP Pulse Ox 98.1 F 97 16 94/50 L 90 L 05/06/17 05:11 05/06/17 07:00 05/06/17 05:11 05/06/17 05:11 05/06/17 05:11 Intake & Output 05/05/17 05/06/17 05/07/17 06:59 06:59 06:59 Intake Total 800 1137 Output Total 2900 1625 Balance -2100 -488 Weight 90.8 kg 92.3 kg General appearance: PRESENT: mild distress Head exam: PRESENT: atraumatic Eye exam: PRESENT: conjunctiva pink Neck exam: PRESENT: carotid bruit Respiratory exam: PRESENT: clear to auscultation lenore Cardiovascular exam: PRESENT: RRR, +S1, +S2 GI/Abdominal exam: PRESENT: normal bowel sounds, soft Extremities exam: PRESENT: right BKA Results Laboratory Results: 05/06/17 05:00 05/06/17 05:00 05/06/17 05/06/17 05:00 05:00 WBC 5.1 RBC 3.46 L Hgb 9.7 L Hct 29.2 L MCV 85 MCH 28.1 MCHC 33.3 RDW 23.7 H Plt Count 102 L Seg Neutrophils % 76.7 Lymphocytes % 11.6 L Monocytes % 5.5 Eosinophils % 3.7 Basophils % 2.5 H Absolute Neutrophils 4.0 Absolute Lymphocytes 0.6 Absolute Monocytes 0.3 Absolute Eosinophils 0.2 Absolute Basophils 0.1 Sodium 138.0 Potassium 3.1 L Chloride 100 Carbon Dioxide 27 Anion Gap 11 BUN 41 H Creatinine 1.39 H Est GFR ( Amer) 45 L Est GFR (Non-Af Amer) 37 L Glucose 109 Calcium 8.6 Magnesium 1.9 Total Bilirubin 1.4 H AST 43 H ALT 23 Alkaline Phosphatase 101 Total Protein 5.6 L Albumin 2.7 L 04/18/17 04/18/17 04/18/17 09:27 09:27 09:27 Creatine Kinase < 20 L CK-MB (CK-2) 0.84 Troponin I 0.264 NT-Pro-B Natriuret Pep [id number] H 04/18/17 04/18/17 04/30/17 15:00 15:00 05:50 Creatine Kinase < 20 L CK-MB (CK-2) 0.93 Troponin I 0.248 NT-Pro-B Natriuret Pep [id number] H Impressions: Foot X-Ray 04/15/17 16:57 IMPRESSION: Calcaneal spurs with no acute osseous abnormality. Degenerative joint changes as described. Abdomen/Pelvis CT 04/15/17 20:09 IMPRESSION: 1. Bilateral pleural effusions right greater than left. 2. Small volume ascites. 3. Subcutaneous edema. KUB X-Ray 04/19/17 09:54 IMPRESSION: NASOGASTRIC TUBE WITH THE TIP IN THE STOMACH. NO RADIOGRAPHIC EVIDENCE FOR ACUTE ABDOMINAL DISEASE. Abdomen Ultrasound 04/22/17 08:31 IMPRESSION: Mild ascites. Gallstones without gallbladder wall thickening. No biliary dilatation. Chest X-Ray 05/01/17 06:00 IMPRESSION: Persistent left lower lobe consolidation and left pleural effusion Assessment & Plan - Diagnosis (1) Severe sepsis Is this a current diagnosis for this admission?: Yes Plan: Resolved we will stop the imipenem (2) Bacteremia Is this a current diagnosis for this admission?: Yes (3) Acute renal failure superimposed on chronic kidney disease Qualifiers: Chronic kidney disease stage: stage 3 (moderate) Is this a current diagnosis for this admission?: Yes (4) Chronic renal failure Qualifiers: Chronic kidney disease stage: stage 3 (moderate) Qualified Code(s): N18.3 - Chronic kidney disease, stage 3 (moderate) Is this a current diagnosis for this admission?: Yes Plan: Continue diureses (5) Diabetic infection of right foot Is this a current diagnosis for this admission?: Yes Plan: Status post right BKA healing well (7) Peripheral arterial disease Is this a current diagnosis for this admission?: Yes (8) Diabetes mellitus Qualifiers: Diabetes mellitus type: type 2 Diabetes mellitus complication status: with kidney complications Diabetes mellitus complication detail: with nephropathy Diabetes mellitus nursing home insulin use: with nursing home use Qualified Code(s ): E11.21 - Type 2 diabetes mellitus with diabetic nephropathy; Z79.4 - rn long term care (current) use of insulin Is this a current diagnosis for this admission?: Yes (9) Hyponatremia Is this a current diagnosis for this admission?: Yes (10) Malnutrition Qualifiers: Malnutrition type: protein-calorie malnutrition Protein-calorie malnutrition severity: severe Qualified Code(s): E43 - Unspecified severe protein-calorie malnutrition Is this a current diagnosis for this admission?: Yes (11) Metabolic acidosis Is this a current diagnosis for this admission?: Yes (12) Hypokalemia Is this a current diagnosis for this admission?: Yes Plan: We will add p.o. potassium
[2017-05-06] MEDS: LEVOTHYROXINE SODIUM 0.05 MG TABLET NG SCH (08:24)
[2017-05-06] MEDS: POTASSIUM CHLORIDE 10 MEQ TABLET.SA PO SCH ×2 (09:55→22:05)
[2017-05-06] MEDS: DOCUSATE SODIUM 100 MG CAPSULE PO SCH ×2 (10:01→17:38)
[2017-05-06] MEDS: NYSTATIN TOPICAL POWDER 15 GM TP SCH ×2 (10:01→17:40)
[2017-05-06] MEDS: MULTIVITS W-MIN/IRON SOLN 60 ML NG SCH (10:01)
[2017-05-06] MEDS: MAGNESIUM OXIDE 400 MG TABLET PO SCH ×2 (10:01→17:39)
[2017-05-06] MEDS: METOPROLOL SUCCINATE 25 MG TAB.SR.24H PO SCH ×2 (10:08→22:01)
[2017-05-06] MEDS: BUMETANIDE 1 MG TABLET NG SCH ×2 (10:09→17:37)
[2017-05-06] MEDS: INSULIN GLARGINE,HUM.REC.ANLOG 1,000 UNIT/10 ML UNIT SUBCUT SCH (22:01)
[2017-05-06] MEDS: INSULIN LISPRO 100 UNIT/ML 3 ML VIAL SUBCUT PRN (22:01)
[2017-05-07 06:04] LABS: HEMATOCRIT 28.3 % (36.0-47.0); HEMOGLOBIN 9.6 g/dL (12.0-15.5); HGB HCT DIFFERENCE 0.5; MEAN CORPUSCULAR HEMOGLOBIN 28.6 pg (27.0-33.4); MEAN CORPUSCULAR HGB CONC 33.8 g/dL (32.0-36.0); MEAN CORPUSCULAR VOLUME 85 fl (80-97); RED BLOOD COUNT 3.34 10^6/uL (3.72-5.28); RED CELL DISTRIBUTION WIDTH 24.2 % (11.5-14.0); WHITE BLOOD COUNT 4.8 10^3/uL (4.0-10.5)
[2017-05-07 06:23] LABS: ANION GAP 9 (5-19); BLOOD UREA NITROGEN 43 mg/dL (7-20); CALCIUM 8.7 mg/dL (8.4-10.2); CARBON DIOXIDE 26 mmol/L (22-30); CHLORIDE 102 mmol/L (98-107); CREATININE RESULT 1.35 mg/dL (0.52-1.25); GLUCOSE 93 mg/dL (75-110); POTASSIUM 3.6 mmol/L (3.6-5.0); SODIUM 136.8 mmol/L (137-145)
[2017-05-07 06:28] LABS: ANISOCYTOSIS 3+; BAND NEUTROPHILS % (MANUAL) 1 % (3-5); BASOPHILS % (MANUAL) 0 % (0-2); EOSINOPHILS % (MANUAL) 7 % (0-6); LYMPHOCYTES % (MANUAL) 19 % (13-45); ROULEAUX 2+; TOTAL CELLS COUNTED 100; TOXIC GRANULATION SLIGHT
[2017-05-07] MEDS: GABAPENTIN 100 MG CAPSULE PO SCH ×3 (06:39→21:08)
--- NOTE | 2017-05-07 06:58 | PDOC PROGRESS REPORT ---
Subjective Progress Note for:: 05/07/17 Subjective:: 71-year-old white female status post below right knee amputation and flap closure. Patient lying comfortably in bed this morning and reports "I am trying to be good". She notes that she is comfortable and not in any pain and that she has been seen by physical therapy and made progress. No other complaints at this time. Physical Exam Vital Signs: Temp Pulse Resp BP Pulse Ox 36.7 C 88 20 91/52 L 100 05/07/17 03:21 05/07/17 03:21 05/07/17 03:21 05/07/17 03:21 05/07/17 03:21 Intake & Output 05/05/17 05/06/17 05/07/17 06:59 06:59 06:59 Intake Total 800 1137 716 Output Total 2900 1627 1450 Balance -2100 -488 -734 Weight 90.8 kg 92.3 kg 95 kg General appearance: PRESENT: no acute distress, well-developed, well-nourished Head exam: PRESENT: atraumatic, normocephalic Vascular exam: PRESENT: normal capillary refill Additional comments: Patient's left lower extremity is extended with no postop dressing in place. Below-knee amputation and flap closure appears to be healing appropriately with moderate edema about the right lower extremity stump. Sutures are in place and intact. There is no evidence of ecchymosis, induration or purulent drainage. She has brisk capillary refill on contralateral lower extremity pulses are +2 sensorimotor functions are intact and distal neurovascular exam is intact. Additional comments: Patient is nonambulatory at this time but continues to work with physical and Occupational Therapy. Psychiatric exam: PRESENT: appropriate affect, normal mood. ABSENT: homicidal ideation, suicidal ideation Additional comments: Patient's disposition is much improved from previous encounters in the ICU. Skin exam: PRESENT: dry, intact, warm. ABSENT: cyanosis, rash Results Laboratory Results: 05/07/17 05:28 05/07/17 05:28 05/07/17 05/07/17 05:28 05:28 WBC 4.8 RBC 3.34 L Hgb 9.6 L Hct 28.3 L MCV 85 MCH 28.6 MCHC 33.8 RDW 24.2 H Plt Count 104 L Seg Neutrophils % Not Reportable Lymphocytes % Not Reportable Monocytes % Not Reportable Eosinophils % Not Reportable Basophils % Not Reportable Absolute Neutrophils Not Reportable Absolute Lymphocytes Not Reportable Absolute Monocytes Not Reportable Absolute Eosinophils Not Reportable Absolute Basophils Not Reportable Sodium 136.8 L Potassium 3.6 Chloride 102 Carbon Dioxide 26 Anion Gap 9 BUN 43 H Creatinine 1.35 H Est GFR ( Amer) 47 L Est GFR (Non-Af Amer) 39 L Glucose 93 Calcium 8.7 04/18/17 04/18/17 04/18/17 09:27 09:27 09:27 Creatine Kinase < 20 L CK-MB (CK-2) 0.84 Troponin I 0.264 NT-Pro-B Natriuret Pep [id number] H 04/18/17 04/18/17 04/30/17 15:00 15:00 05:50 Creatine Kinase < 20 L CK-MB (CK-2) 0.93 Troponin I 0.248 NT-Pro-B Natriuret Pep [id number] H Impressions: Foot X-Ray 04/15/17 16:57 IMPRESSION: Calcaneal spurs with no acute osseous abnormality. Degenerative joint changes as described. Abdomen/Pelvis CT 04/15/17 20:09 IMPRESSION: 1. Bilateral pleural effusions right greater than left. 2. Small volume ascites. 3. Subcutaneous edema. KUB X-Ray 04/19/17 09:54 IMPRESSION: NASOGASTRIC TUBE WITH THE TIP IN THE STOMACH. NO RADIOGRAPHIC EVIDENCE FOR ACUTE ABDOMINAL DISEASE. Abdomen Ultrasound 04/22/17 08:31 IMPRESSION: Mild ascites. Gallstones without gallbladder wall thickening. No biliary dilatation. Chest X-Ray 05/01/17 06:00 IMPRESSION: Persistent left lower lobe consolidation and left pleural effusion Assessment & Plan - Diagnosis (1) Severe sepsis Is this a current diagnosis for this admission?: Yes - Plan Summary Plan Summary: 71-year-old white female status post below right knee amputation and flap closure for resolution of sepsis. Patient is doing well and making progress with physical therapy and Occupational Therapy. There is no evidence of infection of the below-knee amputation sutures are intact and wound appears to be healing appropriately. She will remain in the hospital until arrangements for her discharged home or assisted facility are finalized.
[2017-05-07] MEDS: LEVOTHYROXINE SODIUM 0.05 MG TABLET NG SCH (08:18)
--- NOTE | 2017-05-07 08:39 | PDOC PROGRESS REPORT ---
Subjective Progress Note for:: 05/07/17 Subjective:: The patient states to feel much better. He was seen by physical therapy but was only manage to sit at the edge of the bed. Physical Exam Vital Signs: Temp Pulse Resp BP Pulse Ox 98.5 F 87 16 96/49 L 100 05/07/17 07:10 05/07/17 07:10 05/07/17 07:10 05/07/17 07:10 05/07/17 07:10 Intake & Output 05/06/17 05/07/17 05/08/17 06:59 06:59 06:59 Intake Total 1137 946 Output Total 1625 1525 Balance -488 -579 Weight 92.3 kg 95 kg General appearance: PRESENT: no acute distress Head exam: PRESENT: atraumatic Eye exam: PRESENT: conjunctiva pink Neck exam: PRESENT: carotid bruit Respiratory exam: PRESENT: clear to auscultation lenore Cardiovascular exam: PRESENT: RRR, +S1, +S2 GI/Abdominal exam: PRESENT: normal bowel sounds, soft Extremities exam: PRESENT: right BKA Results Laboratory Results: 05/07/17 05:28 05/07/17 05:28 05/07/17 05/07/17 05:28 05:28 WBC 4.8 RBC 3.34 L Hgb 9.6 L Hct 28.3 L MCV 85 MCH 28.6 MCHC 33.8 RDW 24.2 H Plt Count 104 L Seg Neutrophils % Not Reportable Lymphocytes % Not Reportable Monocytes % Not Reportable Eosinophils % Not Reportable Basophils % Not Reportable Absolute Neutrophils Not Reportable Absolute Lymphocytes Not Reportable Absolute Monocytes Not Reportable Absolute Eosinophils Not Reportable Absolute Basophils Not Reportable Sodium 136.8 L Potassium 3.6 Chloride 102 Carbon Dioxide 26 Anion Gap 9 BUN 43 H Creatinine 1.35 H Est GFR ( Amer) 47 L Est GFR (Non-Af Amer) 39 L Glucose 93 Calcium 8.7 04/18/17 04/18/17 04/18/17 09:27 09:27 09:27 Creatine Kinase < 20 L CK-MB (CK-2) 0.84 Troponin I 0.264 NT-Pro-B Natriuret Pep [id number] H 04/18/17 04/18/17 04/30/17 15:00 15:00 05:50 Creatine Kinase < 20 L CK-MB (CK-2) 0.93 Troponin I 0.248 NT-Pro-B Natriuret Pep [id number] H Impressions: Foot X-Ray 04/15/17 16:57 IMPRESSION: Calcaneal spurs with no acute osseous abnormality. Degenerative joint changes as described. Abdomen/Pelvis CT 04/15/17 20:09 IMPRESSION: 1. Bilateral pleural effusions right greater than left. 2. Small volume ascites. 3. Subcutaneous edema. KUB X-Ray 04/19/17 09:54 IMPRESSION: NASOGASTRIC TUBE WITH THE TIP IN THE STOMACH. NO RADIOGRAPHIC EVIDENCE FOR ACUTE ABDOMINAL DISEASE. Abdomen Ultrasound 04/22/17 08:31 IMPRESSION: Mild ascites. Gallstones without gallbladder wall thickening. No biliary dilatation. Chest X-Ray 05/01/17 06:00 IMPRESSION: Persistent left lower lobe consolidation and left pleural effusion Assessment & Plan - Diagnosis (1) Severe sepsis Is this a current diagnosis for this admission?: Yes Plan: Resolved we will stop the imipenem (2) Bacteremia Is this a current diagnosis for this admission?: Yes (3) Acute renal failure superimposed on chronic kidney disease Qualifiers: Chronic kidney disease stage: stage 3 (moderate) Is this a current diagnosis for this admission?: Yes Plan: Improved continue IV fluids (4) Chronic renal failure Qualifiers: Chronic kidney disease stage: stage 3 (moderate) Qualified Code(s): N18.3 - Chronic kidney disease, stage 3 (moderate) Is this a current diagnosis for this admission?: Yes (5) Diabetic infection of right foot Is this a current diagnosis for this admission?: Yes (6) Peripheral arterial occlusive disease Plan: Very poor peripheral circulation (7) Peripheral arterial disease Is this a current diagnosis for this admission?: Yes (8) Diabetes mellitus Qualifiers: Diabetes mellitus type: type 2 Diabetes mellitus complication status: with kidney complications Diabetes mellitus complication detail: with nephropathy Diabetes 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 The patient is having good food intake (11) Metabolic acidosis Is this a current diagnosis for this admission?: Yes Plan: Improved continue current treatment (12) Hypokalemia Is this a current diagnosis for this admission?: Yes Plan: Resolved with supplementation of potassium
--- NOTE | 2017-05-07 10:47 | PDOC PROGRESS REPORT ---
Subjective Progress Note for:: 05/07/17 Subjective:: Doing well without complaints Physical Exam Vital Signs: Temp Pulse Resp BP Pulse Ox 98.5 F 87 16 96/49 L 100 05/07/17 07:10 05/07/17 07:10 05/07/17 07:10 05/07/17 07:10 05/07/17 07:10 Intake & Output 05/06/17 05/07/17 05/08/17 06:59 06:59 06:59 Intake Total 1137 946 Output Total 1625 1525 Balance -488 -579 Weight 92.3 kg 95 kg General appearance: PRESENT: no acute distress, cooperative, disheveled, well- developed Head exam: PRESENT: atraumatic, normocephalic Eye exam: PRESENT: conjunctiva pale, EOMI Mouth exam: PRESENT: dry mucosa, neck supple, tongue midline Neck exam: ABSENT: carotid bruit, JVD, lymphadenopathy, thyromegaly Respiratory exam: PRESENT: decreased breath sounds, prolonged expiratory phas, rhonchi - Scattered, symmetrical, unlabored, wheezes - Rare. ABSENT: crackles, rales, retraction, stridor, tachypnea Cardiovascular exam: PRESENT: RRR, +S1, +S2 Pulses: PRESENT: normal radial pulses GI/Abdominal exam: PRESENT: normal bowel sounds, soft. ABSENT: distended, guarding, mass, organolmegaly, rebound, tenderness Rectal exam: PRESENT: deferred Gentrourinary exam: PRESENT: indwelling catheter Extremities exam: PRESENT: other - Right BKA Neurological exam: PRESENT: alert, awake. ABSENT: altered Skin exam: PRESENT: dry, warm Results Laboratory Results: 05/07/17 05:28 05/07/17 05:28 05/07/17 05/07/17 05:28 05:28 WBC 4.8 RBC 3.34 L Hgb 9.6 L Hct 28.3 L MCV 85 MCH 28.6 MCHC 33.8 RDW 24.2 H Plt Count 104 L Seg Neutrophils % Not Reportable Lymphocytes % Not Reportable Monocytes % Not Reportable Eosinophils % Not Reportable Basophils % Not Reportable Absolute Neutrophils Not Reportable Absolute Lymphocytes Not Reportable Absolute Monocytes Not Reportable Absolute Eosinophils Not Reportable Absolute Basophils Not Reportable Sodium 136.8 L Potassium 3.6 Chloride 102 Carbon Dioxide 26 Anion Gap 9 BUN 43 H Creatinine 1.35 H Est GFR ( Amer) 47 L Est GFR (Non-Af Amer) 39 L Glucose 93 Calcium 8.7 04/18/17 04/18/17 04/18/17 09:27 09:27 09:27 Creatine Kinase < 20 L CK-MB (CK-2) 0.84 Troponin I 0.264 NT-Pro-B Natriuret Pep [id number] H 04/18/17 04/18/17 04/30/17 15:00 15:00 05:50 Creatine Kinase < 20 L CK-MB (CK-2) 0.93 Troponin I 0.248 NT-Pro-B Natriuret Pep 01475 H Impressions: Foot X-Ray 04/15/17 16:57 IMPRESSION: Calcaneal spurs with no acute osseous abnormality. Degenerative joint changes as described. Abdomen/Pelvis CT 04/15/17 20:09 IMPRESSION: 1. Bilateral pleural effusions right greater than left. 2. Small volume ascites. 3. Subcutaneous edema. KUB X-Ray 04/19/17 09:54 IMPRESSION: NASOGASTRIC TUBE WITH THE TIP IN THE STOMACH. NO RADIOGRAPHIC EVIDENCE FOR ACUTE ABDOMINAL DISEASE. Abdomen Ultrasound 04/22/17 08:31 IMPRESSION: Mild ascites. Gallstones without gallbladder wall thickening. No biliary dilatation. Chest X-Ray 05/01/17 06:00 IMPRESSION: Persistent left lower lobe consolidation and left pleural effusion Assessment & Plan - Diagnosis (1) Septic shock Is this a current diagnosis for this admission?: No (2) Right BKA infection Is this a current diagnosis for this admission?: Yes (3) Chronic renal failure Qualifiers: Chronic kidney disease stage: stage 3 (moderate) Qualified Code(s): N18.3 - Chronic kidney disease, stage 3 (moderate) Is this a current diagnosis for this admission?: Yes (4) Severe peripheral arterial disease Is this a current diagnosis for this admission?: Yes Plan: Improving (5) Malnutrition Qualifiers: Malnutrition type: protein-calorie malnutrition Protein-calorie malnutrition severity: severe Qualified Code(s): E43 - Unspecified severe protein-calorie malnutrition Is this a current diagnosis for this admission?: Yes (6) Thrombocytopenia Is this a current diagnosis for this admission?: Yes Plan: Labs- All tests 24 hr 05/01/17 05/02/17 05/03/17 04:55 05:30 06:35 Plt Count 61 L 64 L 72 L 05/04/17 05/06/17 05/07/17 04:02 05:00 05:28 Plt Count 70 L 102 L 104 L 04/15/17 17:54 Urine Culture - Final Catheterized Urine Escherichia Coli 04/15/17 16:24 Blood Culture - Final Blood Pasteurella Multocida Staphylococcus Simulans 04/15/17 16:24 Blood Culture - Final Blood Pasteurella Multocida
[2017-05-07] MEDS: POTASSIUM CHLORIDE 10 MEQ TABLET.SA PO SCH ×2 (11:26→21:07)
[2017-05-07] MEDS: NYSTATIN TOPICAL POWDER 15 GM TP SCH ×2 (11:26→17:33)
[2017-05-07] MEDS: METOPROLOL SUCCINATE 25 MG TAB.SR.24H PO SCH ×2 (11:27→21:35)
[2017-05-07] MEDS: MAGNESIUM OXIDE 400 MG TABLET PO SCH ×2 (11:27→17:33)
[2017-05-07] MEDS: DOCUSATE SODIUM 100 MG CAPSULE PO SCH ×2 (11:27→17:33)
[2017-05-07] MEDS: BUMETANIDE 1 MG TABLET NG SCH (11:28)
[2017-05-07] MEDS: MULTIVITS W-MIN/IRON SOLN 60 ML NG SCH (11:28)
[2017-05-07] MEDS: INSULIN GLARGINE,HUM.REC.ANLOG 1,000 UNIT/10 ML UNIT SUBCUT SCH (21:58)
--- NOTE | 2017-05-07 23:31 | Progress Note ---
Provider Note Provider Note: Palliative care follow up visit: 05/07/17 11:05-11:20 AM S: Patient recovering well from amputation lower extremity and severe sepsis with septic shock. Antibiotics have been discontinued, She is awake, alert, speech clear and mentation is good. She is talking about her amputation, her rehab and her return to a productive life. Daughter and friend at bedside. Patient denies pain, states she is eating well and sleping well. O: Alert, oriented, Neurologically intact with clear speech and DUFF. Respirations clear and unlabored. Attitude is very positive and stable. She has much more interest in caring for herself now than she had before admission per daughter. Today patient is again talking about what she needs to do to help herself heal and be active. She is dealing with the loss of her leg in a good way and wants to learn to transfer etc independently. No new problems reported. No pain or other symptoms. Hoping to go to [facility] for rehab. resource management planner working on this placement. Daughter very appreciative of care at [facility].
[2017-05-08 05:13] LABS: ABSOLUTE EOSINOPHILS # (AUTO) 0.3 10^3/uL (0.0-0.6); ABSOLUTE LYMPHOCYTES (AUTO) 1.1 10^3/uL (0.5-4.7); ABSOLUTE MONOCYTES (AUTO) 0.3 10^3/uL (0.1-1.4); BASOPHILS % (AUTO) 0.8 % (0-2); EOSINOPHILS % (AUTO) 5.3 % (0-6); HEMATOCRIT 31.8 % (36.0-47.0); HEMOGLOBIN 10.5 g/dL (12.0-15.5); HGB HCT DIFFERENCE -0.3; LYMPHOCYTES % (AUTO) 19.1 % (13-45); MEAN CORPUSCULAR HEMOGLOBIN 28.3 pg (27.0-33.4); MEAN CORPUSCULAR HGB CONC 33.1 g/dL (32.0-36.0); MEAN CORPUSCULAR VOLUME 86 fl (80-97); RED BLOOD COUNT 3.71 10^6/uL (3.72-5.28); RED CELL DISTRIBUTION WIDTH 24.7 % (11.5-14.0); SEGMENTED NEUTROPHILS % (AUTO) 68.8 % (42-78); WHITE BLOOD COUNT 5.8 10^3/uL (4.0-10.5)
[2017-05-08 05:37] LABS: ANION GAP 11 (5-19); BLOOD UREA NITROGEN 45 mg/dL (7-20); CALCIUM 8.9 mg/dL (8.4-10.2); CARBON DIOXIDE 24 mmol/L (22-30); CHLORIDE 103 mmol/L (98-107); CREATININE RESULT 1.36 mg/dL (0.52-1.25); GLUCOSE 89 mg/dL (75-110); POTASSIUM 4.4 mmol/L (3.6-5.0); SODIUM 137.6 mmol/L (137-145)
[2017-05-08 05:43] LABS: ANISOCYTOSIS 3+; POIKILOCYTOSIS 1+
[2017-05-08] MEDS: GABAPENTIN 100 MG CAPSULE PO SCH ×3 (06:45→22:32)
--- NOTE | 2017-05-08 07:38 | PDOC PROGRESS REPORT ---
Subjective Progress Note for:: 05/08/17 Subjective:: The patient states to feel relatively well. She has worked with physical therapy yesterday and was able to sit up with some discomfort. Physical Exam Vital Signs: Temp Pulse Resp BP Pulse Ox 97.8 F 83 20 85/49 L 100 05/08/17 04:49 05/08/17 04:49 05/08/17 04:49 05/08/17 04:49 05/08/17 04:49 Intake & Output 05/07/17 05/08/17 05/09/17 06:59 06:59 06:59 Intake Total 946 890 Output Total 1525 800 Balance -579 90 Weight 95 kg 92.1 kg General appearance: PRESENT: no acute distress Eye exam: PRESENT: conjunctiva pink Neck exam: PRESENT: carotid bruit Respiratory exam: PRESENT: clear to auscultation lenore Cardiovascular exam: PRESENT: RRR, +S1, +S2 GI/Abdominal exam: PRESENT: normal bowel sounds, soft Extremities exam: PRESENT: right BKA Results Laboratory Results: 05/08/17 04:00 05/08/17 04:00 05/08/17 05/08/17 04:00 04:00 WBC 5.8 RBC 3.71 L Hgb 10.5 L Hct 31.8 L MCV 86 MCH 28.3 MCHC 33.1 RDW 24.7 H Plt Count 118 L Seg Neutrophils % 68.8 Lymphocytes % 19.1 Monocytes % 6.0 Eosinophils % 5.3 Basophils % 0.8 Absolute Neutrophils 4.0 Absolute Lymphocytes 1.1 Absolute Monocytes 0.3 Absolute Eosinophils 0.3 Absolute Basophils 0.0 Sodium 137.6 Potassium 4.4 Chloride 103 Carbon Dioxide 24 Anion Gap 11 BUN 45 H Creatinine 1.36 H Est GFR ( Amer) 47 L Est GFR (Non-Af Amer) 38 L Glucose 89 Calcium 8.9 04/18/17 04/18/17 04/18/17 09:27 09:27 09:27 Creatine Kinase < 20 L CK-MB (CK-2) 0.84 Troponin I 0.264 NT-Pro-B Natriuret Pep [id number] H 04/18/17 04/18/17 04/30/17 15:00 15:00 05:50 Creatine Kinase < 20 L CK-MB (CK-2) 0.93 Troponin I 0.248 NT-Pro-B Natriuret Pep [id number] H Impressions: Foot X-Ray 04/15/17 16:57 IMPRESSION: Calcaneal spurs with no acute osseous abnormality. Degenerative joint changes as described. Abdomen/Pelvis CT 04/15/17 20:09 IMPRESSION: 1. Bilateral pleural effusions right greater than left. 2. Small volume ascites. 3. Subcutaneous edema. KUB X-Ray 04/19/17 09:54 IMPRESSION: NASOGASTRIC TUBE WITH THE TIP IN THE STOMACH. NO RADIOGRAPHIC EVIDENCE FOR ACUTE ABDOMINAL DISEASE. Abdomen Ultrasound 04/22/17 08:31 IMPRESSION: Mild ascites. Gallstones without gallbladder wall thickening. No biliary dilatation. Chest X-Ray 05/01/17 06:00 IMPRESSION: Persistent left lower lobe consolidation and left pleural effusion Assessment & Plan - Diagnosis (1) Severe sepsis Is this a current diagnosis for this admission?: Yes (2) Bacteremia Is this a current diagnosis for this admission?: Yes (3) Acute renal failure superimposed on chronic kidney disease Qualifiers: Chronic kidney disease stage: stage 3 (moderate) Is this a current diagnosis for this admission?: Yes (4) Chronic renal failure Qualifiers: Chronic kidney disease stage: stage 3 (moderate) Qualified Code(s): N18.3 - Chronic kidney disease, stage 3 (moderate) Is this a current diagnosis for this admission?: Yes Plan: Continue diureses (5) Diabetic infection of right foot Is this a current diagnosis for this admission?: Yes Plan: The right foot BKA stump is healing well (7) Peripheral arterial disease Is this a current diagnosis for this admission?: Yes (8) Diabetes mellitus Qualifiers: Diabetes mellitus type: type 2 Diabetes mellitus complication status: with kidney complications Diabetes mellitus complication detail: with nephropathy 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: with buttermilk drier operator use Qualified Code(s ): E11.21 - Type 2 diabetes mellitus with diabetic nephropathy; Z79.4 - watermaster (current) use of insulin Is this a current diagnosis for this admission?: Yes Plan: Continue with insulin treatments (9) Hyponatremia Is this a current diagnosis for this admission?: Yes (10) Malnutrition Qualifiers: Malnutrition type: protein-calorie malnutrition Protein-calorie malnutrition severity: severe Qualified Code(s): E43 - Unspecified severe protein-calorie malnutrition Is this a current diagnosis for this admission?: Yes (11) Metabolic acidosis Is this a current diagnosis for this admission?: Yes (12) Hypokalemia Is this a current diagnosis for this admission?: Yes
[2017-05-08] MEDS: LEVOTHYROXINE SODIUM 0.05 MG TABLET NG SCH (08:49)
[2017-05-08] MEDS: MAGNESIUM OXIDE 400 MG TABLET PO SCH ×2 (11:41→17:43)
[2017-05-08] MEDS: BUMETANIDE 1 MG TABLET NG SCH (11:42)
[2017-05-08] MEDS: DOCUSATE SODIUM 100 MG CAPSULE PO SCH ×2 (11:42→17:42)
[2017-05-08] MEDS: METOPROLOL SUCCINATE 25 MG TAB.SR.24H PO SCH ×2 (11:42→22:48)
[2017-05-08] MEDS: POTASSIUM CHLORIDE 10 MEQ TABLET.SA PO SCH ×2 (11:43→22:32)
[2017-05-08] MEDS: NYSTATIN TOPICAL POWDER 15 GM TP SCH ×2 (11:44→17:43)
[2017-05-08] MEDS: MULTIVITS W-MIN/IRON SOLN 60 ML NG SCH (11:44)
[2017-05-08] MEDS: INSULIN GLARGINE,HUM.REC.ANLOG 1,000 UNIT/10 ML UNIT SUBCUT SCH (22:31)
[2017-05-08] MEDS: INSULIN LISPRO 100 UNIT/ML 3 ML VIAL SUBCUT PRN (22:32)
[2017-05-09] MEDS: GABAPENTIN 100 MG CAPSULE PO SCH ×3 (06:25→21:43)
[2017-05-09] MEDS: NYSTATIN TOPICAL POWDER 15 GM TP SCH ×2 (09:32→18:23)
[2017-05-09] MEDS: DOCUSATE SODIUM 100 MG CAPSULE PO SCH ×2 (09:32→18:24)
[2017-05-09] MEDS: MAGNESIUM OXIDE 400 MG TABLET PO SCH ×2 (09:32→18:23)
[2017-05-09] MEDS: LEVOTHYROXINE SODIUM 0.05 MG TABLET NG SCH (09:32)
[2017-05-09] MEDS: METOPROLOL SUCCINATE 25 MG TAB.SR.24H PO SCH ×2 (09:33→21:43)
[2017-05-09] MEDS: BUMETANIDE 1 MG TABLET NG SCH ×2 (09:34→18:22)
[2017-05-09] MEDS ORDERED: SPIRONOLACTONE 25 MG TABLET PO SCH (10:00)
[2017-05-09] MEDS: MULTIVITS W-MIN/IRON SOLN 60 ML NG SCH (11:46)
--- NOTE | 2017-05-09 16:20 | PDOC PROGRESS REPORT ---
Subjective Progress Note for:: 05/09/17 Subjective:: Patient reports she is feeling fine. She has no new complaints. Patient denies chest pain, shortness of breath, abdominal pain, nausea, vomiting, fevers , chills, diarrhea, constipation, headache, new onset weakness. Physical Exam Vital Signs: Temp Pulse Resp BP Pulse Ox 97.6 F 89 16 94/59 L 100 05/09/17 04:16 05/09/17 04:27 05/09/17 04:16 05/09/17 04:27 05/09/17 04:27 Intake & Output 05/08/17 05/09/17 05/10/17 06:59 06:59 06:59 Intake Total 890 300 Output Total 800 700 Balance 90 -400 Weight 92.1 kg 92.2 kg Exam: General: chronically ill appearing, Awake oriented x3, no acute respiratory distress HEENT: AT/NC, PERRL, EOMI, oropharynx is moist, pink, no scleral icterus, no conjunctival injection, poor dentition Neck: + JVD, trachea midline Chest: Bilateral rales CV: Regular rate and rhythm, normal S1 and S2, no rub or gallop Abdomen: Soft, nontender to palpation, nondistended, active bowel sounds; no rebound, rigidity, or guarding Extremities: No cyanosis, clubbing; 2+ edema LLE ; LUE larger than right; right BKA Neuro: Cranial nerves II through XII are grossly intact without focal deficits; awake alert and oriented x3 Psych: normal mood and affect Skin: LLE chronic venous stasis Results Laboratory Results: 05/08/17 04:00 05/08/17 04:00 04/18/17 04/18/17 04/18/17 09:27 09:27 09:27 Creatine Kinase < 20 L CK-MB (CK-2) 0.84 Troponin I 0.264 NT-Pro-B Natriuret Pep 23823 H 04/18/17 04/18/17 04/30/17 15:00 15:00 05:50 Creatine Kinase < 20 L CK-MB (CK-2) 0.93 Troponin I 0.248 NT-Pro-B Natriuret Pep [id number] H Impressions: Foot X-Ray 04/15/17 16:57 IMPRESSION: Calcaneal spurs with no acute osseous abnormality. Degenerative joint changes as described. Abdomen/Pelvis CT 04/15/17 20:09 IMPRESSION: 1. Bilateral pleural effusions right greater than left. 2. Small volume ascites. 3. Subcutaneous edema. KUB X-Ray 04/19/17 09:54 IMPRESSION: NASOGASTRIC TUBE WITH THE TIP IN THE STOMACH. NO RADIOGRAPHIC EVIDENCE FOR ACUTE ABDOMINAL DISEASE. Abdomen Ultrasound 04/22/17 08:31 IMPRESSION: Mild ascites. Gallstones without gallbladder wall thickening. No biliary dilatation. Chest X-Ray 05/01/17 06:00 IMPRESSION: Persistent left lower lobe consolidation and left pleural effusion Assessment & Plan - Diagnosis (1) Acute on chronic systolic (congestive) heart failure Is this a current diagnosis for this admission?: Yes Plan: Patient with acute on chronic systolic congestive heart failure. Echo performed on 04/30/2017 reveals an EF of 20-25%, apical wall akinesis, moderate tricuspid regurgitation, moderate pulmonary hypertension. Patient is currently hypervolemic. No JUSTIN or ARB at this time secondary to renal failure. Initiate patient on spironolactone, monitor her potassium. Stop potassium supplementation. Generic Name Dose Route Start Last Admin Trade Name Freq PRN Reason Stop Dose Admin Bumetanide 2 mg 05/09/17 18:00 Bumex 1 Mg Tablet NG 06/08/17 17:59 BID [facility] Metoprolol Succinate 25 mg 05/01/17 10:00 05/09/17 09:33 Toprol Xl 25 Mg Tab.Sr PO 05/31/17 09:59 25 mg Q12 [facility] Spironolactone 25 mg 05/09/17 10:00 05/09/17 09:33 Aldactone 25 Mg Tablet PO 06/08/17 09:59 25 mg DAILY [facility] (2) Left lower lobe pneumonia Qualifiers: Pneumonia type: due to unspecified organism Qualified Code(s): J18.1 - Lobar pneumonia, unspecified organism Is this a current diagnosis for this admission?: Yes Plan: Patient completed imipenem for this. (3) Septic shock Is this a current diagnosis for this admission?: No Plan: Resolved. Treated with imipenem for her E. coli and Pasteurella. Patient is postoperative from her BKA for septic shock. (4) Severe sepsis Is this a current diagnosis for this admission?: Yes (5) Acute renal failure superimposed on chronic kidney disease Qualifiers: Chronic kidney disease stage: stage 3 (moderate) Is this a current diagnosis for this admission?: Yes Plan: Patient's baseline creatinine appears to be between 1.3 and 1.5. Patient's current dysfunction likely secondary to her sepsis, which has resolved and feel the patient is currently volume overloaded and her creatinine is a reflection of this. 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 (9) Diabetic infection of right foot Is this a current diagnosis for this admission?: Yes (10) Hypokalemia Is this a current diagnosis for this admission?: Yes (11) Hyponatremia Is this a current diagnosis for this admission?: Yes (12) Malnutrition Qualifiers: Malnutrition type: protein-calorie malnutrition Protein-calorie malnutrition severity: severe Qualified Code(s): E43 - Unspecified severe protein-calorie malnutrition Is this a current diagnosis for this admission?: Yes Plan: Patient with severe protein calorie malnourishment compromising bodily function and wound healing. Appreciate dietary input. Resumed oral feedings with good success. (13) Severe peripheral arterial disease Is this a current diagnosis for this admission?: Yes (14) Thrombocytopenia Is this a current diagnosis for this admission?: Yes Plan: Improved. Secondary to her underlying sepsis. HIT antibodies are negative. Hematology also agrees with this assessment. 05/08/17 04:00 Plt Count 118 L (15) Superficial venous thrombosis of arm Qualifiers: Laterality: left Qualified Code(s): I82.612 - Acute embolism and thrombosis of superficial veins of left upper extremity Is this a current diagnosis for this admission?: Yes (16) Moderate to severe pulmonary hypertension Is this a current diagnosis for this admission?: Yes (17) Morbid obesity with BMI of 40.0-44.9, adult Is this a current diagnosis for this admission?: Yes - Time Time Spent with patient: 25-34 minutes Medications reviewed and adjusted accordingly: Yes Anticipated discharge: Acute Rehab Within: when bed available
[2017-05-09] MEDS: INSULIN GLARGINE,HUM.REC.ANLOG 1,000 UNIT/10 ML UNIT SUBCUT SCH (21:42)
[2017-05-09] MEDS: INSULIN LISPRO 100 UNIT/ML 3 ML VIAL SUBCUT PRN (21:54)
[2017-05-10] MEDS: GABAPENTIN 100 MG CAPSULE PO SCH ×3 (06:39→22:03)
[2017-05-10 08:26] LABS: ANION GAP 11 (5-19); BLOOD UREA NITROGEN 44 mg/dL (7-20); CALCIUM 8.9 mg/dL (8.4-10.2); CARBON DIOXIDE 25 mmol/L (22-30); CHLORIDE 105 mmol/L (98-107); CREATININE RESULT 1.33 mg/dL (0.52-1.25); GLUCOSE 100 mg/dL (75-110); MAGNESIUM 2.1 mg/dL (1.6-2.3); SODIUM 140.6 mmol/L (137-145)
[2017-05-10] MEDS: BUMETANIDE 1 MG TABLET NG SCH ×2 (09:38→17:24)
[2017-05-10] MEDS: LEVOTHYROXINE SODIUM 0.05 MG TABLET NG SCH (09:39)
[2017-05-10] MEDS: SPIRONOLACTONE 25 MG TABLET PO SCH (09:39)
[2017-05-10] MEDS: MAGNESIUM OXIDE 400 MG TABLET PO SCH ×2 (09:39→17:24)
[2017-05-10] MEDS: METOPROLOL SUCCINATE 25 MG TAB.SR.24H PO SCH ×2 (09:39→21:58)
[2017-05-10] MEDS: MULTIVITS W-MIN/IRON SOLN 60 ML NG SCH (09:40)
[2017-05-10] MEDS: NYSTATIN TOPICAL POWDER 15 GM TP SCH ×2 (09:40→17:25)
[2017-05-10] MEDS: DOCUSATE SODIUM 100 MG CAPSULE PO SCH ×2 (09:41→17:25)
--- NOTE | 2017-05-10 15:01 | PDOC PROGRESS REPORT ---
Subjective Progress Note for:: 05/10/17 Subjective:: Patient is noted to have weeping edema of her upper extremities and lower extremities. Patient reports she is feeling better. She has no new complaints. Patient denies chest pain, shortness of breath, abdominal pain, nausea, vomiting, fevers , chills, diarrhea, constipation, headache, new onset weakness. Physical Exam Vital Signs: Temp Pulse Resp BP Pulse Ox 98.6 F 84 16 93/56 L 100 05/10/17 04:20 05/10/17 04:20 05/10/17 04:20 05/10/17 04:20 05/10/17 04:20 Intake & Output 05/09/17 05/10/17 05/11/17 06:59 06:59 06:59 Intake Total 300 337 Output Total 700 1050 Balance -400 -713 Weight 92.2 kg 92.3 kg Exam: General: chronically ill appearing, Awake oriented x3, no acute respiratory distress HEENT: AT/NC, PERRL, EOMI, oropharynx is moist, pink, no scleral icterus, no conjunctival injection, poor dentition Neck: + JVD, trachea midline Chest: Bilateral rales CV: Regular rate and rhythm, normal S1 and S2, no rub or gallop Abdomen: Soft, nontender to palpation, nondistended, active bowel sounds; no rebound, rigidity, or guarding Extremities: No cyanosis, clubbing; 3+ edema LLE, LUE ; LUE larger than right; right BKA Neuro: Cranial nerves II through XII are grossly intact without focal deficits; awake alert and oriented x3 Psych: normal mood and affect Skin: weeping serous fluid Results Laboratory Results: 05/08/17 04:00 05/08/17 04:00 04/18/17 04/18/17 04/18/17 09:27 09:27 09:27 Creatine Kinase < 20 L CK-MB (CK-2) 0.84 Troponin I 0.264 NT-Pro-B Natriuret Pep 02007 H 04/18/17 04/18/17 04/30/17 15:00 15:00 05:50 Creatine Kinase < 20 L CK-MB (CK-2) 0.93 Troponin I 0.248 NT-Pro-B Natriuret Pep 01240 H Impressions: Foot X-Ray 04/15/17 16:57 IMPRESSION: Calcaneal spurs with no acute osseous abnormality. Degenerative joint changes as described. Abdomen/Pelvis CT 04/15/17 20:09 IMPRESSION: 1. Bilateral pleural effusions right greater than left. 2. Small volume ascites. 3. Subcutaneous edema. KUB X-Ray 04/19/17 09:54 IMPRESSION: NASOGASTRIC TUBE WITH THE TIP IN THE STOMACH. NO RADIOGRAPHIC EVIDENCE FOR ACUTE ABDOMINAL DISEASE. Abdomen Ultrasound 04/22/17 08:31 IMPRESSION: Mild ascites. Gallstones without gallbladder wall thickening. No biliary dilatation. Chest X-Ray 05/01/17 06:00 IMPRESSION: Persistent left lower lobe consolidation and left pleural effusion Assessment & Plan - Diagnosis (1) Acute on chronic systolic (congestive) heart failure Is this a current diagnosis for this admission?: Yes Plan: Pt with acute on chronic systolic congestive heart failure. Currently volume overloaded. Echo performed on 04/30/2017 reveals an EF of 20-25%, apical wall akinesis, moderate tricuspid regurgitation, moderate pulmonary hypertension. No JUSTIN or ARB at this time secondary to renal failure. Patient on spironolactone, monitor her potassium. Generic Name Dose Route Start Last Admin Trade Name Freq PRN Reason Stop Dose Admin Bumetanide 2 mg 05/09/17 18:00 05/10/17 09:38 Bumex 1 Mg Tablet NG 06/08/17 17:59 2 mg BID [facility] Metoprolol Succinate 25 mg 05/01/17 10:00 05/10/17 09:39 Toprol Xl 25 Mg Tab.Sr PO 05/31/17 09:59 25 mg Q12 [facility] Spironolactone 12.5 mg 05/10/17 10:00 05/10/17 09:39 Aldactone 25 Mg Tablet PO 06/09/17 09:59 12.5 mg DAILY [facility] (2) Left lower lobe pneumonia Qualifiers: Pneumonia type: due to unspecified organism Qualified Code(s): J18.1 - Lobar pneumonia, unspecified organism Is this a current diagnosis for this admission?: Yes Plan: Patient completed imipenem for this. (3) Septic shock Is this a current diagnosis for this admission?: No Plan: Resolved. Treated with imipenem for her E. coli and Pasteurella. Patient is postoperative from her BKA for septic shock. (4) Severe sepsis Is this a current diagnosis for this admission?: Yes (5) Acute renal failure superimposed on chronic kidney disease Qualifiers: Chronic kidney disease stage: stage 3 (moderate) Is this a current diagnosis for this admission?: Yes Plan: Patient's baseline creatinine appears to be between 1.3 and 1.5. Patient's current dysfunction likely secondary to her sepsis, which has resolved and feel the patient is currently volume overloaded and her creatinine is a reflection of this. 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 [facility] use Qualified Code(s ): E11.21 - Type 2 diabetes mellitus with diabetic nephropathy; 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 Is this a current diagnosis for this admission?: Yes (9) Diabetic infection of right foot Is this a current diagnosis for this admission?: Yes (10) Hypokalemia Is this a current diagnosis for this admission?: Yes (11) Hyponatremia Is this a current diagnosis for this admission?: Yes (12) Malnutrition Qualifiers: Malnutrition type: protein-calorie malnutrition Protein-calorie malnutrition severity: severe Qualified Code(s): E43 - Unspecified severe protein-calorie malnutrition Is this a current diagnosis for this admission?: Yes Plan: Patient with severe protein calorie malnourishment compromising bodily function and wound healing. Appreciate dietary input. Resumed oral feedings with good success. (13) Severe peripheral arterial disease Is this a current diagnosis for this admission?: Yes (14) Thrombocytopenia Is this a current diagnosis for this admission?: Yes (15) Superficial venous thrombosis of arm Qualifiers: Laterality: left Qualified Code(s): I82.612 - Acute embolism and thrombosis of superficial veins of left upper extremity Is this a current diagnosis for this admission?: Yes (16) Moderate to severe pulmonary hypertension Is this a current diagnosis for this admission?: Yes (17) Morbid obesity with BMI of 40.0-44.9, adult Is this a current diagnosis for this admission?: Yes (18) Ambulatory dysfunction Is this a current diagnosis for this admission?: Yes Plan: Patient will require rehabilitation after this hospital stay. She is currently pending placement - Time Time Spent with patient: 25-34 minutes Medications reviewed and adjusted accordingly: Yes Anticipated discharge: Acute Rehab Within: when bed available
[2017-05-10] MEDS: INSULIN GLARGINE,HUM.REC.ANLOG 1,000 UNIT/10 ML UNIT SUBCUT SCH (22:03)
[2017-05-11] MEDS: GABAPENTIN 100 MG CAPSULE PO SCH ×3 (06:27→21:53)
[2017-05-11] MEDS: MULTIVITS W-MIN/IRON SOLN 60 ML NG SCH (09:15)
[2017-05-11] MEDS: MAGNESIUM OXIDE 400 MG TABLET PO SCH ×2 (09:15→18:58)
[2017-05-11] MEDS: LEVOTHYROXINE SODIUM 0.05 MG TABLET NG SCH (09:15)
[2017-05-11] MEDS: NYSTATIN TOPICAL POWDER 15 GM TP SCH ×2 (09:15→18:59)
[2017-05-11] MEDS: BUMETANIDE 1 MG TABLET NG SCH ×2 (09:21→18:59)
[2017-05-11] MEDS: SPIRONOLACTONE 25 MG TABLET PO SCH (09:21)
[2017-05-11] MEDS: METOPROLOL SUCCINATE 25 MG TAB.SR.24H PO SCH ×2 (09:21→21:51)
[2017-05-11] MEDS: DOCUSATE SODIUM 100 MG CAPSULE PO SCH ×2 (09:22→19:04)
--- NOTE | 2017-05-11 10:41 | PDOC PROGRESS REPORT ---
Subjective Progress Note for:: 05/11/17 Subjective:: Doing well without complaints Physical Exam Vital Signs: Temp Pulse Resp BP Pulse Ox 98.3 F 84 16 97/53 L 96 05/11/17 07:36 05/11/17 07:36 05/11/17 07:36 05/11/17 07:36 05/11/17 10:10 Intake & Output 05/10/17 05/11/17 05/12/17 06:59 06:59 06:59 Intake Total 337 474 Output Total 1050 1500 Balance -713 -1026 Weight 92.3 kg 91.2 kg General appearance: PRESENT: no acute distress, cooperative, disheveled, well- developed Head exam: PRESENT: atraumatic, normocephalic Eye exam: PRESENT: conjunctiva pale, EOMI Mouth exam: PRESENT: dry mucosa, neck supple, tongue midline Teeth exam: PRESENT: poor dentation Neck exam: ABSENT: carotid bruit, JVD, lymphadenopathy, thyromegaly Respiratory exam: PRESENT: decreased breath sounds, prolonged expiratory phas, rhonchi, symmetrical, unlabored. ABSENT: crackles, rales, retraction, stridor, tachypnea Cardiovascular exam: PRESENT: RRR, +S1, +S2 Pulses: PRESENT: normal radial pulses GI/Abdominal exam: PRESENT: normal bowel sounds, soft. ABSENT: distended, guarding, mass, organolmegaly, rebound, tenderness Rectal exam: PRESENT: deferred Extremities exam: PRESENT: other - Right BKA Neurological exam: PRESENT: alert, awake. ABSENT: altered Psychiatric exam: PRESENT: normal mood Skin exam: PRESENT: dry, warm Results Laboratory Results: 05/08/17 04:00 05/10/17 07:59 04/18/17 04/18/17 04/18/17 09:27 09:27 09:27 Creatine Kinase < 20 L CK-MB (CK-2) 0.84 Troponin I 0.264 NT-Pro-B Natriuret Pep [id number] H 04/18/17 04/18/17 04/30/17 15:00 15:00 05:50 Creatine Kinase < 20 L CK-MB (CK-2) 0.93 Troponin I 0.248 NT-Pro-B Natriuret Pep 73400 H Impressions: Foot X-Ray 04/15/17 16:57 IMPRESSION: Calcaneal spurs with no acute osseous abnormality. Degenerative joint changes as described. Abdomen/Pelvis CT 04/15/17 20:09 IMPRESSION: 1. Bilateral pleural effusions right greater than left. 2. Small volume ascites. 3. Subcutaneous edema. KUB X-Ray 04/19/17 09:54 IMPRESSION: NASOGASTRIC TUBE WITH THE TIP IN THE STOMACH. NO RADIOGRAPHIC EVIDENCE FOR ACUTE ABDOMINAL DISEASE. Abdomen Ultrasound 04/22/17 08:31 IMPRESSION: Mild ascites. Gallstones without gallbladder wall thickening. No biliary dilatation. Chest X-Ray 05/01/17 06:00 IMPRESSION: Persistent left lower lobe consolidation and left pleural effusion Assessment & Plan - Diagnosis (1) Septic shock Is this a current diagnosis for this admission?: No (2) Right BKA infection Is this a current diagnosis for this admission?: Yes (3) Chronic renal failure Qualifiers: Chronic kidney disease stage: stage 3 (moderate) Qualified Code(s): N18.3 - Chronic kidney disease, stage 3 (moderate) Is this a current diagnosis for this admission?: Yes (4) Severe peripheral arterial disease Is this a current diagnosis for this admission?: Yes (5) Malnutrition Qualifiers: Malnutrition type: protein-calorie malnutrition Protein-calorie malnutrition severity: severe Qualified Code(s): E43 - Unspecified severe protein-calorie malnutrition Is this a current diagnosis for this admission?: Yes (6) Thrombocytopenia Is this a current diagnosis for this admission?: Yes Plan: 118 K appears to be improving
--- NOTE | 2017-05-11 12:25 | PDOC PROGRESS REPORT ---
Subjective Progress Note for:: 05/08/17 Subjective:: without complaints Physical Exam Vital Signs: Temp Pulse Resp BP Pulse Ox 98.3 F 84 16 97/53 L 96 05/11/17 07:36 05/11/17 07:36 05/11/17 07:36 05/11/17 07:36 05/11/17 10:10 Intake & Output 05/10/17 05/11/17 05/12/17 06:59 06:59 06:59 Intake Total 337 474 Output Total 1050 1500 Balance -713 -1026 Weight 92.3 kg 91.2 kg General appearance: PRESENT: no acute distress, cooperative, disheveled, well- developed Head exam: PRESENT: atraumatic, normocephalic Eye exam: PRESENT: conjunctiva pale, EOMI Mouth exam: PRESENT: dry mucosa, neck supple, tongue midline Neck exam: ABSENT: carotid bruit, JVD, lymphadenopathy, thyromegaly Respiratory exam: PRESENT: decreased breath sounds, prolonged expiratory phas, rhonchi, symmetrical, unlabored, wheezes. ABSENT: retraction, stridor, tachypnea Cardiovascular exam: PRESENT: RRR, +S1, +S2 Pulses: PRESENT: normal radial pulses GI/Abdominal exam: PRESENT: ascites Rectal exam: PRESENT: deferred Extremities exam: PRESENT: +1 edema, other - Status post right AKA Neurological exam: PRESENT: alert, awake Psychiatric exam: PRESENT: normal mood Skin exam: PRESENT: dry, warm Results Laboratory Results: 05/08/17 04:00 05/10/17 07:59 04/18/17 04/18/17 04/18/17 09:27 09:27 09:27 Creatine Kinase < 20 L CK-MB (CK-2) 0.84 Troponin I 0.264 NT-Pro-B Natriuret Pep 02125 H 04/18/17 04/18/17 04/30/17 15:00 15:00 05:50 Creatine Kinase < 20 L CK-MB (CK-2) 0.93 Troponin I 0.248 NT-Pro-B Natriuret Pep 72467 H Impressions: Foot X-Ray 04/15/17 16:57 IMPRESSION: Calcaneal spurs with no acute osseous abnormality. Degenerative joint changes as described. Abdomen/Pelvis CT 04/15/17 20:09 IMPRESSION: 1. Bilateral pleural effusions right greater than left. 2. Small volume ascites. 3. Subcutaneous edema. KUB X-Ray 04/19/17 09:54 IMPRESSION: NASOGASTRIC TUBE WITH THE TIP IN THE STOMACH. NO RADIOGRAPHIC EVIDENCE FOR ACUTE ABDOMINAL DISEASE. Abdomen Ultrasound 04/22/17 08:31 IMPRESSION: Mild ascites. Gallstones without gallbladder wall thickening. No biliary dilatation. Chest X-Ray 05/01/17 06:00 IMPRESSION: Persistent left lower lobe consolidation and left pleural effusion Assessment & Plan - Diagnosis (1) Septic shock Is this a current diagnosis for this admission?: No (2) Right BKA infection Is this a current diagnosis for this admission?: Yes (3) Chronic renal failure Qualifiers: Chronic kidney disease stage: stage 3 (moderate) Qualified Code(s): N18.3 - Chronic kidney disease, stage 3 (moderate) Is this a current diagnosis for this admission?: Yes (4) Severe peripheral arterial disease Is this a current diagnosis for this admission?: Yes (5) Malnutrition Qualifiers: Malnutrition type: protein-calorie malnutrition Protein-calorie malnutrition severity: severe Qualified Code(s): E43 - Unspecified severe protein-calorie malnutrition Is this a current diagnosis for this admission?: Yes (6) Thrombocytopenia Is this a current diagnosis for this admission?: Yes
--- NOTE | 2017-05-11 12:28 | PDOC PROGRESS REPORT ---
Subjective Progress Note for:: 05/06/17 Subjective:: without complaints Physical Exam Vital Signs: Temp Pulse Resp BP Pulse Ox 98.3 F 84 16 97/53 L 96 05/11/17 07:36 05/11/17 07:36 05/11/17 07:36 05/11/17 07:36 05/11/17 10:10 Intake & Output 05/10/17 05/11/17 05/12/17 06:59 06:59 06:59 Intake Total 337 474 Output Total 1050 1500 Balance -713 -1026 Weight 92.3 kg 91.2 kg General appearance: PRESENT: no acute distress, disheveled Head exam: PRESENT: atraumatic, normocephalic Eye exam: PRESENT: conjunctiva pale Mouth exam: PRESENT: dry mucosa, neck supple, tongue midline Teeth exam: PRESENT: poor dentation Neck exam: ABSENT: carotid bruit, JVD, lymphadenopathy, thyromegaly Respiratory exam: PRESENT: decreased breath sounds, prolonged expiratory phas, rales, rhonchi, symmetrical, unlabored. ABSENT: retraction, stridor, tachypnea , wheezes Cardiovascular exam: PRESENT: RRR, +S1, +S2 Pulses: PRESENT: normal radial pulses GI/Abdominal exam: PRESENT: normal bowel sounds, soft. ABSENT: distended, guarding, mass, organolmegaly, rebound, tenderness Rectal exam: PRESENT: deferred Gentrourinary exam: PRESENT: indwelling catheter Extremities exam: PRESENT: other - Status post right BKA Neurological exam: PRESENT: awake Skin exam: PRESENT: dry, pallor, warm Results Laboratory Results: 05/08/17 04:00 05/10/17 07:59 04/18/17 04/18/17 04/18/17 09:27 09:27 09:27 Creatine Kinase < 20 L CK-MB (CK-2) 0.84 Troponin I 0.264 NT-Pro-B Natriuret Pep [id number] H 04/18/17 04/18/17 04/30/17 15:00 15:00 05:50 Creatine Kinase < 20 L CK-MB (CK-2) 0.93 Troponin I 0.248 NT-Pro-B Natriuret Pep [id number] H Impressions: Foot X-Ray 04/15/17 16:57 IMPRESSION: Calcaneal spurs with no acute osseous abnormality. Degenerative joint changes as described. Abdomen/Pelvis CT 04/15/17 20:09 IMPRESSION: 1. Bilateral pleural effusions right greater than left. 2. Small volume ascites. 3. Subcutaneous edema. KUB X-Ray 04/19/17 09:54 IMPRESSION: NASOGASTRIC TUBE WITH THE TIP IN THE STOMACH. NO RADIOGRAPHIC EVIDENCE FOR ACUTE ABDOMINAL DISEASE. Abdomen Ultrasound 04/22/17 08:31 IMPRESSION: Mild ascites. Gallstones without gallbladder wall thickening. No biliary dilatation. Chest X-Ray 05/01/17 06:00 IMPRESSION: Persistent left lower lobe consolidation and left pleural effusion Assessment & Plan - Diagnosis (1) Septic shock Is this a current diagnosis for this admission?: No (2) Right BKA infection Is this a current diagnosis for this admission?: Yes (3) Chronic renal failure Qualifiers: Chronic kidney disease stage: stage 3 (moderate) Qualified Code(s): N18.3 - Chronic kidney disease, stage 3 (moderate) Is this a current diagnosis for this admission?: Yes (4) Severe peripheral arterial disease Is this a current diagnosis for this admission?: Yes (5) Malnutrition Qualifiers: Malnutrition type: protein-calorie malnutrition Protein-calorie malnutrition severity: severe Qualified Code(s): E43 - Unspecified severe protein-calorie malnutrition Is this a current diagnosis for this admission?: Yes (6) Thrombocytopenia Is this a current diagnosis for this admission?: Yes
--- NOTE | 2017-05-11 17:32 | PDOC PROGRESS REPORT ---
Subjective Progress Note for:: 05/11/17 Subjective:: Patient seen earlier today on morning rounds. She is resting comfortably. Edema appears to be improving. Patient reports she is feeling better. She has no new complaints. Physical Exam Vital Signs: Temp Pulse Resp BP Pulse Ox 98.0 F 94 16 96/53 L 96 05/11/17 15:38 05/11/17 15:38 05/11/17 15:38 05/11/17 15:38 05/11/17 16:41 Intake & Output 05/10/17 05/11/17 05/12/17 06:59 06:59 06:59 Intake Total 337 474 Output Total 1050 1500 Balance -713 -1026 Weight 92.3 kg 91.2 kg Exam: General: chronically ill appearing, resting comfortably, no acute respiratory distress HEENT: AT/NC, PERRL, EOMI, oropharynx is moist, pink, no scleral icterus, no conjunctival injection, poor dentition Neck: + JVD, trachea midline Chest: Diminished bilaterally but otherwise clear CV: Regular rate and rhythm, normal S1 and S2, no rub or gallop Abdomen: Soft, nontender to palpation, nondistended, active bowel sounds; no rebound, rigidity, or guarding Extremities: No cyanosis, clubbing; 3+ edema LLE, LUE ; LUE larger than right; right BKA Neuro: Cranial nerves II through XII are grossly intact without focal deficits Psych: normal mood and affect Skin: Multiple skin tears, ecchymosis, improvement of serous drainage Results Laboratory Results: 05/08/17 04:00 05/10/17 07:59 04/18/17 04/18/17 04/18/17 09:27 09:27 09:27 Creatine Kinase < 20 L CK-MB (CK-2) 0.84 Troponin I 0.264 NT-Pro-B Natriuret Pep [id number] H 04/18/17 04/18/17 04/30/17 15:00 15:00 05:50 Creatine Kinase < 20 L CK-MB (CK-2) 0.93 Troponin I 0.248 NT-Pro-B Natriuret Pep [id number] H Impressions: Foot X-Ray 04/15/17 16:57 IMPRESSION: Calcaneal spurs with no acute osseous abnormality. Degenerative joint changes as described. Abdomen/Pelvis CT 04/15/17 20:09 IMPRESSION: 1. Bilateral pleural effusions right greater than left. 2. Small volume ascites. 3. Subcutaneous edema. KUB X-Ray 04/19/17 09:54 IMPRESSION: NASOGASTRIC TUBE WITH THE TIP IN THE STOMACH. NO RADIOGRAPHIC EVIDENCE FOR ACUTE ABDOMINAL DISEASE. Abdomen Ultrasound 04/22/17 08:31 IMPRESSION: Mild ascites. Gallstones without gallbladder wall thickening. No biliary dilatation. Chest X-Ray 05/01/17 06:00 IMPRESSION: Persistent left lower lobe consolidation and left pleural effusion Assessment & Plan - Diagnosis (1) Acute on chronic systolic (congestive) heart failure Is this a current diagnosis for this admission?: Yes Plan: Pt with acute on chronic systolic congestive heart failure. Currently mildly volume overloaded. Echo performed on 04/30/2017 reveals an EF of 20-25%, apical wall akinesis, moderate tricuspid regurgitation, moderate pulmonary hypertension. No JUSTIN or ARB at this time secondary to renal failure. Patient on spironolactone, monitor her potassium. (2) Left lower lobe pneumonia Qualifiers: Pneumonia type: due to unspecified organism Qualified Code(s): J18.1 - Lobar pneumonia, unspecified organism Is this a current diagnosis for this admission?: Yes Plan: Patient completed imipenem for this. (3) Septic shock Is this a current diagnosis for this admission?: No (4) Severe sepsis Is this a current diagnosis for this admission?: Yes (5) Acute renal failure superimposed on chronic kidney disease Qualifiers: Chronic kidney disease stage: stage 3 (moderate) Is this a current diagnosis for this admission?: Yes (6) Metabolic acidosis Is this a current diagnosis for this admission?: Yes (7) Acute blood loss anemia Is this a current diagnosis for this admission?: Yes (8) Diabetes mellitus Qualifiers: Diabetes mellitus type: type 2 Diabetes mellitus complication status: with kidney complications Diabetes mellitus complication detail: with nephropathy Diabetes mellitus intermediate manager insulin use: with intermediate manager use Qualified Code(s ): E11.21 - Type 2 diabetes mellitus with diabetic nephropathy; Z79.4 - retirement (current) use of insulin Is this a current diagnosis for this admission?: Yes (9) Diabetic infection of right foot Is this a current diagnosis for this admission?: Yes (10) Hypokalemia Is this a current diagnosis for this admission?: Yes (11) Hyponatremia Is this a current diagnosis for this admission?: Yes (12) Malnutrition Qualifiers: Malnutrition type: protein-calorie malnutrition Protein-calorie malnutrition severity: severe Qualified Code(s): E43 - Unspecified severe protein-calorie malnutrition Is this a current diagnosis for this admission?: Yes (13) Severe peripheral arterial disease Is this a current diagnosis for this admission?: Yes (14) Thrombocytopenia Is this a current diagnosis for this admission?: Yes (15) Superficial venous thrombosis of arm Qualifiers: Laterality: left Qualified Code(s): I82.612 - Acute embolism and thrombosis of superficial veins of left upper extremity Is this a current diagnosis for this admission?: Yes (16) Moderate to severe pulmonary hypertension Is this a current diagnosis for this admission?: Yes (17) Morbid obesity with BMI of 40.0-44.9, adult Is this a current diagnosis for this admission?: Yes (18) Ambulatory dysfunction Is this a current diagnosis for this admission?: Yes - Time Time Spent with patient: 25-34 minutes Medications reviewed and adjusted accordingly: Yes Anticipated discharge: Acute Rehab
[2017-05-11 17:51] LABS: ANION GAP 11 (5-19); BLOOD UREA NITROGEN 47 mg/dL (7-20); CALCIUM 8.5 mg/dL (8.4-10.2); CARBON DIOXIDE 26 mmol/L (22-30); CHLORIDE 104 mmol/L (98-107); CREATININE RESULT 1.39 mg/dL (0.52-1.25); GLUCOSE 171 mg/dL (75-110); POTASSIUM 3.8 mmol/L (3.6-5.0)
[2017-05-11] MEDS: INSULIN GLARGINE,HUM.REC.ANLOG 1,000 UNIT/10 ML UNIT SUBCUT SCH (21:53)
--- NOTE | 2017-05-11 22:42 | Progress Note ---
Provider Note Provider Note: Palliative care follow up visit. 05/11/17 1:50- 2:10 PM Patient continues to do well following her long ordeal of sepsis and septic shock following amputation of her right leg. She is eating well, speaking clearly and is a little irritable with her daughter today. SHe has been working with physical therapy and wants to improve. Stump is healing well and patient denies pain. She is still very weak and unable to reposition herself in bed without help. Daughter is disappointed because she was hoping Mrs. Alfonso would be able to go to [place] for rehab. However, they did not offer her a bed, so they are trying for [facility] in [place]. I reassured her that I have had patients there and I feel they get excellent care. Daughter is at hospital everyday that I come by and she is looking tired. VSS. No signs of sepsis or infection. Breathing easily and BS clear. No conversational dyspnea, no cough. Abd soft and non tender. Swallowing well, still taking mechanically soft diet. No evidence of new problems or symptoms. Emotional support offered for patient and daughter.
[2017-05-12 06:47] LABS: ABSOLUTE EOSINOPHILS # (AUTO) 0.4 10^3/uL (0.0-0.6); ABSOLUTE LYMPHOCYTES (AUTO) 1.2 10^3/uL (0.5-4.7); ABSOLUTE MONOCYTES (AUTO) 0.3 10^3/uL (0.1-1.4); ABSOLUTE NEUT (AUTO) 3.2 10^3/uL (1.7-8.2); BASOPHILS % (AUTO) 0.3 % (0-2); HEMATOCRIT 30.2 % (36.0-47.0); HEMOGLOBIN 9.8 g/dL (12.0-15.5); HGB HCT DIFFERENCE -0.8; LYMPHOCYTES % (AUTO) 22.7 % (13-45); MEAN CORPUSCULAR HEMOGLOBIN 27.8 pg (27.0-33.4); MEAN CORPUSCULAR HGB CONC 32.3 g/dL (32.0-36.0); MEAN CORPUSCULAR VOLUME 86 fl (80-97); MONOCYTES % (AUTO) 6.6 % (3-13); RED BLOOD COUNT 3.52 10^6/uL (3.72-5.28); RED CELL DISTRIBUTION WIDTH 23.9 % (11.5-14.0); SEGMENTED NEUTROPHILS % (AUTO) 63.4 % (42-78); WHITE BLOOD COUNT 5.1 10^3/uL (4.0-10.5)
[2017-05-12 06:48] LABS: ANION GAP 11 (5-19); BLOOD UREA NITROGEN 45 mg/dL (7-20); CALCIUM 8.7 mg/dL (8.4-10.2); CARBON DIOXIDE 27 mmol/L (22-30); CHLORIDE 104 mmol/L (98-107); CREATININE RESULT 1.45 mg/dL (0.52-1.25); GLUCOSE 90 mg/dL (75-110); MAGNESIUM 2.2 mg/dL (1.6-2.3); PHOSPHORUS 3.3 mg/dL (2.5-4.5); POTASSIUM 3.7 mmol/L (3.6-5.0); SODIUM 141.9 mmol/L (137-145)
[2017-05-12] MEDS: GABAPENTIN 100 MG CAPSULE PO SCH ×3 (06:58→22:10)
[2017-05-12] MEDS: LEVOTHYROXINE SODIUM 0.05 MG TABLET NG SCH (08:26)
--- NOTE | 2017-05-12 08:44 | PDOC PROGRESS REPORT ---
Subjective Progress Note for:: 05/12/17 Subjective:: The patient seen on the rounds this morning. She states to feel relatively well. Unfortunately she feels very wobbly when she tries to sit up on her own and needs assistance. She denies any pain or shortness of breath. With still awaiting placement. Physical Exam Vital Signs: Temp Pulse Resp BP Pulse Ox 98.5 F 83 21 H 89/50 L 100 05/12/17 01:03 05/12/17 07:00 05/12/17 01:03 05/12/17 01:03 05/12/17 01:03 Intake & Output 05/11/17 05/12/17 05/13/17 06:59 06:59 06:59 Intake Total 474 602 Output Total 1500 1380 Balance -1026 -778 Weight 91.2 kg 92.2 kg General appearance: PRESENT: no acute distress Head exam: PRESENT: atraumatic Eye exam: PRESENT: conjunctiva pink Neck exam: PRESENT: carotid bruit Respiratory exam: PRESENT: crackles Cardiovascular exam: PRESENT: RRR, +S1, +S2 GI/Abdominal exam: PRESENT: normal bowel sounds Extremities exam: PRESENT: right BKA Neurological exam: PRESENT: alert, awake Results Laboratory Results: 05/12/17 06:20 05/12/17 06:20 05/11/17 05/12/17 05/12/17 17:30 04:45 06:20 WBC 5.1 RBC 3.52 L Hgb 9.8 L Hct 30.2 L MCV 86 MCH 27.8 MCHC 32.3 RDW 23.9 H Plt Count 184 Seg Neutrophils % 63.4 Lymphocytes % 22.7 Monocytes % 6.6 Eosinophils % 7.0 H Basophils % 0.3 Absolute Neutrophils 3.2 Absolute Lymphocytes 1.2 Absolute Monocytes 0.3 Absolute Eosinophils 0.4 Absolute Basophils 0.0 Sodium 141.0 Potassium 3.8 Chloride 104 Carbon Dioxide 26 Anion Gap 11 BUN 47 H Creatinine 1.39 H Est GFR ( Amer) 45 L Est GFR (Non-Af Amer) 37 L Glucose 171 H Calcium 8.5 Phosphorus Magnesium Stool Occult Blood NEGATIVE 05/12/17 06:20 WBC RBC Hgb Hct MCV MCH MCHC RDW Plt Count Seg Neutrophils % Lymphocytes % Monocytes % Eosinophils % Basophils % Absolute Neutrophils Absolute Lymphocytes Absolute Monocytes Absolute Eosinophils Absolute Basophils Sodium 141.9 Potassium 3.7 Chloride 104 Carbon Dioxide 27 Anion Gap 11 BUN 45 H Creatinine 1.45 H Est GFR ( Amer) 43 L Est GFR (Non-Af Amer) 36 L Glucose 90 Calcium 8.7 Phosphorus 3.3 Magnesium 2.2 Stool Occult Blood 04/18/17 04/18/17 04/18/17 09:27 09:27 09:27 Creatine Kinase < 20 L CK-MB (CK-2) 0.84 Troponin I 0.264 NT-Pro-B Natriuret Pep [id number] H 04/18/17 04/18/17 04/30/17 15:00 15:00 05:50 Creatine Kinase < 20 L CK-MB (CK-2) 0.93 Troponin I 0.248 NT-Pro-B Natriuret Pep [id number] H Impressions: Foot X-Ray 04/15/17 16:57 IMPRESSION: Calcaneal spurs with no acute osseous abnormality. Degenerative joint changes as described. Abdomen/Pelvis CT 04/15/17 20:09 IMPRESSION: 1. Bilateral pleural effusions right greater than left. 2. Small volume ascites. 3. Subcutaneous edema. KUB X-Ray 04/19/17 09:54 IMPRESSION: NASOGASTRIC TUBE WITH THE TIP IN THE STOMACH. NO RADIOGRAPHIC EVIDENCE FOR ACUTE ABDOMINAL DISEASE. Abdomen Ultrasound 04/22/17 08:31 IMPRESSION: Mild ascites. Gallstones without gallbladder wall thickening. No biliary dilatation. Chest X-Ray 05/01/17 06:00 IMPRESSION: Persistent left lower lobe consolidation and left pleural effusion Assessment & Plan - Diagnosis (1) Severe sepsis Is this a current diagnosis for this admission?: Yes (2) Bacteremia Is this a current diagnosis for this admission?: Yes (3) Acute renal failure superimposed on chronic kidney disease Qualifiers: Chronic kidney disease stage: stage 3 (moderate) Is this a current diagnosis for this admission?: Yes (4) Chronic renal failure Qualifiers: Chronic kidney disease stage: stage 3 (moderate) Qualified Code(s): N18.3 - Chronic kidney disease, stage 3 (moderate) Is this a current diagnosis for this admission?: Yes Plan: Stable continue current medications (5) Diabetic infection of right foot Is this a current diagnosis for this admission?: Yes Plan: Status post right BKA. The wound is healing relatively well (7) Peripheral arterial disease Is this a current diagnosis for this admission?: Yes Plan: 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 (8) Diabetes mellitus Qualifiers: Diabetes mellitus type: type 2 Diabetes mellitus complication status: with kidney complications Diabetes mellitus complication detail: with nephropathy Diabetes mellitus chemical librarian insulin use: with snf use Qualified Code(s ): E11.21 - Type 2 diabetes mellitus with diabetic nephropathy; Z79.4 - kraft digester operator (current) use of insulin Is this a current diagnosis for this admission?: Yes Plan: Continue with insulin treatments (9) Hyponatremia Is this a current diagnosis for this admission?: Yes (10) Malnutrition Qualifiers: Malnutrition type: protein-calorie malnutrition Protein-calorie malnutrition severity: severe Qualified Code(s): E43 - Unspecified severe protein-calorie malnutrition Is this a current diagnosis for this admission?: Yes (11) Metabolic acidosis Is this a current diagnosis for this admission?: Yes Plan: Significantly improved continue current medications (12) Hypokalemia Is this a current diagnosis for this admission?: Yes (13) Cardiomyopathy Qualifiers: Cardiomyopathy type: ischemic Qualified Code(s): I25.5 - Ischemic cardiomyopathy Is this a current diagnosis for this admission?: Yes Plan: Because of low ejection fraction will continue with the asphalt paving superintendent recommendations of adding Spironolactone
[2017-05-12] MEDS: BUMETANIDE 1 MG TABLET NG SCH ×2 (10:32→18:13)
[2017-05-12] MEDS: METOPROLOL SUCCINATE 25 MG TAB.SR.24H PO SCH ×2 (10:40→22:12)
[2017-05-12] MEDS: SPIRONOLACTONE 25 MG TABLET PO SCH (10:40)
[2017-05-12] MEDS: MAGNESIUM OXIDE 400 MG TABLET PO SCH ×2 (10:40→18:14)
[2017-05-12] MEDS: NYSTATIN TOPICAL POWDER 15 GM TP SCH ×2 (10:42→18:15)
[2017-05-12] MEDS: MULTIVITS W-MIN/IRON SOLN 60 ML NG SCH (10:43)
[2017-05-12] MEDS: DOCUSATE SODIUM 100 MG CAPSULE PO SCH ×2 (10:53→18:17)
--- NOTE | 2017-05-12 11:30 | PDOC PROGRESS REPORT ---
Subjective Progress Note for:: 05/12/17 Subjective:: Awaiting placement Physical Exam Vital Signs: Temp Pulse Resp BP Pulse Ox 98.3 F 84 18 98/54 L 100 05/12/17 07:34 05/12/17 07:34 05/12/17 07:34 05/12/17 08:00 05/12/17 07:34 Intake & Output 05/11/17 05/12/17 05/13/17 06:59 06:59 06:59 Intake Total 474 602 Output Total 1500 1380 Balance -1026 -778 Weight 91.2 kg 92.2 kg General appearance: PRESENT: no acute distress, cooperative, disheveled Head exam: PRESENT: atraumatic, normocephalic Eye exam: PRESENT: conjunctiva pale, EOMI Mouth exam: PRESENT: dry mucosa, neck supple, tongue midline Teeth exam: PRESENT: poor dentation Neck exam: ABSENT: carotid bruit, JVD, lymphadenopathy, thyromegaly Respiratory exam: PRESENT: decreased breath sounds, prolonged expiratory phas, rhonchi, symmetrical, unlabored. ABSENT: crackles, rales, retraction, stridor, tachypnea, wheezes Cardiovascular exam: PRESENT: RRR, +S1, +S2. ABSENT: tachycardia Pulses: PRESENT: normal radial pulses GI/Abdominal exam: PRESENT: normal bowel sounds, soft. ABSENT: distended, guarding, mass, organolmegaly, rebound, tenderness Rectal exam: PRESENT: deferred Extremities exam: PRESENT: other - Status post right BKA Neurological exam: PRESENT: alert, awake. ABSENT: altered Psychiatric exam: PRESENT: normal mood Skin exam: PRESENT: dry, pallor, warm Results Laboratory Results: 05/12/17 06:20 05/12/17 06:20 05/11/17 05/12/17 05/12/17 17:30 04:45 06:20 WBC 5.1 RBC 3.52 L Hgb 9.8 L Hct 30.2 L MCV 86 MCH 27.8 MCHC 32.3 RDW 23.9 H Plt Count 184 Seg Neutrophils % 63.4 Lymphocytes % 22.7 Monocytes % 6.6 Eosinophils % 7.0 H Basophils % 0.3 Absolute Neutrophils 3.2 Absolute Lymphocytes 1.2 Absolute Monocytes 0.3 Absolute Eosinophils 0.4 Absolute Basophils 0.0 Sodium 141.0 Potassium 3.8 Chloride 104 Carbon Dioxide 26 Anion Gap 11 BUN 47 H Creatinine 1.39 H Est GFR ( Amer) 45 L Est GFR (Non-Af Amer) 37 L Glucose 171 H Calcium 8.5 Phosphorus Magnesium Stool Occult Blood NEGATIVE 05/12/17 06:20 WBC RBC Hgb Hct MCV MCH MCHC RDW Plt Count Seg Neutrophils % Lymphocytes % Monocytes % Eosinophils % Basophils % Absolute Neutrophils Absolute Lymphocytes Absolute Monocytes Absolute Eosinophils Absolute Basophils Sodium 141.9 Potassium 3.7 Chloride 104 Carbon Dioxide 27 Anion Gap 11 BUN 45 H Creatinine 1.45 H Est GFR ( Amer) 43 L Est GFR (Non-Af Amer) 36 L Glucose 90 Calcium 8.7 Phosphorus 3.3 Magnesium 2.2 Stool Occult Blood 04/18/17 04/18/17 04/18/17 09:27 09:27 09:27 Creatine Kinase < 20 L CK-MB (CK-2) 0.84 Troponin I 0.264 NT-Pro-B Natriuret Pep [id number] H 04/18/17 04/18/17 04/30/17 15:00 15:00 05:50 Creatine Kinase < 20 L CK-MB (CK-2) 0.93 Troponin I 0.248 NT-Pro-B Natriuret Pep [id number] H Impressions: Foot X-Ray 04/15/17 16:57 IMPRESSION: Calcaneal spurs with no acute osseous abnormality. Degenerative joint changes as described. Abdomen/Pelvis CT 04/15/17 20:09 IMPRESSION: 1. Bilateral pleural effusions right greater than left. 2. Small volume ascites. 3. Subcutaneous edema. KUB X-Ray 04/19/17 09:54 IMPRESSION: NASOGASTRIC TUBE WITH THE TIP IN THE STOMACH. NO RADIOGRAPHIC EVIDENCE FOR ACUTE ABDOMINAL DISEASE. Abdomen Ultrasound 04/22/17 08:31 IMPRESSION: Mild ascites. Gallstones without gallbladder wall thickening. No biliary dilatation. Chest X-Ray 05/01/17 06:00 IMPRESSION: Persistent left lower lobe consolidation and left pleural effusion Assessment & Plan - Diagnosis (1) Septic shock Is this a current diagnosis for this admission?: No (2) Right BKA infection Is this a current diagnosis for this admission?: Yes (3) Chronic renal failure Qualifiers: Chronic kidney disease stage: stage 3 (moderate) Qualified Code(s): N18.3 - Chronic kidney disease, stage 3 (moderate) Is this a current diagnosis for this admission?: Yes Plan: Creatinine slightly elevated (4) Severe peripheral arterial disease Is this a current diagnosis for this admission?: Yes (5) Malnutrition Qualifiers: Malnutrition type: protein-calorie malnutrition Protein-calorie malnutrition severity: severe Qualified Code(s): E43 - Unspecified severe protein-calorie malnutrition Is this a current diagnosis for this admission?: Yes Plan: Good p.o. intake (6) Thrombocytopenia Is this a current diagnosis for this admission?: Yes Plan: Platelets up to 184,000
[2017-05-12] MEDS: INSULIN GLARGINE,HUM.REC.ANLOG 1,000 UNIT/10 ML UNIT SUBCUT SCH (22:10)
[2017-05-13] MEDS: GABAPENTIN 100 MG CAPSULE PO SCH ×3 (05:23→22:45)
--- NOTE | 2017-05-13 07:15 | PDOC PROGRESS REPORT ---
Subjective Progress Note for:: 05/13/17 Subjective:: 71-year-old white female status post below-knee amputation of the right leg for sepsis resolution. Patient states that she is doing well this morning however she feels "stir crazy" in her hospital room. Patient is also curious if there is any way to expedite her discharge possibly to her home and then to an extended care facility. Physical Exam Vital Signs: Temp Pulse Resp BP Pulse Ox 36.7 C 84 18 97/52 L 100 05/13/17 03:56 05/13/17 03:56 05/13/17 03:56 05/13/17 03:56 05/13/17 03:56 Intake & Output 05/12/17 05/13/17 05/14/17 06:59 06:59 06:59 Intake Total 602 300 Output Total 1380 1850 Balance -778 -1550 Weight 92.2 kg 91.1 kg General appearance: PRESENT: no acute distress, well-developed, well-nourished Head exam: PRESENT: atraumatic, normocephalic Pulses: PRESENT: normal femoral pulses, normal dorsalis pedis pul Vascular exam: PRESENT: normal capillary refill Additional comments: Patient is sitting comfortably in hospital bed with bilateral lower extremities in full extension. The right below-knee amputation stump appears to be healing satisfactorily. Sutures are still in place and there is evidence of new epithelial tissue deposition in the wound margins. There is no evidence of purulent drainage or erythema. She is nontender to palpation and sensory and motor functions are intact. There is brisk capillary refill to the foot on the contralateral leg. Additional comments: Patient is nonambulatory however desires to be more mobile. She was informed that she can sit in a wheelchair and move about this way. Patient was pleased to hear this. Neurological exam: PRESENT: alert, awake, oriented to person, oriented to place , oriented to time, oriented to situation, CN II-XII grossly intact. ABSENT: motor sensory deficit Psychiatric exam: PRESENT: appropriate affect, normal mood. ABSENT: homicidal ideation, suicidal ideation Skin exam: PRESENT: dry, intact, warm. ABSENT: cyanosis, rash Results Laboratory Results: 05/12/17 06:20 05/12/17 06:20 04/18/17 04/18/17 04/18/17 09:27 09:27 09:27 Creatine Kinase < 20 L CK-MB (CK-2) 0.84 Troponin I 0.264 NT-Pro-B Natriuret Pep [id number] H 04/18/17 04/18/17 04/30/17 15:00 15:00 05:50 Creatine Kinase < 20 L CK-MB (CK-2) 0.93 Troponin I 0.248 NT-Pro-B Natriuret Pep 82080 H Impressions: Foot X-Ray 04/15/17 16:57 IMPRESSION: Calcaneal spurs with no acute osseous abnormality. Degenerative joint changes as described. Abdomen/Pelvis CT 04/15/17 20:09 IMPRESSION: 1. Bilateral pleural effusions right greater than left. 2. Small volume ascites. 3. Subcutaneous edema. KUB X-Ray 04/19/17 09:54 IMPRESSION: NASOGASTRIC TUBE WITH THE TIP IN THE STOMACH. NO RADIOGRAPHIC EVIDENCE FOR ACUTE ABDOMINAL DISEASE. Abdomen Ultrasound 04/22/17 08:31 IMPRESSION: Mild ascites. Gallstones without gallbladder wall thickening. No biliary dilatation. Chest X-Ray 05/01/17 06:00 IMPRESSION: Persistent left lower lobe consolidation and left pleural effusion Assessment & Plan - Diagnosis (1) Severe sepsis Is this a current diagnosis for this admission?: Yes - Plan Summary Plan Summary: 71-year-old white female status post below right knee amputation for sepsis resolution. Patient is doing well and her below-knee amputation stump is healing satisfactorily, with new healthy looking epithelialization of the wound. Patient was informed not to assist with her restlessness she can move about in a wheelchair. She seemed very happy with this report even stating " God blessed you ". She was informed that social work is working to find placement for her in rehab facility on that this would be a better option than sending her home and then to an extended care facility. She seemed receptive of this, therefore we will plan accordingly for discharge once a bed is available extended care facility.
[2017-05-13] MEDS: LEVOTHYROXINE SODIUM 0.05 MG TABLET NG SCH (08:47)
[2017-05-13] MEDS: ENOXAPARIN SODIUM INJ 30 MG/0.3 ML DISP.SYRIN SUBCUT SCH (10:43)
[2017-05-13] MEDS: BUMETANIDE 1 MG TABLET NG SCH ×2 (10:43→17:55)
[2017-05-13] MEDS: SPIRONOLACTONE 25 MG TABLET PO SCH (10:44)
[2017-05-13] MEDS: METOPROLOL SUCCINATE 25 MG TAB.SR.24H PO SCH ×2 (10:45→22:45)
[2017-05-13] MEDS: MAGNESIUM OXIDE 400 MG TABLET PO SCH ×2 (10:45→17:55)
[2017-05-13] MEDS: DOCUSATE SODIUM 100 MG CAPSULE PO SCH ×2 (10:49→18:01)
[2017-05-13] MEDS: MULTIVITS W-MIN/IRON SOLN 60 ML NG SCH (11:08)
--- NOTE | 2017-05-13 11:19 | PDOC PROGRESS REPORT ---
Subjective Progress Note for:: 05/13/17 Subjective:: I wish I knew what was happening Physical Exam Vital Signs: Temp Pulse Resp BP Pulse Ox 98.4 F 86 18 97/51 L 95 05/13/17 07:54 05/13/17 07:54 05/13/17 07:54 05/13/17 07:54 05/13/17 07:54 Intake & Output 05/12/17 05/13/17 05/14/17 06:59 06:59 06:59 Intake Total 602 300 Output Total 1380 1850 Balance -778 -1550 Weight 92.2 kg 91.1 kg General appearance: PRESENT: no acute distress, cooperative, disheveled, obese, well-developed Head exam: PRESENT: atraumatic, normocephalic Eye exam: PRESENT: conjunctiva pale, EOMI Mouth exam: PRESENT: dry mucosa, neck supple, tongue midline Teeth exam: PRESENT: poor dentation Neck exam: ABSENT: carotid bruit, JVD, lymphadenopathy, thyromegaly Respiratory exam: PRESENT: decreased breath sounds, prolonged expiratory phas, rhonchi, symmetrical, unlabored. ABSENT: rales, retraction, stridor, tachypnea Cardiovascular exam: PRESENT: RRR, +S1, +S2 Pulses: PRESENT: normal radial pulses GI/Abdominal exam: PRESENT: normal bowel sounds, soft. ABSENT: distended, guarding, mass, organolmegaly, rebound, tenderness Rectal exam: PRESENT: deferred Gentrourinary exam: PRESENT: indwelling catheter Extremities exam: PRESENT: other - Status post right BKA see orthopedic note Neurological exam: PRESENT: alert, awake Results Laboratory Results: 05/12/17 06:20 05/12/17 06:20 04/18/17 04/18/17 04/18/17 09:27 09:27 09:27 Creatine Kinase < 20 L CK-MB (CK-2) 0.84 Troponin I 0.264 NT-Pro-B Natriuret Pep [id number] H 04/18/17 04/18/17 04/30/17 15:00 15:00 05:50 Creatine Kinase < 20 L CK-MB (CK-2) 0.93 Troponin I 0.248 NT-Pro-B Natriuret Pep [id number] H Impressions: Foot X-Ray 04/15/17 16:57 IMPRESSION: Calcaneal spurs with no acute osseous abnormality. Degenerative joint changes as described. Abdomen/Pelvis CT 04/15/17 20:09 IMPRESSION: 1. Bilateral pleural effusions right greater than left. 2. Small volume ascites. 3. Subcutaneous edema. KUB X-Ray 04/19/17 09:54 IMPRESSION: NASOGASTRIC TUBE WITH THE TIP IN THE STOMACH. NO RADIOGRAPHIC EVIDENCE FOR ACUTE ABDOMINAL DISEASE. Abdomen Ultrasound 04/22/17 08:31 IMPRESSION: Mild ascites. Gallstones without gallbladder wall thickening. No biliary dilatation. Chest X-Ray 05/01/17 06:00 IMPRESSION: Persistent left lower lobe consolidation and left pleural effusion Assessment & Plan - Diagnosis (1) Septic shock Is this a current diagnosis for this admission?: No (2) Right BKA infection Is this a current diagnosis for this admission?: Yes (3) Chronic renal failure Qualifiers: Chronic kidney disease stage: stage 3 (moderate) Qualified Code(s): N18.3 - Chronic kidney disease, stage 3 (moderate) Is this a current diagnosis for this admission?: Yes Plan: Creatinine slightly elevated (4) Severe peripheral arterial disease Is this a current diagnosis for this admission?: Yes (5) Malnutrition Qualifiers: Malnutrition type: protein-calorie malnutrition Protein-calorie malnutrition severity: severe Qualified Code(s): E43 - Unspecified severe protein-calorie malnutrition Is this a current diagnosis for this admission?: Yes (6) Thrombocytopenia Is this a current diagnosis for this admission?: Yes
--- NOTE | 2017-05-13 11:56 | PDOC PROGRESS REPORT ---
Subjective Progress Note for:: 05/13/17 Subjective:: The patient states to feel well. She is complaining of being very anxious in a closed room. Discussed the option of getting in a wheelchair and being wheeled around by her daughter if that is what she would like. Discussed the DNR issue explained to the patient that even though she is doing better I would still recommend of DO NOT RESUSCITATE because of her multiple medical problems. She does not want life support she does not want to be a vegetable in a fpc so we have left the DNR active and in place. There appears to be a very difficult chore of trying to get the patient to the rehab after her BKA. the 2 facilities have already refused the patient's admission Physical Exam Vital Signs: Temp Pulse Resp BP Pulse Ox 98.4 F 86 18 97/51 L 95 05/13/17 07:54 05/13/17 07:54 05/13/17 07:54 05/13/17 07:54 05/13/17 07:54 Intake & Output 05/12/17 05/13/17 05/14/17 06:59 06:59 06:59 Intake Total 602 300 Output Total 1380 1850 Balance -778 -1550 Weight 92.2 kg 91.1 kg General appearance: PRESENT: no acute distress Head exam: PRESENT: atraumatic Eye exam: PRESENT: conjunctiva pink Neck exam: PRESENT: carotid bruit Respiratory exam: PRESENT: clear to auscultation lenore Cardiovascular exam: PRESENT: +S1, +S2 GI/Abdominal exam: PRESENT: normal bowel sounds, soft Extremities exam: PRESENT: right BKA Results Laboratory Results: 05/12/17 06:20 05/12/17 06:20 04/18/17 04/18/17 04/18/17 09:27 09:27 09:27 Creatine Kinase < 20 L CK-MB (CK-2) 0.84 Troponin I 0.264 NT-Pro-B Natriuret Pep [id number] H 04/18/17 04/18/17 04/30/17 15:00 15:00 05:50 Creatine Kinase < 20 L CK-MB (CK-2) 0.93 Troponin I 0.248 NT-Pro-B Natriuret Pep [id number] H Impressions: Foot X-Ray 04/15/17 16:57 IMPRESSION: Calcaneal spurs with no acute osseous abnormality. Degenerative joint changes as described. Abdomen/Pelvis CT 04/15/17 20:09 IMPRESSION: 1. Bilateral pleural effusions right greater than left. 2. Small volume ascites. 3. Subcutaneous edema. KUB X-Ray 04/19/17 09:54 IMPRESSION: NASOGASTRIC TUBE WITH THE TIP IN THE STOMACH. NO RADIOGRAPHIC EVIDENCE FOR ACUTE ABDOMINAL DISEASE. Abdomen Ultrasound 04/22/17 08:31 IMPRESSION: Mild ascites. Gallstones without gallbladder wall thickening. No biliary dilatation. Chest X-Ray 05/01/17 06:00 IMPRESSION: Persistent left lower lobe consolidation and left pleural effusion Assessment & Plan - Diagnosis (1) Severe sepsis Is this a current diagnosis for this admission?: Yes (2) Bacteremia Is this a current diagnosis for this admission?: Yes (3) Acute renal failure superimposed on chronic kidney disease Qualifiers: Chronic kidney disease stage: stage 3 (moderate) Is this a current diagnosis for this admission?: Yes (4) Chronic renal failure Qualifiers: Chronic kidney disease stage: stage 3 (moderate) Qualified Code(s): N18.3 - Chronic kidney disease, stage 3 (moderate) Is this a current diagnosis for this admission?: Yes Plan: Stable continue current medications (5) Diabetic infection of right foot Is this a current diagnosis for this admission?: Yes Plan: The right foot stump status post BKA is healing well (6) Peripheral arterial occlusive disease Plan: Very poor peripheral circulation (7) Peripheral arterial disease Is this a current diagnosis for this admission?: Yes (8) Diabetes mellitus Qualifiers: Diabetes mellitus type: type 2 Diabetes mellitus complication status: with kidney complications Diabetes mellitus complication detail: with nephropathy Diabetes mellitus group home insulin use: with roasterman use Qualified Code(s ): E11.21 - Type 2 diabetes mellitus with diabetic nephropathy; Z79.4 - detention (current) use of insulin Is this a current diagnosis for this admission?: Yes Plan: Continue with insulin treatments (9) Hyponatremia Is this a current diagnosis for this admission?: Yes (10) Malnutrition Qualifiers: Malnutrition type: protein-calorie malnutrition Protein-calorie malnutrition severity: severe Qualified Code(s): E43 - Unspecified severe protein-calorie malnutrition Is this a current diagnosis for this admission?: Yes (11) Metabolic acidosis Is this a current diagnosis for this admission?: Yes (12) Hypokalemia Is this a current diagnosis for this admission?: Yes (13) Cardiomyopathy Qualifiers: Cardiomyopathy type: ischemic Qualified Code(s): I25.5 - Ischemic cardiomyopathy Is this a current diagnosis for this admission?: Yes Plan: Because of low ejection fraction will continue with the unloader operator recommendations of adding Spironolactone
[2017-05-13 16:28] LABS: APPEARANCE,URINE CLOUDY; BILIRUBIN,URINE NEGATIVE (NEGATIVE); GLUCOSE, URINE NEGATIVE (NEGATIVE); KETONES,URINE NEGATIVE (NEGATIVE); LEUKOCYTE ESTERASE,URINE LARGE (NEGATIVE); NITRITE,URINE NEGATIVE (NEGATIVE); PROTEIN,URINE NEGATIVE (NEGATIVE); URINE SPECIFIC GRAVITY 1.008; UROBILINOGEN,URINE NEGATIVE mg/dL (<2.0)
[2017-05-13] MEDS: NYSTATIN TOPICAL POWDER 15 GM TP SCH (17:56)
[2017-05-13] MEDS: INSULIN GLARGINE,HUM.REC.ANLOG 1,000 UNIT/10 ML UNIT SUBCUT SCH (22:47)
[2017-05-14] MEDS: GABAPENTIN 100 MG CAPSULE PO SCH ×3 (05:34→21:29)
[2017-05-14 06:10] LABS: ALANINE AMINOTRANSFERASE 35 U/L (9-52); ALBUMIN 2.7 g/dL (3.5-5.0); ALKALINE PHOSPHATASE 100 U/L (38-126); ANION GAP 12 (5-19); ASPARTATE AMINO TRANSFERASE 35 U/L (14-36); BILIRUBIN,DIRECT 0.9 mg/dL (0.0-0.4); BILIRUBIN,TOTAL 1.1 mg/dL (0.2-1.3); BLOOD UREA NITROGEN 43 mg/dL (7-20); CALCIUM 8.6 mg/dL (8.4-10.2); CARBON DIOXIDE 27 mmol/L (22-30); CHLORIDE 103 mmol/L (98-107); CREATININE RESULT 1.33 mg/dL (0.52-1.25); GLUCOSE 102 mg/dL (75-110); POTASSIUM 3.5 mmol/L (3.6-5.0); SODIUM 142.4 mmol/L (137-145); TOTAL PROTEIN 5.9 g/dL (6.3-8.2)
[2017-05-14] MEDS ORDERED: FLUCONAZOLE 100 MG TABLET PO ONE (08:15)
--- NOTE | 2017-05-14 08:27 | PDOC PROGRESS REPORT ---
Subjective Progress Note for:: 05/14/17 Subjective:: The patient states to feel relatively well. She was really upset because she saw her right BKA stump for the first time yesterday. She has some swelling in her left upper extremity most probably because of previous stroke and having the arm hanging down. She does have a urinary tract infection and we have started her on antibiotics. Physical Exam Vital Signs: Temp Pulse Resp BP Pulse Ox 98.3 F 72 16 80/50 L 100 05/14/17 07:24 05/14/17 07:24 05/14/17 07:24 05/14/17 07:56 05/14/17 07:24 Intake & Output 05/13/17 05/14/17 05/15/17 06:59 06:59 06:59 Intake Total 300 837 Output Total 1850 1400 Balance -1550 -563 Weight 91.1 kg 90.4 kg General appearance: PRESENT: mild distress Head exam: PRESENT: atraumatic Eye exam: PRESENT: conjunctiva pink Neck exam: PRESENT: carotid bruit Respiratory exam: PRESENT: clear to auscultation lenore Cardiovascular exam: PRESENT: RRR, +S1, +S2 GI/Abdominal exam: PRESENT: normal bowel sounds, soft Extremities exam: PRESENT: right BKA, other Additional comments: Left upper extremity swelling Results Laboratory Results: 05/12/17 06:20 05/14/17 04:45 05/13/17 05/13/17 05/14/17 09:12 16:04 04:45 Sodium 142.4 Potassium 3.5 L Chloride 103 Carbon Dioxide 27 Anion Gap 12 BUN 43 H Creatinine 1.33 H Est GFR ( Amer) 48 L Est GFR (Non-Af Amer) 39 L Glucose 102 Calcium 8.6 Total Bilirubin 1.1 AST 35 ALT 35 Alkaline Phosphatase 100 Total Protein 5.9 L Albumin 2.7 L Urine Color YELLOW Urine Appearance CLOUDY Urine pH 5.0 Ur Specific [place] 1.008 Urine Protein NEGATIVE Urine Glucose (UA) NEGATIVE Urine Ketones NEGATIVE Urine Blood MODERATE H Urine Nitrite NEGATIVE Ur Leukocyte Esterase LARGE H Urine WBC (Auto) 136 Urine RBC (Auto) 30 Stool Occult Blood NEGATIVE 04/18/17 04/18/17 04/18/17 09:27 09:27 09:27 Creatine Kinase < 20 L CK-MB (CK-2) 0.84 Troponin I 0.264 NT-Pro-B Natriuret Pep [id number] H 04/18/17 04/18/17 04/30/17 15:00 15:00 05:50 Creatine Kinase < 20 L CK-MB (CK-2) 0.93 Troponin I 0.248 NT-Pro-B Natriuret Pep [id number] H Impressions: Foot X-Ray 04/15/17 16:57 IMPRESSION: Calcaneal spurs with no acute osseous abnormality. Degenerative joint changes as described. Abdomen/Pelvis CT 04/15/17 20:09 IMPRESSION: 1. Bilateral pleural effusions right greater than left. 2. Small volume ascites. 3. Subcutaneous edema. KUB X-Ray 04/19/17 09:54 IMPRESSION: NASOGASTRIC TUBE WITH THE TIP IN THE STOMACH. NO RADIOGRAPHIC EVIDENCE FOR ACUTE ABDOMINAL DISEASE. Abdomen Ultrasound 04/22/17 08:31 IMPRESSION: Mild ascites. Gallstones without gallbladder wall thickening. No biliary dilatation. Chest X-Ray 05/01/17 06:00 IMPRESSION: Persistent left lower lobe consolidation and left pleural effusion Assessment & Plan - Diagnosis (1) Severe sepsis Is this a current diagnosis for this admission?: Yes (2) Bacteremia Is this a current diagnosis for this admission?: Yes (3) Acute renal failure superimposed on chronic kidney disease Qualifiers: Chronic kidney disease stage: stage 3 (moderate) Is this a current diagnosis for this admission?: Yes (4) Chronic renal failure Qualifiers: Chronic kidney disease stage: stage 3 (moderate) Qualified Code(s): N18.3 - Chronic kidney disease, stage 3 (moderate) Is this a current diagnosis for this admission?: Yes Plan: Stable continue current medications (5) Diabetic infection of right foot Is this a current diagnosis for this admission?: Yes Plan: The right foot stump status post BKA is healing well (6) Peripheral arterial occlusive disease Plan: The patient will be started on Xarelto because of recent amputation and being bedridden as a prevention for DVT (7) Peripheral arterial disease Is this a current diagnosis for this admission?: Yes (8) Diabetes mellitus Qualifiers: Diabetes mellitus type: type 2 Diabetes mellitus complication status: with kidney complications Diabetes mellitus complication detail: with nephropathy Diabetes mellitus residential insulin use: with residential use Qualified Code(s ): E11.21 - Type 2 diabetes mellitus with diabetic nephropathy; Z79.4 - retirement (current) use of insulin Is this a current diagnosis for this admission?: Yes (9) Hyponatremia Is this a current diagnosis for this admission?: Yes (10) Malnutrition Qualifiers: Malnutrition type: protein-calorie malnutrition Protein-calorie malnutrition severity: severe Qualified Code(s): E43 - Unspecified severe protein-calorie malnutrition Is this a current diagnosis for this admission?: Yes (11) Metabolic acidosis Is this a current diagnosis for this admission?: Yes (12) Hypokalemia Is this a current diagnosis for this admission?: Yes (13) Cardiomyopathy Qualifiers: Cardiomyopathy type: ischemic Qualified Code(s): I25.5 - Ischemic cardiomyopathy Is this a current diagnosis for this admission?: Yes (14) Swelling of left upper extremity Is this a current diagnosis for this admission?: Yes Plan: We will obtained an ultrasound (15) Urinary tract infection after immobility Is this a current diagnosis for this admission?: Yes Plan: There is both fungus and bacteria in the urine will start Diflucan and antibiotics
[2017-05-14] MEDS: LEVOTHYROXINE SODIUM 0.05 MG TABLET NG SCH (08:28)
[2017-05-14] MEDS: ENOXAPARIN SODIUM INJ 30 MG/0.3 ML DISP.SYRIN SUBCUT SCH (09:35)
[2017-05-14] MEDS: CIPROFLOXACIN HCL 500 MG TABLET PO SCH ×2 (09:35→21:28)
[2017-05-14] MEDS: POTASSIUM CHLORIDE 10 MEQ TABLET.SA PO SCH (09:36)
[2017-05-14] MEDS: MAGNESIUM OXIDE 400 MG TABLET PO SCH (09:38)
[2017-05-14] MEDS: NYSTATIN TOPICAL POWDER 15 GM TP SCH ×2 (09:39→17:17)
[2017-05-14] MEDS: DOCUSATE SODIUM 100 MG CAPSULE PO SCH ×2 (09:41→17:18)
--- NOTE | 2017-05-14 11:04 | PDOC PROGRESS REPORT ---
Subjective Progress Note for:: 05/14/17 Subjective:: I wish I knew what was happening Physical Exam Vital Signs: Temp Pulse Resp BP Pulse Ox 98.3 F 72 16 80/50 L 100 05/14/17 07:24 05/14/17 07:24 05/14/17 07:24 05/14/17 07:56 05/14/17 07:24 Intake & Output 05/13/17 05/14/17 05/15/17 06:59 06:59 06:59 Intake Total 300 837 Output Total 1850 1400 Balance -1550 -563 Weight 91.1 kg 90.4 kg General appearance: PRESENT: no acute distress, cooperative, disheveled, well- developed Head exam: PRESENT: atraumatic, normocephalic Eye exam: PRESENT: conjunctiva pale, EOMI Mouth exam: PRESENT: moist, neck supple, tongue midline Neck exam: ABSENT: carotid bruit, JVD, lymphadenopathy, thyromegaly Respiratory exam: PRESENT: decreased breath sounds, prolonged expiratory phas, symmetrical, unlabored. ABSENT: crackles, rales, retraction, rhonchi, stridor, tachypnea, wheezes Cardiovascular exam: PRESENT: RRR, +S1, +S2. ABSENT: tachycardia Pulses: PRESENT: normal radial pulses GI/Abdominal exam: PRESENT: normal bowel sounds, soft. ABSENT: distended, guarding, mass, organolmegaly, rebound, tenderness Rectal exam: PRESENT: deferred Extremities exam: PRESENT: other - Status post right BKA Neurological exam: PRESENT: alert, awake. ABSENT: altered Psychiatric exam: PRESENT: normal mood Skin exam: PRESENT: dry Results Laboratory Results: 05/12/17 06:20 05/14/17 04:45 05/13/17 05/13/17 05/14/17 09:12 16:04 04:45 Sodium 142.4 Potassium 3.5 L Chloride 103 Carbon Dioxide 27 Anion Gap 12 BUN 43 H Creatinine 1.33 H Est GFR ( Amer) 48 L Est GFR (Non-Af Amer) 39 L Glucose 102 Calcium 8.6 Total Bilirubin 1.1 AST 35 ALT 35 Alkaline Phosphatase 100 Total Protein 5.9 L Albumin 2.7 L Urine Color YELLOW Urine Appearance CLOUDY Urine pH 5.0 Ur Specific [place] 1.008 Urine Protein NEGATIVE Urine Glucose (UA) NEGATIVE Urine Ketones NEGATIVE Urine Blood MODERATE H Urine Nitrite NEGATIVE Ur Leukocyte Esterase LARGE H Urine WBC (Auto) 136 Urine RBC (Auto) 30 Stool Occult Blood NEGATIVE 04/18/17 04/18/17 04/18/17 09:27 09:27 09:27 Creatine Kinase < 20 L CK-MB (CK-2) 0.84 Troponin I 0.264 NT-Pro-B Natriuret Pep [id number] H 04/18/17 04/18/17 04/30/17 15:00 15:00 05:50 Creatine Kinase < 20 L CK-MB (CK-2) 0.93 Troponin I 0.248 NT-Pro-B Natriuret Pep [id number] H Impressions: Foot X-Ray 04/15/17 16:57 IMPRESSION: Calcaneal spurs with no acute osseous abnormality. Degenerative joint changes as described. Abdomen/Pelvis CT 04/15/17 20:09 IMPRESSION: 1. Bilateral pleural effusions right greater than left. 2. Small volume ascites. 3. Subcutaneous edema. KUB X-Ray 04/19/17 09:54 IMPRESSION: NASOGASTRIC TUBE WITH THE TIP IN THE STOMACH. NO RADIOGRAPHIC EVIDENCE FOR ACUTE ABDOMINAL DISEASE. Abdomen Ultrasound 04/22/17 08:31 IMPRESSION: Mild ascites. Gallstones without gallbladder wall thickening. No biliary dilatation. Chest X-Ray 05/01/17 06:00 IMPRESSION: Persistent left lower lobe consolidation and left pleural effusion Assessment & Plan - Diagnosis (1) Septic shock Is this a current diagnosis for this admission?: No (2) Right BKA infection Is this a current diagnosis for this admission?: Yes (3) Chronic renal failure Qualifiers: Chronic kidney disease stage: stage 3 (moderate) Qualified Code(s): N18.3 - Chronic kidney disease, stage 3 (moderate) Is this a current diagnosis for this admission?: Yes (4) Severe peripheral arterial disease Is this a current diagnosis for this admission?: Yes (5) Malnutrition Qualifiers: Malnutrition type: protein-calorie malnutrition Protein-calorie malnutrition severity: severe Qualified Code(s): E43 - Unspecified severe protein-calorie malnutrition Is this a current diagnosis for this admission?: Yes (6) Thrombocytopenia Is this a current diagnosis for this admission?: No
--- NOTE | 2017-05-14 11:49 | RADIOLOGY REPORT (SQ) ---
EXAM DESCRIPTION: VENOUS UNILATERAL UPPER COMPLETED DATE/TIME: 05/14/2017 10:43 am REASON FOR STUDY: Left arm swelling, Hx SVT Basilic and Cephalic 04-29-17 COMPARISON: 04/29/2017 left upper extremity venous Doppler TECHNIQUE: Dynamic and static aguilera scale and color images acquired of the left arm venous system. Se lected spectral images acquired with additional compression and augmentation maneuvers. The contralat eral subclavian vein and internal jugular vein were also imaged. Images stored on PACS. LIMITATIONS: None. FINDINGS: LEFT INTERNAL JUGULAR VEIN: Normal phasicity, compression, augmentation. No visualized echogenic material on aguilera scale. No defects on color images. Comparison opposite side normal. SUBCLAVIAN VEIN: Normal compression, augmentation. No visualized echogenic material on aguilera scale. No defects on color images. AXILLARY VEIN: Normal compression, augmentation. No visualized echogenic material on aguilera scale. No d efects on color images. BRACHIAL VEIN: Normal compression, augmentation. No visualized echogenic material on aguilera scale. No d efects on color images. BASILIC VEIN: Normal compression, augmentation. No visualized echogenic material on aguilera scale. No de fects on color images. No residual clot in the distal basilic vein. CEPHALIC VEIN: Normal compression, augmentation. No visualized echogenic material on aguilera scale. No d efects on color images. No residual clot in the distal cephalic vein. OTHER: No other significant finding. RIGHT SUBCLAVIAN VEIN AND INTERNAL JUGULAR VEIN: Normal phasicity, compression and augmentation. No visualized echogenic material on aguilera scale. No de fects on color images. IMPRESSION: NO EVIDENCE DVT OR SVT LEFT ARM. TECHNICAL DOCUMENTATION: JOB ID: [id number] [employer]- All Rights Reserved
[2017-05-14] MEDS: BUMETANIDE 1 MG TABLET NG SCH ×2 (12:46→17:16)
[2017-05-14] MEDS: METOPROLOL SUCCINATE 25 MG TAB.SR.24H PO SCH (12:47)
[2017-05-14] MEDS: SPIRONOLACTONE 25 MG TABLET PO SCH (12:47)
[2017-05-14] MEDS: MULTIVITS W-MIN/IRON SOLN 60 ML NG SCH (12:48)
[2017-05-14] MEDS ORDERED: RIVAROXABAN 15 MG TABLET PO SCH (17:00)
[2017-05-14] MEDS: INSULIN GLARGINE,HUM.REC.ANLOG 1,000 UNIT/10 ML UNIT SUBCUT SCH (21:29)
[2017-05-15] MEDS: METOPROLOL SUCCINATE 25 MG TAB.SR.24H PO SCH ×2 (00:36→09:46)
[2017-05-15] MEDS: IPRATROPIUM/ALBUTEROL 0.5-2.5 MG/3 ML AMPUL NEB PRN ×2 (01:58→13:34)
[2017-05-15 04:52] LABS: HEMATOCRIT 28.5 % (36.0-47.0); HEMOGLOBIN 9.6 g/dL (12.0-15.5); HGB HCT DIFFERENCE 0.3; MEAN CORPUSCULAR HEMOGLOBIN 28.9 pg (27.0-33.4); MEAN CORPUSCULAR HGB CONC 33.7 g/dL (32.0-36.0); MEAN CORPUSCULAR VOLUME 86 fl (80-97); RED BLOOD COUNT 3.32 10^6/uL (3.72-5.28); RED CELL DISTRIBUTION WIDTH 23.1 % (11.5-14.0); WHITE BLOOD COUNT 6.5 10^3/uL (4.0-10.5)
[2017-05-15] MEDS: GABAPENTIN 100 MG CAPSULE PO SCH ×2 (06:18→13:54)
--- NOTE | 2017-05-15 06:35 | PDOC PROGRESS REPORT ---
Subjective Progress Note for:: 05/15/17 Subjective:: 71-year-old white female status post below-knee amputation. Patient was asleep lying recumbent in hospital bed. She was aroused when her name was called and notes she is comfortable. Physical Exam Vital Signs: Temp Pulse Resp BP Pulse Ox 36.3 C 79 20 113/99 H 100 05/15/17 03:08 05/15/17 03:08 05/15/17 03:08 05/15/17 03:08 05/15/17 03:08 Intake & Output 05/13/17 05/14/17 05/15/17 06:59 06:59 06:59 Intake Total 300 837 674 Output Total 1850 1400 1175 Balance -5530 -563 -501 Weight 91.1 kg 90.4 kg 89.6 kg Physical Exam: Physical exam has no significant changes from exam dictated earlier this week. Results Laboratory Results: 05/15/17 04:22 05/14/17 04:45 05/14/17 05/15/17 04:45 04:22 WBC 6.5 RBC 3.32 L Hgb 9.6 L Hct 28.5 L MCV 86 MCH 28.9 MCHC 33.7 RDW 23.1 H Plt Count 213 Sodium 142.4 Potassium 3.5 L Chloride 103 Carbon Dioxide 27 Anion Gap 12 BUN 43 H Creatinine 1.33 H Est GFR ( Amer) 48 L Est GFR (Non-Af Amer) 39 L Glucose 102 Calcium 8.6 Total Bilirubin 1.1 AST 35 ALT 35 Alkaline Phosphatase 100 Total Protein 5.9 L Albumin 2.7 L 04/18/17 04/18/17 04/18/17 09:27 09:27 09:27 Creatine Kinase < 20 L CK-MB (CK-2) 0.84 Troponin I 0.264 NT-Pro-B Natriuret Pep [id number] H 04/18/17 04/18/17 04/30/17 15:00 15:00 05:50 Creatine Kinase < 20 L CK-MB (CK-2) 0.93 Troponin I 0.248 NT-Pro-B Natriuret Pep [id number] H Impressions: Foot X-Ray 04/15/17 16:57 IMPRESSION: Calcaneal spurs with no acute osseous abnormality. Degenerative joint changes as described. Abdomen/Pelvis CT 04/15/17 20:09 IMPRESSION: 1. Bilateral pleural effusions right greater than left. 2. Small volume ascites. 3. Subcutaneous edema. KUB X-Ray 04/19/17 09:54 IMPRESSION: NASOGASTRIC TUBE WITH THE TIP IN THE STOMACH. NO RADIOGRAPHIC EVIDENCE FOR ACUTE ABDOMINAL DISEASE. Abdomen Ultrasound 04/22/17 08:31 IMPRESSION: Mild ascites. Gallstones without gallbladder wall thickening. No biliary dilatation. Chest X-Ray 05/01/17 06:00 IMPRESSION: Persistent left lower lobe consolidation and left pleural effusion Venous Doppler Study 05/14/17 00:00 IMPRESSION: NO EVIDENCE DVT OR SVT LEFT ARM. Assessment & Plan - Diagnosis (1) Severe sepsis Is this a current diagnosis for this admission?: Yes - Plan Summary Plan Summary: 71-year-old white female status post below right knee amputation. Patient's right below-knee amputation stump appears to be healing uneventfully with new epithelial cell deposition in wound margins. Her postop sutures are in place and will remain in place upon discharge. These sutures will be removed at her postop appointment with [facility] for surgery with Dr. Fairbanks. She will be discharged from the hospital once social work has found a bed at a rehab facility and she will then follow-up with [facility] for surgery for reevaluation and suture removal.
--- NOTE | 2017-05-15 07:53 | PDOC TRANSFER SUMMARY ---
General - Admit/Disc Date/PCP Admission Date/Primary Care Provider: 04/15/17 22:48 ETHEL BURDEN, Discharge Date: 05/15/17 - Discharge Diagnosis (1) Severe sepsis Is this a current diagnosis for this admission?: Yes (2) Bacteremia Is this a current diagnosis for this admission?: Yes (3) Acute renal failure superimposed on chronic kidney disease Is this a current diagnosis for this admission?: Yes (4) Chronic renal failure Is this a current diagnosis for this admission?: Yes Summary: Continue current medications. Recheck on potassium in about a week. (5) Diabetic infection of right foot Is this a current diagnosis for this admission?: Yes Summary: Patient is to follow-up with Dr. Fairbanks for a suture removal (6) Peripheral arterial occlusive disease Summary: Continue aspirin and Plavix. Because this patient is bedridden we will continue with Xarelto for another 30 days (7) Peripheral arterial disease Is this a current diagnosis for this admission?: Yes Summary: Continue current medications (8) Diabetes mellitus Is this a current diagnosis for this admission?: Yes Summary: Continue current medications and Accu-Cheks daily (9) Hyponatremia Is this a current diagnosis for this admission?: Yes (10) Malnutrition Is this a current diagnosis for this admission?: Yes (11) Metabolic acidosis Is this a current diagnosis for this admission?: Yes (12) Hypokalemia Is this a current diagnosis for this admission?: Yes (13) Cardiomyopathy Is this a current diagnosis for this admission?: Yes Summary: Continue current medications and follow-up with cardiology (14) Swelling of left upper extremity Is this a current diagnosis for this admission?: Yes Summary: Ultrasound reviewed no signs of DVT. Will continue elevation (15) Urinary tract infection after immobility Is this a current diagnosis for this admission?: Yes Summary: Complete 5 more days of Septra (16) DNR (do not resuscitate) Summary: Continue with DNR status as an outpatient according to patient and family wishes - Additional Information Resuscitation Status: Do Not Resuscitate Discharge Diet: Diabetic Discharge Activity: Activity As Tolerated Home Medications: Glipizide [Glipizide Xl] 10 mg PO DAILY 07/24/14 Atorvastatin Calcium 40 mg PO QHS 04/06/16 Metoprolol Succinate 100 mg PO DAILY 04/06/16 Clopidogrel Bisulfate [Plavix 75 mg Tablet] 75 mg PO DAILY #0 tablet 04/08/16 Nitroglycerin [Nitrostat 0.4 mg (1/150 Gr) Tabs 25/Bottle] 1 tab SL Q5MP PRN Aspirin [Aspirin EC] 81 mg PO DAILY 04/16/17 Acetaminophen [Tylenol 325 mg Tablet] 650 mg NG Q4HP PRN tablet 05/15/17 Bumetanide [Bumex 1 mg Tablet] 2 mg NG BID tablet 05/15/17 Ciprofloxacin HCl [Cipro 500 mg Tablet] 250 mg PO Q12 #10 tablet 05/15/17 Docusate Sodium [Colace 100 mg Capsule] 100 mg PO BID capsule 05/15/17 Gabapentin [Neurontin 100 mg Capsule] 100 mg PO Q8 capsule 05/15/17 Nystatin [Mycostatin Topical Powder 15 gm] 1 applic TP BID bottle 05/15/17 Potassium Chloride [Klor-Con 10 Meq Tablet.sa] 10 meq PO DAILY tablet.sa Rivaroxaban [Xarelto 15 mg Tablet] 15 mg PO WSUPPER 30 Days tablet 05/15/17 Spironolactone [Aldactone 25 mg Tablet] 12.5 mg PO DAILY tablet 05/15/17 History of Present Illness Admission Date/PCP: 04/15/17 22:48 ETHEL BURDEN, Hospital Course Hospital Course: The patient was admitted to the hospital with a infected diabetic foot. She underwent a right BKA by Dr. Fairbanks. The patient appeared to be septic with the septic and hypovolemic shock. She was treated aggressively with antibiotic which have improved her outcome. Physical Exam Vital Signs: Temp Pulse Resp BP Pulse Ox 97.4 F 79 20 113/99 H 100 05/15/17 03:08 05/15/17 03:08 05/15/17 03:08 05/15/17 03:08 05/15/17 03:08 Intake & Output 05/14/17 05/15/17 05/16/17 06:59 06:59 06:59 Intake Total 837 674 Output Total 1400 1175 Balance -563 -927 Weight 90.4 kg 89.6 kg General appearance: PRESENT: no acute distress Head exam: PRESENT: atraumatic Eye exam: PRESENT: conjunctiva pink Neck exam: PRESENT: carotid bruit Respiratory exam: PRESENT: clear to auscultation lenore Cardiovascular exam: PRESENT: RRR, +S2 GI/Abdominal exam: PRESENT: normal bowel sounds, soft Extremities exam: PRESENT: other Neurological exam: PRESENT: alert, awake Results Laboratory Results: 05/15/17 04:22 05/14/17 04:45 05/15/17 04:22 WBC 6.5 RBC 3.32 L Hgb 9.6 L Hct 28.5 L MCV 86 MCH 28.9 MCHC 33.7 RDW 23.1 H Plt Count 213 04/18/17 04/18/17 04/18/17 09:27 09:27 09:27 Creatine Kinase < 20 L CK-MB (CK-2) 0.84 Troponin I 0.264 NT-Pro-B Natriuret Pep [id number] H 04/18/17 04/18/17 04/30/17 15:00 15:00 05:50 Creatine Kinase < 20 L CK-MB (CK-2) 0.93 Troponin I 0.248 NT-Pro-B Natriuret Pep [id number] H Impressions: Foot X-Ray 04/15/17 16:57 IMPRESSION: Calcaneal spurs with no acute osseous abnormality. Degenerative joint changes as described. Abdomen/Pelvis CT 04/15/17 20:09 IMPRESSION: 1. Bilateral pleural effusions right greater than left. 2. Small volume ascites. 3. Subcutaneous edema. KUB X-Ray 04/19/17 09:54 IMPRESSION: NASOGASTRIC TUBE WITH THE TIP IN THE STOMACH. NO RADIOGRAPHIC EVIDENCE FOR ACUTE ABDOMINAL DISEASE. Abdomen Ultrasound 04/22/17 08:31 IMPRESSION: Mild ascites. Gallstones without gallbladder wall thickening. No biliary dilatation. Chest X-Ray 05/01/17 06:00 IMPRESSION: Persistent left lower lobe consolidation and left pleural effusion Venous Doppler Study 05/14/17 00:00 IMPRESSION: NO EVIDENCE DVT OR SVT LEFT ARM.
[2017-05-15] MEDS: POTASSIUM CHLORIDE 10 MEQ TABLET.SA PO SCH (09:44)
[2017-05-15] MEDS: CIPROFLOXACIN HCL 500 MG TABLET PO SCH (09:45)
[2017-05-15] MEDS: LEVOTHYROXINE SODIUM 0.05 MG TABLET NG SCH (09:45)
[2017-05-15] MEDS: SPIRONOLACTONE 25 MG TABLET PO SCH (09:46)
[2017-05-15] MEDS: BUMETANIDE 1 MG TABLET NG SCH (09:47)
[2017-05-15] MEDS: MAGNESIUM OXIDE 400 MG TABLET PO SCH (09:48)
[2017-05-15] MEDS: NYSTATIN TOPICAL POWDER 15 GM TP SCH (09:49)
[2017-05-15] MEDS: MULTIVITS W-MIN/IRON SOLN 60 ML NG SCH (09:49)
[2017-05-15] MEDS: DOCUSATE SODIUM 100 MG CAPSULE PO SCH (09:56)
--- NOTE | 2017-05-15 11:18 | PDOC PROGRESS REPORT ---
Subjective Progress Note for:: 05/15/17 Subjective:: Resting comfortably Physical Exam Vital Signs: Temp Pulse Resp BP Pulse Ox 97.6 F 70 18 81/40 L 100 05/15/17 07:27 05/15/17 07:27 05/15/17 07:27 05/15/17 07:27 05/15/17 07:27 Intake & Output 05/14/17 05/15/17 05/16/17 06:59 06:59 06:59 Intake Total 837 674 Output Total 1400 1175 Balance -563 -501 Weight 90.4 kg 89.6 kg General appearance: PRESENT: no acute distress, cooperative, disheveled, obese Head exam: PRESENT: atraumatic, normocephalic Eye exam: PRESENT: conjunctiva pale, EOMI Mouth exam: PRESENT: dry mucosa, neck supple, tongue midline Teeth exam: PRESENT: poor dentation Neck exam: PRESENT: carotid bruit Respiratory exam: PRESENT: decreased breath sounds, prolonged expiratory phas, symmetrical, unlabored. ABSENT: crackles, rales, retraction, stridor, tachypnea , wheezes Cardiovascular exam: PRESENT: irregular rhythm Pulses: PRESENT: normal radial pulses GI/Abdominal exam: PRESENT: normal bowel sounds, soft. ABSENT: distended, guarding, mass, organolmegaly, rebound, tenderness Rectal exam: PRESENT: deferred Extremities exam: PRESENT: +1 edema, other - Right BKA Neurological exam: PRESENT: awake Skin exam: PRESENT: dry, pallor Results Laboratory Results: 05/15/17 04:22 05/14/17 04:45 05/15/17 04:22 WBC 6.5 RBC 3.32 L Hgb 9.6 L Hct 28.5 L MCV 86 MCH 28.9 MCHC 33.7 RDW 23.1 H Plt Count 213 04/18/17 04/18/17 04/18/17 09:27 09:27 09:27 Creatine Kinase < 20 L CK-MB (CK-2) 0.84 Troponin I 0.264 NT-Pro-B Natriuret Pep 31180 H 04/18/17 04/18/17 04/30/17 15:00 15:00 05:50 Creatine Kinase < 20 L CK-MB (CK-2) 0.93 Troponin I 0.248 NT-Pro-B Natriuret Pep 36191 H Impressions: Foot X-Ray 04/15/17 16:57 IMPRESSION: Calcaneal spurs with no acute osseous abnormality. Degenerative joint changes as described. Abdomen/Pelvis CT 04/15/17 20:09 IMPRESSION: 1. Bilateral pleural effusions right greater than left. 2. Small volume ascites. 3. Subcutaneous edema. KUB X-Ray 04/19/17 09:54 IMPRESSION: NASOGASTRIC TUBE WITH THE TIP IN THE STOMACH. NO RADIOGRAPHIC EVIDENCE FOR ACUTE ABDOMINAL DISEASE. Abdomen Ultrasound 04/22/17 08:31 IMPRESSION: Mild ascites. Gallstones without gallbladder wall thickening. No biliary dilatation. Chest X-Ray 05/01/17 06:00 IMPRESSION: Persistent left lower lobe consolidation and left pleural effusion Venous Doppler Study 05/14/17 00:00 IMPRESSION: NO EVIDENCE DVT OR SVT LEFT ARM. Assessment & Plan - Diagnosis (1) Septic shock Is this a current diagnosis for this admission?: No (2) Right BKA infection Is this a current diagnosis for this admission?: Yes (3) Chronic renal failure Qualifiers: Chronic kidney disease stage: stage 3 (moderate) Qualified Code(s): N18.3 - Chronic kidney disease, stage 3 (moderate) Is this a current diagnosis for this admission?: Yes (4) Severe peripheral arterial disease Is this a current diagnosis for this admission?: Yes (5) Malnutrition Qualifiers: Malnutrition type: protein-calorie malnutrition Protein-calorie malnutrition severity: severe Qualified Code(s): E43 - Unspecified severe protein-calorie malnutrition Is this a current diagnosis for this admission?: Yes (6) Thrombocytopenia Is this a current diagnosis for this admission?: No - Plan Summary Plan Summary: Plan is to discharge patient to [facility]
[2017-05-15 16:19] VITALS: BP 93/49
[2017-05-15] MEDS ORDERED: ALBUTEROL SULFATE 0.083% NEB 2.5 MG/3 ML AMPUL NEB PRN (16:39)
== END 2017-05-15 17:15 | DRG 853 ==
LOC: ER 16:06 → EH 22:48 → ICU 04-16 01:03 → 3W 05-03 13:34
PROVIDERS: ADMIT Internal Medicine; ATTEND Internal Medicine
PROC: 3E0F73Z Introduction of Anti-inflammatory into Respiratory Tract, Via Natural or Artificial Opening (ICD-10-PCS; 2017-04-15)
PROC: 02HV33Z Insertion of Infusion Device into Superior Vena Cava, Percutaneous Approach (ICD-10-PCS; 2017-04-18)
PROC: 5A1955Z Respiratory Ventilation, Greater than 96 Consecutive Hours (ICD-10-PCS; 2017-04-19)
PROC: 0D9670Z Drainage of Stomach with Drainage Device, Via Natural or Artificial Opening (ICD-10-PCS; 2017-04-19)
PROC: 0BH17EZ Insertion of Endotracheal Airway into Trachea, Via Natural or Artificial Opening (ICD-10-PCS; 2017-04-19)
PROC: 0Y6H0Z1 Detachment at Right Lower Leg, High, Open Approach (ICD-10-PCS; principal; 2017-04-19 08:00)
PROC: 0QBG0ZZ Excision of Right Tibia, Open Approach (ICD-10-PCS; 2017-04-23)
PROC: 30233N1 Transfusion of Nonautologous Red Blood Cells into Peripheral Vein, Percutaneous Approach (ICD-10-PCS; 2017-04-27)
PROC: 02HV33Z Insertion of Infusion Device into Superior Vena Cava, Percutaneous Approach (ICD-10-PCS; 2017-04-27)
PROC: B548ZZA Ultrasonography of Superior Vena Cava, Guidance (ICD-10-PCS; 2017-04-27)
PROC: 3E0234Z Introduction of Serum, Toxoid and Vaccine into Muscle, Percutaneous Approach (ICD-10-PCS; 2017-05-15)
DX: A41.9 Sepsis, unspecified organism (principal); R65.21 Severe sepsis with septic shock; N17.0 Acute kidney failure with tubular necrosis; E43 Unspecified severe protein-calorie malnutrition; J96.00 Acute respiratory failure, unspecified whether with hypoxia or hypercapnia; G93.41 Metabolic encephalopathy; J18.1 Lobar pneumonia, unspecified organism; I50.23 Acute on chronic systolic (congestive) heart failure; E87.1 Hypo-osmolality and hyponatremia; E46 Unspecified protein-calorie malnutrition; E87.2 Acidosis; I42.9 Cardiomyopathy, unspecified; N39.0 Urinary tract infection, site not specified; R18.8 Other ascites; I69.354 Hemiplegia and hemiparesis following cerebral infarction affecting left non-dominant side; L03.116 Cellulitis of left lower limb; L03.115 Cellulitis of right lower limb; L97.429 Non-pressure chronic ulcer of left heel and midfoot with unspecified severity; D62 Acute posthemorrhagic anemia; Z68.41 Body mass index [BMI] 40.0-44.9, adult; I13.0 Hypertensive heart and chronic kidney disease with heart failure and stage 1 through stage 4 chronic kidney disease, or unspecified chronic kidney disease; I82.612 Acute embolism and thrombosis of superficial veins of left upper extremity; Z66 Do not resuscitate; Z23 Encounter for immunization; E11.22 Type 2 diabetes mellitus with diabetic chronic kidney disease; N18.3 Chronic kidney disease, stage 3 (moderate); E11.51 Type 2 diabetes mellitus with diabetic peripheral angiopathy without gangrene; E87.6 Hypokalemia; I25.10 Atherosclerotic heart disease of native coronary artery without angina pectoris; D69.59 Other secondary thrombocytopenia; Z51.5 Encounter for palliative care; F32.9 Major depressive disorder, single episode, unspecified; D63.1 Anemia in chronic kidney disease; E11.621 Type 2 diabetes mellitus with foot ulcer; B96.20 Unspecified Escherichia coli [E. coli] as the cause of diseases classified elsewhere; B96.89 Other specified bacterial agents as the cause of diseases classified elsewhere; E66.01 Morbid (severe) obesity due to excess calories; K80.80 Other cholelithiasis without obstruction; I27.20 Pulmonary hypertension, unspecified; I25.5 Ischemic cardiomyopathy; I07.1 Rheumatic tricuspid insufficiency; Z79.4 Long term (current) use of insulin; Z60.2 Problems related to living alone; Z74.01 Bed confinement status; Z79.899 Other long term (current) drug therapy; Z79.82 Long term (current) use of aspirin; Z88.6 Allergy status to analgesic agent; Z91.013 Allergy to seafood; Z95.5 Presence of coronary angioplasty implant and graft; Z82.49 Family history of ischemic heart disease and other diseases of the circulatory system
CPT/HCPCS: 00400; 01482; 36415; 36430; 36600; 71010; 74000; 74176; 76700; 80048; 80053; 80202; 81001; 82024; 82272; 82374; 82533; 82550; 82553; 82565; 82803; 82962; 83605; 83615; 83735; 83880; 84100; 84132; 84134; 84439; 84443; 84478; 84481; 84484; 85025; 85027; 85362; 85384; 85610; 85730; 86022; 86850; 86900; 86901; 86920; 87040; 87070; 87075; 87077; 87086; 87088; 87186; 87205; 87493; 88307; 90686; 93005; 93010; 93306; 93971; 94002; 94003; 94640; 94667; 94668; 94799; 96361; 96365; 96367; 96375; 99291; C1751; G8978-GP; G8979-GP; G8981-GP; G8982-GP; J0743; J0744; J1170; J1642; J1644; J1650; J1815; J1940; J2250; J2270; J2370; J2543; J2704; J2765; J3010; J3370; J3430; J3475; J3480; J3490; J7030; J7040; J7050; J7060; J7120; J7620; P9016; P9047; S0028

== ENCOUNTER 2017-11-07 07:51 | Inpatient (IN) | payer MEDICARE ==
[2017-11-07] MEDS ORDERED: PIPERACILLIN/TAZOBACTAM 3.375 GM VIAL IV ONE (08:20)
[2017-11-07] MEDS ORDERED: VANCOMYCIN HCL INJ 1000 MG VIAL IV ONE (08:20)
[2017-11-07 08:56] LABS: ABSOLUTE BASOPHILS # (AUTO) 0.1 10^3/uL (0.0-0.2); ABSOLUTE EOSINOPHILS # (AUTO) 0.2 10^3/uL (0.0-0.6); ABSOLUTE LYMPHOCYTES (AUTO) 0.8 10^3/uL (0.5-4.7); ABSOLUTE MONOCYTES (AUTO) 0.3 10^3/uL (0.1-1.4); ABSOLUTE NEUT (AUTO) 5.6 10^3/uL (1.7-8.2); BASOPHILS % (AUTO) 0.9 % (0-2); EOSINOPHILS % (AUTO) 2.8 % (0-6); HEMATOCRIT 31.3 % (36.0-47.0); HEMOGLOBIN 10.2 g/dL (12.0-15.5); LYMPHOCYTES % (AUTO) 11.4 % (13-45); MEAN CORPUSCULAR HEMOGLOBIN 27.6 pg (27.0-33.4); MEAN CORPUSCULAR HGB CONC 32.5 g/dL (32.0-36.0); MEAN CORPUSCULAR VOLUME 85 fl (80-97); MONOCYTES % (AUTO) 4.9 % (3-13); PLATELET COUNT 257 10^3/uL (150-450); RED BLOOD COUNT 3.68 10^6/uL (3.72-5.28); RED CELL DISTRIBUTION WIDTH 16.8 % (11.5-14.0); TOTAL CELLS COUNTED % (AUTO) 100 %
[2017-11-07 09:12] LABS: ALANINE AMINOTRANSFERASE 16 U/L (9-52); ALBUMIN 3.5 g/dL (3.5-5.0); ALKALINE PHOSPHATASE 103 U/L (38-126); ANION GAP 11 (5-19); ASPARTATE AMINO TRANSFERASE 17 U/L (14-36); BILIRUBIN,DIRECT 0.4 mg/dL (0.0-0.4); BILIRUBIN,TOTAL 0.5 mg/dL (0.2-1.3); BLOOD UREA NITROGEN 32 mg/dL (7-20); CALCIUM 8.7 mg/dL (8.4-10.2); CARBON DIOXIDE 22 mmol/L (22-30); CHLORIDE 108 mmol/L (98-107); GLUCOSE 69 mg/dL (75-110); POTASSIUM 4.5 mmol/L (3.6-5.0); SODIUM 140.8 mmol/L (137-145); TOTAL PROTEIN 7.3 g/dL (6.3-8.2)
--- NOTE | 2017-11-07 09:28 | ER Document Report ---
ED General - General Chief Complaint: Wound Infection Stated Complaint: DRAINAGE FROM WOUND Time Seen by Provider: 11/07/17 07:56 Mode of Arrival: Ambulatory Information source: Patient Notes: 72-year-old female diabetic with right BKA in April presents with complaints of drainage from the left foot. Daughter does dressings and care notes it looked fine yesterday but then started draining pus today. Patient denies any fevers or chills denies any nausea vomiting or diarrhea TRAVEL OUTSIDE OF THE [place] IN LAST 30 DAYS: No - HPI Onset: Yesterday Onset/Duration: Sudden Quality of pain: Achy Severity: Mild Pain Level: 1 Associated symptoms: Other Exacerbated by: Movement Relieved by: Denies Similar symptoms previously: Yes Recently seen / treated by doctor: Yes - Related Data Allergies/Adverse Reactions: codeine [Codeine] Allergy (Verified 11/07/17 08:13) Generalized Itching Shellfish * [Shellfish] Allergy (Verified 11/07/17 08:13) Past Medical History - Social History Smoking Status: Never Smoker Cigarette use (# per day): No Chew tobacco use (# tins/day): No Smoking Education Provided: No Family History: Reviewed & Not Pertinent, Hypertension Patient has suicidal ideation: No Patient has homicidal ideation: No - Past Medical History Cardiac Medical History: Reports: Hx Coronary Artery Disease, Hx Hypertension, Hx Peripheral Vascular Disease Denies: Hx Heart Attack Pulmonary Medical History: Denies: Hx Asthma Neurological Medical History: Reports: Hx Cerebrovascular Accident - Left hemiparesis/wheelchair. Denies: Hx Seizures Endocrine Medical History: Reports: Hx Diabetes Mellitus Type 2 Renal/ Medical History: Denies: Hx Peritoneal Dialysis GI Medical History: Denies: Hx Hepatitis, Hx Hiatal Hernia, Hx Ulcer Musculoskeltal Medical History: Reports Hx Muscle Weakness Skin Medical History: Reports Hx Cellulitis Psychiatric Medical History: Reports: Hx Depression Infectious Medical History: Denies: Hx Hepatitis Past Surgical History: Reports: Hx Cardiac Surgery - Stent placed, Hx Orthopedic Surgery - R BKA. Denies: Hx Mastectomy, Hx Open Heart Surgery, Hx Pacemaker - Immunizations Hx Pneumococcal Vaccination: 08/03/12 Review of Systems - Review of Systems Notes: REVIEW OF SYSTEMS: CONSTITUTIONAL : Denies fever, chills, or sweats. Denies recent illness. EENT: Denies eye, ear, throat, or mouth pain or symptoms. Denies nasal or sinus congestion or discharge. Denies throat, tongue, or mouth swelling or difficulty swallowing. CARDIOVASCULAR: Denies chest pain. Denies palpitations or racing or irregular heart beat. Denies ankle edema. RESPIRATORY: Denies cough, cold, or chest congestion. Denies shortness of breath, difficulty breathing, or wheezing. GASTROINTESTINAL: Denies abdominal pain or distention. Denies nausea, vomiting , or diarrhea. Denies blood in vomitus, stools, or per rectum. Denies black, tarry stools. Denies constipation. GENITOURINARY: Denies difficulty urinating, painful urination, burning, frequency, blood in urine, or discharge. FEMALE GENITOURINARY: Denies vaginal bleeding, heavy or abnormal periods, irregular periods. Denies vaginal discharge or odor. MUSCULOSKELETAL: Denies back or neck pain or stiffness. Denies joint pain or swelling. SKIN: Admits to drainage from left foot HEMATOLOGIC : Denies easy bruising or bleeding. LYMPHATIC: Denies swollen, enlarged glands. NEUROLOGICAL: Denies confusion or altered mental status. Denies passing out or loss of consciousness. Denies dizziness or lightheadedness. Denies headache. Denies weakness or paralysis or loss of use of either side. Denies problems with gait or speech. Denies sensory loss, numbness, or tingling. Denies seizures. PSYCHIATRIC: Denies anxiety or stress. Denies depression, suicidal ideation, or homicidal ideation. ALL OTHER SYSTEMS REVIEWED AND NEGATIVE. PHYSICAL EXAMINATION: GENERAL: Well-appearing, well-nourished and in no acute distress. HEAD: Atraumatic, normocephalic. EYES: Pupils equal round and reactive to light, extraocular movements intact, conjunctiva are normal. ENT: Nares patent, oropharynx clear without exudates. Moist mucous membranes. NECK: Normal range of motion, supple without lymphadenopathy LUNGS: Breath sounds clear to auscultation bilaterally and equal. No wheezes rales or rhonchi. HEART: Regular rate and rhythm without murmurs ABDOMEN: Soft, nontender, nondistended abdomen. No guarding, no rebound. No masses appreciated. Female : deferred Musculoskeletal: Right BKA NEUROLOGICAL: Cranial nerves grossly intact. Normal speech, normal gait. Normal sensory, motor exams PSYCH: Normal mood, normal affect. SKIN: Left foot fifth digit drainage from wounds thick pus Dictation was performed using [employer] recognition software Physical Exam - Vital signs Vitals: Temp Pulse Resp BP Pulse Ox 98.4 F 98 16 131/72 H 100 11/07/17 08:06 11/07/17 08:06 11/07/17 08:06 11/07/17 08:06 11/07/17 08:06 Course - Re-evaluation Re-evalutation: I have high suspicion for osteomyelitis x-ray lab work pending 11/07/17 09:28 Dr. Dixon has been consulted to evaluate for osteomyelitis which I noted on x- ray, antibiotics have already been started 11/07/17 10:04 Dr Dixon plans for surgery, requests hospitalist admission 11/07/17 10:08 Dr Cunningham defers, will consult Dr Lentz also consulted since he is primary but not admitting over the weekend 11/07/17 10:18 - Vital Signs Vital signs: Temp Pulse Resp BP Pulse Ox 98.4 F 98 16 131/72 H 100 11/07/17 08:06 11/07/17 08:06 11/07/17 08:06 11/07/17 08:06 11/07/17 08:06 - Laboratory Result Diagrams: 11/07/17 08:30 11/07/17 08:30 Laboratory results interpreted by me: 11/07/17 11/07/17 08:30 08:30 RBC 3.68 L Hgb 10.2 L Hct 31.3 L RDW 16.8 H Seg Neutrophils % 80.0 H Lymphocytes % 11.4 L Chloride 108 H BUN 32 H Est GFR ( Amer) 54 L Est GFR (Non-Af Amer) 44 L Glucose 69 L - Diagnostic Test Radiology reviewed: Image reviewed - osteomyelitis, Reports reviewed Discharge - Discharge Clinical Impression: Foot osteomyelitis, left Qualifiers: Osteomyelitis type: other acute Qualified Code(s): M86.172 - Other acute osteomyelitis, left ankle and foot Diabetes mellitus Qualifiers: Diabetes mellitus type: type 2 Diabetes mellitus fdc insulin use: with fdc use Diabetes mellitus complication status: with kidney complications Diabetes mellitus complication detail: with nephropathy Qualified Code(s): E11.21 - Type 2 diabetes mellitus with diabetic nephropathy Condition: Fair Disposition: ADMITTED INPATIENT Admitting Provider: Surgicalist Unit Admitted: Telemetry
--- NOTE | 2017-11-07 09:41 | RADIOLOGY REPORT (SQ) ---
EXAM DESCRIPTION: FOOT LEFT COMPLETE COMPLETED DATE/TIME: 11/07/2017 9:16 am REASON FOR STUDY: diabetic foot 5th digit COMPARISON: None. NUMBER OF VIEWS: Three views. TECHNIQUE: AP, lateral and oblique radiographic images acquired of the left foot. LIMITATIONS: None. FINDINGS: There is profound osteopenia. There is cortical breakthrough in the distal 5th metatarsal . No obvious foreign body. IMPRESSION: Osteomyelitis distal 5th metatarsal. TECHNICAL DOCUMENTATION: JOB ID: [id number] [employer]- All Rights Reserved Reading location - IP/workstation name: [email or web address]
[2017-11-07] MEDS ORDERED: INSULIN LISPRO 100 UNIT/ML 3 ML VIAL SUBCUT PRN (12:36)
[2017-11-07] MEDS ORDERED: DEXTROSE 50%-WATER 25 GM/50 ML DISP.SYRIN IV PRN ×2 (12:36)
[2017-11-07] MEDS ORDERED: GLUCAGON,HUMAN RECOMB 1 MG INJ IM PRN (12:36)
[2017-11-07] MEDS ORDERED: DEXTROSE 40% GEL 15 GM TUBE PO PRN ×2 (12:36)
[2017-11-07] MEDS ORDERED: GABAPENTIN 100 MG CAPSULE PO ONE (15:15)
--- NOTE | 2017-11-07 16:34 | PDOC CONSULTATION ---
Consultation Consult Date: 11/07/17 - PCP Dr. Burden Attending physician:: HUSSEIN HANDY Consult reason:: Co management of medical problems History of Present Illness Admission Date/PCP: ETHEL BURDEN, History of Present Illness: SHERITA CAPUTO is a 72 year old female Presented to emergency room complaining of discharge from left foot for a couple of days. Patient was evaluated by Dr. Kimble who will proceed with a BKA. Patient is currently mostly bedridden. She does have residual right-sided weakness after stroke. Our service has been consulted for comanagement of medical problems. Patient's primary care physician is Dr. Burden Past Medical History Cardiac Medical History: Reports: Coronary Artery Disease, Hypertension, Peripheral Vascular Disease Denies: Myocardial Infarction Pulmonary Medical History: Denies: Asthma EENT Medical History: Reports: None Neurological Medical History: Denies: Seizures Endocrine Medical History: Reports: Diabetes Mellitus Type 2 Renal/ Medical History: Reports: Chronic Kidney Disease Malignancy Medical History: Reports: None GI Medical History: Reports: Hepatitis, Hiatal Hernia Musculoskeltal Medical History: Reports: None Psychiatric Medical History: Reports: Depression Traumatic Medical History: Reports: None Hematology: Denies: Anemia, Sickle Cell Disease Infectious Medical History: Reports: None Past Surgical History Past Surgical History: Reports: Amputation, Orthopedic Surgery - R BKA Denies: Mastectomy, Pacemaker Social History Information Source: Patient Lives with: Alone Smoking Status: Unknown if Ever Smoked Frequency of Alcohol Use: None Hx Recreational Drug Use: No Drugs: None Hx Prescription Drug Abuse: No - Advance Directive Resuscitation Status: Full Code Family History Family History: Reviewed & Not Pertinent, Hypertension Parental Family History Reviewed: Yes Children Family History Reviewed: Yes Sibling(s) Family History Reviewed.: Yes Medication/Allergy Home Medications: Glipizide [Glipizide Xl] 10 mg PO DAILY 07/24/14 Atorvastatin Calcium 40 mg PO QHS 04/06/16 Clopidogrel Bisulfate [Plavix 75 mg Tablet] 75 mg PO DAILY #0 tablet 04/08/16 Aspirin [Aspirin EC] 81 mg PO DAILY 04/16/17 Gabapentin [Neurontin 100 mg Capsule] 100 mg PO Q8 capsule 05/15/17 Bumetanide [Bumex 1 mg Tablet] 2 mg NG DAILY 11/07/17 Metoprolol Succinate [Toprol Xl 50 mg Tab.sr] 50 mg PO DAILY 11/07/17 Spironolactone [Aldactone 25 mg Tablet] 25 mg PO DAILY 11/07/17 Allergies/Adverse Reactions: codeine [Codeine] Allergy (Verified 11/07/17 08:13) Generalized Itching Shellfish * [Shellfish] Allergy (Verified 11/07/17 08:13) Review of Systems Constitutional: ABSENT: chills, fatigue, weakness Eyes: ABSENT: visual disturbances Ears: ABSENT: hearing changes Nose, Mouth, and Throat: ABSENT: mouth pain, sore throat Cardiovascular: ABSENT: chest pain, dyspnea on exertion, orthropnea Gastrointestinal: ABSENT: abdominal pain, nausea, vomiting Musculoskeletal: PRESENT: deformity Integumentary: PRESENT: wounds - Drainage from left foot wound. ABSENT: diaphoresis Neurological: PRESENT: frequent falls Physical Exam Vital Signs: Temp Pulse Resp BP Pulse Ox 98.4 F 98 16 131/72 H 100 11/07/17 08:06 11/07/17 08:06 11/07/17 08:06 11/07/17 08:06 11/07/17 08:06 Intake & Output 11/06/17 11/07/17 11/08/17 06:59 06:59 06:59 Weight 89 kg General appearance: PRESENT: cooperative, obese Head exam: PRESENT: atraumatic, normocephalic Eye exam: PRESENT: conjunctiva pink, EOMI, PERRLA Mouth exam: PRESENT: moist Neck exam: PRESENT: full ROM. ABSENT: JVD, lymphadenopathy, tenderness Respiratory exam: PRESENT: clear to auscultation lenore Cardiovascular exam: PRESENT: RRR. ABSENT: diastolic murmur, systolic murmur Vascular exam: PRESENT: normal capillary refill GI/Abdominal exam: PRESENT: normal bowel sounds, soft. ABSENT: tenderness Musculoskeletal exam: PRESENT: other - Right BKA noted There is serosanguineous discharge noted to left foot Neurological exam: PRESENT: alert, awake, oriented to person, oriented to place , oriented to time, oriented to situation Psychiatric exam: PRESENT: appropriate affect, normal mood Skin exam: PRESENT: normal color Results Laboratory Results: 11/07/17 08:30 11/07/17 08:30 11/07/17 11/07/17 08:30 08:30 WBC 7.0 RBC 3.68 L Hgb 10.2 L Hct 31.3 L MCV 85 MCH 27.6 MCHC 32.5 RDW 16.8 H Plt Count 257 Seg Neutrophils % 80.0 H Lymphocytes % 11.4 L Monocytes % 4.9 Eosinophils % 2.8 Basophils % 0.9 Absolute Neutrophils 5.6 Absolute Lymphocytes 0.8 Absolute Monocytes 0.3 Absolute Eosinophils 0.2 Absolute Basophils 0.1 Sodium 140.8 Potassium 4.5 Chloride 108 H Carbon Dioxide 22 Anion Gap 11 BUN 32 H Creatinine 1.20 Est GFR ( Amer) 54 L Est GFR (Non-Af Amer) 44 L Glucose 69 L Calcium 8.7 Total Bilirubin 0.5 AST 17 ALT 16 Alkaline Phosphatase 103 Total Protein 7.3 Albumin 3.5 Impressions: Foot X-Ray 11/07/17 08:20 IMPRESSION: Osteomyelitis distal 5th metatarsal. 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 Will require physical therapy to learn to transfer herself due to BKA's (4) Anemia of chronic disease Is this a current diagnosis for this admission?: Yes Plan: Stable. To trend (5) Peripheral arterial disease Is this a current diagnosis for this admission?: Yes Plan: And contributing factor to patient lives in her extremities and poor control of her diabetes (6) Chronic kidney disease (CKD) stage G1/A3, glomerular filtration rate (GFR) equal to or greater than 90 mL/min/1.73 square meter and albuminuria creatinine ratio greater than 300 mg/g Is this a current diagnosis for this admission?: Yes Plan: Appears to be improved and stable (7) History of CVA with residual deficit Is this a current diagnosis for this admission?: Yes Plan: ,Patient is mostly bed bound. Will require supportive care - Time Time Spent: 30 to 50 Minutes Medications reviewed and adjusted accordingly: Yes Within: Other - As per primary care provider
--- NOTE | 2017-11-07 17:35 | PDOC H&P ---
History of Present Illness Admission Date/PCP: 11/07/17 10:13 ETHEL BURDEN, Patient complains of: left foot pains History of Present Illness: 72 yo female post right bka for infected foot in May 2017. She has been bedridden since and being taken cared of by her daughter. Daughter claims has been having problems with the left foot along the wound site since May 2017. Pt is a diabetic. Arterial studies has been done on the left leg and the daughter claims they ar abnormal and not much blood flow to the left foot. Seen at ED with a left foot xray showing osteomyelitis of the left 5th metatarsal head. Past Medical History Cardiac Medical History: Reports: Coronary Artery Disease, Hypertension, Peripheral Vascular Disease Denies: Myocardial Infarction Pulmonary Medical History: Denies: Asthma EENT Medical History: Reports: None Neurological Medical History: Denies: Seizures Endocrine Medical History: Reports: Diabetes Mellitus Type 2 Renal/ Medical History: Reports: Chronic Kidney Disease Malignancy Medical History: Reports: None GI Medical History: Reports: Hepatitis, Hiatal Hernia Musculoskeltal Medical History: Reports: None Psychiatric Medical History: Reports: Depression Traumatic Medical History: Reports: None Hematology: Denies: Anemia, Sickle Cell Disease Infectious Medical History: Reports: None Past Surgical History Past Surgical History: Reports: Amputation, Orthopedic Surgery - R BKA Denies: Mastectomy, Pacemaker Social History Lives with: Alone Smoking Status: Unknown if Ever Smoked Frequency of Alcohol Use: None Hx Recreational Drug Use: No Drugs: None Hx Prescription Drug Abuse: No - Advance Directive Resuscitation Status: Full Code Family History Family History: Reviewed & Not Pertinent, Hypertension Parental Family History Reviewed: Yes - hypertension Children Family History Reviewed: No Sibling(s) Family History Reviewed.: No Medication/Allergy Home Medications: Glipizide [Glipizide Xl] 10 mg PO DAILY 07/24/14 Atorvastatin Calcium 40 mg PO QHS 04/06/16 Clopidogrel Bisulfate [Plavix 75 mg Tablet] 75 mg PO DAILY #0 tablet 04/08/16 Aspirin [Aspirin EC] 81 mg PO DAILY 04/16/17 Gabapentin [Neurontin 100 mg Capsule] 100 mg PO Q8 capsule 05/15/17 Bumetanide [Bumex 1 mg Tablet] 2 mg NG DAILY 11/07/17 Metoprolol Succinate [Toprol Xl 50 mg Tab.sr] 50 mg PO DAILY 11/07/17 Spironolactone [Aldactone 25 mg Tablet] 25 mg PO DAILY 11/07/17 Allergies/Adverse Reactions: codeine [Codeine] Allergy (Verified 11/07/17 08:13) Generalized Itching Shellfish * [Shellfish] Allergy (Verified 11/07/17 08:13) Review of Systems Constitutional: PRESENT: other - no fever/chills Eyes: PRESENT: other - no visual/hearing problems Cardiovascular: PRESENT: other - no chest pains or cough Gastrointestinal: PRESENT: other - no abdominal pains Genitourinary: PRESENT: other - no dysuria Musculoskeletal: PRESENT: deformity - unable to move much left leg Neurological: PRESENT: other - no seizures Physical Exam Vital Signs: Temp Pulse Resp BP Pulse Ox 98.3 F 81 17 113/59 L 100 11/07/17 16:00 11/07/17 16:00 11/07/17 16:00 11/07/17 16:00 11/07/17 16:00 Intake & Output 11/06/17 11/07/17 11/08/17 06:59 06:59 06:59 Weight 89 kg General appearance: PRESENT: no acute distress Head exam: PRESENT: atraumatic Mouth exam: PRESENT: moist Neck exam: PRESENT: full ROM Respiratory exam: PRESENT: clear to auscultation lenore Cardiovascular exam: PRESENT: RRR Pulses: PRESENT: normal radial pulses Vascular exam: PRESENT: normal capillary refill GI/Abdominal exam: PRESENT: soft Rectal exam: PRESENT: deferred Extremities exam: PRESENT: other - limited flexion left knee, unable to keep left foot at 90 degrees. Has been turned to the left side Right BKA stump healed well Musculoskeletal exam: PRESENT: other - non ambulatory Neurological exam: PRESENT: alert, oriented to person, oriented to place, oriented to time, oriented to situation Psychiatric exam: PRESENT: appropriate affect Skin exam: PRESENT: other - draining erythematous wound left lateral foot. Results Impressions: Foot X-Ray 11/07/17 08:20 IMPRESSION: Osteomyelitis distal 5th metatarsal. 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 Is this a current diagnosis for this admission?: Yes (2) Foot osteomyelitis, left Qualifiers: Osteomyelitis type: other acute Qualified Code(s): M86.172 - Other acute osteomyelitis, left ankle and foot Is this a current diagnosis for this admission?: Yes (3) History of CVA with residual deficit Is this a current diagnosis for this admission?: Yes (4) Ambulatory dysfunction Is this a current diagnosis for this admission?: Yes - Time Time Spent: 30 to 50 Minutes - Inpatient Certification Medical Necessity: Need For Continuous Telemetry Monitoring, Need for IV Antibiotics, Need for Surgery - Plan Summary Plan Summary: Patient will need at least a left BKA. She is non ambulatory post right BKA. Residual partial paralysis left leg post CVA. Has poor circulation to left leg and now with a draining wound left foot with osteomyelitis. Patient not decided yet on giving consent for BKA and woulld like to think about it. Meantime, will get medical clearance. Daughter is very understanding but would like her mom to give final dcision. Possible left BKA tomorrow. Started on IV antibiotic.
[2017-11-07] MEDS ORDERED: VANCOMYCIN HCL 1,000 MG in DEXTROSE 5%-WATER 250 ML IV SCH (18:00)
[2017-11-07] MEDS: ASCORBIC ACID 500 MG TABLET PO SCH (18:15)
[2017-11-07] MEDS: GABAPENTIN 100 MG CAPSULE PO SCH (22:32)
[2017-11-07] MEDS: ATORVASTATIN CALCIUM 40 MG TABLET PO SCH (22:33)
[2017-11-08] MEDS: GABAPENTIN 100 MG CAPSULE PO SCH ×3 (05:39→21:40)
[2017-11-08] MEDS: ASCORBIC ACID 500 MG TABLET PO SCH ×2 (09:22→17:03)
[2017-11-08] MEDS: MULTIVITAMIN TABLET PO SCH (09:22)
[2017-11-08] MEDS: METOPROLOL SUCCINATE 50 MG TAB.SR.24H PO SCH (09:22)
[2017-11-08] MEDS: BUMETANIDE 1 MG TABLET PO SCH (09:23)
[2017-11-08] MEDS: SPIRONOLACTONE 25 MG TABLET PO SCH (09:23)
--- NOTE | 2017-11-08 09:51 | EKG REPORT ---
SEVERITY:- ABNORMAL ECG - SINUS RHYTHM NONSPECIFIC ST-T ABNORMALITIES, LATERAL LEADS : Confirmed by: Vanesa Irene 08-Nov-2017 09:50:49
[2017-11-08] MEDS ORDERED: GLIPIZIDE 10 MG TABLET PO SCH (10:00)
[2017-11-08] MEDS ORDERED: PIPERACILLIN/TAZOBACTAM 3.375 GM VIAL IV ONE (14:16)
--- NOTE | 2017-11-08 14:21 | PDOC PROGRESS REPORT ---
Subjective Progress Note for:: 11/08/17 Subjective:: No complaints Review of systems All organ systems reviewed and negative except as in subjective All laboratories and significant diagnostics have been reviewed Reason For Visit: OSTEOMYELITIS OF LEFT FOOT Physical Exam Vital Signs: Temp Pulse Resp BP Pulse Ox 98.2 F 78 13 103/54 L 100 11/08/17 03:31 11/08/17 03:31 11/08/17 03:31 11/08/17 03:31 11/08/17 03:31 Intake & Output 11/06/17 11/07/17 11/08/17 06:59 06:59 06:59 Intake Total 982 Balance 982 Weight 89 kg General appearance: PRESENT: cooperative, obese Head exam: PRESENT: atraumatic, normocephalic Eye exam: PRESENT: conjunctiva pink, EOMI, PERRLA Mouth exam: PRESENT: moist Neck exam: PRESENT: full ROM. ABSENT: JVD, lymphadenopathy, tenderness Respiratory exam: PRESENT: clear to auscultation lenore Cardiovascular exam: PRESENT: RRR. ABSENT: diastolic murmur, systolic murmur Vascular exam: PRESENT: normal capillary refill GI/Abdominal exam: PRESENT: normal bowel sounds, soft. ABSENT: tenderness Extremities exam: ABSENT: pedal edema Musculoskeletal exam: ABSENT: ambulatory Neurological exam: PRESENT: alert, awake, oriented to person, oriented to place , oriented to time, oriented to situation Psychiatric exam: PRESENT: appropriate affect, normal mood Skin exam: PRESENT: other - Left foot covered with recently changed dressings Results Impressions: Foot X-Ray 11/07/17 08:20 IMPRESSION: Osteomyelitis distal 5th metatarsal. 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 Order A1c (3) Ambulatory dysfunction Is this a current diagnosis for this admission?: Yes Plan: Long-standing after stroke. Will require physical therapy to learn to transfer herself due to BKA's (4) Anemia of chronic disease Is this a current diagnosis for this admission?: Yes Plan: Stable. To trend (5) Peripheral arterial disease Is this a current diagnosis for this admission?: Yes Plan: Likley contributing factor and poor control of her diabetes (6) Chronic kidney disease (CKD) stage G1/A3, glomerular filtration rate (GFR) equal to or greater than 90 mL/min/1.73 square meter and albuminuria creatinine ratio greater than 300 mg/g Is this a current diagnosis for this admission?: Yes Plan: Appears to be improved and stable (7) History of CVA with residual deficit Is this a current diagnosis for this admission?: Yes Plan: ,Patient is mostly bed bound. Will require supportive care. Of Plavix - Time Time Spent with patient: 15-24 minutes Medications reviewed and adjusted accordingly: Yes Anticipated discharge: Acute Rehab Within: Other - As per primary
--- NOTE | 2017-11-08 14:34 | PDOC PROGRESS REPORT ---
Subjective Progress Note for:: 11/08/17 Subjective:: Pains left foot Reason For Visit: OSTEOMYELITIS OF LEFT FOOT Physical Exam Vital Signs: Temp Pulse Resp BP Pulse Ox 98.5 F 72 20 107/57 L 100 11/08/17 10:58 11/08/17 10:58 11/08/17 10:58 11/08/17 10:58 11/08/17 10:58 Intake & Output 11/07/17 11/08/17 11/09/17 06:59 06:59 06:59 Intake Total 982 Balance 982 Weight 89 kg Exam: foot with inflammation on lateral aspect of left foot with an open wound Results Impressions: Foot X-Ray 11/07/17 08:20 IMPRESSION: Osteomyelitis distal 5th metatarsal. 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 Is this a current diagnosis for this admission?: Yes (2) Foot osteomyelitis, left Qualifiers: Osteomyelitis type: other acute Qualified Code(s): M86.172 - Other acute osteomyelitis, left ankle and foot Is this a current diagnosis for this admission?: Yes (3) History of CVA with residual deficit Is this a current diagnosis for this admission?: Yes (4) Ambulatory dysfunction Is this a current diagnosis for this admission?: Yes - Time Time Spent with patient: 15-24 minutes - Inpatient Certification Medical Necessity: Need for IV Antibiotics, Need for Surgery - Plan Summary Plan Summary: Informed by anesthesia that pt is on Plavix. Best anesthesia for this pt with hx of 20% ejection fraction is spinal but need to stop Plavix for at least 5 days. Last took Plavix am of 11/06/17. Will continue iv antibiotics and schedule left BKA on Thu11/11/17. Continue IV antibiotics Medical follow up appreciated
[2017-11-08] MEDS: PIPERACILLIN SODIUM/TAZOBACTAM 3.375 GM in NORMAL SALINE 100 ML IV SCH ×2 (17:04→23:06)
[2017-11-08] MEDS: VANCOMYCIN HCL 1,500 MG in DEXTROSE 5%-WATER 250 ML IV SCH (18:30)
[2017-11-08] MEDS: ATORVASTATIN CALCIUM 40 MG TABLET PO SCH (21:40)
[2017-11-09] MEDS: PIPERACILLIN SODIUM/TAZOBACTAM 3.375 GM in NORMAL SALINE 100 ML IV SCH ×3 (05:35→18:52)
[2017-11-09] MEDS: GABAPENTIN 100 MG CAPSULE PO SCH ×3 (05:36→21:23)
[2017-11-09 06:03] LABS: HEMOGLOBIN 9.1 g/dL (12.0-15.5); MEAN CORPUSCULAR HEMOGLOBIN 27.7 pg (27.0-33.4); MEAN CORPUSCULAR HGB CONC 32.5 g/dL (32.0-36.0); MEAN CORPUSCULAR VOLUME 85 fl (80-97); PLATELET COUNT 201 10^3/uL (150-450); RED BLOOD COUNT 3.29 10^6/uL (3.72-5.28); RED CELL DISTRIBUTION WIDTH 17.1 % (11.5-14.0)
[2017-11-09 06:27] LABS: ANION GAP 9 (5-19); BLOOD UREA NITROGEN 34 mg/dL (7-20); CALCIUM 8.2 mg/dL (8.4-10.2); CARBON DIOXIDE 19 mmol/L (22-30); CHLORIDE 112 mmol/L (98-107); GLUCOSE 115 mg/dL (75-110); POTASSIUM 4.2 mmol/L (3.6-5.0); SODIUM 139.8 mmol/L (137-145)
[2017-11-09 06:35] LABS: ABSOLUTE LYMPHOCYTES# (MANUAL) 1.5 10^3/uL (0.5-4.7); ABSOLUTE MONOCYTES # (MANUAL) 0.5 10^3/uL (0.1-1.4); ABSOLUTE NEUTROPHILS# (MANUAL) 4.6 10^3/uL (1.7-8.2); BASOPHILS % (MANUAL) 1 % (0-2); EOSINOPHILS % (MANUAL) 4 % (0-6); LYMPHOCYTES % (MANUAL) 22 % (13-45); MONOCYTES % (MANUAL) 7 % (3-13); SEGMENTED NEUTROPHILS % (MAN) 66 % (42-78); TOTAL CELLS COUNTED 100
[2017-11-09 06:36] LABS: ANISOCYTOSIS 1+; OVALOCYTES SLIGHT; PLATELET COMMENT ADEQUATE; POIKILOCYTOSIS SLIGHT
--- NOTE | 2017-11-09 09:45 | PDOC PROGRESS REPORT ---
Subjective Progress Note for:: 11/09/17 Reason For Visit: OSTEOMYELITIS OF LEFT FOOT Patient essentially bedridden; has not had her dressing changed recently: States she has had ORIF of the left hip and left femur. A right BKA was performed by Dr. Fairbanks. Physical Exam Vital Signs: Temp Pulse Resp BP Pulse Ox 97.3 F 62 16 103/58 L 100 11/09/17 03:29 11/09/17 03:29 11/09/17 03:29 11/09/17 03:29 11/09/17 03:29 Intake & Output 11/08/17 11/09/17 11/10/17 06:59 06:59 06:59 Intake Total 982 2080 Balance 982 2080 Weight 89 kg General appearance: PRESENT: no acute distress Musculoskeletal exam: PRESENT: other - Left lower extremity examined. Dressing removed; left fifth toe with diabetic septic changes to open wound laterally. Lower extremity edematous, and below the knee evidence venous hypertensive changes. Results Laboratory Results: 11/09/17 05:38 11/09/17 05:38 11/09/17 11/09/17 05:38 05:38 WBC 7.0 RBC 3.29 L Hgb 9.1 L Hct 28.0 L MCV 85 MCH 27.7 MCHC 32.5 RDW 17.1 H Plt Count 201 Seg Neutrophils % Not Reportable Lymphocytes % Not Reportable Monocytes % Not Reportable Eosinophils % Not Reportable Basophils % Not Reportable Absolute Neutrophils Not Reportable Absolute Lymphocytes Not Reportable Absolute Monocytes Not Reportable Absolute Eosinophils Not Reportable Absolute Basophils Not Reportable Sodium 139.8 Potassium 4.2 Chloride 112 H Carbon Dioxide 19 L Anion Gap 9 BUN 34 H Creatinine 1.33 H Est GFR ( Amer) 48 L Est GFR (Non-Af Amer) 39 L Glucose 115 H Calcium 8.2 L Magnesium 2.3 Impressions: Foot X-Ray 11/07/17 08:20 IMPRESSION: Osteomyelitis distal 5th metatarsal. Assessment & Plan - Diagnosis (1) Foot osteomyelitis, left Qualifiers: Osteomyelitis type: other acute Qualified Code(s): M86.172 - Other acute osteomyelitis, left ankle and foot Is this a current diagnosis for this admission?: Yes Plan: Septic left foot, without aggressive advancement; recent has agreed to a below- the-knee amputation. Plavix being held Recommendations: 1. We will order dressing changes interim; lower extremity edema may be problematic to DKA stump closure therefore wrapping leg more aggressively and this was reviewed with patient and her daughter. 2. We will put patient on schedule for below the knee amputation on November [address] Dixon. We will have patient evaluated by a anesthetic plan.
[2017-11-09] MEDS: ASCORBIC ACID 500 MG TABLET PO SCH ×2 (10:47→18:52)
[2017-11-09] MEDS: BUMETANIDE 1 MG TABLET PO SCH (10:47)
[2017-11-09] MEDS: SPIRONOLACTONE 25 MG TABLET PO SCH (10:47)
[2017-11-09] MEDS: MULTIVITAMIN TABLET PO SCH (10:47)
[2017-11-09] MEDS: NORMAL SALINE 1000 ML 1,000 ML IV PRN (10:48)
[2017-11-09] MEDS: METOPROLOL SUCCINATE 50 MG TAB.SR.24H PO SCH (10:48)
[2017-11-09] MEDS: VANCOMYCIN HCL 1,500 MG in DEXTROSE 5%-WATER 250 ML IV SCH (18:52)
[2017-11-09] MEDS: ATORVASTATIN CALCIUM 40 MG TABLET PO SCH (21:23)
[2017-11-10] MEDS: PIPERACILLIN SODIUM/TAZOBACTAM 3.375 GM in NORMAL SALINE 100 ML IV SCH ×5 (00:28→23:32)
[2017-11-10] MEDS: ACETAMINOPHEN 325 MG TABLET PO PRN ×4 (03:27→18:42)
[2017-11-10] MEDS: NORMAL SALINE 1000 ML 1,000 ML IV PRN (05:29)
[2017-11-10] MEDS: GABAPENTIN 100 MG CAPSULE PO SCH ×3 (05:29→21:35)
[2017-11-10] MEDS: ASCORBIC ACID 500 MG TABLET PO SCH ×2 (09:55→17:17)
[2017-11-10] MEDS: BUMETANIDE 1 MG TABLET PO SCH (09:55)
[2017-11-10] MEDS: MULTIVITAMIN TABLET PO SCH (09:55)
[2017-11-10] MEDS: SPIRONOLACTONE 25 MG TABLET PO SCH (09:55)
[2017-11-10] MEDS: METOPROLOL SUCCINATE 50 MG TAB.SR.24H PO SCH (09:56)
[2017-11-10] MEDS: VANCOMYCIN HCL 1,500 MG in DEXTROSE 5%-WATER 250 ML IV SCH (17:17)
--- NOTE | 2017-11-10 18:57 | PDOC CONSULTATION ---
Consultation Consult Date: 11/10/17 Attending physician:: TARIQ QUINTANA Consult reason:: Preop cardiovascular evaluation patient with known CAD and prior stents History of Present Illness Admission Date/PCP: 11/07/17 10:13 ETHEL BURDEN, Patient complains of: Left lower extremity discomfort History of Present Illness: 72 yo female post right bka for infected foot in May 2017. She has been bedridden since and being taken cared of by her daughter. Daughter claims has been having problems with the left foot along the wound site since May 2017. Pt is a diabetic. Arterial studies has been done on the left leg and the daughter claims they ar abnormal and not much blood flow to the left foot. Seen at ED with a left foot xray showing osteomyelitis of the left 5th metatarsal head. Patient is scheduled for amputation surgery. Patient does give history of prior stent placement and myocardial infarction. I was therefore asked to evaluate patient. Twelve-lead EKG obtained during this hospitalization does show some ST-T wave changes. Patient on questioning denied any chest pain. Patient has very limited physical activity being status post amputation, below- knee on the right side already. Patient seems to have PVD and also has diabetes. Past Medical History Cardiac Medical History: Reports: Coronary Artery Disease, Hypertension, Peripheral Vascular Disease Denies: Myocardial Infarction Pulmonary Medical History: Denies: Asthma EENT Medical History: Reports: None Neurological Medical History: Denies: Seizures Endocrine Medical History: Reports: Diabetes Mellitus Type 2 Renal/ Medical History: Reports: Chronic Kidney Disease Malignancy Medical History: Reports: None GI Medical History: Reports: Hepatitis, Hiatal Hernia Musculoskeltal Medical History: Reports: None Psychiatric Medical History: Reports: Depression Traumatic Medical History: Reports: None Hematology: Denies: Anemia, Sickle Cell Disease Infectious Medical History: Reports: None Past Surgical History Past Surgical History: Reports: Amputation, Orthopedic Surgery - R BKA Denies: Mastectomy, Pacemaker Social History Information Source: Patient Lives with: Alone Smoking Status: Unknown if Ever Smoked Frequency of Alcohol Use: None Hx Recreational Drug Use: No Drugs: None Hx Prescription Drug Abuse: No - Advance Directive Resuscitation Status: Full Code Surrogate healthcare decision maker:: Patient's daughter is the surrogate decision-maker Family History Family History: Reviewed & Not Pertinent, Hypertension Parental Family History Reviewed: Yes Children Family History Reviewed: Yes Sibling(s) Family History Reviewed.: Yes Medication/Allergy Home Medications: Glipizide [Glipizide Xl] 10 mg PO DAILY 07/24/14 Atorvastatin Calcium 40 mg PO QHS 04/06/16 Clopidogrel Bisulfate [Plavix 75 mg Tablet] 75 mg PO DAILY #0 tablet 04/08/16 Aspirin [Aspirin EC] 81 mg PO DAILY 04/16/17 Gabapentin [Neurontin 100 mg Capsule] 100 mg PO Q8 capsule 05/15/17 Bumetanide [Bumex 1 mg Tablet] 2 mg NG DAILY 11/07/17 Metoprolol Succinate [Toprol Xl 50 mg Tab.sr] 50 mg PO DAILY 11/07/17 Spironolactone [Aldactone 25 mg Tablet] 25 mg PO DAILY 11/07/17 Allergies/Adverse Reactions: codeine [Codeine] Allergy (Verified 11/07/17 08:13) Generalized Itching Shellfish * [Shellfish] Allergy (Verified 11/07/17 08:13) Review of Systems Review of Systems: Please see history of present illness and past medical history as wall. Constitutional: No fever or chills reported. Head : No recent chronic headaches, recent head injury. Eyes: No recent eye pain, diplopia, redness, discharge, acute visual changes. Ears: No recent chronic ear pain, acute hearing loss, ear discharge. Oral cavity: No recent ulcerations, bleeding, oral cavity discomfort. Neck: No recent acute neck pain reported. Hematologic: No recent easy bruising or bleeding or hematologic malignancy reported. Lymphatic: No recent lymphatic malignancy, chronic lymphadenopathy reported yet Cardiovascular system review: See history of present illness. No history of sustained palpitations, syncope, near syncope. Respiratory system review: No recent chronic cough, hemoptysis, blood clots in the lungs reported. Shortness of breath on exertion. Patient activity is quite limited. Gastrointestinal system review: Negative for any recent acute or chronic abdominal pain, hematemesis, melena, recent change in bowel habits. Genitourinary system review: No recent acute or chronic hematuria, flank pain, UTI etc. reported. Skin system review: Negative for any recent abnormal bruising, no rash, no pruritus reported. Neurologic: No prior history of strokes, mini strokes, seizure disorder. Psychologic: No history of major psychosis or major depression reported. Musculoskeletal: Minor aches and pains reported. No acute joint swelling reported. Endocrine: No recent polyuria, polydipsia, recent heat or cold intolerance. Physical Exam Vital Signs: Temp Pulse Resp BP Pulse Ox 97.8 F 69 16 103/46 L 100 11/10/17 15:44 11/10/17 15:44 11/10/17 15:44 11/10/17 15:44 11/10/17 15:44 Intake & Output 11/09/17 11/10/17 11/11/17 06:59 06:59 06:59 Intake Total 2079 2440 1800 Balance 2079 244 1800 Exam: GENERAL: well-nourished and in no acute distress. Alert and oriented x3 HEAD: Atraumatic, normocephalic. EYES: Pupils equal round and reactive to light, extraocular movements intact, sclera anicteric, conjunctiva are normal. ENT: TMs normal, nares patent, oropharynx clear without exudates. Moist mucous membranes. No oral ulcerations or bleeding gums noted NECK: supple without lymphadenopathy. Trachea is central. No cervical or axillary lymphadenopathy noted. Carotids are 2+, JVD WNL LUNGS: Respiration seems nonlabored, no significant accessory muscle action noted. Breath sounds clear to auscultation bilaterally and equal noted. No wheezes rales or rhonchi noted. No significant dullness noted on percussion. CHEST: Palpation of the chest wall shows no significant chest wall tenderness. No other significant abnormalities noted. HEART: [place] ENVELOPE STUFFER, No PSH, 2/6 RAJ aortic area, 1/6 antunez systolic murmur mitral area, no rubs, no gallops. ABDOMEN: Soft, no significant tenderness appreciated, normoactive bowel sounds. No guarding, no rebound. No rigidity noted . No masses appreciated. EXTREMITIES: Pedal pulses are trace, no calf tenderness noted. No clubbing or cyanosis. 1+ pedal edema noted. Left lower extremity. Right lower extremity has below-knee amputation. NEUROLOGICAL: Focused neurological exam showed no significant neurologic deficit. Normal speech, no focal weakness appreciated. PSYCH: Normal mood, normal affect. Judgment and insight within normal limits. SKIN: No significant ecchymosis, skin is noted to be warm. MUSCULOSKELETAL EXAM: No significant acute joint swelling noted. Detailed exam as per the surgeon Results Laboratory Results: 11/09/17 05:38 11/09/17 05:38 EKG Comments: Sinus rhythm with nonspecific ST-T wave changes consistent with LVH versus ischemia Impressions: Foot X-Ray 11/07/17 08:20 IMPRESSION: Osteomyelitis distal 5th metatarsal. Assessment & Plan - Diagnosis (1) Preoperative cardiovascular examination Is this a current diagnosis for this admission?: Yes (2) Coronary artery disease Qualifiers: Coronary Disease-Associated Artery/Lesion type: [place] artery [place] vs. transplanted heart: [place] heart Associated angina: angina presence unspecified Qualified Code(s): I25.10 - Atherosclerotic heart disease of [place] coronary artery without angina pectoris Is this a current diagnosis for this admission?: Yes (3) Cardiomyopathy Qualifiers: Cardiomyopathy type: unspecified Qualified Code(s): I42.9 - Cardiomyopathy , unspecified Is this a current diagnosis for this admission?: Yes (4) Peripheral vascular disease Is this a current diagnosis for this admission?: Yes (5) Diabetes Qualifiers: Diabetes mellitus type: type 2 (6) Chronic kidney disease Qualifiers: Chronic kidney disease stage: stage 3 (moderate) Qualified Code(s): N18.3 - Chronic kidney disease, stage 3 (moderate) Is this a current diagnosis for this admission?: Yes (7) COPD (chronic obstructive pulmonary disease) Qualifiers: COPD type: unspecified COPD Qualified Code(s): J44.9 - Chronic obstructive pulmonary disease, unspecified Is this a current diagnosis for this admission?: Yes - Notes Notes: Patient is noted to have severe cardiomyopathy with EF of approximately 25% based on echocardiogram from 6 months ago. She also has a history of congestive heart failure, coronary artery disease. However currently seems seems compensated on clinical exam as regards CHF. Patient does have coronary artery disease. Currently Plavix on hold for preparation for surgery. Patient noted to be maintaining sinus rhythm. Amputation surgeries are usually low to intermediate risk surgery. Feel that patient should be a candidate for this kind of surgery and the surgeons can proceed. Choice of anesthesia is best left to the anesthesiologist. Recommend postop cardiac monitoring. Would recommend restarting antiplatelet therapy as soon as feasible from surgical standpoint. Will recommend continuing high potency statin therapy, observing patient for development of any CHF etc. Discussed that patient will be considered higher than average risk because of significant comorbid diagnosis as noted above. Did order a 2D echocardiogram to evaluate LV EF. Will also order a portable chest x-ray. - Time Time Spent: 30 to 50 Minutes Medications reviewed and adjusted accordingly: Yes
[2017-11-10] MEDS: RANOLAZINE 500 MG TAB.SR.12H PO SCH (21:35)
[2017-11-10] MEDS: ATORVASTATIN CALCIUM 40 MG TABLET PO SCH (21:35)
--- NOTE | 2017-11-10 21:49 | PDOC PROGRESS REPORT ---
Subjective Progress Note for:: 11/10/17 Subjective:: left foot pains Reason For Visit: OSTEOMYELITIS OF LEFT FOOT Physical Exam Vital Signs: Temp Pulse Resp BP Pulse Ox 98.0 F 68 16 106/44 L 100 11/10/17 19:32 11/10/17 19:32 11/10/17 19:32 11/10/17 19:32 11/10/17 19:32 Intake & Output 11/09/17 11/10/17 11/11/17 06:59 06:59 06:59 Intake Total 2080 2440 1800 Balance 2080 2440 1800 Exam: left leg swelling improving with brenden bandage. Results Laboratory Results: 11/09/17 05:38 11/09/17 05:38 Impressions: Foot X-Ray 11/07/17 08:20 IMPRESSION: Osteomyelitis distal 5th metatarsal. Assessment & Plan - Diagnosis (1) Diabetes mellitus Qualifiers: Diabetes mellitus type: type 2 Diabetes mellitus nursing home insulin use: with nursing home use Diabetes mellitus complication status: with kidney complications Diabetes mellitus complication detail: with nephropathy Qualified Code(s): E11.21 - Type 2 diabetes mellitus with diabetic nephropathy; Z79.4 - skilled nursing (current) use of insulin Is this a current diagnosis for this admission?: Yes (2) Foot osteomyelitis, left Qualifiers: Osteomyelitis type: other acute Qualified Code(s): M86.172 - Other acute osteomyelitis, left ankle and foot Is this a current diagnosis for this admission?: Yes (3) History of CVA with residual deficit Is this a current diagnosis for this admission?: Yes (4) Ambulatory dysfunction Is this a current diagnosis for this admission?: Yes - Time Time Spent with patient: 15-24 minutes - Plan Summary Plan Summary: Have consulted cardiology because of history of 20% EF. 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 Trisha ordered an echo tomorrow Possible Left BKA tomorrow on 5-6 days off Plavix. Will need spinal per anesthesia Continue IV antibiotics
--- NOTE | 2017-11-10 22:16 | RADIOLOGY REPORT (SQ) ---
EXAM DESCRIPTION: CHEST SINGLE VIEW COMPLETED DATE/TIME: 11/10/2017 8:52 pm REASON FOR STUDY: Cardiomyopathy COMPARISON: 05/01/2017. EXAM PARAMETERS: NUMBER OF VIEWS: One view. TECHNIQUE: Single frontal radiographic view of the chest acquired. RADIATION DOSE: NA LIMITATIONS: Limited visualization of the lung bases due to the patient's obesity. FINDINGS: LUNGS AND PLEURA: No opacities, masses or pneumothorax. No pleural effusion. MEDIASTINUM AND HILAR STRUCTURES: No masses. Contour normal. HEART AND VASCULAR STRUCTURES: Cardiac enlargement. Normal vasculature. BONES: No acute findings. HARDWARE: None in the chest. OTHER: No other significant finding. IMPRESSION: CARDIOMEGALY. LIMITED VISUALIZATION OF THE LEFT LUNG BASE. OTHERWISE NO ACUTE RADIOGRA PHIC FINDING IN THE CHEST. TECHNICAL DOCUMENTATION: JOB ID: [id number] [employer]- All Rights Reserved Reading location - IP/workstation name: [email or web address]
[2017-11-11] MEDS: GABAPENTIN 100 MG CAPSULE PO SCH ×3 (05:25→21:33)
[2017-11-11] MEDS: PIPERACILLIN SODIUM/TAZOBACTAM 3.375 GM in NORMAL SALINE 100 ML IV SCH ×4 (05:26→23:31)
[2017-11-11 05:33] LABS: ABSOLUTE BASOPHILS # (AUTO) 0.1 10^3/uL (0.0-0.2); ABSOLUTE EOSINOPHILS # (AUTO) 0.3 10^3/uL (0.0-0.6); ABSOLUTE LYMPHOCYTES (AUTO) 1.5 10^3/uL (0.5-4.7); ABSOLUTE MONOCYTES (AUTO) 0.6 10^3/uL (0.1-1.4); ABSOLUTE NEUT (AUTO) 5.1 10^3/uL (1.7-8.2); BASOPHILS % (AUTO) 1.4 % (0-2); EOSINOPHILS % (AUTO) 4.5 % (0-6); HEMATOCRIT 27.7 % (36.0-47.0); LYMPHOCYTES % (AUTO) 19.4 % (13-45); MEAN CORPUSCULAR HEMOGLOBIN 27.7 pg (27.0-33.4); MEAN CORPUSCULAR HGB CONC 32.7 g/dL (32.0-36.0); MEAN CORPUSCULAR VOLUME 85 fl (80-97); MONOCYTES % (AUTO) 7.8 % (3-13); PLATELET COUNT 196 10^3/uL (150-450); RED BLOOD COUNT 3.26 10^6/uL (3.72-5.28); RED CELL DISTRIBUTION WIDTH 17.2 % (11.5-14.0); SEGMENTED NEUTROPHILS % (AUTO) 66.9 % (42-78); TOTAL CELLS COUNTED % (AUTO) 100 %; WHITE BLOOD COUNT 7.7 10^3/uL (4.0-10.5)
[2017-11-11 05:43] LABS: ALANINE AMINOTRANSFERASE 16 U/L (9-52); ALKALINE PHOSPHATASE 83 U/L (38-126); ANION GAP 13 (5-19); ASPARTATE AMINO TRANSFERASE 16 U/L (14-36); BILIRUBIN,DIRECT 0.3 mg/dL (0.0-0.4); BILIRUBIN,TOTAL 0.4 mg/dL (0.2-1.3); BLOOD UREA NITROGEN 36 mg/dL (7-20); CALCIUM 8.2 mg/dL (8.4-10.2); CARBON DIOXIDE 20 mmol/L (22-30); CHLORIDE 112 mmol/L (98-107); CHOLESTEROL 64.73 mg/dL (0-200); GLUCOSE 106 mg/dL (75-110); POTASSIUM 3.8 mmol/L (3.6-5.0); SODIUM 145.1 mmol/L (137-145); TOTAL PROTEIN 6.8 g/dL (6.3-8.2); TRIGLYCERIDES 47 mg/dL (<150)
[2017-11-11 05:45] LABS: INTERNATIONAL RATION (INR) 1.37; PROTHROMBIN TIME 17.5 SEC (11.4-15.4)
[2017-11-11 05:54] LABS: DIRECT LDL 38 mg/dL (<100)
--- NOTE | 2017-11-11 07:30 | EKG REPORT ---
SEVERITY:- ABNORMAL ECG - SINUS RHYTHM NONSPECIFIC T ABNORMALITIES, DIFFUSE LEADS : Confirmed by: Francisco Moralez MD 11-Nov-2017 07:30:25
[2017-11-11] MEDS: SPIRONOLACTONE 25 MG TABLET PO SCH (09:48)
[2017-11-11] MEDS: MULTIVITAMIN TABLET PO SCH (09:48)
[2017-11-11] MEDS: ASCORBIC ACID 500 MG TABLET PO SCH ×2 (09:48→18:01)
[2017-11-11] MEDS: METOPROLOL SUCCINATE 50 MG TAB.SR.24H PO SCH (09:48)
[2017-11-11] MEDS: BUMETANIDE 1 MG TABLET PO SCH (09:48)
[2017-11-11] MEDS: RANOLAZINE 500 MG TAB.SR.12H PO SCH ×2 (09:48→21:32)
--- NOTE | 2017-11-11 13:10 | XCELERA REPORT ---
[address] [address] Transthoracic Echocardiogram Report Name: SHERITA CAPUTO Age: 72 yrs Gender: Female : 1945 Patient Status: Inpatient Patient Location: [address] [place] [address] Study Date: 11/11/2017 09:44 AM Height: 64 in Weight: 196 lb BSA: 1.9 m2 Procedure: A complete two-dimensional transthoracic echocardiogram was performed (2D, M-mode, spectral and color flow Doppler). The study was technically difficult with many images being suboptimal in quality. Reason For Study: Preop Clearance Ordering Physician: VANESA ISABEL Performed By: Lucy Ferrera Interpretation Summary The study was technically difficult with many images being suboptimal in quality. The Ejection Fraction estimate is 20-25% Left ventricular systolic function is severely reduced. There is borderline concentric left ventricular hypertrophy. The left ventricle is grossly normal size. Doppler measurements suggest pseudonormalized left ventricular relaxation, which is associated with grade II/IV or mild to moderate diastolic dysfunction There is moderate to severe global hypokinesis of the left ventricle. There is mid to distal lateral wall akinesis There is apical wall hypokinesis The right ventricular systolic function is mildly reduced. The right ventricle is moderately dilated. The right atrium is moderately dilated. The left atrium is mildly dilated. There is a trace amount of mitral regurgitation There is no mitral valve stenosis. No aortic regurgitation is present. There is no aortic valve stenosis There is a mild to moderate amount of tricuspid regurgitation There is mild to moderate pulmonary hypertension by echo Right ventricular systolic pressure is estimated to be elevated at 40- 50mmHg. The aortic root is not well visualized but is probably normal size. The inferior vena cava appeared normal and decreased < 50% with respiration (RAP 10-15 mmHg) There is no pericardial effusion. MMode/2D Measurements & Calculations RVDd: 3.2 cm LVIDd: 4.5 cm FS: 5.0 % Ao root diam: 2.6 cm IVSd: 1.0 cm LVIDs: 4.2 cm EDV(Teich): 90.2 ml LVPWd: 0.97 cm ESV(Teich): 79.9 ml Ao root area: 5.4 cm2 EF(Teich): 11.4 % LA dimension: 4.1 cm Doppler Measurements & Calculations MV E max elli: MV P1/2t max elli: PA V2 max: PI end-d elli: 94.3 cm/sec 94.8 cm/sec 45.4 cm/sec 95.0 cm/sec MV A max elli: MV P1/2t: 45.3 msec PA max P.0 cm/sec 0.82 mmHg MV E/A: 2.4 MVA(P1/2t): 4.9 cm2 MV dec slope: 612.9 cm/sec2 MV dec time: 0.14 sec TR max elli: 293.2 cm/sec TR max P.4 mmHg Left Ventricle The left ventricle is grossly normal size. There is borderline concentric left ventricular hypertrophy. Left ventricular systolic function is severely reduced. The Ejection Fraction estimate is 20-25%. Doppler measurements suggest pseudonormalized left ventricular relaxation, which is associated with grade II/IV or mild to moderate diastolic dysfunction. There is moderate to severe global hypokinesis of the left ventricle. There is mid to distal lateral wall akinesis. There is apical wall hypokinesis. Right Ventricle The right ventricle is moderately dilated. There is normal right ventricular wall thickness. The right ventricular systolic function is mildly reduced. Atria The right atrium is moderately dilated. The left atrium is mildly dilated. Interarterial septum not well visualized and not well dopplered. Cannot comment on ASD/PFO presence. Mitral Valve There is mild mitral leaflet calcification. There is moderate mitral annular calcification. There is no mitral valve stenosis. There is a trace amount of mitral regurgitation. Aortic Valve The aortic valve is not well visualized secondary to technical limitations. There is no aortic valve stenosis. No aortic regurgitation is present. Tricuspid Valve The tricuspid valve is not well visualized, but is grossly normal. There is no tricuspid stenosis. There is a mild to moderate amount of tricuspid regurgitation. There is mild to moderate pulmonary hypertension by echo. Right ventricular systolic pressure is estimated to be elevated at 40- 50mmHg. Pulmonic Valve The pulmonic valve is not well visualized. Great Vessels The aortic root is not well visualized but is probably normal size. The inferior vena cava appeared normal and decreased < 50% with respiration (RAP 10-15 mmHg). Effusions There is no pericardial effusion. : VANESA ISABEL > Vanesa Isabel
--- NOTE | 2017-11-11 13:18 | PDOC PROGRESS REPORT ---
Subjective Progress Note for:: 11/11/17 Subjective:: Pt is denying any chest arm or neck discomfort. Patient denying any PND, orthopnea. Patient denied any sustained palpitations, dizziness, syncope, near syncope. Patient denying any fever chills. Patient denying any other significant discomfort. Patient is maintaining sinus rhythm. Review of systems: Rest review of systems negative. Medications: Medications have been reviewed. Reason For Visit: OSTEOMYELITIS OF LEFT FOOT Physical Exam Vital Signs: Temp Pulse Resp BP Pulse Ox 97.6 F 78 17 107/57 L 100 11/11/17 11:47 11/11/17 11:47 11/11/17 11:47 11/11/17 11:47 11/11/17 11:47 Intake & Output 11/10/17 11/11/17 11/12/17 06:59 06:59 06:59 Intake Total 2440 3480 Balance 2440 3480 Exam: GENERAL: well-nourished and in no acute distress. Alert and oriented x3 HEAD: Atraumatic, normocephalic. EYES: Pupils equal round and reactive to light, extraocular movements intact, sclera anicteric, conjunctiva are normal. ENT: TMs normal, nares patent, oropharynx clear without exudates. Moist mucous membranes. No oral ulcerations or bleeding gums noted NECK: supple without lymphadenopathy. Trachea is central. No cervical or axillary lymphadenopathy noted. Carotids are 2+, JVD WNL LUNGS: Respiration seems nonlabored, no significant accessory muscle action noted. Breath sounds clear to auscultation bilaterally and equal noted. No wheezes rales or rhonchi noted. No significant dullness noted on percussion. CHEST: Palpation of the chest wall shows no significant chest wall tenderness. No other significant abnormalities noted. 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 ABDOMEN: Soft, no significant tenderness appreciated, normoactive bowel sounds. No guarding, no rebound. No rigidity noted . No masses appreciated. EXTREMITIES: Pedal pulses are 1-2+, no calf tenderness noted. No clubbing or cyanosis. 1+ pedal edema noted. 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 Patient has osteomyelitis on the left side. Awaiting amputation. NEUROLOGICAL: Focused neurological exam showed no significant neurologic deficit. Normal speech, no focal weakness appreciated. PSYCH: Normal mood, normal affect. Judgment and insight within normal limits. SKIN: No significant ecchymosis, skin is noted to be warm. MUSCULOSKELETAL EXAM: No significant acute joint swelling noted. Results Laboratory Results: 11/11/17 05:00 11/11/17 05:00 11/11/17 11/11/17 11/11/17 05:00 05:00 05:00 WBC 7.7 RBC 3.26 L Hgb 9.0 L Hct 27.7 L MCV 85 MCH 27.7 MCHC 32.7 RDW 17.2 H Plt Count 196 Seg Neutrophils % 66.9 Lymphocytes % 19.4 Monocytes % 7.8 Eosinophils % 4.5 Basophils % 1.4 Absolute Neutrophils 5.1 Absolute Lymphocytes 1.5 Absolute Monocytes 0.6 Absolute Eosinophils 0.3 Absolute Basophils 0.1 Sodium 145.1 H Potassium 3.8 Chloride 112 H Carbon Dioxide 20 L Anion Gap 13 BUN 36 H Creatinine 1.58 H Est GFR ( Amer) 39 L Est GFR (Non-Af Amer) 32 L Glucose 106 Calcium 8.2 L Total Bilirubin 0.4 AST 16 ALT 16 Alkaline Phosphatase 83 Total Protein 6.8 Albumin 3.0 L Triglycerides 47 Cholesterol 64.73 LDL Cholesterol Direct 38 VLDL Cholesterol 9.0 L HDL Cholesterol 19 L Blood Type O POSITIVE Antibody Screen NEGATIVE EKG Comments: Telemetry shows sinus rhythm Impressions: Foot X-Ray 11/07/17 08:20 IMPRESSION: Osteomyelitis distal 5th metatarsal. Chest X-Ray 11/10/17 19:27 IMPRESSION: CARDIOMEGALY. LIMITED VISUALIZATION OF THE LEFT LUNG BASE. OTHERWISE NO ACUTE RADIOGRAPHIC FINDING IN THE CHEST. Assessment & Plan - Diagnosis (1) Preoperative cardiovascular examination Is this a current diagnosis for this admission?: Yes (2) Coronary artery disease Qualifiers: Coronary Disease-Associated Artery/Lesion type: [place] artery [place] vs. transplanted heart: [place] heart Associated angina: angina presence unspecified Qualified Code(s): I25.10 - Atherosclerotic heart disease of [place] coronary artery without angina pectoris Is this a current diagnosis for this admission?: Yes (3) Cardiomyopathy Qualifiers: Cardiomyopathy type: unspecified Qualified Code(s): I42.9 - Cardiomyopathy , unspecified Is this a current diagnosis for this admission?: Yes (4) Peripheral vascular disease Is this a current diagnosis for this admission?: Yes (5) Diabetes Qualifiers: Diabetes mellitus type: type 2 (6) Chronic kidney disease Qualifiers: Chronic kidney disease stage: stage 3 (moderate) Qualified Code(s): N18.3 - Chronic kidney disease, stage 3 (moderate) Is this a current diagnosis for this admission?: Yes (7) COPD (chronic obstructive pulmonary disease) Qualifiers: COPD type: unspecified COPD Qualified Code(s): J44.9 - Chronic obstructive pulmonary disease, unspecified Is this a current diagnosis for this admission?: Yes - Notes Notes: Repeat 2D echocardiogram shows LVEF of 20-25%. Mid and distal anterior wall akinesia and apical hypokinesia noted. Overall EF is relatively unchanged from before. Patient also noted to have mild RV systolic dysfunction and mild to moderate pulmonary hypertension most likely from underlying COPD and chronic left heart failure. Currently however based on chest x-ray she seems compensated. At this point feel that patient is above average but not in the prohibitive risk range for amputation. Choice of anesthesia left to the anesthesiologist, depressed LVEF is noted therefore should avoid any cardiac depressant anesthesia. Regional or epidural anesthesia may be the best one but final decision is with the anesthesiologist. Patient has other multiple comorbid diagnosis but currently is stable. Will continue to follow postop. As usual I thank Dr. Saldana very much for the kind referral. 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 Multiple medical problems were addressed. More than 50% of the time spent coordinating care, discussing management plans with involved caregivers. Management plans discussed with involved personnels. Medical decision making was of moderate to high complexity, patient's has multiple comorbidities. Medications reviewed and adjusted accordingly: Yes
[2017-11-11] MEDS: VANCOMYCIN HCL 1,500 MG in DEXTROSE 5%-WATER 250 ML IV SCH (18:56)
--- NOTE | 2017-11-11 20:26 | PDOC PROGRESS REPORT ---
Subjective Progress Note for:: 11/11/17 Subjective:: Some pains left foot Reason For Visit: OSTEOMYELITIS OF LEFT FOOT Physical Exam Vital Signs: Temp Pulse Resp BP Pulse Ox 97.5 F 80 16 106/39 L 100 11/11/17 19:46 11/11/17 19:46 11/11/17 19:46 11/11/17 19:46 11/11/17 19:46 Intake & Output 11/10/17 11/11/17 11/12/17 06:59 06:59 06:59 Intake Total 2440 3480 7208 Balance 2440 3480 7208 Exam: Less swelling left leg Results Laboratory Results: 11/11/17 05:00 11/11/17 17:46 11/11/17 11/11/17 11/11/17 05:00 05:00 05:00 WBC 7.7 RBC 3.26 L Hgb 9.0 L Hct 27.7 L MCV 85 MCH 27.7 MCHC 32.7 RDW 17.2 H Plt Count 196 Seg Neutrophils % 66.9 Lymphocytes % 19.4 Monocytes % 7.8 Eosinophils % 4.5 Basophils % 1.4 Absolute Neutrophils 5.1 Absolute Lymphocytes 1.5 Absolute Monocytes 0.6 Absolute Eosinophils 0.3 Absolute Basophils 0.1 Sodium 145.1 H Potassium 3.8 Chloride 112 H Carbon Dioxide 20 L Anion Gap 13 BUN 36 H Creatinine 1.58 H Est GFR ( Amer) 39 L Est GFR (Non-Af Amer) 32 L Glucose 106 Calcium 8.2 L Total Bilirubin 0.4 AST 16 ALT 16 Alkaline Phosphatase 83 Total Protein 6.8 Albumin 3.0 L Triglycerides 47 Cholesterol 64.73 LDL Cholesterol Direct 38 VLDL Cholesterol 9.0 L HDL Cholesterol 19 L Blood Type O POSITIVE Antibody Screen NEGATIVE 11/11/17 17:46 WBC RBC Hgb Hct MCV MCH MCHC RDW Plt Count Seg Neutrophils % Lymphocytes % Monocytes % Eosinophils % Basophils % Absolute Neutrophils Absolute Lymphocytes Absolute Monocytes Absolute Eosinophils Absolute Basophils Sodium Potassium Chloride Carbon Dioxide Anion Gap BUN Creatinine 1.45 H Est GFR ( Amer) 43 L Est GFR (Non-Af Amer) 36 L Glucose Calcium Total Bilirubin AST ALT Alkaline Phosphatase Total Protein Albumin Triglycerides Cholesterol LDL Cholesterol Direct VLDL Cholesterol HDL Cholesterol Blood Type Antibody Screen Impressions: Foot X-Ray 11/07/17 08:20 IMPRESSION: Osteomyelitis distal 5th metatarsal. Chest X-Ray 11/10/17 19:27 IMPRESSION: CARDIOMEGALY. LIMITED VISUALIZATION OF THE LEFT LUNG BASE. OTHERWISE NO ACUTE RADIOGRAPHIC FINDING IN THE CHEST. Assessment & Plan - Diagnosis (1) Diabetes mellitus Qualifiers: Diabetes mellitus type: type 2 Diabetes mellitus roasterman insulin use: with roasterman use Diabetes mellitus complication status: with kidney complications Diabetes mellitus complication detail: with nephropathy Qualified Code(s): E11.21 - Type 2 diabetes mellitus with diabetic nephropathy; Z79.4 - [facility] (current) use of insulin Is this a current diagnosis for this admission?: Yes (2) Foot osteomyelitis, left Qualifiers: Osteomyelitis type: other acute Qualified Code(s): M86.172 - Other acute osteomyelitis, left ankle and foot Is this a current diagnosis for this admission?: Yes (3) History of CVA with residual deficit Is this a current diagnosis for this admission?: Yes (4) Ambulatory dysfunction Is this a current diagnosis for this admission?: Yes - Time Time Spent with patient: 15-24 minutes - Plan Summary Plan Summary: D/W Dr Irene. Stress test still showed 25%.Cleared for spinal surgery. Anesthesia feels more comfortable on day5-6 after Plavix for spinal tomorrow. Pt informed.
[2017-11-11] MEDS: ATORVASTATIN CALCIUM 40 MG TABLET PO SCH (21:33)
[2017-11-12] MEDS: NORMAL SALINE 1000 ML 1,000 ML IV PRN ×2 (03:28→17:32)
[2017-11-12] MEDS: GABAPENTIN 100 MG CAPSULE PO SCH ×3 (05:04→21:51)
[2017-11-12] MEDS: PIPERACILLIN SODIUM/TAZOBACTAM 3.375 GM in NORMAL SALINE 100 ML IV SCH ×3 (05:27→17:32)
[2017-11-12] MEDS ORDERED: FENTANYL CITRATE INJ/PF 100 MCG/2 ML AMPUL ONE (07:14)
[2017-11-12] MEDS ORDERED: ONDANSETRON HCL INJ/PF 4 MG/2 ML SDV ONE (07:14)
[2017-11-12] MEDS ORDERED: MIDAZOLAM 2 MG/2 ML INJ ONE (07:14)
[2017-11-12] MEDS ORDERED: PROPOFOL INJ 200 MG/20 ML VIAL IV ONE (07:14)
[2017-11-12] MEDS ORDERED: TETRACAINE HCL/PF 20MG/2ML AMPULE (SPINAL) ONE (07:22)
[2017-11-12] MEDS ORDERED: EPHEDRINE SULFATE INJ 50 MG/1 ML AMPULE ONE (08:10)
[2017-11-12] MEDS ORDERED: ACETAMINOPHEN 100 ML IV ONE (10:57)
--- NOTE | 2017-11-12 11:09 | OPERATIVE REPORT E ---
Operative Report NAME: SHERITA CAPUTO : 1945 AGE: 72Y DATE OF SURGERY: 11/12/2017 ROOM: 419 PREOPERATIVE DIAGNOSES: Osteomyelitis of the left foot and post right witnj-sxs-gdde amputation. POSTOPERATIVE DIAGNOSES: Osteomyelitis of the left foot and post right wwclk-gze-sdaq amputation. PROCEDURE: Left mtukl-und-bfsf amputation. SURGEON: HUSSEIN HANDY M.D. ANESTHESIA: Spinal. INDICATIONS: This is a 72-year-old female diabetic who had a right tecev-kdl-iucy amputation done over a year ago. She developed ulcer and osteomyelitis of the left fifth metatarsal bone. She did have a stroke in the past where she could barely use her left leg. The left leg is almost paralyzed. Because of the previous xzwjt-thf-lsva amputation on the right leg and this time with osteomyelitis of the left foot, left tdfsx-qrr-cynm amputation appears to be the more reasonable procedure to do. The patient did have Plavix for the past 6 days and since she had a poor ejection fraction of about 25% on echocardiogram, spinal anesthesia was also deemed more feasible. DESCRIPTION OF PROCEDURE: After adequate spinal anesthesia, patient was placed in supine position with the left knee on a bump and the left leg and foot were then prepped and draped in the usual sterile fashion. Appropriate timeout was then called. Next, an anterior incision on the left below the knee about 10 cm below the tibial crest and tailored posteriorly. The skin incisions were then deepened with the use of cautery as well as the subcutaneous area. Next, the tibia was then identified and the periosteum elevated proximally until 1 cm from the skin incision site. The anterior compartment muscles were then divided and vessels ligated with 2-0 Vicryl. The fibula was also exposed and isolated. Next, the tibia was then divided with portal saw and the anterior edge further trimmed at about 45 degree angle and the edges filed. The fibula was then divided with double-action bone cutter. Next, the posterior tibial artery and anterior tibial artery as well as the peroneal arteries were then ligated with 2-0 Vicryl. They were noted to be partially calcified. The soleus was also divided with the use of cautery and the small vessels were then ligated with 2-0 Vicryl ties. The posterior flap was then developed and divided leaving the gastrocnemius muscle intact. Next, the anterior fascia above the tibial bone was then reapproximated to the fascia on the posterior flap using 2-0 Vicryl and serially tied after suturing with 2-0 Vicryl going all over the amputation site creating a stump. The skin edge noted to easily come together but a little bit tight on the lateral aspect but still able to be stapled all over with skin lily. The patient tolerated the procedure well. Needle, instrument, and sponge were all correct. Estimated blood loss was about 300 mL. A single layer of Xeroform gauze laid on top of the incision and then wrapped with Lorenzo over 4 x 4 and Lorenzo. This was then further wrapped with Osorio bandage. A knee immobilizer was placed over the operative site. Patient tolerated procedure well and brought to the recovery room in satisfactory condition. DICTATING PHYSICIAN: HUSSEIN HANDY M.D. [id number] PHY#: [id number] ID: [id number] JOB#: [id number] ACCT: [id number] cc:HUSSEIN HANDY M.D. >
[2017-11-12] MEDS ORDERED: OXYCODONE-ACETAMINOPHEN 5-325 MG TABLET PO PRN (12:00)
[2017-11-12] MEDS: MULTIVITAMIN TABLET PO SCH (13:56)
[2017-11-12] MEDS: ACETAMINOPHEN 325 MG TABLET PO PRN (13:59)
[2017-11-12] MEDS: SPIRONOLACTONE 25 MG TABLET PO SCH (14:09)
[2017-11-12] MEDS: METOPROLOL SUCCINATE 50 MG TAB.SR.24H PO SCH (14:09)
[2017-11-12] MEDS: MORPHINE SULFATE 10 MG/ML INJ IV PRN ×2 (15:35→20:25)
[2017-11-12] MEDS: BUMETANIDE 1 MG TABLET PO SCH (15:36)
[2017-11-12] MEDS: RANOLAZINE 500 MG TAB.SR.12H PO SCH ×2 (15:36→21:51)
[2017-11-12] MEDS: ASCORBIC ACID 500 MG TABLET PO SCH ×2 (15:36→17:33)
[2017-11-12] MEDS: VANCOMYCIN HCL 1,500 MG in DEXTROSE 5%-WATER 250 ML IV SCH ×2 (17:31→17:34)
[2017-11-12 18:40] LABS: VANCOMYCIN,TROUGH 23.4 ug/mL (5.0-20.0)
[2017-11-12] MEDS: ATORVASTATIN CALCIUM 40 MG TABLET PO SCH (21:51)
[2017-11-13] MEDS: PIPERACILLIN SODIUM/TAZOBACTAM 3.375 GM in NORMAL SALINE 100 ML IV SCH ×4 (00:47→17:37)
[2017-11-13] MEDS: MORPHINE SULFATE 10 MG/ML INJ IV PRN (01:32)
[2017-11-13] MEDS: GABAPENTIN 100 MG CAPSULE PO SCH ×2 (05:33→14:07)
[2017-11-13] MEDS ORDERED: NYSTATIN TOPICAL POWDER 15 GM TP ONE (07:00)
[2017-11-13 07:35] LABS: ABSOLUTE BASOPHILS # (AUTO) 0.1 10^3/uL (0.0-0.2); ABSOLUTE MONOCYTES (AUTO) 0.6 10^3/uL (0.1-1.4); ABSOLUTE NEUT (AUTO) 7.7 10^3/uL (1.7-8.2); EOSINOPHILS % (AUTO) 0.5 % (0-6); HEMATOCRIT 26.4 % (36.0-47.0); HEMOGLOBIN 8.3 g/dL (12.0-15.5); LYMPHOCYTES % (AUTO) 10.6 % (13-45); MEAN CORPUSCULAR HEMOGLOBIN 27.1 pg (27.0-33.4); MEAN CORPUSCULAR HGB CONC 31.4 g/dL (32.0-36.0); MEAN CORPUSCULAR VOLUME 86 fl (80-97); MONOCYTES % (AUTO) 6.1 % (3-13); PLATELET COUNT 224 10^3/uL (150-450); RED BLOOD COUNT 3.06 10^6/uL (3.72-5.28); RED CELL DISTRIBUTION WIDTH 17.3 % (11.5-14.0); SEGMENTED NEUTROPHILS % (AUTO) 81.8 % (42-78); TOTAL CELLS COUNTED % (AUTO) 100 %; WHITE BLOOD COUNT 9.5 10^3/uL (4.0-10.5)
[2017-11-13 07:42] LABS: ANION GAP 17 (5-19); BLOOD UREA NITROGEN 33 mg/dL (7-20); CALCIUM 8.8 mg/dL (8.4-10.2); CARBON DIOXIDE 14 mmol/L (22-30); CHLORIDE 113 mmol/L (98-107); GLUCOSE 132 mg/dL (75-110); POTASSIUM 4.9 mmol/L (3.6-5.0); SODIUM 144.4 mmol/L (137-145)
[2017-11-13] MEDS ORDERED: NA PHOS,M-B/NA PHOS,DI-BA (ADULT) 133 ML ENEMA PR ONE (09:33)
[2017-11-13] MEDS ORDERED: MAGNESIUM CITRATE 296 ML BOTTLE PO ONE (09:34)
[2017-11-13] MEDS ORDERED: MORPHINE SULFATE 10 MG/ML INJ IV PRN (09:37)
--- NOTE | 2017-11-13 09:44 | PDOC PROGRESS REPORT ---
Subjective Progress Note for:: 11/13/17 Subjective:: patient c/o bilious emesis and constipation Reason For Visit: OSTEOMYELITIS OF LEFT FOOT Physical Exam Vital Signs: Temp Pulse Resp BP Pulse Ox 97.3 F 98 16 98/57 L 100 11/13/17 07:32 11/13/17 07:32 11/13/17 07:32 11/13/17 07:32 11/13/17 07:32 Intake & Output 11/12/17 11/13/17 11/14/17 06:59 06:59 06:59 Intake Total 8528 4943 Output Total 1201 Balance 8528 3742 General appearance: PRESENT: no acute distress Respiratory exam: PRESENT: clear to auscultation [place] Cardiovascular exam: PRESENT: RRR GI/Abdominal exam: PRESENT: firm, hypoactive bowel sounds - large for obesity, other Musculoskeletal exam: PRESENT: other - Left BKA site: dressing in place, C/D/I , splint in place Results Laboratory Results: 11/13/17 07:10 11/13/17 07:10 11/13/17 11/13/17 07:10 07:10 WBC 9.5 RBC 3.06 L Hgb 8.3 L Hct 26.4 L MCV 86 MCH 27.1 MCHC 31.4 L RDW 17.3 H Plt Count 224 Seg Neutrophils % 81.8 H Lymphocytes % 10.6 L Monocytes % 6.1 Eosinophils % 0.5 Basophils % 1.0 Absolute Neutrophils 7.7 Absolute Lymphocytes 1.0 Absolute Monocytes 0.6 Absolute Eosinophils 0.0 Absolute Basophils 0.1 Sodium 144.4 Potassium 4.9 Chloride 113 H Carbon Dioxide 14 L Anion Gap 17 BUN 33 H Creatinine 1.82 H Est GFR ( Amer) 33 L Est GFR (Non-Af Amer) 27 L Glucose 132 H Calcium 8.8 Impressions: Foot X-Ray 11/07/17 08:20 IMPRESSION: Osteomyelitis distal 5th metatarsal. Chest X-Ray 11/10/17 19:27 IMPRESSION: CARDIOMEGALY. LIMITED VISUALIZATION OF THE LEFT LUNG BASE. OTHERWISE NO ACUTE RADIOGRAPHIC FINDING IN THE CHEST. Assessment & Plan - Diagnosis (1) Foot osteomyelitis, left Qualifiers: Osteomyelitis type: other acute Qualified Code(s): M86.172 - Other acute osteomyelitis, left ankle and foot Is this a current diagnosis for this admission?: Yes - Plan Summary Plan Summary: A/ POD#1 after Left BKA VSS, AF H/H stable Emesis x 2 No BM for several days ABdomen firm, large, mst likely patient is constipated P/ decrease MS to 1 mg IVP q2 change diet to clear liquids Fleet enema x 1 Mg Citrate 1 bottle x 1 Continue IVF/Abx Continue IVF for now until emesis is present Dressing down in 2 days
[2017-11-13] MEDS ORDERED: VANCOMYCIN HCL 1,000 MG in DEXTROSE 5%-WATER 250 ML IV SCH (10:00)
--- NOTE | 2017-11-13 10:45 | PDOC PROGRESS REPORT ---
Subjective Progress Note for:: 11/12/17 Subjective:: Patient today postop amputation surgery left lower extremity. Pt is denying any chest arm or neck discomfort. Patient denying any PND, orthopnea. Patient denied any sustained palpitations, dizziness, syncope, near syncope. Patient denying any fever chills. Patient denying any other significant discomfort. Patient is maintaining sinus rhythm. Review of systems: Rest review of systems negative. Medications: Medications have been reviewed. Reason For Visit: OSTEOMYELITIS OF LEFT FOOT Physical Exam Vital Signs: Temp Pulse Resp BP Pulse Ox 97.7 F 88 16 118/62 100 11/12/17 19:00 11/12/17 19:00 11/12/17 19:00 11/12/17 19:00 11/12/17 19:00 Intake & Output 11/11/17 11/12/17 11/13/17 06:59 06:59 06:59 Intake Total 3480 8528 3543 Output Total 1201 Balance 3480 8528 2342 Exam: GENERAL: well-nourished and in no acute distress. Alert and oriented x3 HEAD: Atraumatic, normocephalic. EYES: Pupils equal round and reactive to light, extraocular movements intact, sclera anicteric, conjunctiva are normal. ENT: TMs normal, nares patent, oropharynx clear without exudates. Moist mucous membranes. No oral ulcerations or bleeding gums noted NECK: supple without lymphadenopathy. Trachea is central. No cervical or axillary lymphadenopathy noted. Carotids are 2+, JVD WNL LUNGS: Respiration seems nonlabored, no significant accessory muscle action noted. Breath sounds clear to auscultation bilaterally and equal noted. No wheezes rales or rhonchi noted. No significant dullness noted on percussion. CHEST: Palpation of the chest wall shows no significant chest wall tenderness. No other significant abnormalities noted. 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 ABDOMEN: Soft, no significant tenderness appreciated, normoactive bowel sounds. No guarding, no rebound. No rigidity noted . No masses appreciated. EXTREMITIES: Pedal pulses are 1-2+, no calf tenderness noted. No clubbing or cyanosis. negative pedal edema noted NEUROLOGICAL: Focused neurological exam showed no significant neurologic deficit. Normal speech, no focal weakness appreciated. PSYCH: Normal mood, normal affect. Judgment and insight within normal limits. SKIN: No significant ecchymosis, skin is noted to be warm. MUSCULOSKELETAL EXAM: No significant acute joint swelling noted. 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 Results Laboratory Results: 11/11/17 05:00 11/11/17 17:46 Impressions: Foot X-Ray 11/07/17 08:20 IMPRESSION: Osteomyelitis distal 5th metatarsal. Chest X-Ray 11/10/17 19:27 IMPRESSION: CARDIOMEGALY. LIMITED VISUALIZATION OF THE LEFT LUNG BASE. OTHERWISE NO ACUTE RADIOGRAPHIC FINDING IN THE CHEST. Assessment & Plan - Diagnosis (1) Preoperative cardiovascular examination Is this a current diagnosis for this admission?: Yes (2) Coronary artery disease Qualifiers: Coronary Disease-Associated Artery/Lesion type: [place] artery [place] vs. transplanted heart: [place] heart Associated angina: angina presence unspecified Qualified Code(s): I25.10 - Atherosclerotic heart disease of [place] coronary artery without angina pectoris Is this a current diagnosis for this admission?: Yes (3) Cardiomyopathy Qualifiers: Cardiomyopathy type: unspecified Qualified Code(s): I42.9 - Cardiomyopathy , unspecified Is this a current diagnosis for this admission?: Yes (4) Peripheral vascular disease Is this a current diagnosis for this admission?: Yes (5) Diabetes Qualifiers: Diabetes mellitus type: type 2 (6) Chronic kidney disease Qualifiers: Chronic kidney disease stage: stage 3 (moderate) Qualified Code(s): N18.3 - Chronic kidney disease, stage 3 (moderate) Is this a current diagnosis for this admission?: Yes (7) COPD (chronic obstructive pulmonary disease) Qualifiers: COPD type: unspecified COPD Qualified Code(s): J44.9 - Chronic obstructive pulmonary disease, unspecified Is this a current diagnosis for this admission?: Yes - Notes Notes: Patient is status post left BKA. This was for osteomyelitis. Patient had prior right BKA. As regards coronary artery disease she is stable. As regards cardiomyopathy patient has depressed LVEF. Will gradually try to optimize medical management while patient is in the hospital. Diabetes: Currently satisfactorily controlled. Chronic kidney disease: Currently stable COPD: Patient has been advised to quit smoking. Continue with current management plans. - Time Time with patient: 15-25 minutes - CODE STATUS was discussed, patient remains full code. Surrogate decision-maker unchanged. Multiple medical problems were addressed. More than 50% of the time spent coordinating care, discussing management plans with involved caregivers. Management plans discussed with involved personnels. Medical decision making was of moderate to high complexity , patient's has multiple comorbidities. Medications reviewed and adjusted accordingly: Yes
[2017-11-13] MEDS: BUMETANIDE 1 MG TABLET PO SCH (10:58)
[2017-11-13] MEDS: MULTIVITAMIN TABLET PO SCH (11:00)
[2017-11-13] MEDS: SPIRONOLACTONE 25 MG TABLET PO SCH (11:00)
[2017-11-13] MEDS: METOPROLOL SUCCINATE 50 MG TAB.SR.24H PO SCH (11:00)
[2017-11-13] MEDS: ASCORBIC ACID 500 MG TABLET PO SCH ×2 (11:00→17:34)
[2017-11-13] MEDS: RANOLAZINE 500 MG TAB.SR.12H PO SCH (11:01)
[2017-11-13] MEDS: NYSTATIN TOPICAL POWDER 15 GM TP SCH (14:07)
--- NOTE | 2017-11-13 15:15 | RADIOLOGY REPORT (SQ) ---
EXAM DESCRIPTION: KUB/ABDOMEN (SINGLE VIEW) COMPLETED DATE/TIME: 11/13/2017 2:57 pm REASON FOR STUDY: constipation vomiting COMPARISON: Abdominal films 04/19/2017 Abdominal ultrasound 04/22/2017 NUMBER OF VIEWS: One view. TECHNIQUE: Supine radiographic image of the abdomen acquired. LIMITATIONS: Obese patient, portable technique FINDINGS: BOWEL GAS PATTERN: Normal bowel gas pattern. No dilated loops. CALCIFICATIONS: Heavily calcified abdominal aorta without calcified aneurysm SOFT TISSUES: No gross mass or suggestion of organomegaly. HARDWARE: None in the abdomen. BONES: No acute fracture. No worrisome bone lesions. OTHER: No other significant finding. IMPRESSION: Nonobstructive bowel gas pattern TECHNICAL DOCUMENTATION: JOB ID: [id number] [employer]- All Rights Reserved Reading location - IP/workstation name: [email or web address]
[2017-11-13] MEDS ORDERED: EPINEPHRINE INJ 1 MG/10 ML DISP.SYRIN ONE ×2 (15:49)
[2017-11-13] MEDS ORDERED: SODIUM BICARBONATE 8.4% INJ 50 MEQ/50 ML DISP.SYRIN ONE (15:49)
[2017-11-13] MEDS ORDERED: ONDANSETRON HCL INJ/PF 4 MG/2 ML SDV IV PRN (15:57)
[2017-11-13] MEDS ORDERED: BISACODYL 5 MG TABEC PO ONE (17:00)
[2017-11-13] MEDS: PROMETHAZINE HCL INJ 25 MG/1 ML VIAL IV PRN (19:30)
[2017-11-13 20:46] LABS: VANCOMYCIN,TROUGH 20.7 ug/mL (5.0-20.0)
[2017-11-14] MEDS: ATORVASTATIN CALCIUM 40 MG TABLET PO SCH (00:10)
[2017-11-14] MEDS: RANOLAZINE 500 MG TAB.SR.12H PO SCH (00:10)
[2017-11-14] MEDS: GABAPENTIN 100 MG CAPSULE PO SCH ×2 (00:10→05:57)
[2017-11-14] MEDS: NYSTATIN TOPICAL POWDER 15 GM TP SCH ×2 (00:11→05:58)
[2017-11-14] MEDS: MINERAL OIL ENEMA 133 ML PR SCH ×2 (00:12→05:58)
[2017-11-14] MEDS: PIPERACILLIN SODIUM/TAZOBACTAM 3.375 GM in NORMAL SALINE 100 ML IV SCH ×2 (00:12→05:58)
[2017-11-14] MEDS: PROMETHAZINE HCL INJ 25 MG/1 ML VIAL IV PRN (04:09)
[2017-11-14] MEDS: NORMAL SALINE 1000 ML 1,000 ML IV PRN (05:58)
[2017-11-14 06:08] LABS: BLOOD UREA NITROGEN 37 mg/dL (7-20); CALCIUM 8.9 mg/dL (8.4-10.2); CHLORIDE 114 mmol/L (98-107); GLUCOSE 65 mg/dL (75-110); POTASSIUM 5.2 mmol/L (3.6-5.0)
[2017-11-14 06:13] LABS: SODIUM 145.2 mmol/L (137-145)
[2017-11-14 06:20] LABS: ANION GAP 24 (5-19)
[2017-11-14 06:23] LABS: CARBON DIOXIDE 7 mmol/L (22-30)
[2017-11-14 06:26] LABS: HEMATOCRIT 28.8 % (36.0-47.0); HEMOGLOBIN 8.8 g/dL (12.0-15.5); MEAN CORPUSCULAR HEMOGLOBIN 27.2 pg (27.0-33.4); MEAN CORPUSCULAR HGB CONC 30.4 g/dL (32.0-36.0); MEAN CORPUSCULAR VOLUME 89 fl (80-97); PLATELET COUNT 308 10^3/uL (150-450); RED BLOOD COUNT 3.22 10^6/uL (3.72-5.28); RED CELL DISTRIBUTION WIDTH 18.2 % (11.5-14.0); WHITE BLOOD COUNT 15.1 10^3/uL (4.0-10.5)
[2017-11-14] MEDS ORDERED: NALOXONE HCL INJ/PF 0.4 MG/1 ML SDV ONE (06:30)
[2017-11-14] MEDS ORDERED: MAGNESIUM SULFATE/D5W 1 GM/100 ML RTUPB IV ONE (06:37)
[2017-11-14 06:52] LABS: ABSOLUTE LYMPHOCYTES# (MANUAL) 1.1 10^3/uL (0.5-4.7); ABSOLUTE MONOCYTES # (MANUAL) 1.1 10^3/uL (0.1-1.4); ANISOCYTOSIS 1+; BASOPHILS % (MANUAL) 0 % (0-2); BURR CELLS 3+; EOSINOPHILS % (MANUAL) 0 % (0-6); LYMPHOCYTES % (MANUAL) 7 % (13-45); MONOCYTES % (MANUAL) 7 % (3-13); POLYCHROMASIA 1+; SEGMENTED NEUTROPHILS % (MAN) 86 % (42-78); TOTAL CELLS COUNTED 100
[2017-11-14] MEDS ORDERED: SODIUM BICARBONATE 8.4% INJ 50 MEQ/50 ML DISP.SYRIN ONE (06:52)
[2017-11-14 06:53] LABS: OVALOCYTES 3+; SCHISTOCYTES SLIGHT; TARGET CELLS SLIGHT
[2017-11-14 06:56] LABS: PLATELET COMMENT ADEQUATE
--- NOTE | 2017-11-14 07:49 | Progress Note ---
Provider Note Provider Note: MD notified by patient's nurse of change in mental status. At bedside the patient is found unresponsive to noxious stimuli, in PEA without blood pressure. 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 Patient is intubated with ET tube aspirating bright red blood. Surgeon at bedside placed a central line. Patient regains pulses and a blood pressure but remains unresponsive, she was transferred to the ICU where she again developed PEA. She receives high-quality CPR and epinephrine. Patient's daughter at bedside is updated as to the prolonged duration of CPR exceeding 60 minutes and poor prognosis. Her decision is to discontinue CPR. Time of 7:24 AM. Likely cause of acute coronary syndrome and cardiogenic shock.
[2017-11-14 08:51] VITALS: BP 66/42
--- NOTE | 2017-11-14 08:54 | DISCHARGE SUMMARY E ---
Discharge Summary NAME: SHERITA CAPUTO : 1945 AGE: 72Y ADMITTED: 11/07/2017 DISCHARGED: 11/14/2017 FINAL DIAGNOSES: 1. Diabetes. 2. Morbid obesity. 3. Osteomyelitis, left foot. PROCEDURE: The patient underwent a left BKA on 11/12/2017. The procedure was uncomplicated. The patient also underwent endotracheal intubation and central venous line placement both done on 11/14/2017. HOSPITAL COURSE: A morbidly obese 72-year-old female with osteomyelitis of the left foot. The patient was admitted on November 07. She underwent evaluation by the surgeon health promotion manager, and on November 12, the patient underwent a left BKA without complication. On postop day number 1, the patient was stable, afebrile, comfortable,alert and oriented, tolerating p.o. well. The following morning, early, the patient presented with cardiac arrest. She underwent resuscitation on the floor, which required intubation and placement of central line. Following intubation and placement of central venous line, the patient was transferred to the ICU; however, she shortly after. The cause of is, at this point, to be determined and appears to be cardiac arrest with electromechanical dissociation. DICTATING PHYSICIAN: TERESE JOHNSON M.D. [id number] Y#: [id number] ID: [id number] JOB#: [id number] ACCT: [id number] cc:TERESE JOHNSON M.D. [facility] [facility], > [facility]
--- NOTE | 2017-11-14 10:25 | PDOC PROGRESS REPORT ---
Subjective Progress Note for:: 11/13/17 Subjective:: Patient today postop amputation surgery left lower extremity. Postop day 1. Patient has noted some nausea. Pt is denying any chest arm or neck discomfort. Patient denying any PND, orthopnea. Patient denied any sustained palpitations, dizziness, syncope, near syncope. Patient denying any fever chills. Patient denying any other significant discomfort. Patient is maintaining sinus rhythm. Review of systems: Rest review of systems negative. Medications: Medications have been reviewed. Reason For Visit: OSTEOMYELITIS OF LEFT FOOT Physical Exam Vital Signs: Temp Pulse Resp BP Pulse Ox 97.3 F 95 18 90/60 L 100 11/13/17 19:01 11/13/17 19:01 11/13/17 19:01 11/13/17 15:24 11/13/17 19:01 Intake & Output 11/12/17 11/13/17 11/14/17 06:59 06:59 06:59 Intake Total 8528 4943 1678 Output Total 1201 Balance 8528 3742 1678 Exam: GENERAL: well-nourished and in no acute distress. Alert and oriented x3 HEAD: Atraumatic, normocephalic. EYES: Pupils equal round and reactive to light, extraocular movements intact, sclera anicteric, conjunctiva are normal. ENT: TMs normal, nares patent, oropharynx clear without exudates. Moist mucous membranes. No oral ulcerations or bleeding gums noted NECK: supple without lymphadenopathy. Trachea is central. No cervical or axillary lymphadenopathy noted. Carotids are 2+, JVD WNL LUNGS: Respiration seems nonlabored, no significant accessory muscle action noted. Breath sounds clear to auscultation bilaterally and equal noted. No wheezes rales or rhonchi noted. No significant dullness noted on percussion. CHEST: Palpation of the chest wall shows no significant chest wall tenderness. No other significant abnormalities noted. 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 ABDOMEN: Soft, no significant tenderness appreciated, normoactive bowel sounds. No guarding, no rebound. No rigidity noted . No masses appreciated. EXTREMITIES: Bilateral BKA noted. NEUROLOGICAL: Focused neurological exam showed no significant neurologic deficit. Normal speech, no focal weakness appreciated. PSYCH: Normal mood, normal affect. Judgment and insight within normal limits. SKIN: No significant ecchymosis, skin is noted to be warm. MUSCULOSKELETAL EXAM: No significant acute joint swelling noted. Results Laboratory Results: 11/13/17 07:10 11/13/17 07:10 11/13/17 11/13/17 07:10 07:10 WBC 9.5 RBC 3.06 L Hgb 8.3 L Hct 26.4 L MCV 86 MCH 27.1 MCHC 31.4 L RDW 17.3 H Plt Count 224 Seg Neutrophils % 81.8 H Lymphocytes % 10.6 L Monocytes % 6.1 Eosinophils % 0.5 Basophils % 1.0 Absolute Neutrophils 7.7 Absolute Lymphocytes 1.0 Absolute Monocytes 0.6 Absolute Eosinophils 0.0 Absolute Basophils 0.1 Sodium 144.4 Potassium 4.9 Chloride 113 H Carbon Dioxide 14 L Anion Gap 17 BUN 33 H Creatinine 1.82 H Est GFR ( Amer) 33 L Est GFR (Non-Af Amer) 27 L Glucose 132 H Calcium 8.8 EKG Comments: Showed sinus rhythm without any significant bradycardia or tachycardia or other cardiac dysrhythmia. Impressions: Foot X-Ray 11/07/17 08:20 IMPRESSION: Osteomyelitis distal 5th metatarsal. Chest X-Ray 11/10/17 19:27 IMPRESSION: CARDIOMEGALY. LIMITED VISUALIZATION OF THE LEFT LUNG BASE. OTHERWISE NO ACUTE RADIOGRAPHIC FINDING IN THE CHEST. KUB X-Ray 11/13/17 00:00 IMPRESSION: Nonobstructive bowel gas pattern Assessment & Plan - Diagnosis (1) Preoperative cardiovascular examination Is this a current diagnosis for this admission?: Yes (2) Coronary artery disease Qualifiers: Coronary Disease-Associated Artery/Lesion type: [place] artery [place] vs. transplanted heart: [place] heart Associated angina: angina presence unspecified Qualified Code(s): I25.10 - Atherosclerotic heart disease of [place] coronary artery without angina pectoris Is this a current diagnosis for this admission?: Yes (3) Cardiomyopathy Qualifiers: Cardiomyopathy type: unspecified Qualified Code(s): I42.9 - Cardiomyopathy , unspecified Is this a current diagnosis for this admission?: Yes (4) Peripheral vascular disease Is this a current diagnosis for this admission?: Yes (5) Diabetes Qualifiers: Diabetes mellitus type: type 2 (6) Chronic kidney disease Qualifiers: Chronic kidney disease stage: stage 3 (moderate) Qualified Code(s): N18.3 - Chronic kidney disease, stage 3 (moderate) Is this a current diagnosis for this admission?: Yes (7) COPD (chronic obstructive pulmonary disease) Qualifiers: COPD type: unspecified COPD Qualified Code(s): J44.9 - Chronic obstructive pulmonary disease, unspecified Is this a current diagnosis for this admission?: Yes - Notes Notes: Patient is status post left BKA. This was for osteomyelitis. Patient had prior right BKA. There 1 postop. Stable from cardiac standpoint. As regards coronary artery disease she is stable. As regards cardiomyopathy patient has depressed LVEF. Will gradually try to optimize medical management while patient is in the hospital. Recent echocardiogram shows EF about the same as before. Diabetes: Currently satisfactorily controlled. Chronic kidney disease: Currently stable COPD: Patient has been advised to quit smoking. Continue with current management plans. Constipation and vomiting: Being managed by surgeon. - Time Time with patient: 15-25 minutes - More than 50% of the time spent coordinating care, discussing management plans with involved caregivers. Management plans discussed with involved personnels. Medical decision making was of moderate to high complexity, patient's has multiple comorbidities. Medications reviewed and adjusted accordingly: Yes
--- NOTE | 2017-11-14 20:39 | OPERATIVE REPORT E ---
Operative Report NAME: SHERITA CAPUTO : 1945 AGE: 72Y DATE OF SURGERY: 11/14/2017 ROOM: 611 PREOPERATIVE DIAGNOSES: 1. Cardiac arrest. 2. Need of intravenous access. POSTOPERATIVE DIAGNOSES: 1. Cardiac arrest. 2. Need of intravenous access. PROCEDURE: Placement of right femoral vein central venous line. SURGEON: TEERSE JOHNSON M.D. DOUGH MIXER: None. ESTIMATED BLOOD LOSS: Minimal. COMPLICATIONS: None. INDICATION AND FINDINGS: Morbidly obese 72-year-old female who underwent a left BKA on 11/12/2017. The patient presented in cardiac arrest in the early childhood specialist of 11/14 and I was requested to place a venous access catheter PROCEDURE: The procedure was done at bedside. With the patient being resuscitated with CPR , the right groin was prepped and draped in the usual fashion. A 16-gauge needle was used to easily cannulate the right femoral vein. A guidewire was inserted through the needle into the femoral vein and iliac vein. The needle was removed and needle insertion point was enlarged with a knife and a tissue dilator; the triple-lumen catheter was inserted very carefully over the guidewire into the femoral venous and iliac vein. The guidewire was then removed and the ports of the central venous lines were flushed with saline. The catheter was secured to the skin with sutures and connected to an IV fluid bag with good flow. DICTATING PHYSICIAN: TERESE JOHNSON M.D. [id number] PHY#: [id number] ID: [id number] JOB#: [id number] ACCT: [id number] cc:TERESE JOHNSON M.D. > MTDD
[2017-11-14] MEDS ORDERED: VANCOMYCIN HCL 750 MG in DEXTROSE 5%-WATER 250 ML IV SCH (22:00)
== END 2017-11-14 07:24 | DRG 617 ==
LOC: ER 07:51 → EH 10:13 → 4W 11:25 → ICU 11-14 07:19
PROVIDERS: ADMIT Surgery; ATTEND Surgery
PROC: 0Y6J0Z1 Detachment at Left Lower Leg, High, Open Approach (ICD-10-PCS; principal; 2017-11-12 07:30)
PROC: 5A1935Z Respiratory Ventilation, Less than 24 Consecutive Hours (ICD-10-PCS; 2017-11-14)
PROC: 0BH17EZ Insertion of Endotracheal Airway into Trachea, Via Natural or Artificial Opening (ICD-10-PCS; 2017-11-14)
PROC: 06HY33Z Insertion of Infusion Device into Lower Vein, Percutaneous Approach (ICD-10-PCS; 2017-11-14)
DX: E11.69 Type 2 diabetes mellitus with other specified complication (principal); M86.172 Other acute osteomyelitis, left ankle and foot; I42.9 Cardiomyopathy, unspecified; E66.01 Morbid (severe) obesity due to excess calories; Z68.33 Body mass index [BMI] 33.0-33.9, adult; I25.10 Atherosclerotic heart disease of native coronary artery without angina pectoris; R57.0 Cardiogenic shock; I12.9 Hypertensive chronic kidney disease with stage 1 through stage 4 chronic kidney disease, or unspecified chronic kidney disease; E11.51 Type 2 diabetes mellitus with diabetic peripheral angiopathy without gangrene; N18.3 Chronic kidney disease, stage 3 (moderate); J44.9 Chronic obstructive pulmonary disease, unspecified; E11.22 Type 2 diabetes mellitus with diabetic chronic kidney disease; K44.9 Diaphragmatic hernia without obstruction or gangrene; K75.9 Inflammatory liver disease, unspecified; F32.9 Major depressive disorder, single episode, unspecified; D63.1 Anemia in chronic kidney disease; I69.30 Unspecified sequelae of cerebral infarction; Z74.01 Bed confinement status; Z89.511 Acquired absence of right leg below knee; Z60.2 Problems related to living alone; Z79.82 Long term (current) use of aspirin; Z79.4 Long term (current) use of insulin; Z79.899 Other long term (current) drug therapy; Z88.6 Allergy status to analgesic agent; Z91.013 Allergy to seafood; Z82.49 Family history of ischemic heart disease and other diseases of the circulatory system
CPT/HCPCS: 01482; 36415; 71045; 74018; 80048; 80053; 80061; 80202; 82533; 82565; 82962; 83036; 83735; 85025; 85610; 86850; 86900; 86901; 87040; 88307; 88311; 93005; 93010; 93306; 94002; 96365; 96367; 99285; J0131; J0171; J1815; J2250; J2270; J2310; J2405; J2543; J2550; J2704; J3010; J3370; J3490; J7030; J7060; L1830